=== PATIENT | female | born 1945 | race Caucasian/White ===

== ENCOUNTER → 2016-08-23 | Outpatient (REF) | payer MEDICARE, MEDICAID ==
[~2016-08-23] MED LIST: /ESOM40CA PO; ACET-654 PO; ACET650T12 PO; ALDA25TA PO; ALLE180T33 PO; ASPI325T PO; ATEN25TA PO; BACT800T5 PO; DICL250C70 PO; DIGO0.12 PO; DIGO0.126 OR; DOCU100C PO; DRIS50002 PO; FERR220E2 PO; FEXO60CA PO; FLAG500T PO; FURO20TA2 PO; LACT10SO29 PO; LASI20TA PO; LASI40TA PO; LISI25TA PO; NEXI40CA PO; OSTETAB PO; POTA10CA PO; PRAD150C PO; PRED10TA PO; PRED5TA PO; SERT-141 PO; SILV50CR TOP; SPIR25TA2 PO; TORS20TA2 PO; TUMS500C PO; TYLE325T5 PO; TYLE650T30 PO; VITA-113 SL; VITA100T PO; VITA50LO2 PO; VITAD1000T PO; VITMTA PO; [UNRECOGNIZED DRUG - CODE] MT
[2016-08-23 11:28] LABS: CREATININE FOR GFR 1.67 MG/DL (0.55-1.02); DIGOXIN LEVEL 1.4 NG/ML (0.5-2.0); GLOMERULAR FILTRATION RATE 32.4 (>45); POTASSIUM SERUM 4.2 MEQ/L (3.5-5.1)
== END ==
PROVIDERS: ATTEND Nurse Practitioner Family
DX: R60.9 Edema, unspecified (principal); Z51.81 Encounter for therapeutic drug level monitoring; Z79.899 Other long term (current) drug therapy; R06.02 Shortness of breath

== ENCOUNTER 2016-08-30 09:36 | Inpatient (IN) | payer MEDICARE, MEDICAID ==
[~2016-08-30] VITALS: Ht 165.1 cm; Wt 80.7 kg
[~2016-08-30 09:36] MED LIST changes: -ACET-654 PO; -FLAG500T PO; -LISI25TA PO; -POTA10CA PO; -SERT-141 PO; -TORS20TA2 PO; -VITA100T PO; -VITMTA PO
[2016-08-30 10:43] LABS: BASO % 0.4 % (0.0-1.0); EOS # 0.2 K/mm3 (0.0-0.50); EOS % 2.4 % (0.0-3.0); LARGE UNSTAINED CELL # 0.2 K/mm3 (0.0-0.4); LARGE UNSTAINED CELL % 2.4 % (0.0-4.0); LYMPH # 1.2 K/mm3 (1.5-4.5); LYMPH % 16.6 % (24.0-44.0); MEAN CORPUSCULAR HEMOGLOBIN 33.9 pg (27.0-33.0); MEAN CORPUSCULAR HGB CONC 35.1 g/dl (32.0-36.5); MEAN CORPUSCULAR VOLUME 96.6 fl (80.0-96.0); MONO # 0.6 K/mm3 (0.0-0.8); MONO % 8.9 % (0.0-5.0); NEUTROPHILS # 4.8 K/mm3 (1.8-7.7); NEUTROPHILS % 69.3 % (36.0-66.0); PLATELET COUNT, AUTOMATED 227 k/mm3 (150-450); RED CELL DISTRIBUTION WIDTH 12.5 % (11.5-14.5); WHITE BLOOD COUNT 6.9 K/mm3 (4.0-10.0)
--- NOTE | 2016-08-30 10:47 | REP ---
CT HEAD WITHOUT CONTRAST: HISTORY: Trauma. Areas of decreased attenuation are present in the periventricular white matter. This represents small vessel ischemic disease. There is no intraparenchymal hemorrhage, mass, or midline shift. The ventricular system and cortical sulci are dilated consistent with mild volume loss. There is no extracerebral collection. A matty cisterna magna is present. There is no fracture. The visualized sinuses are clear. IMPRESSION: 1. Small vessel ischemic disease. 2. Mild volume loss. Signed by Ranulfo Arnold MD 08/30/2016 11:01 A
--- NOTE | 2016-08-30 10:47 | REP ---
Left lower extremity venous Doppler: Indication: Left leg pain and swelling after fall. Comparison: Left lower extremity venous Doppler 01/11/2016. Findings: LEFT LOWER EXTREMITY FINDINGS: Color-flow, spectral wave, and olivas scale imaging were used to evaluate the lower extremity veins at common femoral, superficial femoral and popliteal venous levels. There is normal compressibility of veins at the above stated levels. There is normal response to augmentation of flow. The profunda femoris vein is also patent. IMPRESSION: No evidence of DVT in the left lower extremity. MTDD
[2016-08-30 11:15] LABS: ALBUMIN 3.7 GM/DL (3.2-5.2); ALBUMIN/GLOBULIN RATIO 1.32 (1.00-1.93); BILIRUBIN,DIRECT 0.2 MG/DL (0.0-0.2); BILIRUBIN,TOTAL 0.6 MG/DL (0.2-1.0); CALCIUM LEVEL 10.2 MG/DL (8.8-10.2); CREATININE FOR GFR 1.68 MG/DL (0.55-1.02); GLOMERULAR FILTRATION RATE 32.2 (>45); POTASSIUM SERUM 4.7 MEQ/L (3.5-5.1); TOTAL PROTEIN 6.5 GM/DL (6.4-8.2)
[2016-08-30 13:30] LABS: ABG BASE EXCESS -0.5 (-2.0-2.0); ABG DEVICE NASAL CANN; ABG HCO3 23.6 MEQ/L (22.0-26.0); ABG PARTIAL PRESSURE CO2 37.2 mmHg (35.0-45.0); ABG PARTIAL PRESSURE O2 107.6 mmHg (75.0-100.0); ABG TOTAL CO2 24.8 MEQ/L (23.0-31.0); ABG pH (ARTERIAL) 7.421 UNITS (7.350-7.450)
[2016-08-30] MEDS ORDERED: TORS20TA2 PO (13:34)
--- NOTE | 2016-08-30 13:38 | REP ---
Clinical: Acute shortness of breath . Comparison: 08/16/2015 . Findings: The mediastinum and cardiac silhouette are stable and within normal limits for portable technique. The lung rush are clear without acute consolidation, effusion, or pneumothorax. Skeletal structures are intact. Impression: Stable chest x-ray. No acute cardiopulmonary process appreciated. Signed by Kevin Jones MD 08/30/2016 01:30 P
[2016-08-30] MEDS ORDERED: LISI25TA PO (13:41)
[2016-08-30] MEDS ORDERED: PRED10TA PO (13:41)
[2016-08-30] MEDS ORDERED: SPIR25TA2 PO (13:41)
[2016-08-30] MEDS ORDERED: POTA10CA PO (13:41)
[2016-08-30] MEDS ORDERED: ACET-654 PO ×2 (13:41)
[2016-08-30] MEDS ORDERED: VITA100T PO (13:41)
[2016-08-30] MEDS ORDERED: SERT-141 PO (13:41)
[2016-08-30] MEDS ORDERED: VITMTA PO (13:43)
[2016-08-30] MEDS ORDERED: BISACODYL 5 MG TAB PO PRN (14:00)
[2016-08-30] MEDS ORDERED: ONDANSETRON 4MG/2ML VIAL (J2405) IV PRN (14:00)
[2016-08-30 14:58] LABS: OSMOLALITY URINE 399 MOSM/KG (500-800)
[2016-08-30] MEDS: NS 1,000 ML IV SCH (15:30)
[2016-08-30 16:30] VITALS: BP 96/53
--- NOTE | 2016-08-30 16:45 | EDDOCDS ---
Physician Documentation [facility] Name: Indira Willis Age: 71 yrs Sex: Female : 1945 Arrival Date: 08/30/2016 Time: 09:36 Bed 8 Private MD: Yusuf Disposition: 08/30/16 13:40 Hospitalization ordered by Elena Rizvi for Inpatient Admission. Preliminary diagnosis is Hypotension. - Bed requested for 4 [place]. - Status is Inpatient Admission. mlb1 - Condition is Stable. - Problem is new. - Symptoms are unchanged. Historical: - Allergies: Codeine Sulfate (Rash); - Home Meds: 1. Vitamin B-12 1,000 mcg Oral tab daily 2. prednisone 5 mg oral tab every other days alternates 5mg and 10 mg every other day 3. ferrous sulfate 220 mg/5 mL oral elix daily 4. vitamin B12 100mcg daily 5. multivitamin Oral tab daily 6. esomeprazole magnesium 40 mg Oral cpDR 1 cap once daily 7. digoxin 125 mcg Oral tab 1 tab once daily 8. atenolol 25 mg Oral tab 1 tab once daily 9. Drisdol 50,000 unit Oral cap once wkly fridays 10. Zoloft 50 mg Oral tab 1 tab once daily 11. Klor-Con 10 10 mEq Oral TbER 1 tab once daily 12. spironolactone 25 mg Oral tab 1 tab once daily 13. lisinopril 2.5 mg Oral tab once daily 14. torsemide 20 mg oral tab 1 tab once daily 15. Honey 180 mg Oral tab 1 tab once daily 16. Colace 100 mg oral cap 1 cap 2 times per day - PMHx: Atrial Fib; bladder CA; CHF; Cirrhosis; Diverticulosis; GERD; Hypercholesterolemia; Hypertension; Hiatal Hernia; - PSHx: Pacemaker Insertion; Cataract Surgery- Bilateral; Hernia repair; - Social history: Smoking status: unknown if patient ever smoked tobacco. No barriers to communication noted, The patient speaks fluent Congolese, Speaks appropriately for age. - Family history: Not pertinent. - : The pt / caregiver states he / she is not on anticoagulants. The pt / caregiver states he / she is not on anticoagulants. Home medication list is obtained from the facility MAR, Home medication list is obtained from the facility MAR. - Exposure Risk Screening:: None identified. None identified. Vital Signs: 08/30 09:47 BP 108 / 62; Pulse 71; Resp 20; Temp 96.6; Pulse Ox 100% ; Weight 78.93 kg / 174.01 jlf lbs; Height 5 ft. 5 in. (165.10 cm); Pain 4/10; 10:46 BP 72 / 40 (auto/); mlb1 10:46 Pulse 66 MON; Pulse Ox 97% ; mlb1 11:01 BP 69 / 42 (auto/); mlb1 11:02 Pulse 62 MON; Pulse Ox 98% ; mlb1 11:14 BP 72 / 48 (auto/); mlb1 11:15 Pulse 66 MON; Pulse Ox 99% ; mlb1 11:16 BP 82 / 48 (auto/); mlb1 11:16 Pulse 66 MON; Pulse Ox 100% ; mlb1 11:31 BP 88 / 50 (auto/); mlb1 11:31 Pulse 62 MON; Pulse Ox 100% ; mlb1 11:46 BP 100 / 56 (auto/); mlb1 11:46 Pulse 62 MON; Pulse Ox 98% ; mlb1 12:32 BP 113 / 62 Supine; Pulse 68; mlb1 12:32 BP 115 / 62 Sitting; Pulse 74; mlb1 12:32 BP 121 / 63 Standing; Pulse 73; mlb1 12:44 Pulse 64 MON; Pulse Ox 99% ; kc3 12:45 BP 80 / 47 (auto/); kc3 12:55 Pulse 64 MON; Pulse Ox 97% ; kc3 12:56 BP 88 / 51 (auto/); kc3 12:59 Pulse 64 MON; Pulse Ox 99% ; kc3 13:00 BP 78 / 51 (auto/); kc3 13:13 Pulse 62 MON; Pulse Ox 100% ; kc3 13:14 BP 98 / 56 (auto/); kc3 13:15 BP 83 / 65 (auto/); kc3 13:15 Pulse 60 MON; Pulse Ox 100% ; kc3 13:30 BP 106 / 56 (auto/); mlb1 13:30 Pulse 62 MON; Pulse Ox 99% ; mlb1 13:45 BP 104 / 61 (auto/); mlb1 13:45 Pulse 62 MON; Pulse Ox 96% ; mlb1 14:00 BP 94 / 51 (auto/); mlb1 14:00 Pulse 62 MON; Pulse Ox 98% ; mlb1 14:19 BP 104 / 69 (auto/); mlb1 14:19 Pulse 62 MON; Pulse Ox 100% ; mlb1 15:00 BP 91 / 56 (auto/); mlb1 15:00 Pulse 66 MON; Pulse Ox 100% ; mlb1 15:14 Pulse 64 MON; Pulse Ox 99% ; mlb1 15:14 BP 99 / 56; Pulse 62; Resp 16; Temp 97.1(O); Pulse Ox 100% on R/A; Pain 0/10; mlb1 15:15 BP 98 / 60 (auto/); mlb1 15:29 Pulse 62 MON; Pulse Ox 98% ; mlb1 15:30 BP 76 / 41 (auto/); mlb1 15:44 Pulse 64 MON; Pulse Ox 97% ; mlb1 15:45 BP 69 / 32 (auto/); mlb1 15:45 Pulse 60 MON; Pulse Ox 97% ; mlb1 15:46 BP 72 / 36 (auto/); mlb1 15:47 Pulse 70 MON; Pulse Ox 96% ; mlb1 15:48 Pulse 66 MON; Pulse Ox 97% ; mlb1 15:48 BP 80 / 46 (auto/); mlb1 15:49 BP 79 / 44 (auto/); mlb1 15:58 Pulse 66 MON; Pulse Ox 90% ; mlb1 15:59 BP 108 / 56 (auto/); mlb1 16:13 Pulse Ox 100% on R/A; mlb1 09:47 Body Mass Index 28.95 (78.93 kg, 165.10 cm) [facility] MDM: 09:56 Cotton Washer/Pulse Ox/q 15 min VS ordered. sd1 09:56 IV Saline Lock ordered. sd1 09:56 Rhythm Strip to chart ordered. sd1 09:56 Orthostatic VS ordered. sd1 09:56 CT Head Without Contrast Ordered. EDMS 09:56 CBC with Diff Ordered. EDMS 09:56 Cardiac Injury Profile Ordered. EDMS 09:56 Liver Profile Ordered. EDMS 09:56 MED Profile Ordered. EDMS 09:56 Thyroid Stimulating Hormone Ordered. EDMS 09:56 Troponin Ordered. EDMS 09:56 Type & Screen Ordered. EDMS 09:57 ECG WITH READING ER PHYS+CARDIAG ordered. EDMS 09:59 US Lower Extremity R/O DVT Ordered. EDMS 10:33 Financial registration complete. mm15 10:59 CBC with Diff Reviewed. sd1 11:15 NS 0.9% 500 ml IV at bolus once ordered. sd1 11:36 MED Profile Reviewed. sd1 11:36 Cardiac Injury Profile Reviewed. sd1 11:36 Liver Profile Reviewed. sd1 11:36 Thyroid Stimulating Hormone Reviewed. sd1 11:36 Troponin Reviewed. sd1 11:36 Type & Screen Reviewed. sd1 11:36 CT Head Without Contrast Reviewed. sd1 11:36 US Lower Extremity R/O DVT Reviewed. sd1 11:38 UA Ordered. EDMS 11:38 Urine,Osmolality Ordered. EDMS 11:38 Urine Culture Ordered. EDMS 11:44 [facility] Payment Agreement was scanned into [employer] and attached to record. mm15 12:40 Type & Screen Reviewed. sd1 12:42 BED REQUEST+ADM ordered. EDMS 12:44 Call Respiratory ordered. sd1 12:44 Chest, 1 View Ordered. EDMS 12:44 -Arterial Blood Gas Ordered. EDMS 12:44 Ammonia ([place] Tube on Ice, Not Pea Green) Ordered. EDMS 12:47 Call Respiratory complete. lbd 12:52 Lactic Acid (Cheng tube on ice) Ordered. EDMS 13:06 NS 0.9% 1000 ml IV at 150 mL/hr continuous ordered. sd1 13:17 NS 0.9% 500 ml IV at bolus once ordered. kc3 13:32 -Arterial Blood Gas Reviewed. sd1 13:32 Ammonia (Little Green Tube on Ice, Not Pea Green) Reviewed. sd1 13:32 Lactic Acid (Cheng tube on ice) Reviewed. sd1 13:58 PHYSICAL THERAPY EVAL & TREAT ordered. EDMS 13:59 Admission / Observation Status ordered. EDMS 13:59 NO ADDED SALT DIET ordered. EDMS 14:00 URINALYSIS Ordered. EDMS 14:48 Chest, 1 View Reviewed. sd1 Administered Medications: 11:19 Drug: NS 0.9% 500 ml [sodium chloride 0.9 % injection solution] Route: IV; Rate: bolus; mlb1 Site: right antecubital; 12:31 Follow up: IV Status: Completed infusion; see vs in NN mlb1 13:17 Drug: NS 0.9% 500 ml [sodium chloride 0.9 % intravenous solution] Route: IV; Rate: kc3 bolus; Site: right antecubital; 13:48 Drug: NS 0.9% 1000 ml [sodium chloride 0.9 % injection solution] Route: IV; Rate: 150 mlb1 mL/hr; Site: right antecubital; Signatures: Dispatcher [employer] EDMS Darlene Freedman MD MD sd1 Indira Melendrez, Irrigating Pump Operator Unit lbd Jm Patel RN RN mlb1 Stevenson Mayer mm15 Jhoan Lambert RN RN mts Jessika Alonzo RN RN kc3 The chart was reviewed and I authenticate all verbal orders and agree with the evaluation and treatment provided.Attachments: 11:44 [facility], [facility]1983 Payment Agreement mm15 MTDD
--- NOTE | 2016-08-30 16:45 | EDDOCDS ---
Nurse's Notes [facility] Name: Indira Willis Age: 71 yrs Sex: Female : 1945 Arrival Date: 08/30/2016 Time: 09:36 Bed 8 Private MD: Yusuf Diagnosis: Hypotension Presentation: 08/30 09:47 Presenting complaint: EMS states: Fell twice this am denies LOC c/o headache and neck mlb1 pain. Adult Sepsis Screening: The patient does not have new or worsening altered mentation. Patient's respiratory rate is less than 22. Systolic blood pressure is greater than 100. Patient has a qSOFA score of 0- Negative Sepsis Screen. Suicide/Homicide risk assessment- the patient denies having any suicidal and/or homicidal ideations and does not present with any other emotional, behavioral or mental health complaints. 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 Transition of care: patient was not received from another setting of care. 09:47 Acuity: SANDI Level 3 mlb1 09:47 Method Of Arrival: Walkin/Carried/Asstd mlb1 Triage Assessment: 10:02 General: Appears in no apparent distress, Behavior is appropriate for age, cooperative. mlb1 Pain: Denies pain. The patient is triaged at the bedside. See Assessment in Nurses Notes section of ED record. Neurological: Level of Consciousness is awake, alert, Oriented to person, place, time. Respiratory: Airway is patent Respiratory effort is even, unlabored. Historical: - Allergies: Codeine Sulfate (Rash); - Home Meds: 1. Vitamin B-12 1,000 mcg Oral tab daily 2. prednisone 5 mg oral tab every other days alternates 5mg and 10 mg every other day 3. ferrous sulfate 220 mg/5 mL oral elix daily 4. vitamin B12 100mcg daily 5. multivitamin Oral tab daily 6. esomeprazole magnesium 40 mg Oral cpDR 1 cap once daily 7. digoxin 125 mcg Oral tab 1 tab once daily 8. atenolol 25 mg Oral tab 1 tab once daily 9. Drisdol 50,000 unit Oral cap once wkly fridays 10. Zoloft 50 mg Oral tab 1 tab once daily 11. Klor-Con 10 10 mEq Oral TbER 1 tab once daily 12. spironolactone 25 mg Oral tab 1 tab once daily 13. lisinopril 2.5 mg Oral tab once daily 14. torsemide 20 mg oral tab 1 tab once daily 15. Honey 180 mg Oral tab 1 tab once daily 16. Colace 100 mg oral cap 1 cap 2 times per day - PMHx: Atrial Fib; bladder CA; CHF; Cirrhosis; Diverticulosis; GERD; Hypercholesterolemia; Hypertension; Hiatal Hernia; - PSHx: Pacemaker Insertion; Cataract Surgery- Bilateral; Hernia repair; - Social history: Smoking status: unknown if patient ever smoked tobacco. No barriers to communication noted, The patient speaks fluent Guamanian, Speaks appropriately for age. - Family history: Not pertinent. - : The pt / caregiver states he / she is not on anticoagulants. The pt / caregiver states he / she is not on anticoagulants. Home medication list is obtained from the facility MAR, Home medication list is obtained from the facility MAR. - Exposure Risk Screening:: None identified. None identified. Screenin:36 Screening information is obtained from the patient. Fall risk: At risk due to prior mlb1 history of falls, The following interventions are performed due to a positive Fall Risk Screen: Fall Risk is added to Special Handling on the patient Summary Screen. A Fall Risk Bracelet was applied to the patient. Side Rails are placed in the up position. A Call Blevins is given with instruction to call for help when getting out of bed. Fall Alert bracelet is placed on the patient. Assistance ADL's: Requires assistance with meal preparation, this assistance is provided by residence staff, medication administration, assistance is provided by residence staff. Abuse/DV Screen: The patient / caregiver reports he/she is: not in a situation that causes fear, pain or injury. Advance Directives: Currently, there is no health care proxy. There is no active DNR order. 15:17 Nutritional screening: No deficits noted. home support is adequate. mlb1 Assessment: 10:36 General: Appears in no apparent distress, comfortable, Behavior is anxious, mlb1 cooperative. Pain: Denies pain. Neurological: Level of Consciousness is awake, alert, Oriented to person, place, time. Respiratory: Airway is patent Respiratory effort is even, unlabored, Breath sounds are clear bilaterally. Musculoskeletal: Circulation, motion, and sensation intact Range of motion intact in all extremities. 11:30 Adult Sepsis Screening: The patient does not have new or worsening altered mentation. mlb1 Patient's respiratory rate is less than 22. Systolic blood pressure is greater than 100. Patient has a qSOFA score of 0- Negative Sepsis Screen. General: Appears in no apparent distress, comfortable, Behavior is anxious, cooperative. Pain: Denies pain. Neurological: Level of Consciousness is awake, alert, Oriented to person, place, time. Respiratory: No deficits noted. Derm: Skin is pink, warm & dry. normal. 12:33 Adult Sepsis Screening: The patient does not have new or worsening altered mentation. mlb1 Patient's respiratory rate is less than 22. Systolic blood pressure is greater than 100. Patient has a qSOFA score of 0- Negative Sepsis Screen. General: Appears in no apparent distress, comfortable, Behavior is anxious, cooperative. Pain: Denies pain. Neurological: Level of Consciousness is awake, alert, Oriented to person, place, time. Respiratory: No deficits noted. 13:20 General: Appears to be sleeping. Behavior is appropriate for age. Neurological:. kc3 Cardiovascular: Rhythm is regular. Respiratory: Airway is patent Respiratory effort is even, unlabored. Musculoskeletal: Circulation, motion, and sensation intact. 14:20 General: Appears in no apparent distress, comfortable, Behavior is appropriate for age, mlb1 cooperative. Pain: Denies pain. Neurological: Level of Consciousness is awake, alert, Oriented to person, place, time. Respiratory: No deficits noted. 15:17 General: Appears in no apparent distress, comfortable, Behavior is anxious, mlb1 cooperative. Pain: Denies pain. Neurological: Level of Consciousness is awake, alert, Oriented to person, place, time. Respiratory: Airway is patent Respiratory effort is even, unlabored. Derm: No deficits noted. 16:11 Adult Sepsis Screening: The patient does not have new or worsening altered mentation. mlb1 Patient's respiratory rate is less than 22. Systolic blood pressure is greater than 100. Patient has a qSOFA score of 0- Negative Sepsis Screen. General: Appears in no apparent distress, comfortable, Behavior is appropriate for age, cooperative. Pain: Denies pain. Vital Signs: 09:47 BP 108 / 62; Pulse 71; Resp 20; Temp 96.6; Pulse Ox 100% ; Weight 78.93 kg; Height 5 jlf ft. 5 in. (165.10 cm); Pain 4/10; 10:46 BP 72 / 40 (auto/); mlb1 10:46 Pulse 66 MON; Pulse Ox 97% ; mlb1 11:01 BP 69 / 42 (auto/); mlb1 11:02 Pulse 62 MON; Pulse Ox 98% ; mlb1 11:14 BP 72 / 48 (auto/); mlb1 11:15 Pulse 66 MON; Pulse Ox 99% ; mlb1 11:16 BP 82 / 48 (auto/); mlb1 11:16 Pulse 66 MON; Pulse Ox 100% ; mlb1 11:31 BP 88 / 50 (auto/); mlb1 11:31 Pulse 62 MON; Pulse Ox 100% ; mlb1 11:46 BP 100 / 56 (auto/); mlb1 11:46 Pulse 62 MON; Pulse Ox 98% ; mlb1 12:32 BP 113 / 62 Supine; Pulse 68; mlb1 12:32 BP 115 / 62 Sitting; Pulse 74; mlb1 12:32 BP 121 / 63 Standing; Pulse 73; mlb1 12:44 Pulse 64 MON; Pulse Ox 99% ; kc3 12:45 BP 80 / 47 (auto/); kc3 12:55 Pulse 64 MON; Pulse Ox 97% ; kc3 12:56 BP 88 / 51 (auto/); kc3 12:59 Pulse 64 MON; Pulse Ox 99% ; kc3 13:00 BP 78 / 51 (auto/); kc3 13:13 Pulse 62 MON; Pulse Ox 100% ; kc3 13:14 BP 98 / 56 (auto/); kc3 13:15 BP 83 / 65 (auto/); kc3 13:15 Pulse 60 MON; Pulse Ox 100% ; kc3 13:30 BP 106 / 56 (auto/); mlb1 13:30 Pulse 62 MON; Pulse Ox 99% ; mlb1 13:45 BP 104 / 61 (auto/); mlb1 13:45 Pulse 62 MON; Pulse Ox 96% ; mlb1 14:00 BP 94 / 51 (auto/); mlb1 14:00 Pulse 62 MON; Pulse Ox 98% ; mlb1 14:19 BP 104 / 69 (auto/); mlb1 14:19 Pulse 62 MON; Pulse Ox 100% ; mlb1 15:00 BP 91 / 56 (auto/); mlb1 15:00 Pulse 66 MON; Pulse Ox 100% ; mlb1 15:14 Pulse 64 MON; Pulse Ox 99% ; mlb1 15:14 BP 99 / 56; Pulse 62; Resp 16; Temp 97.1(O); Pulse Ox 100% on R/A; Pain 0/10; mlb1 15:15 BP 98 / 60 (auto/); mlb1 15:29 Pulse 62 MON; Pulse Ox 98% ; mlb1 15:30 BP 76 / 41 (auto/); mlb1 15:44 Pulse 64 MON; Pulse Ox 97% ; mlb1 15:45 BP 69 / 32 (auto/); mlb1 15:45 Pulse 60 MON; Pulse Ox 97% ; mlb1 15:46 BP 72 / 36 (auto/); mlb1 15:47 Pulse 70 MON; Pulse Ox 96% ; mlb1 15:48 Pulse 66 MON; Pulse Ox 97% ; mlb1 15:48 BP 80 / 46 (auto/); mlb1 15:49 BP 79 / 44 (auto/); mlb1 15:58 Pulse 66 MON; Pulse Ox 90% ; mlb1 15:59 BP 108 / 56 (auto/); mlb1 16:13 Pulse Ox 100% on R/A; mlb1 09:47 Body Mass Index 28.95 (78.93 kg, 165.10 cm) [facility] Vitals: 10:36 Log In Time N/A - ambulance arrival. mlb1 ED Course: 09:37 Patient visited by Indira Melendrez Engineering Intern. lbd 09:37 Yusuf is Private Physician. lbd 09:37 Patient moved to Waiting lbd 09:38 Patient moved to 8 lbd 09:46 Darlene Freedman MD is Attending Physician. sd1 09:46 Patient visited by Darlene Freedman MD. sd1 09:47 Patient visited by Jm Patel RN. mlb1 09:48 Patient visited by Gemini Reynoso PCA. jlf 09:48 Triage Initiated mlb1 10:06 Patient visited by Gemini Reynoso PCA. jlf 10:06 Patient visited by Gemini Reynoso PCA. jlf 10:06 EKG done. (by ED staff). Reviewed by Darlene Freedman MD. jlf 10:35 Type & Screen Sent. mlb1 10:35 CBC with Diff Sent. mlb1 10:35 Cardiac Injury Profile Sent. mlb1 10:35 Liver Profile Sent. mlb1 10:35 MED Profile Sent. mlb1 10:35 Thyroid Stimulating Hormone Sent. mlb1 10:35 Troponin Sent. mlb1 10:36 Inserted saline lock: 20 gauge in right antecubital area and blood collected. The mlb1 patient tolerated the procedure well. 10:38 Patient visited by Jm Patel, CHRIS. mlb1 11:18 Patient visited by Gemini Reynoso PCA. jlf 11:20 The patient / caregiver is instructed regarding the plan of care and ED course. mlb1 11:29 CT Head Without Contrast Returned. EDMS 11:29 US Lower Extremity R/O DVT Returned. EDMS 11:33 Patient visited by Gemini Reynoso PCA. jlf 11:44 [facility] Payment Agreement was scanned into [employer] and attached to record. mm15 12:33 Patient visited by Jm Patel RN. mlb1 12:33 No procedures done that require assistance. mlb1 12:59 Lactic Acid (Cheng tube on ice) Sent. jrd 12:59 Ammonia (Little Green Tube on Ice, Not Pea Green) Sent. jrd 13:23 Patient visited by Jessika Alonzo RN. kc3 13:27 -Arterial Blood Gas Sent. js11 13:40 Elena Rizvi is Hospitalizing Provider. sd1 14:14 Chest, 1 View Returned. EDMS 14:34 URINALYSIS Sent. mlb1 14:37 Urine Culture Sent. mlb1 14:37 Urine,Osmolality Sent. mlb1 14:37 UA Sent. mlb1 14:47 Patient visited by Kenna Sy PCA. rs6 14:47 Diet: Patient given regular meal. Tolerated well. rs6 16:15 Patient visited by Jm Patel, CHRIS. mlb1 Administered Medications: 11:19 Drug: NS 0.9% 500 ml [sodium chloride 0.9 % injection solution] Route: IV; Rate: bolus; mlb1 Site: right antecubital; 12:31 Follow up: IV Status: Completed infusion; see vs in NN mlb1 13:17 Drug: NS 0.9% 500 ml [sodium chloride 0.9 % intravenous solution] Route: IV; Rate: kc3 bolus; Site: right antecubital; 13:48 Drug: NS 0.9% 1000 ml [sodium chloride 0.9 % injection solution] Route: IV; Rate: 150 mlb1 mL/hr; Site: right antecubital; Intake: RT: 13:27 ABG's drawn from right radial artery allens test done and positive pressure held for 5 js11 minutes no bleeding noted specimen sent pt. tolerated well. Order Results: Lab Order: CBC with Diff; SPEC'M 08/30/16 10:33 Test: WHITE BLOOD COUNT; Value: 6.9; Range: 4.0-10.0; Units: K/mm3; Status: F Test: RED BLOOD COUNT; Value: 3.54; Range: 4.00-5.40; Abnormal: Below low normal; Units: M/mm3; Status: F Test: HEMOGLOBIN; Value: 12.0; Range: 12.0-16.0; Units: g/dl; Status: F Test: HEMATOCRIT; Value: 34.1; Range: 36.0-47.0; Abnormal: Below low normal; Units: %; Status: F Test: MEAN CORPUSCULAR VOLUME; Value: 96.6; Range: 80.0-96.0; Abnormal: Above high normal; Units: fl; Status: F Test: MEAN CORPUSCULAR HEMOGLOBIN; Value: 33.9; Range: 27.0-33.0; Abnormal: Above high normal; Units: pg; Status: F Test: MEAN CORPUSCULAR HGB CONC; Value: 35.1; Range: 32.0-36.5; Units: g/dl; Status: F Test: RED CELL DISTRIBUTION WIDTH; Value: 12.5; Range: 11.5-14.5; Units: %; Status: F Test: PLATELET COUNT, AUTOMATED; Value: 227; Range: 150-450; Units: k/mm3; Status: F Test: NEUTROPHILS %; Value: 69.3; Range: 36.0-66.0; Abnormal: Above high normal; Units: %; Status: F Test: LYMPH %; Value: 16.6; Range: 24.0-44.0; Abnormal: Below low normal; Units: %; Status: F Test: MONO %; Value: 8.9; Range: 0.0-5.0; Abnormal: Above high normal; Units: %; Status: F Test: EOS %; Value: 2.4; Range: 0.0-3.0; Units: %; Status: F Test: BASO %; Value: 0.4; Range: 0.0-1.0; Units: %; Status: F Test: LARGE UNSTAINED CELL %; Value: 2.4; Range: 0.0-4.0; Units: %; Status: F Test: NEUTROPHILS #; Value: 4.8; Range: 1.8-7.7; Units: K/mm3; Status: F Test: LYMPH #; Value: 1.2; Range: 1.5-4.5; Abnormal: Below low normal; Units: K/mm3; Status: F Test: MONO #; Value: 0.6; Range: 0.0-0.8; Units: K/mm3; Status: F Test: EOS #; Value: 0.2; Range: 0.0-0.50; Units: K/mm3; Status: F Test: BASO #; Value: 0.0; Range: 0.0-0.2; Units: K/mm3; Status: F Test: LARGE UNSTAINED CELL #; Value: 0.2; Range: 0.0-0.4; Units: K/mm3; Status: F Lab Order: Cardiac Injury Profile; SPEC'M 08/30/16 10:33 Test: CPK CREATINE PHOSPHOKINASE; Value: 53; Range: 26-192; Units: U/L; Status: F Test: CK-MB VALUE MASS; Value: 1.8; Range: 0.0-3.6; Units: NG/ML; Status: F Test: MB/CK RELATIVE INDEX; Value: 3.39; Range: < OR =4; Status: F Test Note: ; DIAGNOSIS CRITERIA MMB ng/ml Relative Index (RI) NON-AMI < or = 5 N/A CHENG ZONE > 5 < or = 4 AMI > 5 > 4 Lab Order: Liver Profile; SPEC'M 08/30/16 10:33 Test: AST/SGOT; Value: 19; Range: 15-37; Units: U/L; Status: F Test: ALT/SGPT; Value: 29; Range: 12-78; Units: U/L; Status: F Test: ALKALINE PHOSPHATASE; Value: 76; Range: 45-117; Units: U/L; Status: F Test: BILIRUBIN,TOTAL; Value: 0.6; Range: 0.2-1.0; Units: MG/DL; Status: F Test: BILIRUBIN,DIRECT; Value: 0.2; Range: 0.0-0.2; Units: MG/DL; Status: F Test: TOTAL PROTEIN; Value: 6.5; Range: 6.4-8.2; Units: GM/DL; Status: F Test: ALBUMIN; Value: 3.7; Range: 3.2-5.2; Units: GM/DL; Status: F Test: ALBUMIN/GLOBULIN RATIO; Value: 1.32; Range: 1.00-1.93; Status: F Lab Order: MED Profile; SPEC'M 08/30/16 10:33 Test: GLUCOSE, FASTING; Value: 98; Range: 80-110; Units: MG/DL; Status: F Test: BLOOD UREA NITROGEN; Value: 108; Range: 7-18; Abnormal: Above high normal; Units: MG/DL; Status: F Test: CREATININE FOR GFR; Value: 1.68; Range: 0.55-1.02; Abnormal: Above high normal; Units: MG/DL; Status: F Test: GLOMERULAR FILTRATION RATE; Value: 32.2; Range: >45; Abnormal: Below low normal; Status: F Test: SODIUM LEVEL; Value: 138; Range: 136-145; Units: MEQ/L; Status: F Test: POTASSIUM SERUM; Value: 4.7; Range: 3.5-5.1; Units: MEQ/L; Status: F Test: CHLORIDE LEVEL; Value: 100; Range: 98-107; Units: MEQ/L; Status: F Test: CARBON DIOXIDE LEVEL; Value: 29; Range: 21-32; Units: MEQ/L; Status: F Test: ANION GAP; Value: 9; Range: 8-16; Units: MEQ/L; Status: F Test: CALCIUM LEVEL; Value: 10.2; Range: 8.8-10.2; Units: MG/DL; Status: F Test Note: ; Units are mL/min/1.73 m2 Chronic Kidney Disease Staging per NKF: Stage I & II GFR >=60 Normal to Mildly Decreased Stage III GFR 30-59 Moderately Decreased Stage IV GFR 15-29 Severely Decreased Stage V GFR <15 Very Little GFR Left ESRD GFR <15 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 0.10-1.50 ng/ml Increased Risk for Adverse Clinical Events. Evaluation of additional criterion and/or repeat testing in 2-6 hours is suggested to rule out myocardial damage. >= 1.50 ng/ml Indicative of Myocardial Injury. Lab Order: Type & Screen; [facility] 08/30/16 10:33 Test: BLOOD TYPE; Value: A POS; Status: F Test: AB SCREEN (INDIRECT KENNY)GEL; Value: NEGATIVE; Status: F Lab Order: UA; [facility] 08/30/16 14:31 Test: APPEARANCE, URINE; Value: CLEAR; Range: CLEAR; Status: F Test: COLOR, URINE; Value: YELLOW; Range: YELLOW; Status: F Test: PH,URINE; Value: 6.0; Range: 5.0-9.0; Units: UNITS; Status: F Test: SPECIFIC GRAVITY URINE AUTO; Value: 1.009; Range: 1.002-1.035; Status: F Test: PROTEIN, URINE AUTO; Value: NEGATIVE; Range: NEGATIVE; Units: mg/dL; Status: F Test: GLUCOSE, URINE (UA) AUTO; Value: NEGATIVE; Range: NEGATIVE; Units: mg/dL; Status: F Test: KETONE, URINE AUTO; Value: NEGATIVE; Range: NEGATIVE; Units: mg/dL; Status: F Test: UROBILINOGEN, URINE AUTO; Value: 0.2; Range: 0.0-2.0; Units: mg/dL; Status: F Test: BILIRUBIN, URINE AUTO; Value: NEGATIVE; Range: NEGATIVE; Status: F Test: NITRITE, URINE AUTO; Value: NEGATIVE; Range: NEGATIVE; Status: F Test: LEUKOCYTE ESTERASE, URINE AUTO; Value: NEGATIVE; Range: NEGATIVE; Status: F Test: BLOOD, URINE BLOOD; Value: NEGATIVE; Range: NEGATIVE; Status: F Test: WBC, URINE AUTO; Value: 0; Range: 0-3; Units: /HPF; Status: F Test: RBC, URINE AUTO; Value: 5; Range: 0-3; Abnormal: Above high normal; Units: /HPF; Status: F Test: BACTERIA, URINE AUTO; Value: NEGATIVE; Range: NEGATIVE; Status: F Test: SQUAMOUS EPITHELIAL CELL UR AU; Value: 0; Range: 0-6; Units: /HPF; Status: F Test: MUCUS, URINE; Value: SMALL; Range: NEGATIVE; Status: F Test: HYALINE CAST, URINE AUTO; Value: 0; Range: 0-1; Units: /LPF; Status: F Lab Order: Urine,Osmolality; [facility] 08/30/16 14:31 Test: OSMOLALITY URINE; Value: 399; Range: 500-800; Abnormal: Below low normal; Units: MOSM/KG; Status: F Lab Order: -Arterial Blood Gas; [facility] 08/30/16 13:22 Test: ABG pH (ARTERIAL); Value: 7.421; Range: 7.350-7.450; Units: UNITS; Status: F Test: ABG PARTIAL PRESSURE CO2; Value: 37.2; Range: 35.0-45.0; Units: mmHg; Status: F Test: ABG PARTIAL PRESSURE O2; Value: 107.6; Range: 75.0-100.0; Abnormal: Above high normal; Units: mmHg; Status: F Test: ABG TOTAL CO2; Value: 24.8; Range: 23.0-31.0; Units: MEQ/L; Status: F Test: ABG HCO3; Value: 23.6; Range: 22.0-26.0; Units: MEQ/L; Status: F Test: ABG BASE EXCESS; Value: -0.5; Range: -2.0-2.0; Status: F Test: ABG STANDARD HCO3; Value: 24.0; Range: 22.0-26.0; Units: MEQ/L; Status: F Test: ABG O2 SATURATION; Value: 97.9; Range: 95.0-99.0; Units: %; Status: F Test: ABG DEVICE; Value: NASAL MENDOZA; Status: F Lab Order: Ammonia ([place] Tube on Ice, Not Pea Green); SPEC'M 08/30/16 12:57 Test: AMMONIA; Value: 18; Range: <32; Units: uMOL/L; Status: F Lab Order: Lactic Acid (Cheng tube on ice); SPEC'M 08/30/16 12:57 Test: LACTIC ACID LEVEL, LACTATE; Value: 0.8; Range: 0.4-2.0; Units: MMOL/L; Status: F Radiology Order: CT Head Without Contrast Test: CT Head Without Contrast REASON FOR EXAMINATION: Trauma; CT HEAD WITHOUT CONTRAST:; ; HISTORY: Trauma.; ; Areas of decreased attenuation are present in the periventricular white matter.; This represents small vessel ischemic disease. There is no intraparenchymal; hemorrhage, mass, or midline shift. The ventricular system and cortical sulci; are dilated consistent with mild volume loss. There is no extracerebral; collection. A matty cisterna magna is present. There is no fracture. The; visualized sinuses are clear.; ; IMPRESSION:; ; 1. Small vessel ischemic disease.; ; 2. Mild volume loss.; ; ; Signed by; Ranulfo Arnold MD 08/30/2016 11:01 A; Radiology Order: US Lower Extremity R/O DVT Test: US Lower Extremity R/O DVT REASON FOR EXAMINATION: swelling; Left lower extremity venous Doppler:; ; Indication: Left leg pain and swelling after fall.; ; Comparison: Left lower extremity venous Doppler 01/11/2016.; ; Findings:; ; LEFT LOWER EXTREMITY FINDINGS:; Color-flow, spectral wave, and cheng scale imaging were used to evaluate the lower; extremity vein, common femoral, superficial femoral and popliteal venous levels.; There is normal compressibility of veins at the above stated levels. There is; normal response to augmentation of flow. The profunda femoris vein is also; patent.; ; IMPRESSION:; No evidence of DVT in the left lower extremity.; ; ; ; ; ; ; ; Unreviewed; Radiology Order: Chest, 1 View Test: Chest, 1 View REASON FOR EXAMINATION: Shortness of Breath; Clinical: Acute shortness of breath .; ; Comparison: 08/16/2015 .; ; Findings:; The mediastinum and cardiac silhouette are stable and within normal limits for; portable technique. The lung rush are clear without acute consolidation,; effusion, or pneumothorax. Skeletal structures are intact.; ; Impression:; Stable chest x-ray. No acute cardiopulmonary process appreciated.; ; ; Signed by; Kevin Jones MD 08/30/2016 01:30 P; Outcome: 13:40 Decision to Hospitalize by Provider. sd1 15:06 CT Study completed. mlb1 16:12 Discharge Assessment: Patient awake, alert and oriented x 3. No cognitive and/or mlb1 functional deficits noted. Patient verbalized understanding of disposition instructions. patient administered narcotics - no. The following High Risk Discharge criteria are identified: None. Admitted to Med/Surg via stretcher, with chart. Condition: good. Property :Personal belongings accompany Pt. 16:43 Patient left the ED. mlb1 Signatures: Dispatcher [employer] EDMS Darlene Freedman MD MD sd1 Indira Melendrez, Engineering Intern Unit lbd Jm Patel RN RN mlb1 Xiang Watson js11 Stevenson Mayer mm15 Gemini Reynoso, COUPLES THERAPIST COUPLES THERAPIST Dieudonne Gallegos, COUPLES THERAPIST COUPLES THERAPIST jrd Kenna Sy, COUPLES THERAPIST COUPLES THERAPIST rs6 Jessika Alonzo,RN RN kc3 MTDD
[2016-08-30 17:35] VITALS: BP 98/62
[2016-08-30] MEDS ORDERED: ACETAMINOPHEN TAB 650MG DOSE (2X325MG) PO PRN (17:45)
[2016-08-30] MEDS ORDERED: FEXOFENADINE 60 MG TAB PO PRN (17:45)
[2016-08-30] MEDS ORDERED: DOCUSATE SODIUM 100 MG CAP PO PRN (17:45)
--- NOTE | 2016-08-30 17:51 | HPEPDOC ---
Medical History and Physical Date of Admission Aug 30, 2016 at 13:53 History and Physical Primary care provider: Dr. Goldberg Date of Admission: 08/30/2016 CHIEF COMPLAINT: Fell twice this morning at [facility] HISTORY OF PRESENT ILLNESS: Miss Willis is a 71-year-old female who was brought to the emergency department this morning after she had sustained 2 falls. She states that she feels as though she has been urinating quite a bit the past few days, and blames it on her diuretic, however she also mentions that she is also had loose stools for the past week or so that she has not been telling anybody about. She states that this morning she came out of the bathroom and was standing in front of the closet, felt off balance reached out to grab the handle of the closet, missed it, and fell down scratching her right forearm on the way down, but otherwise sustained no injuries and had no loss of consciousness and did not hit her head at that time. Later she was walking down the hallway using her walker as she usually does, and she once again felt a little lightheaded, lost her balance, and fell down, this time striking her head. Again she did not lose consciousness at that time, but the decision was made to bring her to the emergency department. She is an excellent historian, she knows when and where she is, and remembers her birthdate among many other details quite well. ALLERGIES: Codeine PAST MEDICAL HISTORY: Atrial fibrillation with history of tachybrady syndrome and placement of pacemaker Diastolic CHF with chronic lower extremity edema Hypertension Hyperlipidemia Osteoarthritis for which she is taking chronic steroids History of bladder cancer GERD Chronic iron deficiency anemia Seasonal allergies Varicose veins of bilateral lower extremities History of liver cirrhosis PAST SURGICAL HISTORY: Bilateral cataracts Cystoscopy Pacemaker insertion SOCIAL HISTORY: Lives at [facility], denies any smoking, alcohol use, illicit drug use. Walks with a walker FAMILY HISTORY: Noncontributory REVIEW OF SYSTEMS: Constitutional: Patient denies fevers, chills, night sweats, recent weight gain/ loss. HEENT: Patient denies blurred or double vision, transient visual disturbances, postnasal drip, epistaxis, sore throat, difficulty chewing or swallowing food. Cardiovascular: Patient denies chest discomfort/pain, palpitations, exertional dyspnea, orthopnea, she does complain of chronic edema of the lower extremities. Respiratory: Patient denies dyspnea, wheezing, cough, hemoptysis, sputum production. Gastrointestinal: Patient denies nausea, vomiting, diarrhea, constipation, abdominal pain, melena, hematochezia, hematemesis, jaundice. PHYSICAL EXAMINATION: Vitals: Blood pressures 79/44, pulse 66 and irregularly irregular, respirations 20, temperature 96.6, pulse ox is 100% on room air, weight is 79 kg, height 5 feet 5 inches, BMI 29 General: She was sleeping when I entered the room, however she was easily arousable. She is awake alert and oriented 3, and very talkative. She denies any feelings of malaise. Denies fevers, chills, night sweats, or recent weight changes. HEENT: Head normocephalic atraumatic, pupils equally reactive to light and accommodation, conjunctiva are pink, sclera are nonicteric, buccal mucosa is pink and moist with no lesions in the oropharynx. Hearing is grossly intact to conversation. Respiratory: Clear to auscultation bilaterally with no wheezes, rales, or rhonchi. Cardiovascular: Irregularly irregular with variable S1 and S2. Abdomen: Soft, nontender, nondistended, no hepatosplenomegaly appreciated. Bowel sounds present. Extremities: 2+ pulses in the radial and dorsalis pedis bilaterally. No evidence of clubbing or cyanosis. She does have trace pitting edema in the lower extremities bilaterally, however she has decreased turgor in the bilateral upper extremities with decreased capillary refill ELECTROCARDIOGRAM: Atrial fibrillation with multiple paced ventricular beats IMAGING: Head CT shows small vessel ischemic disease and mild volume loss, however there is no fracture or other acute findings. Left lower extremity venous Doppler was performed and she did have some left leg pain and swelling after her fall, this shows no evidence of DVT in her left lower extremity. 1 view chest x-ray was also performed which was read as stable with no acute cardiopulmonary process appreciated ASSESSMENT: 1. Hypotension, likely secondary to dehydration due to her diarrhea and continued diuretic use 2. Uremia 3. Atrial fibrillation with Tachybrady syndrome with pacemaker present. 4. Diastolic congestive heart failure 5. History of liver cirrhosis 6. GERD 7. Chronic hypertension 8. Osteoarthritis for which she is taking chronic steroids 9. Chronic iron deficiency anemia 10. Chronic kidney disease with a baseline of approximately 1.2-1.4 PLAN: We will discontinue her home medications of lisinopril, spironolactone, and torsemide, but will continue giving her atenolol and digoxin at this time. She has already received 2 L of normal saline in the emergency department and her pressures are responding, we will continue with fluid administration and continue to reevaluate her fluid status. Will also order an echocardiogram as she has the diagnosis of diastolic CHF but has no echocardiogram on record. She does not meet the criteria for acute kidney injury as she is only mildly elevated from her baseline at this time, however she does have a significantly elevated BUN indicating dehydration, therefore we will hold nephrotoxic antihypertensives as indicated above, and it is anticipated that the administration of fluids will correct this as well. Otherwise, we will continue with the remainder of her home regimen for her chronic conditions. My preceptor for this patient encounter was physically present in the building during the encounter and was fully available. As needed, all aspects of the patient interview, examination, medical decision making process, and medical care plan development were reviewed and approved by the preceptor. Preceptor is aware and concurs with the plan as stated in the body of this note and will attest to such by his/her cosignature. Vital Signs See above Laboratory Data Labs 24H Laboratory Tests 2 08/30/16 10:33: Aspartate Amino Transf (AST/SGOT) 19, Alanine Aminotransferase (ALT/SGPT) 29, Alkaline Phosphatase 76, Total Bilirubin 0.6, Direct Bilirubin 0.2, Albumin 3.7 , Albumin/Globulin Ratio 1.32, Anion Gap 9, White Blood Count 6.9, Red Blood Count 3.54L, Hemoglobin 12.0, Hematocrit 34.1L, Mean Corpuscular Volume 96.6H, Mean Corpuscular Hemoglobin 33.9H, Mean Corpuscular Hemoglobin Concent 35.1, Red Cell Distribution Width 12.5, Platelet Count 227, Neutrophils (%) (Auto) 69.3H, Lymphocytes (%) (Auto) 16.6L, Monocytes (%) (Auto) 8.9H, Eosinophils (%) (Auto) 2.4, Basophils (%) (Auto) 0.4, Neutrophils # (Auto) 4.8, Lymphocytes # ( Auto) 1.2L, Monocytes # (Auto) 0.6, Eosinophils # (Auto) 0.2, Basophils # (Auto ) 0.0, Calcium Level 10.2, Creatine Kinase MB 1.8, Creatine Kinase MB Relative Index 3.39, Glomerular Filtration Rate 32.2L, Large Unclassified Cells # 0.2, Large Unclassified Cells % 2.4, Thyroid Stimulating Hormone (TSH) 1.080, Total Creatine Kinase 53, Total Protein 6.5, Troponin I 0.02 08/30/16 12:57: Ammonia 18, Lactic Acid Level 0.8 08/30/16 13:22: Arterial Blood pH 7.421, Arterial Blood Partial Pressure CO2 37.2, Arterial Blood Partial Pressure O2 107.6H, Arterial Blood Total CO2 24.8, Arterial Blood HCO3 23.6, Arterial Blood Base Excess -0.5, Arterial Blood Oxygen Saturation 97.9, Blood Gas Bicarbonate Standard 24.0, Oxygen Delivery Device NASAL MENDOZA 08/30/16 14:31: Urine Amorphous Sediment , Urine Appearance CLEAR, Urine Color YELLOW, Urine pH 6.0, Urine Specific [place] 1.009, Urine Protein NEGATIVE, Urine Glucose (UA) NEGATIVE, Urine Ketones NEGATIVE, Urine Urobilinogen 0.2, Urine Bilirubin NEGATIVE, Urine Leukocyte Esterase NEGATIVE, Urine Bacteria (Auto) NEGATIVE, Urine Blood NEGATIVE, Urine Calcium Carbonate Cryst(Auto) , Urine Calcium Oxalate Cryst (Auto) , Urine Calcium Phosphate Maribell (Auto) , Urine Cellular Casts , Urine Cystine Crystals , Urine Granular Casts (Auto) , Urine Hyaline Casts (Auto) 0, Urine Leucine Crystals , Urine Mucus (Auto) SMALL, Urine Nitrite NEGATIVE, Urine Oval Fat Bodies (Auto) , Urine RBC (Auto) 5H, Urine Random Osmolality 399L, Urine Renal Epithelial Cells , Urine Sperm (Auto) , Urine Squamous Epithelial Cells 0, Urine Transitional Epithelial Cells , Urine Trichomonas (Auto) , Urine Triple Phosphate Cryst (Auto) , Urine Tyrosine Crystals , Urine Uric Acid Crystals (Auto) , Urine WBC (Auto) 0, Urine Waxy Casts (Auto) , Urine Yeast-Like Cells (Auto) CBC/BMP Laboratory Tests 08/30/16 10:33 Red Blood Count 3.54 L, Mean Corpuscular Volume 96.6 H, Mean Corpuscular Hemoglobin 33.9 H, Mean Corpuscular Hemoglobin Concent 35.1, Red Cell Distribution Width 12.5, Neutrophils (%) (Auto) 69.3 H, Lymphocytes (%) (Auto) 16.6 L, Monocytes (%) (Auto) 8.9 H, Eosinophils (%) (Auto) 2.4, Basophils (%) ( Auto) 0.4, Neutrophils # (Auto) 4.8, Lymphocytes # (Auto) 1.2 L, Monocytes # ( Auto) 0.6, Eosinophils # (Auto) 0.2, Basophils # (Auto) 0.0 Microbiology Microbiology 08/30/16 Urine Culture, Received Pending Home Medications Scheduled (Ferrous Sulfate) 220 Mg/5 Ml Liq 3 TSP PO DAILY TAKE WITH MEAL, MIX WITH JUICE Acetaminophen (Acetaminophen) 325 Mg Tab 650 MG PO BID Atenolol (Atenolol) 25 Mg Tab 25 MG PO DAILY Cyanocobalamin (Vitamin B-12) 100 Mcg Tab 100 MCG PO DAILY Digoxin (Digoxin) 0.125 Mg Tab 0.125 MG PO DAILY Esomeprazole Magnesium Trihydr (Nexium) 40 Mg Cap 40 MG PO DAILY Lisinopril (Lisinopril) 2.5 Mg Tab 2.5 MG PO DAILY Multivitamins *[facility] STOCKED* (Thera M Plus *[facility] STOCKED*) 1 Tab Tab 1 TAB PO DAILY Potassium Chloride (Klor-Con M10) 10 Meq Tabcr 10 MEQ PO DAILY Prednisone (Prednisone) 5 Mg Tab 5 MG PO Q2D ALTERNATE WITH 10MG TABLET Prednisone (Prednisone) 10 Mg Tab 10 MG PO Q2D ALTERNATE WITH 5MG TABLET Sertraline Hcl (Sertraline HCl) 50 Mg Tab 50 MG PO DAILY Spironolactone (Spironolactone) 25 Mg Tab 25 MG PO DAILY Torsemide (Torsemide) 20 Mg Tab 20 MG PO QPM TAKE AT 1700 Vitamin D (Drisdol) 50,000 Unit Cap 50,000 UNIT PO QWEEK FRIDAYS Scheduled PRN Acetaminophen (Acetaminophen) 325 Mg Tab 650 MG PO Q4H PRN PRN PAIN Docusate Sodium (Docusate Sodium) 100 Mg Cap 100 MG PO BID PRN PRN CONSTIPATION Fexofenadine Hydrochloride (Honey Allergy) 180 Mg Tab 180 MG PO DAILY PRN PRN ALLERGIES Allergies Coded Allergies: Codeine (Verified Allergy, Intermediate, RASH, N&V, 11/27/12) VENITA SUAREZ DO Aug 30, 2016 17:51 FAWAD NICHOLS MD Aug 30, 2016 22:17
--- NOTE | 2016-08-30 19:57 | ECGEPIP ---
Stationary ECG Study [facility] - ED Test Date: 2016-08-30 Pat Name: MARIO ANDREW Department: Room: - Gender: F Car Inspector: red : 1945 Requested By: Darlene Freedman Order Number: [id number] Reading MD: Darlene Freedman Measurements Intervals [place] Rate: 77 P: OR: 0 QRS: 30 QRSD: 111 T: 40 QT: 352 QTc: 398 Interpretive Statements ATRIAL FIBRILLATION NSTTW ABNORMALITY ELECTRONIC VENTRICULAR PACEMAKER -- CONTOUR ANALYSIS BASED ON INTRINSIC RHYTHM POSSIBLE LATERAL MYOCARDIAL INFARCTION, PROBABLY OLD ABNORMAL RHYTHM ECG Electronically Signed On 08-30-2016 19:57:18 EST by Darlene Freedman
[2016-08-30 22:00] VITALS: BP 98/56
[2016-08-30] MEDS: ACETAMINOPHEN TAB 650MG DOSE (2X325MG) PO SCH (22:01)
[2016-08-31] MEDS: NS 1,000 ML IV SCH (03:48)
[2016-08-31 06:00] VITALS: BP 114/79
[2016-08-31 07:12] LABS: BASO % 0.4 % (0.0-1.0); EOS # 0.2 K/mm3 (0.0-0.50); EOS % 3.2 % (0.0-3.0); LARGE UNSTAINED CELL # 0.1 K/mm3 (0.0-0.4); LARGE UNSTAINED CELL % 1.5 % (0.0-4.0); LYMPH # 1.4 K/mm3 (1.5-4.5); LYMPH % 24.3 % (24.0-44.0); MEAN CORPUSCULAR HEMOGLOBIN 33.2 pg (27.0-33.0); MEAN CORPUSCULAR HGB CONC 33.8 g/dl (32.0-36.5); MEAN CORPUSCULAR VOLUME 98.4 fl (80.0-96.0); MONO # 0.4 K/mm3 (0.0-0.8); MONO % 7.5 % (0.0-5.0); NEUTROPHILS # 3.6 K/mm3 (1.8-7.7); NEUTROPHILS % 63.1 % (36.0-66.0); PLATELET COUNT, AUTOMATED 195 k/mm3 (150-450); RED CELL DISTRIBUTION WIDTH 12.7 % (11.5-14.5); WHITE BLOOD COUNT 5.6 K/mm3 (4.0-10.0)
[2016-08-31 07:31] LABS: CALCIUM LEVEL 9.8 MG/DL (8.8-10.2); CREATININE FOR GFR 1.25 MG/DL (0.55-1.02); GLOMERULAR FILTRATION RATE 45.2 (>45)
[2016-08-31] MEDS: ATENOLOL 25 MG TAB PO SCH (08:04)
[2016-08-31] MEDS: SERTRALINE HCL 50 MG TAB PO SCH (08:12)
[2016-08-31] MEDS: ACETAMINOPHEN TAB 650MG DOSE (2X325MG) PO SCH ×3 (08:12→21:46)
[2016-08-31] MEDS: FERROUS SULFATE 300MG/5ML UDC LIQUID PO SCH (08:12)
[2016-08-31] MEDS: CYANOCOBALAMIN 250 MCG TABLET PO SCH (08:12)
[2016-08-31] MEDS: predniSONE 10 MG TAB PO SCH (08:13)
[2016-08-31] MEDS: DIGOXIN 0.125 MG TAB PO SCH (08:13)
[2016-08-31] MEDS: PANTOPRAZOLE 40MG TAB (PROTONIX) PO SCH (08:13)
[2016-08-31] MEDS: POTASSIUM CHLORIDE 10 MEQ SR TABLET PO SCH (08:14)
[2016-08-31] MEDS: MULTIVITAMINS/MINERALS THERAP 1 TAB PO SCH (08:14)
[2016-08-31 14:00] VITALS: BP_SYST 103; BP_SYST 109; BP_SYST 113; BP_DIAS 55; BP_DIAS 61; BP_DIAS 64
--- NOTE | 2016-08-31 16:20 | IPN ---
DATE: 08/31/2016 SUBJECTIVE: The patient tells me that she is feeling a little bit better than she did yesterday. She is not feeling lightheaded or dizzy today. She denies chest pain, shortness of breath, fevers, chills, nausea, vomiting, or diarrhea. OBJECTIVE: VITAL SIGNS: Temperature 97.5, pulse 60, respiratory rate 18, blood pressure 114/79, oxygen saturation 96% on room air. GENERAL: She is a somewhat cantankerous, elderly, female laying in bed. She is sleeping peacefully when I enter the room, but easily arouses by verbal stimuli. HEENT: She wears thick bifocal lenses. She has very dry mucous membranes. No elevation in her central venous pressure. CARDIOVASCULAR: S1, S2, irregularly irregular, but not tachycardic. RESPIRATORY: Fairly clear. ABDOMINAL: Benign. EXTREMITIES: No clubbing, cyanosis, or appreciable edema. LABORATORY STUDIES: WBC 5.6, hemoglobin 11.2, hematocrit 33.1, platelet count 195. Chemistry panel: Sodium 142, potassium 4.0, chloride 108, bicarbonate 26, BUN 68, creatinine 1.2, approximately her baseline, trending down from a BUN of 108 yesterday morning and creatinine of 1.6 yesterday morning. Liver function tests were essentially unremarkable. She has a TSH within normal limits and a urinalysis which is essentially unremarkable. She has a fecal occult stool for blood which is negative and a urine culture which is negative. She has a vascular ultrasound which reveals no evidence of deep venous thrombosis (DVT). She did have a CT scan of her head which revealed small vessel ischemic disease and mild volume loss. She had a chest xray which revealed stable, no acute cardiopulmonary processes appreciated. ASSESSMENT AND PLAN: This is a 71-year-old female who presented status post two falls at [facility]. PROBLEMS: 1. Two falls, likely secondary to orthostasis and dehydration. The patient's home Aldactone, lisinopril, and torsemide have been held. She does have acute kidney injury which is prerenal azotemia which is improving with fluid resuscitation and holding of these medications. The patient also may be dehydrated as she did complain of having some diarrhea in the days prior to her falls. Will recheck orthostasis tomorrow, although I suspect she will be improved. We will have her seen by physical therapy. 2. Diarrhea. Will send gastrointestinal (GI) polymerase chain reaction (PCR) panel if the patient is able to produce a sample, otherwise it may be a self-limited gastrointestinal illness. She does not have any significant pain or discomfort at this time. 3. Acute kidney injury, prerenal azotemia, resolving with intravenous (IV) fluids. Continue with hydration. 4. Osteoarthrosis. The patient is on prednisone. 5. Atrial fibrillation. The patient is rate controlled with atenolol and digoxin. She is not anticoagulated. 6. Diastolic congestive heart failure. At the present time the patient is hypovolemic and is being rehydrated. We will monitor volume status very closely. An echocardiogram has been ordered as there is not one documented on file. 7. Iron deficiency anemia. The patient is on supplementation. An occult stool for blood is negative. Her anemia appears to be relatively mild and asymptomatic. Consider further outpatient followup. 8. Chronic kidney disease. The patient's renal function is returning to its baseline as outlined above. 9. History of cirrhosis. The patient is on a beta dirk. Her diuretic is currently on hold. 10. Depression. The patient is on Zoloft. 11. Gastroesophageal reflux disease. The patient is on Protonix. 12. Seasonal allergies. The patient is on Honey as needed. 13. B12 deficiency. The patient is on supplementation. 14. Deep venous thrombosis (DVT) prophylaxis. Will start the patient on heparin. DISPOSITION: Will continue to monitor the patient's renal function and have her work with physical therapy. Once her symptoms of diarrhea have resolved and she is no longer orthostatic, I suspect she can return back to assisted living.
[2016-08-31] MEDS: HEPARIN SOD (PORCINE) 5000 UNITS/ML VIAL SQ SCH ×2 (18:31→22:00)
[2016-08-31 22:00] VITALS: BP 117/56
[2016-09-01 06:00] VITALS: BP_SYST 119; BP_SYST 121; BP_DIAS 66; BP_DIAS 75
[2016-09-01] MEDS: HEPARIN SOD (PORCINE) 5000 UNITS/ML VIAL SQ SCH ×3 (06:00→21:44)
[2016-09-01 06:53] LABS: BASO % 0.2 % (0.0-1.0); EOS # 0.2 K/mm3 (0.0-0.50); EOS % 3.1 % (0.0-3.0); LARGE UNSTAINED CELL # 0.1 K/mm3 (0.0-0.4); LARGE UNSTAINED CELL % 1.6 % (0.0-4.0); LYMPH # 1.3 K/mm3 (1.5-4.5); LYMPH % 21.5 % (24.0-44.0); MEAN CORPUSCULAR HEMOGLOBIN 33.1 pg (27.0-33.0); MEAN CORPUSCULAR HGB CONC 33.9 g/dl (32.0-36.5); MEAN CORPUSCULAR VOLUME 97.7 fl (80.0-96.0); MONO # 0.5 K/mm3 (0.0-0.8); MONO % 7.6 % (0.0-5.0); NEUTROPHILS # 3.9 K/mm3 (1.8-7.7); PLATELET COUNT, AUTOMATED 189 k/mm3 (150-450); RED CELL DISTRIBUTION WIDTH 12.6 % (11.5-14.5); WHITE BLOOD COUNT 5.9 K/mm3 (4.0-10.0)
[2016-09-01 07:14] LABS: CALCIUM LEVEL 9.8 MG/DL (8.8-10.2); CREATININE FOR GFR 1.05 MG/DL (0.55-1.02); GLOMERULAR FILTRATION RATE 55.3 (>45); POTASSIUM SERUM 3.6 MEQ/L (3.5-5.1)
[2016-09-01] MEDS: MULTIVITAMINS/MINERALS THERAP 1 TAB PO SCH (08:51)
[2016-09-01] MEDS: CYANOCOBALAMIN 250 MCG TABLET PO SCH (08:51)
[2016-09-01] MEDS: predniSONE 5 MG TAB PO SCH (08:51)
[2016-09-01] MEDS: PANTOPRAZOLE 40MG TAB (PROTONIX) PO SCH (08:51)
[2016-09-01] MEDS: POTASSIUM CHLORIDE 10 MEQ SR TABLET PO SCH (08:51)
[2016-09-01] MEDS: SERTRALINE HCL 50 MG TAB PO SCH (08:51)
[2016-09-01] MEDS: ATENOLOL 25 MG TAB PO SCH (08:51)
[2016-09-01] MEDS: ACETAMINOPHEN TAB 650MG DOSE (2X325MG) PO SCH ×2 (08:51→21:44)
[2016-09-01] MEDS: DIGOXIN 0.125 MG TAB PO SCH (08:51)
[2016-09-01] MEDS: FERROUS SULFATE 300MG/5ML UDC LIQUID PO SCH (08:52)
[2016-09-01] MEDS ORDERED: PREVNAR 13 VACCINE SYRINGE (CPT CODE:90670) IM ONE (09:00)
[2016-09-01] MEDS: ACETAMINOPHEN TAB 650MG DOSE (2X325MG) PO PRN (13:41)
[2016-09-01 14:00] VITALS: BP 108/70
--- NOTE | 2016-09-01 16:51 | IPN ---
DATE OF SERVICE: 09/01/2016 SUBJECTIVE: Today, the patient tells me she is mad. She is frustrated with the staff at [facility]. She tells me that she wants to "kill some of the staff members." She tells me that she "wants to cut their balls off, hidalgo them, and shove them down their throats." Otherwise, at the present time, she denies any symptoms of orthostasis. No other symptoms with which she presented. She denies any headaches, dizziness, chest pain, shortness of breath, fevers, chills, nausea, vomiting, or diarrhea. OBJECTIVE: VITAL SIGNS: Temperature 98.1, pulse 72, respiratory rate 15, blood pressure 126/75, oxygen saturation 93% on room air. GENERAL: She is pleasant, elderly female who is mostly labile during the examination. HEENT: She is wearing strong bifocal lenses and has a disconjugate gaze. She has moist mucous membranes. There is no elevation of central venous pressure. CARDIOVASCULAR: S1, S2. Regular. RESPIRATORY EXAMINATION: Clear. ABDOMINAL EXAMINATION: Benign. EXTREMITIES: There is No clubbing, cyanosis or appreciable edema. LABORATORY STUDIES TODAY: WBC 5.9, hemoglobin 11.2, hematocrit 33, platelet count 189. Chemistry panel: Sodium 140, potassium 3.6, chloride 110, bicarbonate 23, BUN 39, creatinine 1.0, down from 1.6 at the time of admission. Occult stool for blood is negative. Urine culture is negative. No new imaging. ASSESSMENT AND PLAN: This is a 71-year-old female who essentially presents with orthostasis secondary to dehydration and falls secondary to such. PROBLEMS: 1. Falls secondary to orthostasis and dehydration. The patient's home aldactone, lisinopril and torsemide have all been held. She did receive intravenous (IV) fluids and her symptoms have completely resolved at this time. At the time of presentation, she did complain of some diarrhea; however, this has resolved as well and likely a contributing factor to her dehydration. It is potentially a viral gastroenteritis. Patient is working with physical therapy and is not cleared as of this time. 2. Diarrhea. As mentioned above. A gastrointestinal (GI) polymerase chain reaction (PCR) panel has been ordered, but unable to be collected secondary to the patient's self-limited diarrhea illness resolved. 3. Acute kidney injury secondary to prerenal azotemia. Resolved with IV fluids. We have discontinued IV fluids. She is taking well by mouth. We will not restart her diuretics at this time. Can consider upon discharge restarting at a lower dose. 4. Osteoarthrosis. Patient is on prednisone chronically. 5. Atrial fibrillation. Patient is rate-controlled with atenolol, digoxin. She is not anticoagulated secondary to propensity for falls. She lives at assisted living. 6. Diastolic congestive heart failure. She was hypovolemic at the time of admission. At this time, she appears relatively euvolemic. An echocardiogram has been ordered. The results are not available at this time. 7. Iron-deficiency anemia. She is on supplementation. Occult stool for blood is negative. It appears her anemia is mild and she is asymptomatic. Consider further outpatient followup. 8. History of cirrhosis. Patient is on a beta-dirk. Diuretic is currently on hold. 9. Depression. Patient is on Zoloft. 10. Gastroesophageal reflux disease. Patient is on Protonix. 11. Seasonal allergies. Patient is on Honey. 12. B12 deficiency. Patient is on supplementation. 13. Homicidal ideations. I have placed a consult to psychiatry. The patient says to me that she will kill staff members at [facility] living should she get the opportunity, and she has a plan in place to do so. She is angry that they have dragged their feet in trying to get her Medicare and she is very frustrated with the situation and she tells us that she is mad. Otherwise, she is completely oriented. I do not suspect any medical delirium.
--- NOTE | 2016-09-01 17:45 | EDDOCDS ---
Nurse's Notes [facility] Name: Indira Willis Age: 71 yrs Sex: Female : 1945 Arrival Date: 08/30/2016 Time: 09:36 Bed 8 Private MD: Yusuf Diagnosis: Hypotension Presentation: 08/30 09:47 Presenting complaint: EMS states: Fell twice this am denies LOC c/o headache and neck mlb1 pain. Adult Sepsis Screening: The patient does not have new or worsening altered mentation. Patient's respiratory rate is less than 22. Systolic blood pressure is greater than 100. Patient has a qSOFA score of 0- Negative Sepsis Screen. Suicide/Homicide risk assessment- the patient denies having any suicidal and/or homicidal ideations and does not present with any other emotional, behavioral or mental health complaints. Status: Patient is not a public service administrator or dependent. Transition of care: patient was not received from another setting of care. 09:47 Acuity: SANDI Level 3 mlb1 09:47 Method Of Arrival: Walkin/Carried/Asstd mlb1 Triage Assessment: 10:02 General: Appears in no apparent distress, Behavior is appropriate for age, cooperative. mlb1 Pain: Denies pain. The patient is triaged at the bedside. See Assessment in Nurses Notes section of ED record. Neurological: Level of Consciousness is awake, alert, Oriented to person, place, time. Respiratory: Airway is patent Respiratory effort is even, unlabored. Historical: - Allergies: Codeine Sulfate (Rash); - Home Meds: 1. Vitamin B-12 1,000 mcg Oral tab daily 2. prednisone 5 mg oral tab every other days alternates 5mg and 10 mg every other day 3. ferrous sulfate 220 mg/5 mL oral elix daily 4. vitamin B12 100mcg daily 5. multivitamin Oral tab daily 6. esomeprazole magnesium 40 mg Oral cpDR 1 cap once daily 7. digoxin 125 mcg Oral tab 1 tab once daily 8. atenolol 25 mg Oral tab 1 tab once daily 9. Drisdol 50,000 unit Oral cap once wkly fridays 10. Zoloft 50 mg Oral tab 1 tab once daily 11. Klor-Con 10 10 mEq Oral TbER 1 tab once daily 12. spironolactone 25 mg Oral tab 1 tab once daily 13. lisinopril 2.5 mg Oral tab once daily 14. torsemide 20 mg oral tab 1 tab once daily 15. Honey 180 mg Oral tab 1 tab once daily 16. Colace 100 mg oral cap 1 cap 2 times per day - PMHx: Atrial Fib; bladder CA; CHF; Cirrhosis; Diverticulosis; GERD; Hypercholesterolemia; Hypertension; Hiatal Hernia; - PSHx: Pacemaker Insertion; Cataract Surgery- Bilateral; Hernia repair; - Social history: Smoking status: unknown if patient ever smoked tobacco. No barriers to communication noted, The patient speaks fluent Turkmen, Speaks appropriately for age. - Family history: Not pertinent. - : The pt / caregiver states he / she is not on anticoagulants. The pt / caregiver states he / she is not on anticoagulants. Home medication list is obtained from the facility MAR, Home medication list is obtained from the facility MAR. - Exposure Risk Screening:: None identified. None identified. Screenin:36 Screening information is obtained from the patient. Fall risk: At risk due to prior mlb1 history of falls, The following interventions are performed due to a positive Fall Risk Screen: Fall Risk is added to Special Handling on the patient Summary Screen. A Fall Risk Bracelet was applied to the patient. Side Rails are placed in the up position. A Call Blevins is given with instruction to call for help when getting out of bed. Fall Alert bracelet is placed on the patient. Assistance ADL's: Requires assistance with meal preparation, this assistance is provided by residence staff, medication administration, assistance is provided by residence staff. Abuse/DV Screen: The patient / caregiver reports he/she is: not in a situation that causes fear, pain or injury. Advance Directives: Currently, there is no health care proxy. There is no active DNR order. 15:17 Nutritional screening: No deficits noted. home support is adequate. mlb1 Assessment: 10:36 General: Appears in no apparent distress, comfortable, Behavior is anxious, mlb1 cooperative. Pain: Denies pain. Neurological: Level of Consciousness is awake, alert, Oriented to person, place, time. Respiratory: Airway is patent Respiratory effort is even, unlabored, Breath sounds are clear bilaterally. Musculoskeletal: Circulation, motion, and sensation intact Range of motion intact in all extremities. 11:30 Adult Sepsis Screening: The patient does not have new or worsening altered mentation. mlb1 Patient's respiratory rate is less than 22. Systolic blood pressure is greater than 100. Patient has a qSOFA score of 0- Negative Sepsis Screen. General: Appears in no apparent distress, comfortable, Behavior is anxious, cooperative. Pain: Denies pain. Neurological: Level of Consciousness is awake, alert, Oriented to person, place, time. Respiratory: No deficits noted. Derm: Skin is pink, warm & dry. normal. 12:33 Adult Sepsis Screening: The patient does not have new or worsening altered mentation. mlb1 Patient's respiratory rate is less than 22. Systolic blood pressure is greater than 100. Patient has a qSOFA score of 0- Negative Sepsis Screen. General: Appears in no apparent distress, comfortable, Behavior is anxious, cooperative. Pain: Denies pain. Neurological: Level of Consciousness is awake, alert, Oriented to person, place, time. Respiratory: No deficits noted. 13:20 General: Appears to be sleeping. Behavior is appropriate for age. Neurological:. kc3 Cardiovascular: Rhythm is regular. Respiratory: Airway is patent Respiratory effort is even, unlabored. Musculoskeletal: Circulation, motion, and sensation intact. 14:20 General: Appears in no apparent distress, comfortable, Behavior is appropriate for age, mlb1 cooperative. Pain: Denies pain. Neurological: Level of Consciousness is awake, alert, Oriented to person, place, time. Respiratory: No deficits noted. 15:17 General: Appears in no apparent distress, comfortable, Behavior is anxious, mlb1 cooperative. Pain: Denies pain. Neurological: Level of Consciousness is awake, alert, Oriented to person, place, time. Respiratory: Airway is patent Respiratory effort is even, unlabored. Derm: No deficits noted. 16:11 Adult Sepsis Screening: The patient does not have new or worsening altered mentation. mlb1 Patient's respiratory rate is less than 22. Systolic blood pressure is greater than 100. Patient has a qSOFA score of 0- Negative Sepsis Screen. General: Appears in no apparent distress, comfortable, Behavior is appropriate for age, cooperative. Pain: Denies pain. Vital Signs: 09:47 BP 108 / 62; Pulse 71; Resp 20; Temp 96.6; Pulse Ox 100% ; Weight 78.93 kg; Height 5 jlf ft. 5 in. (165.10 cm); Pain 4/10; 10:46 BP 72 / 40 (auto/); mlb1 10:46 Pulse 66 MON; Pulse Ox 97% ; mlb1 11:01 BP 69 / 42 (auto/); mlb1 11:02 Pulse 62 MON; Pulse Ox 98% ; mlb1 11:14 BP 72 / 48 (auto/); mlb1 11:15 Pulse 66 MON; Pulse Ox 99% ; mlb1 11:16 BP 82 / 48 (auto/); mlb1 11:16 Pulse 66 MON; Pulse Ox 100% ; mlb1 11:31 BP 88 / 50 (auto/); mlb1 11:31 Pulse 62 MON; Pulse Ox 100% ; mlb1 11:46 BP 100 / 56 (auto/); mlb1 11:46 Pulse 62 MON; Pulse Ox 98% ; mlb1 12:32 BP 113 / 62 Supine; Pulse 68; mlb1 12:32 BP 115 / 62 Sitting; Pulse 74; mlb1 12:32 BP 121 / 63 Standing; Pulse 73; mlb1 12:44 Pulse 64 MON; Pulse Ox 99% ; kc3 12:45 BP 80 / 47 (auto/); kc3 12:55 Pulse 64 MON; Pulse Ox 97% ; kc3 12:56 BP 88 / 51 (auto/); kc3 12:59 Pulse 64 MON; Pulse Ox 99% ; kc3 13:00 BP 78 / 51 (auto/); kc3 13:13 Pulse 62 MON; Pulse Ox 100% ; kc3 13:14 BP 98 / 56 (auto/); kc3 13:15 BP 83 / 65 (auto/); kc3 13:15 Pulse 60 MON; Pulse Ox 100% ; kc3 13:30 BP 106 / 56 (auto/); mlb1 13:30 Pulse 62 MON; Pulse Ox 99% ; mlb1 13:45 BP 104 / 61 (auto/); mlb1 13:45 Pulse 62 MON; Pulse Ox 96% ; mlb1 14:00 BP 94 / 51 (auto/); mlb1 14:00 Pulse 62 MON; Pulse Ox 98% ; mlb1 14:19 BP 104 / 69 (auto/); mlb1 14:19 Pulse 62 MON; Pulse Ox 100% ; mlb1 15:00 BP 91 / 56 (auto/); mlb1 15:00 Pulse 66 MON; Pulse Ox 100% ; mlb1 15:14 Pulse 64 MON; Pulse Ox 99% ; mlb1 15:14 BP 99 / 56; Pulse 62; Resp 16; Temp 97.1(O); Pulse Ox 100% on R/A; Pain 0/10; mlb1 15:15 BP 98 / 60 (auto/); mlb1 15:29 Pulse 62 MON; Pulse Ox 98% ; mlb1 15:30 BP 76 / 41 (auto/); mlb1 15:44 Pulse 64 MON; Pulse Ox 97% ; mlb1 15:45 BP 69 / 32 (auto/); mlb1 15:45 Pulse 60 MON; Pulse Ox 97% ; mlb1 15:46 BP 72 / 36 (auto/); mlb1 15:47 Pulse 70 MON; Pulse Ox 96% ; mlb1 15:48 Pulse 66 MON; Pulse Ox 97% ; mlb1 15:48 BP 80 / 46 (auto/); mlb1 15:49 BP 79 / 44 (auto/); mlb1 15:58 Pulse 66 MON; Pulse Ox 90% ; mlb1 15:59 BP 108 / 56 (auto/); mlb1 16:13 Pulse Ox 100% on R/A; mlb1 09:47 Body Mass Index 28.95 (78.93 kg, 165.10 cm) [facility] Vitals: 10:36 Log In Time N/A - ambulance arrival. mlb1 ED Course: 09:37 Patient visited by Indira Melendrez Bootmaker Hand. lbd 09:37 Yusuf is Private Physician. lbd 09:37 Patient moved to Waiting lbd 09:38 Patient moved to 8 lbd 09:46 Darlene Freedman MD is Attending Physician. sd1 09:46 Patient visited by Darlene Freedman MD. sd1 09:47 Patient visited by Jm Patel RN. mlb1 09:48 Patient visited by Gemini Reynoso PCA. jlf 09:48 Triage Initiated mlb1 10:06 Patient visited by Gemini Reynoso PCA. jlf 10:06 Patient visited by Gemini Reynoso PCA. jlf 10:06 EKG done. (by ED staff). Reviewed by Darlene Freedman MD. jlf 10:35 Type & Screen Sent. mlb1 10:35 CBC with Diff Sent. mlb1 10:35 Cardiac Injury Profile Sent. mlb1 10:35 Liver Profile Sent. mlb1 10:35 MED Profile Sent. mlb1 10:35 Thyroid Stimulating Hormone Sent. mlb1 10:35 Troponin Sent. mlb1 10:36 Inserted saline lock: 20 gauge in right antecubital area and blood collected. The mlb1 patient tolerated the procedure well. 10:38 Patient visited by Jm Patel, CHRIS. mlb1 11:18 Patient visited by Gemini Reynoso PCA. jlf 11:20 The patient / caregiver is instructed regarding the plan of care and ED course. mlb1 11:29 CT Head Without Contrast Returned. EDMS 11:29 US Lower Extremity R/O DVT Returned. EDMS 11:33 Patient visited by Gemini Reynoso PCA. jlf 11:44 [facility] Payment Agreement was scanned into [employer] and attached to record. mm15 12:33 Patient visited by Jm Patel, CHRIS. mlb1 12:33 No procedures done that require assistance. mlb1 12:59 Lactic Acid (Cheng tube on ice) Sent. jrd 12:59 Ammonia (Little Green Tube on Ice, Not Pea Green) Sent. jrd 13:23 Patient visited by Jessika Alonzo RN. kc3 13:27 -Arterial Blood Gas Sent. js11 13:40 Elena Rizvi is Hospitalizing Provider. sd1 14:14 Chest, 1 View Returned. EDMS 14:34 URINALYSIS Sent. mlb1 14:37 Urine Culture Sent. mlb1 14:37 Urine,Osmolality Sent. mlb1 14:37 UA Sent. mlb1 14:47 Patient visited by Kenna Sy PCA. rs6 14:47 Diet: Patient given regular meal. Tolerated well. rs6 16:15 Patient visited by Jm Patel, CHRIS. mlb1 08/31 09:41 T-Sheet-- Draft Copy was scanned into [employer] and attached to record. gb 09:42 PCR was scanned into [employer] and attached to record. gb Administered Medications: 08/30 11:19 Drug: NS 0.9% 500 ml [sodium chloride 0.9 % injection solution] Route: IV; Rate: bolus; mlb1 Site: right antecubital; 12:31 Follow up: IV Status: Completed infusion; see vs in NN mlb1 13:17 Drug: NS 0.9% 500 ml [sodium chloride 0.9 % intravenous solution] Route: IV; Rate: kc3 bolus; Site: right antecubital; 13:48 Drug: NS 0.9% 1000 ml [sodium chloride 0.9 % injection solution] Route: IV; Rate: 150 mlb1 mL/hr; Site: right antecubital; Intake: RT: 13:27 ABG's drawn from right radial artery allens test done and positive pressure held for 5 js11 minutes no bleeding noted specimen sent pt. tolerated well. Order Results: Lab Order: CBC with Diff; SPEC'M 08/30/16 10:33 Test: WHITE BLOOD COUNT; Value: 6.9; Range: 4.0-10.0; Units: K/mm3; Status: F Test: RED BLOOD COUNT; Value: 3.54; Range: 4.00-5.40; Abnormal: Below low normal; Units: M/mm3; Status: F Test: HEMOGLOBIN; Value: 12.0; Range: 12.0-16.0; Units: g/dl; Status: F Test: HEMATOCRIT; Value: 34.1; Range: 36.0-47.0; Abnormal: Below low normal; Units: %; Status: F Test: MEAN CORPUSCULAR VOLUME; Value: 96.6; Range: 80.0-96.0; Abnormal: Above high normal; Units: fl; Status: F Test: MEAN CORPUSCULAR HEMOGLOBIN; Value: 33.9; Range: 27.0-33.0; Abnormal: Above high normal; Units: pg; Status: F Test: MEAN CORPUSCULAR HGB CONC; Value: 35.1; Range: 32.0-36.5; Units: g/dl; Status: F Test: RED CELL DISTRIBUTION WIDTH; Value: 12.5; Range: 11.5-14.5; Units: %; Status: F Test: PLATELET COUNT, AUTOMATED; Value: 227; Range: 150-450; Units: k/mm3; Status: F Test: NEUTROPHILS %; Value: 69.3; Range: 36.0-66.0; Abnormal: Above high normal; Units: %; Status: F Test: LYMPH %; Value: 16.6; Range: 24.0-44.0; Abnormal: Below low normal; Units: %; Status: F Test: MONO %; Value: 8.9; Range: 0.0-5.0; Abnormal: Above high normal; Units: %; Status: F Test: EOS %; Value: 2.4; Range: 0.0-3.0; Units: %; Status: F Test: BASO %; Value: 0.4; Range: 0.0-1.0; Units: %; Status: F Test: LARGE UNSTAINED CELL %; Value: 2.4; Range: 0.0-4.0; Units: %; Status: F Test: NEUTROPHILS #; Value: 4.8; Range: 1.8-7.7; Units: K/mm3; Status: F Test: LYMPH #; Value: 1.2; Range: 1.5-4.5; Abnormal: Below low normal; Units: K/mm3; Status: F Test: MONO #; Value: 0.6; Range: 0.0-0.8; Units: K/mm3; Status: F Test: EOS #; Value: 0.2; Range: 0.0-0.50; Units: K/mm3; Status: F Test: BASO #; Value: 0.0; Range: 0.0-0.2; Units: K/mm3; Status: F Test: LARGE UNSTAINED CELL #; Value: 0.2; Range: 0.0-0.4; Units: K/mm3; Status: F Lab Order: Cardiac Injury Profile; SPEC'M 08/30/16 10:33 Test: CPK CREATINE PHOSPHOKINASE; Value: 53; Range: 26-192; Units: U/L; Status: F Test: CK-MB VALUE MASS; Value: 1.8; Range: 0.0-3.6; Units: NG/ML; Status: F Test: MB/CK RELATIVE INDEX; Value: 3.39; Range: < OR =4; Status: F Test Note: ; DIAGNOSIS CRITERIA MMB ng/ml Relative Index (RI) NON-AMI < or = 5 N/A CHENG ZONE > 5 < or = 4 AMI > 5 > 4 Lab Order: Liver Profile; SPEC'M 08/30/16 10:33 Test: AST/SGOT; Value: 19; Range: 15-37; Units: U/L; Status: F Test: ALT/SGPT; Value: 29; Range: 12-78; Units: U/L; Status: F Test: ALKALINE PHOSPHATASE; Value: 76; Range: 45-117; Units: U/L; Status: F Test: BILIRUBIN,TOTAL; Value: 0.6; Range: 0.2-1.0; Units: MG/DL; Status: F Test: BILIRUBIN,DIRECT; Value: 0.2; Range: 0.0-0.2; Units: MG/DL; Status: F Test: TOTAL PROTEIN; Value: 6.5; Range: 6.4-8.2; Units: GM/DL; Status: F Test: ALBUMIN; Value: 3.7; Range: 3.2-5.2; Units: GM/DL; Status: F Test: ALBUMIN/GLOBULIN RATIO; Value: 1.32; Range: 1.00-1.93; Status: F Lab Order: MED Profile; SPEC'M 08/30/16 10:33 Test: GLUCOSE, FASTING; Value: 98; Range: 80-110; Units: MG/DL; Status: F Test: BLOOD UREA NITROGEN; Value: 108; Range: 7-18; Abnormal: Above high normal; Units: MG/DL; Status: F Test: CREATININE FOR GFR; Value: 1.68; Range: 0.55-1.02; Abnormal: Above high normal; Units: MG/DL; Status: F Test: GLOMERULAR FILTRATION RATE; Value: 32.2; Range: >45; Abnormal: Below low normal; Status: F Test: SODIUM LEVEL; Value: 138; Range: 136-145; Units: MEQ/L; Status: F Test: POTASSIUM SERUM; Value: 4.7; Range: 3.5-5.1; Units: MEQ/L; Status: F Test: CHLORIDE LEVEL; Value: 100; Range: 98-107; Units: MEQ/L; Status: F Test: CARBON DIOXIDE LEVEL; Value: 29; Range: 21-32; Units: MEQ/L; Status: F Test: ANION GAP; Value: 9; Range: 8-16; Units: MEQ/L; Status: F Test: CALCIUM LEVEL; Value: 10.2; Range: 8.8-10.2; Units: MG/DL; Status: F Test Note: ; Units are mL/min/1.73 m2 Chronic Kidney Disease Staging per NKF: Stage I & II GFR >=60 Normal to Mildly Decreased Stage III GFR 30-59 Moderately Decreased Stage IV GFR 15-29 Severely Decreased Stage V GFR <15 Very Little GFR Left ESRD GFR <15 on DISPLAY DEPARTMENT MANAGER Lab Order: Thyroid Stimulating Hormone; [facility] 08/30/16 10:33 Test: THYROID STIMULATING HORMONE; Value: 1.080; Range: 0.358-3.740; Units: uIU/ML; Status: F Lab Order: Troponin; [facility] 08/30/16 10:33 Test: TROPONIN I; Value: 0.02; Range: < 0.10; Units: NG/ML; Status: F Test Note: ; Troponin I Reference Interval for Aviacode LOCI: 99th Percentile= 0.00-0.045 ng/ml Risk Stratification: <= 0.10 ng/ml Decreased Risk for Adverse Clinical Events. 0.10-1.50 ng/ml Increased Risk for Adverse Clinical Events. Evaluation of additional criterion and/or repeat testing in 2-6 hours is suggested to rule out myocardial damage. >= 1.50 ng/ml Indicative of Myocardial Injury. Lab Order: Type & Screen; [facility] 08/30/16 10:33 Test: BLOOD TYPE; Value: A POS; Status: F Test: AB SCREEN (INDIRECT KENNY)GEL; Value: NEGATIVE; Status: F Lab Order: UA; [facility] 08/30/16 14:31 Test: APPEARANCE, URINE; Value: CLEAR; Range: CLEAR; Status: F Test: COLOR, URINE; Value: YELLOW; Range: YELLOW; Status: F Test: PH,URINE; Value: 6.0; Range: 5.0-9.0; Units: UNITS; Status: F Test: SPECIFIC GRAVITY URINE AUTO; Value: 1.009; Range: 1.002-1.035; Status: F Test: PROTEIN, URINE AUTO; Value: NEGATIVE; Range: NEGATIVE; Units: mg/dL; Status: F Test: GLUCOSE, URINE (UA) AUTO; Value: NEGATIVE; Range: NEGATIVE; Units: mg/dL; Status: F Test: KETONE, URINE AUTO; Value: NEGATIVE; Range: NEGATIVE; Units: mg/dL; Status: F Test: UROBILINOGEN, URINE AUTO; Value: 0.2; Range: 0.0-2.0; Units: mg/dL; Status: F Test: BILIRUBIN, URINE AUTO; Value: NEGATIVE; Range: NEGATIVE; Status: F Test: NITRITE, URINE AUTO; Value: NEGATIVE; Range: NEGATIVE; Status: F Test: LEUKOCYTE ESTERASE, URINE AUTO; Value: NEGATIVE; Range: NEGATIVE; Status: F Test: BLOOD, URINE BLOOD; Value: NEGATIVE; Range: NEGATIVE; Status: F Test: WBC, URINE AUTO; Value: 0; Range: 0-3; Units: /HPF; Status: F Test: RBC, URINE AUTO; Value: 5; Range: 0-3; Abnormal: Above high normal; Units: /HPF; Status: F Test: BACTERIA, URINE AUTO; Value: NEGATIVE; Range: NEGATIVE; Status: F Test: SQUAMOUS EPITHELIAL CELL UR AU; Value: 0; Range: 0-6; Units: /HPF; Status: F Test: MUCUS, URINE; Value: SMALL; Range: NEGATIVE; Status: F Test: HYALINE CAST, URINE AUTO; Value: 0; Range: 0-1; Units: /LPF; Status: F Lab Order: Urine,Osmolality; SPEC'M 08/30/16 14:31 Test: OSMOLALITY URINE; Value: 399; Range: 500-800; Abnormal: Below low normal; Units: MOSM/KG; Status: F Lab Order: -Arterial Blood Gas; SPEC'M 08/30/16 13:22 Test: ABG pH (ARTERIAL); Value: 7.421; Range: 7.350-7.450; Units: UNITS; Status: F Test: ABG PARTIAL PRESSURE CO2; Value: 37.2; Range: 35.0-45.0; Units: mmHg; Status: F Test: ABG PARTIAL PRESSURE O2; Value: 107.6; Range: 75.0-100.0; Abnormal: Above high normal; Units: mmHg; Status: F Test: ABG TOTAL CO2; Value: 24.8; Range: 23.0-31.0; Units: MEQ/L; Status: F Test: ABG HCO3; Value: 23.6; Range: 22.0-26.0; Units: MEQ/L; Status: F Test: ABG BASE EXCESS; Value: -0.5; Range: -2.0-2.0; Status: F Test: ABG STANDARD HCO3; Value: 24.0; Range: 22.0-26.0; Units: MEQ/L; Status: F Test: ABG O2 SATURATION; Value: 97.9; Range: 95.0-99.0; Units: %; Status: F Test: ABG DEVICE; Value: NASAL MENDOZA; Status: F Lab Order: Ammonia ([place] Tube on Ice, Not Pea Green); SPEC'M 08/30/16 12:57 Test: AMMONIA; Value: 18; Range: <32; Units: uMOL/L; Status: F Lab Order: Lactic Acid (Cheng tube on ice); SPEC'M 08/30/16 12:57 Test: LACTIC ACID LEVEL, LACTATE; Value: 0.8; Range: 0.4-2.0; Units: MMOL/L; Status: F Radiology Order: CT Head Without Contrast Test: CT Head Without Contrast REASON FOR EXAMINATION: Trauma; CT HEAD WITHOUT CONTRAST:; ; HISTORY: Trauma.; ; Areas of decreased attenuation are present in the periventricular white matter.; This represents small vessel ischemic disease. There is no intraparenchymal; hemorrhage, mass, or midline shift. The ventricular system and cortical sulci; are dilated consistent with mild volume loss. There is no extracerebral; collection. A matty cisterna magna is present. There is no fracture. The; visualized sinuses are clear.; ; IMPRESSION:; ; 1. Small vessel ischemic disease.; ; 2. Mild volume loss.; ; ; Signed by; Ranulfo Arnold MD 08/30/2016 11:01 A; Radiology Order: US Lower Extremity R/O DVT Test: US Lower Extremity R/O DVT REASON FOR EXAMINATION: swelling; Left lower extremity venous Doppler:; ; Indication: Left leg pain and swelling after fall.; ; Comparison: Left lower extremity venous Doppler 01/11/2016.; ; Findings:; ; LEFT LOWER EXTREMITY FINDINGS:; Color-flow, spectral wave, and cheng scale imaging were used to evaluate the lower; extremity vein, common femoral, superficial femoral and popliteal venous levels.; There is normal compressibility of veins at the above stated levels. There is; normal response to augmentation of flow. The profunda femoris vein is also; patent.; ; IMPRESSION:; No evidence of DVT in the left lower extremity.; ; ; ; ; ; ; ; Unreviewed; Radiology Order: Chest, 1 View Test: Chest, 1 View REASON FOR EXAMINATION: Shortness of Breath; Clinical: Acute shortness of breath .; ; Comparison: 08/16/2015 .; ; Findings:; The mediastinum and cardiac silhouette are stable and within normal limits for; portable technique. The lung rush are clear without acute consolidation,; effusion, or pneumothorax. Skeletal structures are intact.; ; Impression:; Stable chest x-ray. No acute cardiopulmonary process appreciated.; ; ; Signed by; Kevin Jones MD 08/30/2016 01:30 P; Outcome: 13:40 Decision to Hospitalize by Provider. sd1 15:06 CT Study completed. mlb1 16:12 Discharge Assessment: Patient awake, alert and oriented x 3. No cognitive and/or mlb1 functional deficits noted. Patient verbalized understanding of disposition instructions. patient administered narcotics - no. The following High Risk Discharge criteria are identified: None. Admitted to Med/Surg via stretcher, with chart. Condition: good. Property :Personal belongings accompany Pt. 16:43 Patient left the ED. mlb1 Signatures: Dispatcher [employer] EDMS Darlene Freedman MD MD sd1 Indira Melendrez, Bootmaker Hand Unit lbd Pinky Powers, Reg Reg gb Jm Patel, RN RN mlb1 Xiang Watson js11 Stevenson Mayer mm15 Gemini Reynoso, INWARD TOLL OPERATOR INWARD TOLL OPERATOR Dieudonne Gallegos, INWARD TOLL OPERATOR INWARD TOLL OPERATOR Kenna Sylvester, INWARD TOLL OPERATOR INWARD TOLL OPERATOR rs6 Jessika Alonzo,RN RN kc3 Chart Complete MTDD
--- NOTE | 2016-09-01 17:45 | EDDOCDS ---
Physician Documentation [facility] Name: Indira Willis Age: 71 yrs Sex: Female : 1945 Arrival Date: 08/30/2016 Time: 09:36 Bed 8 Private MD: Yusuf Disposition: 08/30/16 13:40 Hospitalization ordered by Elena Rizvi for Inpatient Admission. Preliminary diagnosis is Hypotension. - Bed requested for 4 [place]. - Status is Inpatient Admission. mlb1 - Condition is Stable. - Problem is new. - Symptoms are unchanged. Historical: - Allergies: Codeine Sulfate (Rash); - Home Meds: 1. Vitamin B-12 1,000 mcg Oral tab daily 2. prednisone 5 mg oral tab every other days alternates 5mg and 10 mg every other day 3. ferrous sulfate 220 mg/5 mL oral elix daily 4. vitamin B12 100mcg daily 5. multivitamin Oral tab daily 6. esomeprazole magnesium 40 mg Oral cpDR 1 cap once daily 7. digoxin 125 mcg Oral tab 1 tab once daily 8. atenolol 25 mg Oral tab 1 tab once daily 9. Drisdol 50,000 unit Oral cap once wkly fridays 10. Zoloft 50 mg Oral tab 1 tab once daily 11. Klor-Con 10 10 mEq Oral TbER 1 tab once daily 12. spironolactone 25 mg Oral tab 1 tab once daily 13. lisinopril 2.5 mg Oral tab once daily 14. torsemide 20 mg oral tab 1 tab once daily 15. Honey 180 mg Oral tab 1 tab once daily 16. Colace 100 mg oral cap 1 cap 2 times per day - PMHx: Atrial Fib; bladder CA; CHF; Cirrhosis; Diverticulosis; GERD; Hypercholesterolemia; Hypertension; Hiatal Hernia; - PSHx: Pacemaker Insertion; Cataract Surgery- Bilateral; Hernia repair; - Social history: Smoking status: unknown if patient ever smoked tobacco. No barriers to communication noted, The patient speaks fluent French, Speaks appropriately for age. - Family history: Not pertinent. - : The pt / caregiver states he / she is not on anticoagulants. The pt / caregiver states he / she is not on anticoagulants. Home medication list is obtained from the facility MAR, Home medication list is obtained from the facility MAR. - Exposure Risk Screening:: None identified. None identified. Vital Signs: 08/30 09:47 BP 108 / 62; Pulse 71; Resp 20; Temp 96.6; Pulse Ox 100% ; Weight 78.93 kg / 174.01 jlf lbs; Height 5 ft. 5 in. (165.10 cm); Pain 4/10; 10:46 BP 72 / 40 (auto/); mlb1 10:46 Pulse 66 MON; Pulse Ox 97% ; mlb1 11:01 BP 69 / 42 (auto/); mlb1 11:02 Pulse 62 MON; Pulse Ox 98% ; mlb1 11:14 BP 72 / 48 (auto/); mlb1 11:15 Pulse 66 MON; Pulse Ox 99% ; mlb1 11:16 BP 82 / 48 (auto/); mlb1 11:16 Pulse 66 MON; Pulse Ox 100% ; mlb1 11:31 BP 88 / 50 (auto/); mlb1 11:31 Pulse 62 MON; Pulse Ox 100% ; mlb1 11:46 BP 100 / 56 (auto/); mlb1 11:46 Pulse 62 MON; Pulse Ox 98% ; mlb1 12:32 BP 113 / 62 Supine; Pulse 68; mlb1 12:32 BP 115 / 62 Sitting; Pulse 74; mlb1 12:32 BP 121 / 63 Standing; Pulse 73; mlb1 12:44 Pulse 64 MON; Pulse Ox 99% ; kc3 12:45 BP 80 / 47 (auto/); kc3 12:55 Pulse 64 MON; Pulse Ox 97% ; kc3 12:56 BP 88 / 51 (auto/); kc3 12:59 Pulse 64 MON; Pulse Ox 99% ; kc3 13:00 BP 78 / 51 (auto/); kc3 13:13 Pulse 62 MON; Pulse Ox 100% ; kc3 13:14 BP 98 / 56 (auto/); kc3 13:15 BP 83 / 65 (auto/); kc3 13:15 Pulse 60 MON; Pulse Ox 100% ; kc3 13:30 BP 106 / 56 (auto/); mlb1 13:30 Pulse 62 MON; Pulse Ox 99% ; mlb1 13:45 BP 104 / 61 (auto/); mlb1 13:45 Pulse 62 MON; Pulse Ox 96% ; mlb1 14:00 BP 94 / 51 (auto/); mlb1 14:00 Pulse 62 MON; Pulse Ox 98% ; mlb1 14:19 BP 104 / 69 (auto/); mlb1 14:19 Pulse 62 MON; Pulse Ox 100% ; mlb1 15:00 BP 91 / 56 (auto/); mlb1 15:00 Pulse 66 MON; Pulse Ox 100% ; mlb1 15:14 Pulse 64 MON; Pulse Ox 99% ; mlb1 15:14 BP 99 / 56; Pulse 62; Resp 16; Temp 97.1(O); Pulse Ox 100% on R/A; Pain 0/10; mlb1 15:15 BP 98 / 60 (auto/); mlb1 15:29 Pulse 62 MON; Pulse Ox 98% ; mlb1 15:30 BP 76 / 41 (auto/); mlb1 15:44 Pulse 64 MON; Pulse Ox 97% ; mlb1 15:45 BP 69 / 32 (auto/); mlb1 15:45 Pulse 60 MON; Pulse Ox 97% ; mlb1 15:46 BP 72 / 36 (auto/); mlb1 15:47 Pulse 70 MON; Pulse Ox 96% ; mlb1 15:48 Pulse 66 MON; Pulse Ox 97% ; mlb1 15:48 BP 80 / 46 (auto/); mlb1 15:49 BP 79 / 44 (auto/); mlb1 15:58 Pulse 66 MON; Pulse Ox 90% ; mlb1 15:59 BP 108 / 56 (auto/); mlb1 16:13 Pulse Ox 100% on R/A; mlb1 09:47 Body Mass Index 28.95 (78.93 kg, 165.10 cm) [facility] MDM: 09:56 Metal Molder/Pulse Ox/q 15 min VS ordered. sd1 09:56 IV Saline Lock ordered. sd1 09:56 Rhythm Strip to chart ordered. sd1 09:56 Orthostatic VS ordered. sd1 09:56 CT Head Without Contrast Ordered. EDMS 09:56 CBC with Diff Ordered. EDMS 09:56 Cardiac Injury Profile Ordered. EDMS 09:56 Liver Profile Ordered. EDMS 09:56 MED Profile Ordered. EDMS 09:56 Thyroid Stimulating Hormone Ordered. EDMS 09:56 Troponin Ordered. EDMS 09:56 Type & Screen Ordered. EDMS 09:57 ECG WITH READING ER PHYS+CARDIAG ordered. EDMS 09:59 US Lower Extremity R/O DVT Ordered. EDMS 10:33 Financial registration complete. mm15 10:59 CBC with Diff Reviewed. sd1 11:15 NS 0.9% 500 ml IV at bolus once ordered. sd1 11:36 MED Profile Reviewed. sd1 11:36 Cardiac Injury Profile Reviewed. sd1 11:36 Liver Profile Reviewed. sd1 11:36 Thyroid Stimulating Hormone Reviewed. sd1 11:36 Troponin Reviewed. sd1 11:36 Type & Screen Reviewed. sd1 11:36 CT Head Without Contrast Reviewed. sd1 11:36 US Lower Extremity R/O DVT Reviewed. sd1 11:38 UA Ordered. EDMS 11:38 Urine,Osmolality Ordered. EDMS 11:38 Urine Culture Ordered. EDMS 11:44 [facility] [place] Payment Agreement was scanned into Smart Mocha and attached to record. mm15 12:40 Type & Screen Reviewed. sd1 12:42 BED REQUEST+ADM ordered. EDMS 12:44 Call Respiratory ordered. sd1 12:44 Chest, 1 View Ordered. EDMS 12:44 -Arterial Blood Gas Ordered. EDMS 12:44 Ammonia (Little Green Tube on Ice, Not Pea Green) Ordered. EDMS 12:47 Call Respiratory complete. lbd 12:52 Lactic Acid (Cheng tube on ice) Ordered. EDMS 13:06 NS 0.9% 1000 ml IV at 150 mL/hr continuous ordered. sd1 13:17 NS 0.9% 500 ml IV at bolus once ordered. kc3 13:32 -Arterial Blood Gas Reviewed. sd1 13:32 Ammonia (Little Green Tube on Ice, Not Pea Green) Reviewed. sd1 13:32 Lactic Acid (Cheng tube on ice) Reviewed. sd1 13:58 PHYSICAL THERAPY EVAL & TREAT ordered. EDMS 13:59 Admission / Observation Status ordered. EDMS 13:59 NO ADDED SALT DIET ordered. EDMS 14:00 URINALYSIS Ordered. EDMS 14:48 Chest, 1 View Reviewed. sd1 08/31 09:41 T-Sheet-- Draft Copy was scanned into Smart Mocha and attached to record. gb 09:42 PCR was scanned into Smart [employer] and attached to record. gb Administered Medications: 08/30 11:19 Drug: NS 0.9% 500 ml [sodium chloride 0.9 % injection solution] Route: IV; Rate: bolus; mlb1 Site: right antecubital; 12:31 Follow up: IV Status: Completed infusion; see vs in NN mlb1 13:17 Drug: NS 0.9% 500 ml [sodium chloride 0.9 % intravenous solution] Route: IV; Rate: kc3 bolus; Site: right antecubital; 13:48 Drug: NS 0.9% 1000 ml [sodium chloride 0.9 % injection solution] Route: IV; Rate: 150 mlb1 mL/hr; Site: right antecubital; Signatures: Dispatcher MedHost EDMS Darlene Freedman MD MD sd1 Indira Melendrez, Window Unit Air Conditioning Mechanic Unit lbd Pinky Powers, Reg Reg gb Jm Patel RN RN mlb1 Stevenson Mayer mm15 Jhoan Lambert RN RN mts Jessika Alonzo RN RN kc3 The chart was reviewed and I authenticate all verbal orders and agree with the evaluation and treatment provided.Attachments: 11:44 [facility] Payment Agreement mm15 08/31 09:41 T-Sheet-- Draft Copy gb Chart Complete MTDD
--- NOTE | 2016-09-01 17:45 | EDDOCDS ---
Physician Documentation [facility] Name: Indira Willis Age: 71 yrs Sex: Female : 1945 Arrival Date: 08/30/2016 Time: 09:36 Bed 8 Private MD: Yusuf Disposition: 08/30/16 13:40 Hospitalization ordered by Elena Rizvi for Inpatient Admission. Preliminary diagnosis is Hypotension. - Bed requested for 4 [place]. - Status is Inpatient Admission. mlb1 - Condition is Stable. - Problem is new. - Symptoms are unchanged. Historical: - Allergies: Codeine Sulfate (Rash); - Home Meds: 1. Vitamin B-12 1,000 mcg Oral tab daily 2. prednisone 5 mg oral tab every other days alternates 5mg and 10 mg every other day 3. ferrous sulfate 220 mg/5 mL oral elix daily 4. vitamin B12 100mcg daily 5. multivitamin Oral tab daily 6. esomeprazole magnesium 40 mg Oral cpDR 1 cap once daily 7. digoxin 125 mcg Oral tab 1 tab once daily 8. atenolol 25 mg Oral tab 1 tab once daily 9. Drisdol 50,000 unit Oral cap once wkly fridays 10. Zoloft 50 mg Oral tab 1 tab once daily 11. Klor-Con 10 10 mEq Oral TbER 1 tab once daily 12. spironolactone 25 mg Oral tab 1 tab once daily 13. lisinopril 2.5 mg Oral tab once daily 14. torsemide 20 mg oral tab 1 tab once daily 15. Honey 180 mg Oral tab 1 tab once daily 16. Colace 100 mg oral cap 1 cap 2 times per day - PMHx: Atrial Fib; bladder CA; CHF; Cirrhosis; Diverticulosis; GERD; Hypercholesterolemia; Hypertension; Hiatal Hernia; - PSHx: Pacemaker Insertion; Cataract Surgery- Bilateral; Hernia repair; - Social history: Smoking status: unknown if patient ever smoked tobacco. No barriers to communication noted, The patient speaks fluent Irish, Speaks appropriately for age. - Family history: Not pertinent. - : The pt / caregiver states he / she is not on anticoagulants. The pt / caregiver states he / she is not on anticoagulants. Home medication list is obtained from the facility MAR, Home medication list is obtained from the facility MAR. - Exposure Risk Screening:: None identified. None identified. Vital Signs: 08/30 09:47 BP 108 / 62; Pulse 71; Resp 20; Temp 96.6; Pulse Ox 100% ; Weight 78.93 kg / 174.01 jlf lbs; Height 5 ft. 5 in. (165.10 cm); Pain 4/10; 10:46 BP 72 / 40 (auto/); mlb1 10:46 Pulse 66 MON; Pulse Ox 97% ; mlb1 11:01 BP 69 / 42 (auto/); mlb1 11:02 Pulse 62 MON; Pulse Ox 98% ; mlb1 11:14 BP 72 / 48 (auto/); mlb1 11:15 Pulse 66 MON; Pulse Ox 99% ; mlb1 11:16 BP 82 / 48 (auto/); mlb1 11:16 Pulse 66 MON; Pulse Ox 100% ; mlb1 11:31 BP 88 / 50 (auto/); mlb1 11:31 Pulse 62 MON; Pulse Ox 100% ; mlb1 11:46 BP 100 / 56 (auto/); mlb1 11:46 Pulse 62 MON; Pulse Ox 98% ; mlb1 12:32 BP 113 / 62 Supine; Pulse 68; mlb1 12:32 BP 115 / 62 Sitting; Pulse 74; mlb1 12:32 BP 121 / 63 Standing; Pulse 73; mlb1 12:44 Pulse 64 MON; Pulse Ox 99% ; kc3 12:45 BP 80 / 47 (auto/); kc3 12:55 Pulse 64 MON; Pulse Ox 97% ; kc3 12:56 BP 88 / 51 (auto/); kc3 12:59 Pulse 64 MON; Pulse Ox 99% ; kc3 13:00 BP 78 / 51 (auto/); kc3 13:13 Pulse 62 MON; Pulse Ox 100% ; kc3 13:14 BP 98 / 56 (auto/); kc3 13:15 BP 83 / 65 (auto/); kc3 13:15 Pulse 60 MON; Pulse Ox 100% ; kc3 13:30 BP 106 / 56 (auto/); mlb1 13:30 Pulse 62 MON; Pulse Ox 99% ; mlb1 13:45 BP 104 / 61 (auto/); mlb1 13:45 Pulse 62 MON; Pulse Ox 96% ; mlb1 14:00 BP 94 / 51 (auto/); mlb1 14:00 Pulse 62 MON; Pulse Ox 98% ; mlb1 14:19 BP 104 / 69 (auto/); mlb1 14:19 Pulse 62 MON; Pulse Ox 100% ; mlb1 15:00 BP 91 / 56 (auto/); mlb1 15:00 Pulse 66 MON; Pulse Ox 100% ; mlb1 15:14 Pulse 64 MON; Pulse Ox 99% ; mlb1 15:14 BP 99 / 56; Pulse 62; Resp 16; Temp 97.1(O); Pulse Ox 100% on R/A; Pain 0/10; mlb1 15:15 BP 98 / 60 (auto/); mlb1 15:29 Pulse 62 MON; Pulse Ox 98% ; mlb1 15:30 BP 76 / 41 (auto/); mlb1 15:44 Pulse 64 MON; Pulse Ox 97% ; mlb1 15:45 BP 69 / 32 (auto/); mlb1 15:45 Pulse 60 MON; Pulse Ox 97% ; mlb1 15:46 BP 72 / 36 (auto/); mlb1 15:47 Pulse 70 MON; Pulse Ox 96% ; mlb1 15:48 Pulse 66 MON; Pulse Ox 97% ; mlb1 15:48 BP 80 / 46 (auto/); mlb1 15:49 BP 79 / 44 (auto/); mlb1 15:58 Pulse 66 MON; Pulse Ox 90% ; mlb1 15:59 BP 108 / 56 (auto/); mlb1 16:13 Pulse Ox 100% on R/A; mlb1 09:47 Body Mass Index 28.95 (78.93 kg, 165.10 cm) [facility] MDM: 09:56 Paralegal Assistant/Pulse Ox/q 15 min VS ordered. sd1 09:56 IV Saline Lock ordered. sd1 09:56 Rhythm Strip to chart ordered. sd1 09:56 Orthostatic VS ordered. sd1 09:56 CT Head Without Contrast Ordered. EDMS 09:56 CBC with Diff Ordered. EDMS 09:56 Cardiac Injury Profile Ordered. EDMS 09:56 Liver Profile Ordered. EDMS 09:56 MED Profile Ordered. EDMS 09:56 Thyroid Stimulating Hormone Ordered. EDMS 09:56 Troponin Ordered. EDMS 09:56 Type & Screen Ordered. EDMS 09:57 ECG WITH READING ER PHYS+CARDIAG ordered. EDMS 09:59 US Lower Extremity R/O DVT Ordered. EDMS 10:33 Financial registration complete. mm15 10:59 CBC with Diff Reviewed. sd1 11:15 NS 0.9% 500 ml IV at bolus once ordered. sd1 11:36 MED Profile Reviewed. sd1 11:36 Cardiac Injury Profile Reviewed. sd1 11:36 Liver Profile Reviewed. sd1 11:36 Thyroid Stimulating Hormone Reviewed. sd1 11:36 Troponin Reviewed. sd1 11:36 Type & Screen Reviewed. sd1 11:36 CT Head Without Contrast Reviewed. sd1 11:36 US Lower Extremity R/O DVT Reviewed. sd1 11:38 UA Ordered. EDMS 11:38 Urine,Osmolality Ordered. EDMS 11:38 Urine Culture Ordered. EDMS 11:44 [facility] Payment Agreement was scanned into [employer] and attached to record. mm15 12:40 Type & Screen Reviewed. sd1 12:42 BED REQUEST+ADM ordered. EDMS 12:44 Call Respiratory ordered. sd1 12:44 Chest, 1 View Ordered. EDMS 12:44 -Arterial Blood Gas Ordered. EDMS 12:44 Ammonia (Little Green Tube on Ice, Not Pea Green) Ordered. EDMS 12:47 Call Respiratory complete. lbd 12:52 Lactic Acid (Cheng tube on ice) Ordered. EDMS 13:06 NS 0.9% 1000 ml IV at 150 mL/hr continuous ordered. sd1 13:17 NS 0.9% 500 ml IV at bolus once ordered. kc3 13:32 -Arterial Blood Gas Reviewed. sd1 13:32 Ammonia (Little Green Tube on Ice, Not Pea Green) Reviewed. sd1 13:32 Lactic Acid (Cheng tube on ice) Reviewed. sd1 13:58 PHYSICAL THERAPY EVAL & TREAT ordered. EDMS 13:59 Admission / Observation Status ordered. EDMS 13:59 NO ADDED SALT DIET ordered. EDMS 14:00 URINALYSIS Ordered. EDMS 14:48 Chest, 1 View Reviewed. sd1 08/31 09:41 T-Sheet-- Draft Copy was scanned into [employer] and attached to record. gb 09:42 PCR was scanned into [employer] and attached to record. gb Administered Medications: 08/30 11:19 Drug: NS 0.9% 500 ml [sodium chloride 0.9 % injection solution] Route: IV; Rate: bolus; mlb1 Site: right antecubital; 12:31 Follow up: IV Status: Completed infusion; see vs in NN mlb1 13:17 Drug: NS 0.9% 500 ml [sodium chloride 0.9 % intravenous solution] Route: IV; Rate: kc3 bolus; Site: right antecubital; 13:48 Drug: NS 0.9% 1000 ml [sodium chloride 0.9 % injection solution] Route: IV; Rate: 150 mlb1 mL/hr; Site: right antecubital; Signatures: Dispatcher MedHost EDMS Darlene Freedman MD MD sd1 Indira Melendrez, Laundry Tech Unit lbd Pinky Powers, Reg Reg gb Jm Patel RN RN mlb1 Stevenson Mayer mm15 Jhoan Lambert RN RN mts Jessika Alonzo RN RN kc3 The chart was reviewed and I authenticate all verbal orders and agree with the evaluation and treatment provided.Attachments: 11:44 [facility] Payment Agreement mm15 08/31 09:41 T-Sheet-- Draft Copy gb Chart Complete MTDD
[2016-09-01 22:00] VITALS: BP 134/86
--- NOTE | 2016-09-01 22:29 | ECHO ---
DATE OF PROCEDURE: 09/01/2016 REFERRING PHYSICIAN: Tj Dumont MD INDICATION: Syncope, hypotension. HEIGHT: 165 cm WEIGHT: 80 kg MEASUREMENTS: Ventricular septum: 0.9 cm Posterior wall: 0.83 cm Left ventricle diastole: 3.9 cm Left atrium: 3.7 cm Aortic root: 2.6 cm LVOT: 1.6 cm Right ventricle: 4.8 cm Inferior vena cava: 2.8 cm DOPPLER MEASUREMENTS: Aortic valve velocity: 124 cm/s LVOT velocity: 64.7 cm/s Mild mitral regurgitation. Moderate tricuspid regurgitation. Estimated right ventricle systolic pressure 52 mmHg assuming a right atrial pressure of 20 mmHg. DESCRIPTION: Rhythm was atrial fibrillation with ventricular demand pacing. Image quality was fair. No pericardial effusion. This is a 2D, M-mode, color flow Doppler and pulse wave Doppler examination. CONCLUSIONS: 1. Normal left ventricle size and wall thickness. Normal overall left ventricle (LV) systolic function. Left ventricular ejection fraction (LVEF) 60% by visual estimate. Mild paradoxical septal motion was present with ventricular paced beats and absent with [place] lead conducted QRS complexes. 2. Mild right ventricle dilatation. Mild right atrial dilatation. Moderate tricuspid regurgitation with structurally normal appearing tricuspid leaflets. Inferior vena cava plethora. Suggestive of elevated central venous pressure at least 20 mmHg. Moderate elevation of estimated right ventricle systolic pressure (at least 52 mmHg). 3. Mild aortic valve sclerosis of a three-cuspid aortic valve. 4. The presence of ventricular pacemaker lead coursing toward the right ventricle apex.
[2016-09-02] MEDS: HEPARIN SOD (PORCINE) 5000 UNITS/ML VIAL SQ SCH ×4 (05:24→21:46)
[2016-09-02 06:00] VITALS: BP_SYST 114; BP_SYST 122; BP_DIAS 65; BP_DIAS 70
[2016-09-02] MEDS: metroNIDAZOLE (FLAGYL) 500 MG TAB PO SCH ×3 (06:34→21:42)
[2016-09-02 07:35] LABS: BASO % 0.2 % (0.0-1.0); EOS # 0.2 K/mm3 (0.0-0.50); EOS % 3.1 % (0.0-3.0); LARGE UNSTAINED CELL # 0.1 K/mm3 (0.0-0.4); LARGE UNSTAINED CELL % 1.7 % (0.0-4.0); LYMPH # 1.3 K/mm3 (1.5-4.5); LYMPH % 20.5 % (24.0-44.0); MEAN CORPUSCULAR HEMOGLOBIN 33.9 pg (27.0-33.0); MEAN CORPUSCULAR HGB CONC 34.4 g/dl (32.0-36.5); MEAN CORPUSCULAR VOLUME 98.4 fl (80.0-96.0); MONO # 0.4 K/mm3 (0.0-0.8); MONO % 7.3 % (0.0-5.0); NEUTROPHILS # 4.1 K/mm3 (1.8-7.7); NEUTROPHILS % 67.2 % (36.0-66.0); PLATELET COUNT, AUTOMATED 191 k/mm3 (150-450); RED CELL DISTRIBUTION WIDTH 12.6 % (11.5-14.5); WHITE BLOOD COUNT 6.1 K/mm3 (4.0-10.0)
[2016-09-02 07:45] LABS: ANION GAP 8 MEQ/L (8-16); BLOOD UREA NITROGEN 22 MG/DL (7-18); CALCIUM LEVEL 9.5 MG/DL (8.8-10.2); CARBON DIOXIDE LEVEL 24 MEQ/L (21-32); CHLORIDE LEVEL 111 MEQ/L (98-107); CREATININE FOR GFR 0.94 MG/DL (0.55-1.02); GLOMERULAR FILTRATION RATE > 60.0 (>45); GLUCOSE, FASTING 88 MG/DL (80-110); SODIUM LEVEL 143 MEQ/L (136-145)
[2016-09-02] MEDS: ACETAMINOPHEN TAB 650MG DOSE (2X325MG) PO SCH ×2 (09:35→21:42)
[2016-09-02] MEDS: POTASSIUM CHLORIDE 10 MEQ SR TABLET PO SCH (09:35)
[2016-09-02] MEDS: SERTRALINE HCL 50 MG TAB PO SCH (09:35)
[2016-09-02] MEDS: FERROUS SULFATE 300MG/5ML UDC LIQUID PO SCH (09:35)
[2016-09-02] MEDS: ATENOLOL 25 MG TAB PO SCH (09:35)
[2016-09-02] MEDS: CYANOCOBALAMIN 250 MCG TABLET PO SCH (09:35)
[2016-09-02] MEDS: PANTOPRAZOLE 40MG TAB (PROTONIX) PO SCH (09:36)
[2016-09-02] MEDS: MULTIVITAMINS/MINERALS THERAP 1 TAB PO SCH (09:36)
[2016-09-02] MEDS: DIGOXIN 0.125 MG TAB PO SCH (09:36)
[2016-09-02] MEDS: predniSONE 10 MG TAB PO SCH (09:36)
--- NOTE | 2016-09-02 13:49 | IPN ---
DATE: 09/02/2016 SUBJECTIVE: Today the patient denies any significant complaints. She tells me she is having infrequent loose bowels, but they are more formed than they were previously. She denies abdominal pain, nausea, vomiting, chest pain, shortness of breath, fevers, or chills. OBJECTIVE: VITAL SIGNS: Temperature 98.2, pulse 61, respiratory rate 18, blood pressure 114/65, oxygen saturation 96% on room air. GENERAL: She is an elderly female sitting on the edge of the bed. She does not appear to be in any acute distress. HEENT: She is wearing strong bifocal lenses. She has a disconjugate gaze. She has moist mucous membranes. No elevation of CVP. CARDIOVASCULAR EXAM: S1 and S2, irregularly irregular. She is not tachycardic. RESPIRATORY EXAM: Clear. ABDOMINAL EXAM: Obese. Bowel sounds are present. The abdomen is soft, it is nontender. <<0:40>> benign. EXTREMITIES: No clubbing, cyanosis, or edema. LABORATORY STUDIES: WBC 6.1, hemoglobin 10.8, hematocrit 31.4, platelet count 191. Chemistry panel: Sodium 143, potassium 4.0, chloride 111, bicarb 24, BUN 22, creatinine 0.9. Microbiology: The patient did have a stool culture. The GI/PCR panel returned positive for C. Difficile. No new imaging. ASSESSMENT/PLAN: This is a 71-year-old female who presented initially with falls secondary to orthostasis and dehydration. PROBLEMS: 1. Falls secondary to orthostasis and dehydration. The patient's home aldactone, lisinopril and torsemide have all been held. She is also was having diarrhea prior to her hospitalization and she has tested positive for C. Difficile. At this time, she is being started on by mouth Flagyl as it appears to be relatively mild given there is no leukocytosis. At the present time there is no acute kidney injury as it has resolved with fluids and holding her diuretic. At the present time, her symptoms have resolved. She continues to work with physical therapy but she is not cleared for disposition back to assisted living. She has not improved to that point as of yet. 2. Acute kidney injury. Prerenal azotemia resolved with IV fluids. She is taking well by mouth. We will not restart her diuretics at this time. 3. Osteoarthrosis. The patient is on prednisone chronically. 4. Atrial fibrillation. The patient is rate controlled at this time on digoxin. She is not anticoagulated secondary to her propensity for falls. 5. Diastolic heart failure. The patient was hypovolemic at the time of admission. At the present time she appears euvolemic. An echocardiogram has been ordered. The results reveal normal LV size and wall thickness. Ejection fraction 60%. Mild paradoxical septal motion present with ventricular paced beats. Mild ventricle dilation, inferior vena cava plethora. 6. Iron deficiency anemia. The patient is on supplementation. Occult stool for blood is negative. Her anemia is mild and asymptomatic. Consider further outpatient followup. 7. History of cirrhosis. The patient is on a beta-dirk. Her diuretics are currently on hold. It appears to be relatively mild based on the benign nature of her labs and physical exam. 8. Depression. The patient is on Zoloft. 9. Gastroesophageal reflux disease (GERD). The patient is on Protonix. 10. Seasonal allergies. The patient is on Honey. 11. B12 deficiency. The patient is on supplementation. 12. Homicidal ideation. The patient has been seen and evaluated by psychiatry. She is not felt to be a danger to herself or others. I agree with this assessment. DISPOSITION: The patient is currently awaiting return to [facility] versus [facility] longterm facility depending on how she progresses.
[2016-09-02 14:00] VITALS: BP 114/60
[2016-09-02 22:00] VITALS: BP 98/72
[2016-09-03 06:00] VITALS: BP 98/68
[2016-09-03] MEDS: HEPARIN SOD (PORCINE) 5000 UNITS/ML VIAL SQ SCH ×3 (06:00→22:00)
[2016-09-03] MEDS: metroNIDAZOLE (FLAGYL) 500 MG TAB PO SCH ×3 (06:23→22:02)
[2016-09-03 06:29] LABS: BASO % 0.3 % (0.0-1.0); EOS # 0.3 K/mm3 (0.0-0.50); LARGE UNSTAINED CELL # 0.1 K/mm3 (0.0-0.4); LARGE UNSTAINED CELL % 1.8 % (0.0-4.0); LYMPH # 1.3 K/mm3 (1.5-4.5); LYMPH % 17.8 % (24.0-44.0); MEAN CORPUSCULAR HEMOGLOBIN 34.2 pg (27.0-33.0); MEAN CORPUSCULAR VOLUME 97.6 fl (80.0-96.0); MONO # 0.4 K/mm3 (0.0-0.8); NEUTROPHILS # 5.2 K/mm3 (1.8-7.7); NEUTROPHILS % 71.1 % (36.0-66.0); PLATELET COUNT, AUTOMATED 196 k/mm3 (150-450); RED CELL DISTRIBUTION WIDTH 12.5 % (11.5-14.5); WHITE BLOOD COUNT 7.3 K/mm3 (4.0-10.0)
[2016-09-03 06:56] LABS: ANION GAP 10 MEQ/L (8-16); BLOOD UREA NITROGEN 21 MG/DL (7-18); CALCIUM LEVEL 9.7 MG/DL (8.8-10.2); CARBON DIOXIDE LEVEL 23 MEQ/L (21-32); CHLORIDE LEVEL 110 MEQ/L (98-107); CREATININE FOR GFR 0.97 MG/DL (0.55-1.02); GLOMERULAR FILTRATION RATE > 60.0 (>45); GLUCOSE, FASTING 80 MG/DL (80-110); POTASSIUM SERUM 3.9 MEQ/L (3.5-5.1); SODIUM LEVEL 143 MEQ/L (136-145)
[2016-09-03] MEDS: ACETAMINOPHEN TAB 650MG DOSE (2X325MG) PO SCH ×2 (10:10→22:02)
[2016-09-03] MEDS: FERROUS SULFATE 300MG/5ML UDC LIQUID PO SCH (10:10)
[2016-09-03] MEDS: SERTRALINE HCL 50 MG TAB PO SCH (10:10)
[2016-09-03] MEDS: PANTOPRAZOLE 40MG TAB (PROTONIX) PO SCH (10:11)
[2016-09-03] MEDS: CYANOCOBALAMIN 250 MCG TABLET PO SCH (10:11)
[2016-09-03] MEDS: MULTIVITAMINS/MINERALS THERAP 1 TAB PO SCH (10:11)
[2016-09-03] MEDS: DIGOXIN 0.125 MG TAB PO SCH (10:11)
[2016-09-03] MEDS: POTASSIUM CHLORIDE 10 MEQ SR TABLET PO SCH (10:11)
[2016-09-03] MEDS: predniSONE 5 MG TAB PO SCH (10:11)
[2016-09-03] MEDS: ATENOLOL 25 MG TAB PO SCH (10:13)
[2016-09-03 14:00] VITALS: BP_SYST 100; BP_SYST 135; BP_SYST 145; BP_DIAS 56; BP_DIAS 70; BP_DIAS 73
--- NOTE | 2016-09-03 15:23 | IPNPDOC ---
Date/Time Seen The patient was seen on 09/03/16 at 15:15. Progress Note SUBJECTIVE: The patient denies diarrhea or abdominal pain she denies any nausea tells me that she is feeling well she has no complaints other than for the staff members and SSV denies chest pain shortness of breath fevers or chills OBJECTIVE: PHYSICAL EXAMINATION: VITAL SIGNS: Please see below. GENERAL: Elderly female sitting up in bed she is not in any acute distress her mood is labile at times she speaks had an inappropriately high volume HEENT: Is wearing bifocal lenses she has a disconjugate gaze she has moist mucous membranes elevation central venous pressure CARDIOVASCULAR: S1-S2 irregularly irregular. RESPIRATORY: Clear to auscultation. ABDOMINAL: L sounds are present abdomen soft and nontender EXTREMITIES: No clubbing cyanosis or edema LABORATORY DATA: Please see below. MICROBIOLOGY: Stool sample from the 12th positive for C. difficile otherwise Please see below. IMAGING: No new imaging Echocardiogram: Normal LV size and thickness EF 60%, mild RV dilation mild RA dilation inferior cava plethora presence of ventricular pacemaker lead. DVT prophylaxis ordered?: Heparin although the patient refuses this often and is aware of the risks ASSESSMENT AND PLAN: This is a 71-year-old . Female with falls secondary to orthostasis from overdiuresis and dehydration related to C. difficile colitis. Problem #1 falls secondary to orthostasis and dehydration related to the diuretic use and C. difficile colitis. The patient is on by mouth Flagyl for C. difficile is relatively mild her torsemide and lisinopril and Aldactone above and placed on hold she is normotensive without them. The patient continues to work with physical therapy she is not ready to return back to assisted living at this point. Problem #2 acute kidney injury: Prerenal azotemia resolved with IV fluids she is taking well by mouth she's not been restarted on her diuretics as of yet. Problem #3 Osteoarthrosis the patient takes prednisone chronically this is her outpatient regimen. Problem #4 atrial fibrillation: The patient is rate controlled at this time with digoxin and atenolol she is not anticoagulated secondary to her propensity for falls Problem #5 patient has a history of diastolic heart failure she has an echocardiogram which is not overly convincing of this her volume status appears to be fairly euvolemic at this time. Problem #6 deficiency anemia: The patient supplementation an occult stool for blood is negative her anemia is mild and asymptomatic further outpatient evaluation. Problem #7 history of cirrhosis: The patient is on a beta dirk her diuretics are currently on hold her cirrhosis appears to be relatively mild and benign in nature given her physical exam and laboratory studies. Problem #8 depression: The patient is on Zoloft Problem #9 gastroesophageal reflux disease the patient is on Protonix Problem #10 the patient has seasonal allergies she is on Honey Problem #11 vitamin B12 deficiency: The patient is on supplementation Problem #12 homicidal ideation: Psychiatry seen and evaluated the patient did not feel as though these intentions are sincere negative agree with her assessment DISPOSITION: Back to [facility] assisted living versus halfway depending on how the patient progresses. VS, I&O, 24H, Fishbone VS, I&O, 24H, Fishbone Vital Signs Date Time Temp Pulse Resp B/P Pulse Ox O2 Delivery O2 Flow Rate FiO2 09/03/16 10:13 70 98/68 09/03/16 08:30 Room Air 09/03/16 06:00 97.4 18 100 I&O- Last 24 Hours up to 6 AM 09/03/16 06:00 Intake Total 1620 ml Output Total 650 ml Balance 970 ml Laboratory Tests 2 09/03/16 06:06: Anion Gap 10, White Blood Count 7.3, Red Blood Count 3.31L, Hemoglobin 11.3L, Hematocrit 32.3L, Mean Corpuscular Volume 97.6H, Mean Corpuscular Hemoglobin 34.2H, Mean Corpuscular Hemoglobin Concent 35.0, Red Cell Distribution Width 12.5, Platelet Count 196, Neutrophils (%) (Auto) 71.1H, Lymphocytes (%) (Auto) 17.8L, Monocytes (%) (Auto) 5.0, Eosinophils (%) (Auto) 4.0H, Basophils (%) ( Auto) 0.3, Neutrophils # (Auto) 5.2, Lymphocytes # (Auto) 1.3L, Monocytes # ( Auto) 0.4, Eosinophils # (Auto) 0.3, Basophils # (Auto) 0.0, Blood Urea Nitrogen 21H, Creatinine 0.97, Sodium Level 143, Potassium Level 3.9, Chloride Level 110H, Carbon Dioxide Level 23, Calcium Level 9.7, Glomerular Filtration Rate > 60.0, Large Unclassified Cells # 0.1, Large Unclassified Cells % 1.8 Laboratory Tests 09/03/16 06:06 Calcium Level 9.7, Red Blood Count 3.31 L, Mean Corpuscular Volume 97.6 H, Mean Corpuscular Hemoglobin 34.2 H, Mean Corpuscular Hemoglobin Concent 35.0, Red Cell Distribution Width 12.5, Neutrophils (%) (Auto) 71.1 H, Lymphocytes (%) ( Auto) 17.8 L, Monocytes (%) (Auto) 5.0, Eosinophils (%) (Auto) 4.0 H, Basophils (%) (Auto) 0.3, Neutrophils # (Auto) 5.2, Lymphocytes # (Auto) 1.3 L, Monocytes # (Auto) 0.4, Eosinophils # (Auto) 0.3, Basophils # (Auto) 0.0 Microbiology 09/01/16 Gastrointestinal Tract Panel (PCR) - Final, Complete Clostridium Difficile A/B 08/31/16 Stool Occult Blood (CARLOS) - Final, Complete 08/30/16 Urine Culture - Final, Complete KIERRA DONATO MD Sep 03, 2016 15:23
[2016-09-03 22:00] VITALS: BP 98/62
[2016-09-04 06:00] VITALS: BP 106/74
[2016-09-04] MEDS: HEPARIN SOD (PORCINE) 5000 UNITS/ML VIAL SQ SCH ×3 (06:00→20:25)
[2016-09-04] MEDS: metroNIDAZOLE (FLAGYL) 500 MG TAB PO SCH ×3 (06:10→20:25)
[2016-09-04 06:16] LABS: BASO % 0.2 % (0.0-1.0); EOS # 0.3 K/mm3 (0.0-0.50); EOS % 3.9 % (0.0-3.0); LARGE UNSTAINED CELL # 0.1 K/mm3 (0.0-0.4); LARGE UNSTAINED CELL % 1.4 % (0.0-4.0); LYMPH # 1.1 K/mm3 (1.5-4.5); LYMPH % 14.3 % (24.0-44.0); MEAN CORPUSCULAR HGB CONC 33.3 g/dl (32.0-36.5); MONO # 0.4 K/mm3 (0.0-0.8); MONO % 5.5 % (0.0-5.0); NEUTROPHILS # 5.9 K/mm3 (1.8-7.7); NEUTROPHILS % 74.8 % (36.0-66.0); PLATELET COUNT, AUTOMATED 201 k/mm3 (150-450); RED CELL DISTRIBUTION WIDTH 12.7 % (11.5-14.5); WHITE BLOOD COUNT 7.8 K/mm3 (4.0-10.0)
[2016-09-04 06:36] LABS: ANION GAP 8 MEQ/L (8-16); BLOOD UREA NITROGEN 18 MG/DL (7-18); CALCIUM LEVEL 9.4 MG/DL (8.8-10.2); CARBON DIOXIDE LEVEL 23 MEQ/L (21-32); CHLORIDE LEVEL 111 MEQ/L (98-107); CREATININE FOR GFR 0.95 MG/DL (0.55-1.02); GLOMERULAR FILTRATION RATE > 60.0 (>45); GLUCOSE, FASTING 85 MG/DL (80-110); SODIUM LEVEL 142 MEQ/L (136-145)
[2016-09-04] MEDS: FERROUS SULFATE 300MG/5ML UDC LIQUID PO SCH (09:34)
[2016-09-04] MEDS: ACETAMINOPHEN TAB 650MG DOSE (2X325MG) PO SCH ×2 (09:34→20:24)
[2016-09-04] MEDS: MULTIVITAMINS/MINERALS THERAP 1 TAB PO SCH (09:34)
[2016-09-04] MEDS: POTASSIUM CHLORIDE 10 MEQ SR TABLET PO SCH (09:34)
[2016-09-04] MEDS: CYANOCOBALAMIN 250 MCG TABLET PO SCH (09:34)
[2016-09-04] MEDS: ATENOLOL 25 MG TAB PO SCH (09:38)
[2016-09-04] MEDS: predniSONE 10 MG TAB PO SCH (09:38)
[2016-09-04] MEDS: SERTRALINE HCL 50 MG TAB PO SCH (09:38)
[2016-09-04] MEDS: PANTOPRAZOLE 40MG TAB (PROTONIX) PO SCH (09:38)
[2016-09-04] MEDS: DIGOXIN 0.125 MG TAB PO SCH (09:38)
--- NOTE | 2016-09-04 10:53 | IPNPDOC ---
Date/Time Seen The patient was seen on 09/04/16 at 10:50. Progress Note SUBJECTIVE: The patient denies diarrhea or abdominal pain she denies any nausea tells me that she is feeling well she has no complaints other than for the staff members and SSV denies chest pain shortness of breath fevers or chills. OBJECTIVE: PHYSICAL EXAMINATION: VITAL SIGNS: Please see below. GENERAL: Elderly female sitting in a chair she is very conversational her mood is labile at times she speaks had an inappropriately high volume HEENT: Is wearing bifocal lenses she has a disconjugate gaze she has moist mucous membranes elevation central venous pressure CARDIOVASCULAR: S1-S2 irregularly irregular. RESPIRATORY: Clear to auscultation. ABDOMINAL: L sounds are present abdomen soft and nontender EXTREMITIES: No clubbing cyanosis or edema prominent varicose veins of the bilateral lower extremities LABORATORY DATA: Please see below. MICROBIOLOGY: Stool sample from the 12th positive for C. difficile otherwise Please see below. IMAGING: No new imaging Echocardiogram: Normal LV size and thickness EF 60%, mild RV dilation mild RA dilation inferior cava plethora presence of ventricular pacemaker lead. DVT prophylaxis ordered?: Heparin although the patient refuses this often and is aware of the risks ASSESSMENT AND PLAN: This is a 71-year-old . Female with falls secondary to orthostasis from overdiuresis and dehydration related to C. difficile colitis. Problem #1 falls secondary to orthostasis and dehydration related to the diuretic use and C. difficile colitis. The patient is on by mouth Flagyl for C. difficile which is relatively mild her torsemide and lisinopril and Aldactone above and placed on hold she is normotensive without them. The patient continues to work with physical therapy she is not ready to return back to assisted living at this point. Problem #2 acute kidney injury: Prerenal azotemia resolved with IV fluids she is taking well by mouth she's not been restarted on her diuretics as of yet. She appears euvolemic Problem #3 Osteoarthrosis the patient takes prednisone chronically this is her outpatient regimen. Problem #4 atrial fibrillation: The patient is rate controlled at this time with digoxin and atenolol she is not anticoagulated secondary to her propensity for falls Problem #5 patient has a history of diastolic heart failure she has an echocardiogram which is not overly convincing of this her volume status appears to be fairly euvolemic at this time. Problem #6 deficiency anemia: The patient supplementation an occult stool for blood is negative her anemia is mild and asymptomatic further outpatient evaluation. Problem #7 history of cirrhosis: The patient is on a beta dirk her diuretics are currently on hold her cirrhosis appears to be relatively mild and benign in nature given her physical exam and laboratory studies. Problem #8 depression: The patient is on Zoloft Problem #9 gastroesophageal reflux disease the patient is on Protonix Problem #10 the patient has seasonal allergies she is on Honey Problem #11 vitamin B12 deficiency: The patient is on supplementation Problem #12 homicidal ideation: Psychiatry seen and evaluated the patient did not feel as though these intentions are sincere and I agree with there assessment DISPOSITION: Back to [facility] assisted living versus prison depending on how the patient progresses. VS, I&O, 24H, Fishbone VS, I&O, 24H, Fishbone Vital Signs Date Time Temp Pulse Resp B/P Pulse Ox O2 Delivery O2 Flow Rate FiO2 09/04/16 09:38 72 09/04/16 09:38 123/75 09/04/16 09:30 Room Air 09/04/16 06:00 97.3 16 98 I&O- Last 24 Hours up to 6 AM 09/04/16 05:59 Intake Total 2394 ml Output Total 600 ml Balance 1794 ml Laboratory Tests 2 09/04/16 06:06: Anion Gap 8, White Blood Count 7.8, Red Blood Count 3.47L, Hemoglobin 11.5L, Hematocrit 34.4L, Mean Corpuscular Volume 99.0H, Mean Corpuscular Hemoglobin 33.0, Mean Corpuscular Hemoglobin Concent 33.3, Red Cell Distribution Width 12.7 , Platelet Count 201, Neutrophils (%) (Auto) 74.8H, Lymphocytes (%) (Auto) 14.3L , Monocytes (%) (Auto) 5.5H, Eosinophils (%) (Auto) 3.9H, Basophils (%) (Auto) 0.2, Neutrophils # (Auto) 5.9, Lymphocytes # (Auto) 1.1L, Monocytes # (Auto) 0.4 , Eosinophils # (Auto) 0.3, Basophils # (Auto) 0.0, Blood Urea Nitrogen 18, Creatinine 0.95, Sodium Level 142, Potassium Level 4.0, Chloride Level 111H, Carbon Dioxide Level 23, Calcium Level 9.4, Glomerular Filtration Rate > 60.0, Large Unclassified Cells # 0.1, Large Unclassified Cells % 1.4 Laboratory Tests 09/04/16 06:06 Calcium Level 9.4, Red Blood Count 3.47 L, Mean Corpuscular Volume 99.0 H, Mean Corpuscular Hemoglobin 33.0, Mean Corpuscular Hemoglobin Concent 33.3, Red Cell Distribution Width 12.7, Neutrophils (%) (Auto) 74.8 H, Lymphocytes (%) (Auto) 14.3 L, Monocytes (%) (Auto) 5.5 H, Eosinophils (%) (Auto) 3.9 H, Basophils (%) (Auto) 0.2, Neutrophils # (Auto) 5.9, Lymphocytes # (Auto) 1.1 L, Monocytes # ( Auto) 0.4, Eosinophils # (Auto) 0.3, Basophils # (Auto) 0.0 Microbiology 09/01/16 Gastrointestinal Tract Panel (PCR) - Final, Complete Clostridium Difficile A/B 08/31/16 Stool Occult Blood (CARLOS) - Final, Complete 08/30/16 Urine Culture - Final, Complete KIERRA DONATO MD Sep 04, 2016 10:53
[2016-09-04 14:00] VITALS: BP 119/60
[2016-09-04 22:00] VITALS: BP 100/72
[2016-09-05 06:00] VITALS: BP_SYST 109; BP_SYST 120; BP_SYST 124; BP_DIAS 61; BP_DIAS 66; BP_DIAS 81
[2016-09-05] MEDS: HEPARIN SOD (PORCINE) 5000 UNITS/ML VIAL SQ SCH ×3 (06:00→13:01)
[2016-09-05] MEDS: metroNIDAZOLE (FLAGYL) 500 MG TAB PO SCH ×2 (06:09→12:57)
[2016-09-05 09:00] VITALS: BP 108/58
[2016-09-05] MEDS: ATENOLOL 25 MG TAB PO SCH (09:00)
[2016-09-05] MEDS: predniSONE 5 MG TAB PO SCH (09:48)
[2016-09-05] MEDS: MULTIVITAMINS/MINERALS THERAP 1 TAB PO SCH (09:48)
[2016-09-05] MEDS: PANTOPRAZOLE 40MG TAB (PROTONIX) PO SCH (09:48)
[2016-09-05] MEDS: POTASSIUM CHLORIDE 10 MEQ SR TABLET PO SCH (09:49)
[2016-09-05] MEDS: SERTRALINE HCL 50 MG TAB PO SCH (09:49)
[2016-09-05] MEDS: DIGOXIN 0.125 MG TAB PO SCH (09:50)
[2016-09-05] MEDS: FERROUS SULFATE 300MG/5ML UDC LIQUID PO SCH (09:52)
[2016-09-05] MEDS: CYANOCOBALAMIN 250 MCG TABLET PO SCH (09:52)
[2016-09-05] MEDS: ACETAMINOPHEN TAB 650MG DOSE (2X325MG) PO SCH (09:53)
[2016-09-05] MEDS ORDERED: FLAG500T PO (12:12)
[2016-09-05] MEDS: ACETAMINOPHEN TAB 650MG DOSE (2X325MG) PO PRN (12:58)
--- NOTE | 2016-09-05 15:39 | DSES ---
DATE OF ADMISSION: 08/30/2016 DATE OF DISCHARGE: 09/05/2016 DISCHARGE DIAGNOSIS: Clostridium (C) difficile colitis. SECONDARY DIAGNOSES: 1. Dehydration. 2. Orthostasis. 3. Falls. 4. Acute kidney injury. 5. Osteoarthrosis. 6. Atrial fibrillation. 7. Diastolic congestive heart failure. 8. Iron deficiency anemia. 9. Cirrhosis. 10. Depression. 11. Gastroesophageal reflux disease. 12. Seasonal allergies. 13. B12 deficiency. CONSULTATIONS: Psychiatry for homicidal ideation. HOSPITAL COURSE: The patient is a 71-year-old female who lives at [facility], who presented with falls. In the emergency room, she was found to be orthostatic and quite dehydrated with prerenal azotemia. It was felt that this was secondary to diuresis, over-medication with antihypertensives and diarrhea related to Clostridium (C) difficile colitis. The patient was admitted to the medical/surgical floor, re-hydrated, started on oral Flagyl with complete resolution of her symptoms and improvement in her renal function. During her stay, the patient did express homicidal ideation and was seen in consultation by psychiatry, who did not feel that these were sincere or warranted inpatient mental health services which I agree with. The patient did have an echocardiogram which demonstrated normal left ventricular (LV) wall thickness, systolic function, did not describe diastolic dysfunction, although the patient carries a previous diagnosis of this. The patient's diarrhea resolved. She worked with physical therapy and was cleared to be returned back to [facility]. Her acute kidney injury resolved. SUBJECTIVE: Today, the patient is very talkative but has no complaints. She is excited to go back to [facility]. OBJECTIVE: VITAL SIGNS: Temperature 98.1, pulse 67, respiratory rate 14, blood pressure 120/81, oxygen saturation 95% on room air. GENERAL: She is a pleasant, female sitting up in bed, in no distress. HEENT: She is wearing bifocals. She has a dysconjugate gaze. She has moist mucous membranes. No elevation of central venous pressure (CVP), hirsutism. CARDIOVASCULAR: S1, S2, irregularly irregular, but no tachycardic. RESPIRATORY: Clear. ABDOMEN: Obese. Bowel sounds present. The abdomen is soft. EXTREMITIES: No clubbing, cyanosis, or edema but prominent varicosities. LABORATORY STUDIES: WBC 7.8, hemoglobin 11.5, hematocrit 34.4, platelet count 201. Chemistry panel: Sodium 142, potassium 4.0, chloride 111, bicarbonate 23, BUN 18, creatinine 0.9. MICROBIOLOGY: Occult stool for blood was negative. Urine culture was negative. C. difficile was positive. She had duplex of the left lower extremity that revealed no evidence of a DVT. CT scan of the head which revealed small vessel ischemic disease and mild volume loss. ASSESSMENT AND PLAN: This is a 71-year-old female with a fall secondary to orthostasis from over-diuresis and dehydration related to Clostridium (C) difficile colitis. 1. Dehydration related to C. difficile colitis. The patient is currently on by mouth Flagyl. Her symptoms are improving and she is tolerating it well. Her antihypertensives and diuretic, lisinopril, aldactone and torsemide, have all been placed on hold and she is normotensive without them. She is not requiring them. Also, her atenolol has been placed on hold. The patient has been working with physical therapy and has been cleared for discharge. 2. Acute kidney injury, prerenal azotemia, resolved with IV fluids. She is taking by mouth and requiring any IV fluids at this time. She appears euvolemic. 3. Osteoarthrosis. She takes prednisone chronically as part of her outpatient regimen. She is continued on this. I will defer to her outpatient providers. 4. Atrial fibrillation. She is rate controlled with digoxin. She is not receiving atenolol secondary to her orthostasis. She is not anticoagulated secondary to her propensity for falls. 5. History of diastolic heart failure. She had an echocardiogram which is not overly convincing for diastolic heart failure and her volume status appears to be euvolemic. She was quite dehydrated at the time of her admission. She is not hypertensive, so at this time, we are holding her antihypertensives and her diuretic. They may need to be restarted in the near future but will require followup and further assessments before doing this. 6. Iron deficiency anemia. The patient is on supplementation and stool for occult blood is negative. This is relatively mild and asymptomatic. Consider further outpatient followup. 7. History of cirrhosis. The patient's beta dirk and diuretics are currently on hold, but again her cirrhosis appears to be relatively mild and benign in nature given her physical examination and laboratory studies. 8. Depression. The patient is on Zoloft. 9. Gastroesophageal reflux disease. The patient is on Protonix. 10. Seasonal allergies. The patient is on [place]. 11. Vitamin B12 deficiency. She is on supplementation. DISPOSITION: The patient is being discharged to [facility] with [facility]. She is to followup with her primary care provider (PCP) within seven days. Her activity is as prior to admission. Her diet is as prior to admission. She is to return to the emergency room (ER) if her symptoms worsen. Weekly weight one time per day every Monday. Weightbearing as tolerated, right upper and bilateral lower extremities with walker three times per day during the day, evening and night. Monthly blood pressure (BP) and pulse one time per day every august, September, October, November, December, January, February, March, April, May, June, and July. Activities as tolerated (AAT) with walker, may use shower chair, may use hospital bed. MEDICATIONS AT THE TIME OF DISCHARGE: - Flagyl 500 mg every eight hours if needed, 33 tablets - Tylenol 650 mg every four hours as needed for pain and 650 mg twice a day - B12 100 mcg daily - digoxin 0.125 mg daily - docusate 100 mg twice a day as needed for constipation - Nexium 40 mg daily - ferrous sulfate 220 mg three teaspoons daily with meals - Honey 180 mg daily as needed for allergies - multivitamin one tablet daily - potassium chloride 10 mEq daily - prednisone 5 mg every two days alternating with 10 mg tablets - sertraline 50 mg daily - vitamin D 50,000 units weekly on Fridays As noted above, the patient's torsemide, atenolol, lisinopril, and aldactone are currently on hold and will need to be reevaluated for reinitiation of these medications by her primary care provider. Greater than 30 minutes was spent organizing disposition.
== END 2016-09-05 14:31 | DRG 372 ==
LOC: M ED 09:36 → M ED INP 13:53 → M MSPAV 16:30
PROVIDERS: ADMIT Internal Medicine; ATTEND General Practice
DX: A04.7 Enterocolitis due to Clostridium difficile (principal); I50.32 Chronic diastolic (congestive) heart failure; N17.9 Acute kidney failure, unspecified; I95.1 Orthostatic hypotension; I48.91 Unspecified atrial fibrillation; D50.9 Iron deficiency anemia, unspecified; F32.9 Major depressive disorder, single episode, unspecified; K21.9 Gastro-esophageal reflux disease without esophagitis; E53.8 Deficiency of other specified B group vitamins; I49.5 Sick sinus syndrome; I12.9 Hypertensive chronic kidney disease with stage 1 through stage 4 chronic kidney disease, or unspecified chronic kidney disease; N18.9 Chronic kidney disease, unspecified; J30.2 Other seasonal allergic rhinitis; K74.60 Unspecified cirrhosis of liver; M19.90 Unspecified osteoarthritis, unspecified site; T46.5X1A Poisoning by other antihypertensive drugs, accidental (unintentional), initial encounter; R79.89 Other specified abnormal findings of blood chemistry; Z79.899 Other long term (current) drug therapy; Z79.52 Long term (current) use of systemic steroids; Z88.5 Allergy status to narcotic agent; Z95.0 Presence of cardiac pacemaker; Z85.51 Personal history of malignant neoplasm of bladder; Z91.81 History of falling; R45.850 Homicidal ideations

== ENCOUNTER → 2016-09-06 | Outpatient (REF) | payer MEDICARE, MEDICAID ==
[~2016-09-06] MED LIST changes: +ACET-654 PO; +FLAG500T PO; +LISI25TA PO; +POTA10CA PO; +SERT-141 PO; +TORS20TA2 PO; +VITA100T PO; +VITMTA PO
[2016-09-06 10:34] LABS: CALCIUM LEVEL 9.9 MG/DL (8.8-10.2); CREATININE FOR GFR 0.98 MG/DL (0.55-1.02); GLOMERULAR FILTRATION RATE 59.9 (>45); POTASSIUM SERUM 3.9 MEQ/L (3.5-5.1)
== END ==
PROVIDERS: ATTEND Nurse Practitioner Family
DX: E83.52 Hypercalcemia (principal)

== ENCOUNTER → 2016-09-12 | Outpatient (REF) | payer MEDICARE, MEDICAID ==
[2016-09-13 10:20] LABS: MICROSCOPIC INDICATED? MAN YES (NO); WBC, URINE 0-1 /hpf (0-3)
[2016-09-13 10:21] LABS: BACTERIA, URINE NONE SEEN; HYALINE CAST, URINE NONE SEEN /lpf (0-1); MICROSCOPIC EXAM PERFORMED; RBC, URINE 0-1 /hpf (0-3); SQUAMOUS EPITHELIAL CELL URINE SMALL AMOUNT /hpf (SMALL AMT)
== END ==
LOC: M LAB REF 09:45
PROVIDERS: ATTEND Nurse Practitioner Family
DX: R31.0 Gross hematuria (principal)

== ENCOUNTER → 2016-09-19 | Outpatient (REF) | payer MEDICARE, MEDICAID | LOC: M SMT 17:08 | PROVIDERS: ATTEND Urology | DX: Z85.51 Personal history of malignant neoplasm of bladder (principal) ==

== ENCOUNTER → 2016-09-20 | Outpatient (REF) | payer MEDICARE, MEDICAID ==
[2016-09-20 10:05] LABS: ALBUMIN 3.8 GM/DL (3.2-5.2); ALBUMIN/GLOBULIN RATIO 1.31 (1.00-1.93); BILIRUBIN,TOTAL 0.6 MG/DL (0.2-1.0); CALCIUM LEVEL 10.1 MG/DL (8.8-10.2); CREATININE FOR GFR 1.18 MG/DL (0.55-1.02); GLOMERULAR FILTRATION RATE 48.3 (>45); POTASSIUM SERUM 3.8 MEQ/L (3.5-5.1); TOTAL PROTEIN 6.7 GM/DL (6.4-8.2)
== END ==
PROVIDERS: ATTEND Nurse Practitioner Family
DX: R60.0 Localized edema (principal)

== ENCOUNTER → 2016-09-28 | Outpatient (REF) | payer MEDICARE, MEDICAID ==
[2016-09-28 12:12] LABS: ALBUMIN 3.7 GM/DL (3.2-5.2); ALBUMIN/GLOBULIN RATIO 1.28 (1.00-1.93); BILIRUBIN,TOTAL 0.5 MG/DL (0.2-1.0); CALCIUM LEVEL 10.2 MG/DL (8.8-10.2); CREATININE FOR GFR 1.14 MG/DL (0.55-1.02); GLOMERULAR FILTRATION RATE 50.3 (>45); POTASSIUM SERUM 3.5 MEQ/L (3.5-5.1); TOTAL PROTEIN 6.6 GM/DL (6.4-8.2)
== END | disposition home or self-care (01) ==
PROVIDERS: ATTEND Nurse Practitioner Family
DX: E87.6 Hypokalemia (principal)

== ENCOUNTER → 2016-10-04 | Outpatient (REF) | payer MEDICARE, MEDICAID ==
[2016-10-04 11:47] LABS: ALBUMIN 3.9 GM/DL (3.2-5.2); ALBUMIN/GLOBULIN RATIO 1.22 (1.00-1.93); BILIRUBIN,TOTAL 0.6 MG/DL (0.2-1.0); CALCIUM LEVEL 10.3 MG/DL (8.8-10.2); CREATININE FOR GFR 1.3 MG/DL (0.55-1.02); GLOMERULAR FILTRATION RATE 43.2 (>45); POTASSIUM SERUM 3.5 MEQ/L (3.5-5.1); TOTAL PROTEIN 7.1 GM/DL (6.4-8.2)
== END | disposition home or self-care (01) ==
PROVIDERS: ATTEND Nurse Practitioner Family
DX: R60.9 Edema, unspecified (principal)

== ENCOUNTER → 2016-11-08 | Outpatient (REF) | payer MEDICARE, MEDICAID ==
[~2016-11-08] MED LIST changes: -SERT-141 PO; +SERT50TA PO
[2016-11-08 10:17] LABS: MEAN CORPUSCULAR HEMOGLOBIN 32.1 pg (27.0-33.0); MEAN CORPUSCULAR HGB CONC 32.8 g/dl (32.0-36.5); MEAN CORPUSCULAR VOLUME 97.9 fl (80.0-96.0); RED CELL DISTRIBUTION WIDTH 12.6 % (11.5-14.5); WHITE BLOOD COUNT 6.5 K/mm3 (4.0-10.0)
[2016-11-08 10:20] LABS: ALBUMIN 3.7 GM/DL (3.2-5.2); CREATININE FOR GFR 1.03 MG/DL (0.55-1.02); GLOMERULAR FILTRATION RATE 56.6 (>45); POTASSIUM SERUM 3.7 MEQ/L (3.5-5.1)
== END ==
PROVIDERS: ATTEND Internal Medicine Nephrology
DX: N18.3 Chronic kidney disease, stage 3 (moderate) (principal); D63.1 Anemia in chronic kidney disease; E55.9 Vitamin D deficiency, unspecified; N25.81 Secondary hyperparathyroidism of renal origin

== ENCOUNTER 2016-11-17 22:48 | Emergency (ER) | payer MEDICARE, MEDICAID ==
[~2016-11-17] VITALS: Ht 172.7 cm; Wt 80.3 kg
[~2016-11-17 22:48] MED LIST changes: +LISI2.5T76 PO; -LISI25TA PO
[2016-11-17 22:53] VITALS: BP 109/60
== END 2016-11-18 00:46 | disposition home or self-care (01) ==
LOC: EDBD 22:48 → M ED 23:36
DX: I83.891 Varicose veins of right lower extremity with other complications (principal); Z88.5 Allergy status to narcotic agent; Z79.899 Other long term (current) drug therapy

== ENCOUNTER 2016-12-29 13:31 | Emergency (ER) | payer MEDICARE, MEDICAID ==
[~2016-12-29] VITALS: Ht 165.1 cm; Wt 80.9 kg
[2016-12-29] MEDS ORDERED: NAPROXEN 250 MG TAB PO ONE (14:00)
[2016-12-29] MEDS ORDERED: TORS20TA2 PO (14:16)
[2016-12-29] MEDS ORDERED: ALDA25TA2 PO (14:16)
--- NOTE | 2016-12-29 15:07 | REP ---
PELVIS AND BILATERAL HIPS: AP view of the pelvis and AP and lateral views of both hips are performed. There is no acute fracture or dislocation. There is severe degenerative changes at each hip joint with severe joint space narrowing, subchondral sclerosis, and cystic changes. IMPRESSION: Severe degenerative changes at the hips without definite fracture or dislocation. Signed by Tj Cheng MD 12/29/2016 04:23 P
--- NOTE | 2016-12-29 15:09 | REP ---
LUMBOSACRAL SPINE SERIES: Five views of the lumbosacral spine are performed. There is no compression fracture. There is normal lumbar lordosis. There is no spondylolysis or spondylolisthesis. There is mild disc space narrowing at all levels. There is sclerosis and spurring at the posterior facet joints especially at L4-5 and L5-S1. The posterior elements are intact. IMPRESSION: Degenerative changes. No fracture or dislocation. Signed by Tj Cheng MD 12/29/2016 04:23 P
--- NOTE | 2016-12-29 15:13 | REP ---
BILATERAL KNEE SERIES: Four views of each knee are performed. There is no evidence of acute fracture or dislocation. There is moderate medial joint space narrowing with subchondral sclerosis and spurring on the left. Similar findings are seen on the right as well. IMPRESSION: Moderate degenerative changes. No fracture or dislocation. Signed by Tj Cheng MD 12/29/2016 04:23 P
[2016-12-29 16:50] VITALS: BP 128/81
== END 2016-12-29 16:52 | disposition home or self-care (01) ==
LOC: M ED 15:50
DX: S80.01XA Contusion of right knee, initial encounter (principal); S80.02XA Contusion of left knee, initial encounter; S70.01XA Contusion of right hip, initial encounter; S70.02XA Contusion of left hip, initial encounter; S39.012A Strain of muscle, fascia and tendon of lower back, initial encounter; V58.4XXA Person boarding or alighting a pick-up truck or van injured in noncollision transport accident, initial encounter; Y92.89 Other specified places as the place of occurrence of the external cause; I50.9 Heart failure, unspecified; I11.0 Hypertensive heart disease with heart failure; E78.00 Pure hypercholesterolemia, unspecified; N18.9 Chronic kidney disease, unspecified; K74.60 Unspecified cirrhosis of liver; F31.9 Bipolar disorder, unspecified; Z88.5 Allergy status to narcotic agent; Z79.899 Other long term (current) drug therapy

== ENCOUNTER 2017-01-06 11:41 | Emergency (ER) | payer MEDICARE, MEDICAID ==
[~2017-01-06] VITALS: Ht 170.2 cm; Wt 80.7 kg
[~2017-01-06 11:41] MED LIST changes: +ALDA25TA2 PO
[2017-01-06 13:18] LABS: BASO % 0.2 % (0.0-1.0); EOS # 0.1 K/mm3 (0.0-0.50); EOS % 1.5 % (0.0-3.0); LARGE UNSTAINED CELL # 0.1 K/mm3 (0.0-0.4); LARGE UNSTAINED CELL % 0.9 % (0.0-4.0); LYMPH # 0.5 K/mm3 (1.5-4.5); LYMPH % 5.6 % (24.0-44.0); MEAN CORPUSCULAR HEMOGLOBIN 32.7 pg (27.0-33.0); MONO # 0.3 K/mm3 (0.0-0.8); MONO % 3.4 % (0.0-5.0); NEUTROPHILS # 7.2 K/mm3 (1.8-7.7); NEUTROPHILS % 88.5 % (36.0-66.0); PLATELET COUNT, AUTOMATED 232 k/mm3 (150-450); RED CELL DISTRIBUTION WIDTH 13.2 % (11.5-14.5); WHITE BLOOD COUNT 8.1 K/mm3 (4.0-10.0)
--- NOTE | 2017-01-06 13:49 | REP ---
Clinical: Trauma. Comparison: 08/30/2016 . Findings: Age-related atrophy and microvascular ischemic changes are appreciated. The ventricles and sulci are symmetric. Cheng-white differentiation is maintained. There is no evidence for acute intracranial hemorrhage, mass/mass effect, pathology or infarction. No extra-axial fluid collection. Calvarium is intact. Paranasal sinuses and mastoid air cells are clear. Impression: Age related atrophy and microvascular ischemic changes. No acute intracranial hemorrhage, infarction, or mass/mass effect. Signed by Kevin Jones MD 01/06/2017 01:41 P
--- NOTE | 2017-01-06 14:03 | REP ---
CT CERVICAL SPINE WITHOUT CONTRAST: 01/06/2017. Clinical history: Trauma. Findings: Our standard protocol for trauma was utilized. Normal cervical lordosis is maintained on the sagittal reconstructions. Cervical spondylosis with C4-5, C5-6 and C6-7 levels noted with anterior and posterior osteophytes at all these levels with decreased disc height. No compression deformity is seen. The dens was intact. It relationship to the lateral masses and anterior arch of C1 unremarkable on all projections. The ring of C1 is intact. The spinous processes, lamina, pedicles, transverse processes, facets and transverse foramina were all intact. There is some facet arthritis, but no fractures in those posterior elements. There is posterior osteophytic ridging and disc bulge at C2-3, C3-4 levels show no significant central canal stenosis. There is foraminal encroachment on the left at C3-4. At C4-5 there is posterior osteophytic ridging and a disc bulge with mild central canal stenosis and mild bilateral foraminal encroachment. At C5-6, posterior osteophytic ridging and disc bulge contribute to mild central canal stenosis and there is bilateral foraminal encroachment due to uncinate spurs and facet arthritis. At C6-7, posterior osteophytic ridge with a disc bulge noted with minimal central canal stenosis. The foramina are marginally adequate bilaterally. At C7-T1 there is no significant disc bulge herniation and no spinal or foraminal stenosis. Anterior and posterior neck soft tissues grossly intact. Tracheal airway and prevertebral soft tissues intact. The nasopharynx through hypopharynx and larynx were unremarkable. Impression: 1. Diffuse degenerative disc changes from C2-3 through C6-7 with mild central canal stenosis and some foraminal encroachment at the levels described. No compression fracture, posterior element fracture or other acute finding. Signed by Morris Layne MD 01/06/2017 02:56 P
--- NOTE | 2017-01-06 14:32 | REP ---
Clinical: Trauma. Technique: AP view of the pelvis with neutral and frog lateral views of the right hip. Findings: Advanced arthritic degenerative changes of bilateral hips noted (right greater than left) findings include significant subchondral and periarticular heterogeneity and cystic changes involving the femoral head and in the acetabulum as well as complete joint space obliteration and flattening/remodeling. Marginal osteophytes are also noted. There is no evidence for acute fracture or dislocation. 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 No acute fracture dislocation. Signed by Kevin Jones MD 01/06/2017 02:24 P
--- NOTE | 2017-01-06 14:32 | REP ---
Clinical: Trauma . Comparison: 08/30/2016 . Technique: PA and lateral. Findings: The mediastinum and cardiac silhouette are normal. The lung rush are clear and without acute consolidation, effusion, or pneumothorax. The skeletal structures are intact and normal. Impression: 1. No acute cardiopulmonary process. Signed by Kevin Jones MD 01/06/2017 02:23 P
--- NOTE | 2017-01-06 14:36 | REP ---
Clinical: Trauma. Technique: AP and lateral views of the right and left forearm. Findings: A nondisplaced fracture involving the left radial styloid process cannot be excluded. The bilateral forearms are otherwise without acute fracture or dislocation. Underlying degenerative changes are noted as well as possible orally left radial shaft fracture. Impression: Cannot exclude acute nondisplaced fracture of the left radial styloid process. Signed by Kevin Jones MD 01/06/2017 02:28 P
[2017-01-06 15:16] LABS: ANION GAP 4 MEQ/L (8-16); BLOOD UREA NITROGEN 31 MG/DL (7-18); CALCIUM LEVEL 9.3 MG/DL (8.8-10.2); CARBON DIOXIDE LEVEL 33 MEQ/L (21-32); CHLORIDE LEVEL 99 MEQ/L (98-107); CREATININE FOR GFR 1.22 MG/DL (0.55-1.02); GLOMERULAR FILTRATION RATE 46.5 (>45); GLUCOSE, FASTING 117 MG/DL (80-110); MAGNESIUM LEVEL 2.6 MG/DL (1.8-2.4); PHOSPHORUS LEVEL 3.4 MG/DL (2.5-4.9); POTASSIUM SERUM 4.3 MEQ/L (3.5-5.1); SODIUM LEVEL 136 MEQ/L (136-145)
[2017-01-06 15:19] VITALS: BP 144/76
--- NOTE | 2017-01-06 19:27 | ECGEPIP ---
Stationary ECG Study [facility] - ED Test Date: 2017-01-06 Pat Name: MARIO ANDREW Department: Room: - Gender: F Neurological Surgeon: JKristi : 1945 Requested By: REYNA Sanabria Order Number: [id number] Reading MD: Ej Michaels Measurements Intervals [place] Rate: 78 P: AR: 0 QRS: 21 QRSD: 101 T: 61 QT: 360 QTc: 410 Interpretive Statements ATRIAL FIBRILLATION POSSIBLE LATERAL MYOCARDIAL INFARCTION, PROBABLY OLD ABNORMAL RHYTHM ECG SIMILAR TO 08/30/16 Electronically Signed On 01-06-2017 19:26:52 EDT by Ej Michaels
== END 2017-01-06 17:08 | disposition home or self-care (01) ==
LOC: EDBD 11:41 → M ED 15:51
DX: S51.002A Unspecified open wound of left elbow, initial encounter (principal); S81.801A Unspecified open wound, right lower leg, initial encounter; W18.09XA Striking against other object with subsequent fall, initial encounter; Y92.012 Bathroom of single-family (private) house as the place of occurrence of the external cause; Y93.89 Activity, other specified; Y99.8 Other external cause status; M50.323 Other cervical disc degeneration at C6-C7 level; M50.31 Other cervical disc degeneration, high cervical region; M16.0 Bilateral primary osteoarthritis of hip; I48.91 Unspecified atrial fibrillation; I11.0 Hypertensive heart disease with heart failure; I49.5 Sick sinus syndrome; K21.9 Gastro-esophageal reflux disease without esophagitis; D64.9 Anemia, unspecified; E78.5 Hyperlipidemia, unspecified; K74.60 Unspecified cirrhosis of liver; Z95.0 Presence of cardiac pacemaker; Z85.51 Personal history of malignant neoplasm of bladder; Z79.899 Other long term (current) drug therapy; Z88.5 Allergy status to narcotic agent

== ENCOUNTER → 2017-01-10 | Outpatient (REF) | payer MEDICARE, MEDICAID ==
[~2017-01-10] MED LIST changes: +SERO50TA PO; +SERT-138 PO
[2017-01-10 10:02] LABS: BASO % 0.4 % (0.0-1.0); EOS # 0.2 K/mm3 (0.0-0.50); EOS % 3.1 % (0.0-3.0); LARGE UNSTAINED CELL # 0.1 K/mm3 (0.0-0.4); LARGE UNSTAINED CELL % 1.3 % (0.0-4.0); LYMPH # 1.7 K/mm3 (1.5-4.5); LYMPH % 21.5 % (24.0-44.0); MEAN CORPUSCULAR HEMOGLOBIN 32.5 pg (27.0-33.0); MEAN CORPUSCULAR HGB CONC 33.5 g/dl (32.0-36.5); MONO # 0.6 K/mm3 (0.0-0.8); MONO % 8.2 % (0.0-5.0); NEUTROPHILS # 4.9 K/mm3 (1.8-7.7); NEUTROPHILS % 65.5 % (36.0-66.0); PLATELET COUNT, AUTOMATED 279 k/mm3 (150-450); RED CELL DISTRIBUTION WIDTH 13.2 % (11.5-14.5); WHITE BLOOD COUNT 7.5 K/mm3 (4.0-10.0)
[2017-01-10 10:08] LABS: ALBUMIN 3.7 GM/DL (3.2-5.2); CALCIUM LEVEL 9.9 MG/DL (8.8-10.2); CREATININE FOR GFR 1.11 MG/DL (0.55-1.02); GLOMERULAR FILTRATION RATE 51.9 (>45); PHOSPHORUS LEVEL 3.2 MG/DL (2.5-4.9); POTASSIUM SERUM 3.6 MEQ/L (3.5-5.1)
== END ==
PROVIDERS: ATTEND Internal Medicine Nephrology
DX: N18.3 Chronic kidney disease, stage 3 (moderate) (principal); D63.1 Anemia in chronic kidney disease; N25.81 Secondary hyperparathyroidism of renal origin

== ENCOUNTER 2017-01-11 15:12 | Inpatient (IN) | payer MEDICARE, MEDICAID ==
[~2017-01-11] VITALS: Ht 165.1 cm; Wt 85.3 kg
[~2017-01-11 15:12] MED LIST changes: -SERO50TA PO; -SERT-138 PO
[2017-01-11] MEDS ORDERED: SERO50TA PO (15:35)
[2017-01-11] MEDS ORDERED: NS 1,000 ML IV SCH (17:12)
[2017-01-11 18:01] LABS: BASO % 0.3 % (0.0-1.0); EOS # 0.1 K/mm3 (0.0-0.50); EOS % 2.1 % (0.0-3.0); LARGE UNSTAINED CELL # 0.1 K/mm3 (0.0-0.4); LARGE UNSTAINED CELL % 1.4 % (0.0-4.0); LYMPH # 0.9 K/mm3 (1.5-4.5); LYMPH % 11.8 % (24.0-44.0); MEAN CORPUSCULAR HEMOGLOBIN 32.2 pg (27.0-33.0); MEAN CORPUSCULAR HGB CONC 33.2 g/dl (32.0-36.5); MEAN CORPUSCULAR VOLUME 96.9 fl (80.0-96.0); MONO # 0.5 K/mm3 (0.0-0.8); NEUTROPHILS % 77.4 % (36.0-66.0); PLATELET COUNT, AUTOMATED 259 k/mm3 (150-450); RED CELL DISTRIBUTION WIDTH 13.2 % (11.5-14.5); WHITE BLOOD COUNT 6.4 K/mm3 (4.0-10.0)
--- NOTE | 2017-01-11 18:08 | REP ---
CT HEAD WITHOUT CONTRAST: REASON: Altered mental status. COMPARISON: 01/06/2017 which showed no acute intracranial pathology. Today's noncontrast enhanced examination shows ventriculomegaly without evidence of transependymal flow and no significant change in the appearance of the ventricles and sulci compared to the prior exam. There was no evidence of an acute intracranial hemorrhagic or nonhemorrhagic event. There is no change in appearance of the skin or skull base. There is no change in appearance of the imaged paranasal sinuses. IMPRESSION: No significant change from the prior exam with findings as described above. Signed by Rajeev Groves DO 01/11/2017 06:53 P
--- NOTE | 2017-01-11 18:09 | REP ---
PORTABLE CHEST X-RAY: REASON; Altered mental status. COMPARISON: 01/06/2017 FINDINGS: The technique utilized in obtaining the radiograph has magnified the cardiac silhouette and accentuated the interstitial markings. The superior mediastinal structures are midline. The cardiac silhouette is unremarkable in size, shape, and position. The diaphragmatic surfaces of the lungs are regular, and the costophrenic angles are clear. The pulmonary rush are clear. The imaged osseous structures are intact. Dual chamber bipolar pace maker device unchanged. IMPRESSION: There is no acute cardiopulmonary disease. Signed by Rajeev Groves DO 01/11/2017 06:53 P
[2017-01-11 18:25] LABS: ALBUMIN 3.2 GM/DL (3.2-5.2); ALBUMIN/GLOBULIN RATIO 1.07 (1.00-1.93); ALKALINE PHOSPHATASE 147 U/L (45-117); ALT/SGPT 28 U/L (12-78); ANION GAP 7 MEQ/L (8-16); AST/SGOT 15 U/L (15-37); BILIRUBIN,DIRECT 0.1 MG/DL (0.0-0.2); BILIRUBIN,TOTAL 0.3 MG/DL (0.2-1.0); BLOOD UREA NITROGEN 34 MG/DL (7-18); CALCIUM LEVEL 9.4 MG/DL (8.8-10.2); CARBON DIOXIDE LEVEL 33 MEQ/L (21-32); CHLORIDE LEVEL 100 MEQ/L (98-107); GLOMERULAR FILTRATION RATE 43.2 (>45); GLUCOSE, FASTING 121 MG/DL (80-110); POTASSIUM SERUM 3.8 MEQ/L (3.5-5.1); SODIUM LEVEL 140 MEQ/L (136-145); TOTAL PROTEIN 6.2 GM/DL (6.4-8.2)
[2017-01-11] MEDS ORDERED: LR 1,000 ML IV SCH (19:00)
[2017-01-11] MEDS ORDERED: SERT-138 PO (19:13)
[2017-01-11] MEDS ORDERED: ACET-654 PO (19:13)
[2017-01-11] MEDS ORDERED: ONDANSETRON 4MG/2ML VIAL (J2405) IV PRN (19:15)
[2017-01-11] MEDS ORDERED: FEXOFENADINE 60 MG TAB PO PRN (19:30)
[2017-01-11 19:32] LABS: INR 1.01
[2017-01-11] MEDS: ACETAMINOPHEN TAB 650MG DOSE (2X325MG) PO PRN (20:26)
--- NOTE | 2017-01-11 20:55 | HPE ---
DATE OF ADMISSION: 01/11/2017 PRIMARY CARE PROVIDER: Wilmer Goldberg MD PSYCHIATRIST: Kwaku Landry MD CHIEF COMPLAINT: Lethargy. HISTORY OF PRESENT ILLNESS: This is a 71-year-old female patient from [facility]) assisted living with underlying medical history of atrial fibrillation, history of tachybrady syndrome with pacemaker, diastolic congestive heart failure with chronic lower extremity edema, hypertension, dyslipidemia, osteoarthritis, on chronic steroids, history of bladder cancer, gastroesophageal reflux disease (GERD), chronic iron deficiency, seasonal allergies, varicose vein bilateral lower extremity, history of liver cirrhosis. Patient with also history of fall, not on anticoagulation. Also with underlying generalized anxiety disorder, depressive disorder, personality disorder, treatment from psychiatry. As of today the patient was started on Seroquel. After recieving the first dose, two to three hours later, the patient with progressively worsening lethargy, difficult to arouse. At this point she was brought to the emergency room. As per patient she had an episode of a fall earlier today as well. As she fell backwards, the patient does not know if she injured her head or not. Denies any loss of consciousness, but is quite lethargic. The patient is a very poor historian due to lethargy but is alert and oriented times three. Knows that she is at the hospital. Knows her birthday and knows her name. Denies any headache, neck pain, back pain, chest pain, pressure or discomfort. Denies any fever or chills, cough, shortness of breath. Reported groin pain that has been chronic and also reported history of acid reflux. Further history limited secondary to patient's mental status. ALLERGIES: CODEINE. PAST MEDICAL HISTORY: Atrial fibrillation with tachybrady with pacemaker. Diastolic heart failure with chronic lower extremity edema. Hypertension. Dyslipidemia. Osteoarthritis. History of bladder cancer. Gastroesophageal reflux disease (GERD). Chronic iron deficiency anemia. Seasonal allergies. Varicose veins bilateral lower extremities. History of liver cirrhosis. PAST SURGICAL HISTORY: Pacemaker insertion. Bilateral cataracts. Cystoscopy. SOCIAL HISTORY: Lives at [facility]), assisted living. Denies smoking, alcohol use, illicit drug use. Walks with a walker. FAMILY HISTORY: Denies family history of coronary arterial disease. Further history is very much limited due to patient's mental status. REVIEW OF SYSTEMS: The patient reported groin pain. Other review of systems are limited due to patient's mental status. HOME MEDICATIONS: - acetaminophen 650 mg by mouth every 4 hours as needed - vitamin B12 100 mcg by mouth daily - digoxin 0.125 mg by mouth daily - Colace 100 mg by mouth twice a day as needed - Nexium 40 mg by mouth daily - ferrous sulfate 220 mg in 5 mL three tablespoons by mouth daily - Honey 180 mg by mouth daily as needed - multivitamin 1 tablet by mouth daily - potassium chloride 10 mEq by mouth every daily - prednisone 5 mg by mouth every other day and 10 mg by mouth every other day alternating - Seroquel 50 mg by mouth twice a day, recently started - Zoloft 100 mg by mouth daily - spironolactone 25 mg by mouth daily - torsemide two tablets 40 mg by mouth twice a day - vitamin D 50,000 units by mouth on Monday PHYSICAL EXAMINATION: VITAL SIGNS: Temperature 98.2, pulse 99, respirations 16, blood pressure 123/72, pulse oximetry 99% on room air. GENERAL: The patient alert and oriented times three. Mildly lethargic. In no acute distress. HEENT: Normocephalic, atraumatic. PULMONARY: Bilateral clear to auscultation. CARDIAC: Irregular. S1, S2. ABDOMEN: Soft, nontender, nondistended. EXTREMITIES: Able to move bilateral upper and lower extremities. Trace edema bilateral lower extremities. Right upper arm with skin tear and bruising. LABORATORY: WBC 6.4, hemoglobin and hematocrit 12.5/37.5, platelets 259. Chemistry: Sodium 140, potassium 3.8, chloride 100, bicarbonate 33, BUN 34, creatinine 1.3. INR 1.01. Ammonia levels still pending. Recently also patient treated for C. Difficile. CT scan of the head shows no significant change from prior exam. X-rays show no acute cardiopulmonary disease. X-ray of the head still pending. ASSESSMENT AND PLAN: This is a 71-year-old female patient with underlying medical history of atrial fibrillation with tachybrady and has a pacemaker. Diastolic congestive heart failure (CHF), hypertension, dyslipidemia, osteoarthritis, history of bladder cancer, GERD, chronic iron deficiency anemia, seasonal allergies, varicose vein, history of liver cirrhosis, presented with lethargy and questionable fall. PROBLEMS: 1. Lethargy with questionable fall. Likely secondary to Seroquel given patient was recently started on Seroquel and symptoms onset is consistent right after taking first dose of Seroquel. Telemetry monitoring. Neuro checks. CT scan of the head appreciated. A pacemaker. Unable to do MRI. The patient's mental status slowly has been improving while the patient is in the emergency room. Physical therapy, fall precaution. Orthostatic vital signs. X-ray of the head just to rule out any significant fractures. IV fluids for gentle hydration over the next 10 hours. Holding diuretics given patient has poor by mouth intake given increased lethargy. 2. Elevation of creatinine. IV fluids for gentle hydration. Holding torsemide. Restart at a later time when the patient's mental status has been better. 3. Atrial fibrillation with history of tachybrady. Telemetry monitoring. Continue digoxin. The patient not on anticoagulation due to fall risk. 4. History of diastolic heart failure. Continue spironolactone, holding torsemide, given patient with poor oral intake and is currently clinically seems volume depleted at this time with mild elevation of creatinine. 5. Seasonal allergies. Continue current medication. 6. Hypertension. Continue to monitor. Continue spironolactone. Holding torsemide for now. 7. Osteoarthritis. Continue current medication. 8. History of bladder cancer. Outpatient followup. 9. History of chronic iron deficiency anemia. Once patient tolerated oral, will consider restarting iron. 10. History of cirrhosis. Followup ammonia level. 11. Deep venous thrombosis (DVT) prophylaxis. Heparin subcutaneous. DISPOSITION PLANNING: Pending x-rays. Clinical improvement. Physical therapy.
[2017-01-11 22:20] VITALS: BP_SYST 113; BP_SYST 129; BP_SYST 141; BP_DIAS 56; BP_DIAS 59; BP_DIAS 65
[2017-01-11] MEDS: SENOKOT S TAB PO SCH (23:30)
[2017-01-11] MEDS: HEPARIN SOD (PORCINE) 5000 UNITS/ML VIAL SC SCH (23:30)
[2017-01-12 04:59] VITALS: BP 130/79
[2017-01-12] MEDS: HEPARIN SOD (PORCINE) 5000 UNITS/ML VIAL SC SCH ×3 (05:06→21:15)
[2017-01-12 06:09] LABS: MEAN CORPUSCULAR HEMOGLOBIN 32.6 pg (27.0-33.0); MEAN CORPUSCULAR HGB CONC 33.8 g/dl (32.0-36.5); MEAN CORPUSCULAR VOLUME 96.6 fl (80.0-96.0); RED CELL DISTRIBUTION WIDTH 13.3 % (11.5-14.5); WHITE BLOOD COUNT 5.4 K/mm3 (4.0-10.0)
[2017-01-12 06:15] LABS: INR 1.09
[2017-01-12 06:33] LABS: CALCIUM LEVEL 9.6 MG/DL (8.8-10.2); CREATININE FOR GFR 1.17 MG/DL (0.55-1.02); GLOMERULAR FILTRATION RATE 48.8 (>45); MAGNESIUM LEVEL 2.4 MG/DL (1.8-2.4); POTASSIUM SERUM 3.5 MEQ/L (3.5-5.1)
[2017-01-12 08:00] VITALS: BP_SYST 106; BP_SYST 109; BP_SYST 139; BP_DIAS 51; BP_DIAS 62; BP_DIAS 63
--- NOTE | 2017-01-12 08:09 | ECGEPIP ---
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
[2017-01-12] MEDS: SENOKOT S TAB PO SCH ×2 (08:38→21:15)
[2017-01-12] MEDS: PANTOPRAZOLE 40MG TAB (PROTONIX) PO SCH (08:38)
[2017-01-12] MEDS: SPIRONOLACTONE 25 MG TAB PO SCH (08:38)
[2017-01-12] MEDS: DIGOXIN 0.125 MG TAB PO SCH (08:39)
[2017-01-12] MEDS: ACETAMINOPHEN TAB 650MG DOSE (2X325MG) PO PRN ×3 (08:39→17:01)
[2017-01-12] MEDS: MULTIVITAMINS/MINERALS THERAP 1 TAB PO SCH (08:39)
[2017-01-12] MEDS ORDERED: predniSONE 5 MG TAB PO SCH (09:00)
[2017-01-12] MEDS ORDERED: traMADol 50 MG TAB PO ONE (11:00)
[2017-01-12] MEDS ORDERED: traMADol 50 MG TAB PO PRN (11:30)
[2017-01-12 12:00] VITALS: BP 103/56
[2017-01-12 16:00] VITALS: BP_SYST 129; BP_SYST 130; BP_SYST 132; BP_DIAS 72; BP_DIAS 77; BP_DIAS 83
--- NOTE | 2017-01-12 18:13 | IPN ---
DATE: 01/12/2017 71-year-old female seen at bedside. She denies any chest pain. She is having some hip pain from her fall. She had some vague complaints of some muscle soreness, but no bone pain. We did decrease her Seroquel dose. She is seen on telemetry. OBJECTIVE: Temperature is 98.7, pulse 86, respiratory rate 20, BP is 130/79, SPO2 is 98% on room air. General: The patient appears to be in no acute distress. Is alert, oriented. HEENT: Unremarkable. Lungs: Clear. Heart: Regular rhythm. Abdomen is soft. Extremities: No edema or calf tenderness. LABORATORY DATA: White count 5.4, hemoglobin 12.4, platelets 255. Sodium 141, potassium 3.5, chloride 102, bicarb 32, anion gap 7, BUN 30, creatinine 1.17, glucose 92, magnesium 2.4. ASSESSMENT/PLAN: 1. Lethargy. It does appear to be improving with decreasing Seroquel dose. Creatinine does appear to be much improved. 2. Questionable fall. No residual injuries, will monitor on telemetry another 24hrs to be sure this is unrelated to underlying dysrhythmia. 2. Atrial fibrillation. Rate controlled. No anticoagulation due to risk of recurrent fall. 3. History of diastolic heart failure. She appears to be compensated. Continue with current medication. 4. Seasonal allergies. No issues. 5. Hypertension, stable. Furosemide was placed on hold. Will resume it tomorrow more than likely. 6. Osteoarthritis, stable. 7. History of bladder cancer. Outpatient followup. 8. Chronic iron deficiency anemia. Tolerating oral diet. 9. History of cirrhosis. Followup ammonia level, was unremarkable. 10. Deep venous thrombosis (DVT) prophylaxis, on subcutaneous heparin. DISPOSITION: Will continue physical therapy. She appears to be doing well. Anticipate discharge tomorrow. [facility]
[2017-01-12 20:00] VITALS: BP 117/65
[2017-01-13] VITALS: BP 137/80
[2017-01-13] MEDS: ACETAMINOPHEN TAB 650MG DOSE (2X325MG) PO PRN ×2 (01:53→06:10)
[2017-01-13 04:00] VITALS: BP 116/62
[2017-01-13] MEDS: HEPARIN SOD (PORCINE) 5000 UNITS/ML VIAL SC SCH (05:01)
[2017-01-13 05:35] LABS: MEAN CORPUSCULAR HEMOGLOBIN 32.8 pg (27.0-33.0); MEAN CORPUSCULAR HGB CONC 33.9 g/dl (32.0-36.5); RED CELL DISTRIBUTION WIDTH 13.1 % (11.5-14.5); WHITE BLOOD COUNT 5.2 K/mm3 (4.0-10.0)
[2017-01-13 05:45] LABS: INR 1.05
[2017-01-13 05:53] LABS: CALCIUM LEVEL 9.2 MG/DL (8.8-10.2); CREATININE FOR GFR 1.05 MG/DL (0.55-1.02); GLOMERULAR FILTRATION RATE 55.3 (>45); MAGNESIUM LEVEL 2.4 MG/DL (1.8-2.4); POTASSIUM SERUM 3.7 MEQ/L (3.5-5.1)
[2017-01-13 07:40] VITALS: BP 138/67
[2017-01-13] MEDS ORDERED: predniSONE 10 MG TAB PO SCH (09:00)
[2017-01-13] MEDS ORDERED: VITAMIN D 50,000 UNITS CAPSULE (ERGOCALCIFEROL 1.25MG) PO SCH (09:00)
[2017-01-13] MEDS: SPIRONOLACTONE 25 MG TAB PO SCH (09:31)
[2017-01-13] MEDS: MULTIVITAMINS/MINERALS THERAP 1 TAB PO SCH (09:31)
[2017-01-13] MEDS: PANTOPRAZOLE 40MG TAB (PROTONIX) PO SCH (09:31)
[2017-01-13] MEDS: SENOKOT S TAB PO SCH (09:31)
[2017-01-13] MEDS: DIGOXIN 0.125 MG TAB PO SCH (09:31)
--- NOTE | 2017-01-14 02:41 | DSES ---
DATE OF ADMISSION: 01/11/2017 DATE OF DISCHARGE: 01/13/2017 PRIMARY CARE PROVIDER: Dr. Wilmer Goldberg. PSYCHIATRIST: Dr. Kwaku Landry. PRIMARY DIAGNOSIS: Lethargy with a questionable fall. SECONDARY DIAGNOSES: 1. Elevation of creatinine. 2. Atrial fibrillation. 3. History of diastolic heart failure. 4. Seasonal allergies. 5. Hypertension. 6. Osteoarthritis. 7. History of bladder cancer. 8. History of chronic iron deficiency anemia. 9. History of cirrhosis. DISCHARGE HOME MEDICATIONS: - acetaminophen 650 mg by mouth every 4 hours as needed for pain - acetaminophen 650 mg by mouth twice a day - vitamin B12 1000 mcg by mouth daily - digoxin 0.125 mg by mouth daily - docusate sodium 100 mg by mouth twice a day as needed for constipation - Nexium 40 mg by mouth daily - ferrous sulfate 3 teaspoons by mouth daily - Honey 180 mg by mouth daily - multivitamin one tablet by mouth daily - potassium chloride 10 mEq by mouth daily - prednisone 5 mg by mouth every 2 days - prednisone 10 mg by mouth every 2 days - sertraline 100 mg by mouth daily - spironolactone 25 mg by mouth daily - torsemide 20 mg two tablets by mouth daily - vitamin D 50,000 units by mouth weekly HOSPITAL COURSE: Ms. Willis is a 71-year-old female from [facility] with multiple past medical history, who presented due to lethargy. Patient recently started on Seroquel and onset is consistent after taking the first dose of Seroquel. Telemetry monitoring did not show any new pathology. We continued with neurological checks. CT scan of the head was negative. Due to the pacemaker, patient was unable to do the MRI. Patient's mental status slowly improving. While patient was in the emergency, patient was followed with physical therapy and we put the fall precautions. X-ray of the head did not rule out any significant fracture. We started the patient with intravenous (IV) gentle fluids. After tapering Seroquel, we stopped the Seroquel and patient came back to the baseline. Due to the questionable fall, no residual injuries were noticed. We checked for injuries; however, no residual injuries were noticed. Patient has history of atrial fibrillation; however, patient's rate was controlled during hospitalization. However, no anticoagulation was started due to the recurrent fall. At the time of discharge, patient was medically optimized. Patient was seen by physical therapy (PT) who recommended that patient goes to halfway facility (SNF) only, therefore we sent the patient to [place] following the recommendation from PT. DISCHARGE PLACEMENT: [place] with SNF. ACTIVITY: Fall precautions. Ambulation with nursing three times a day with rolling walker (RW). FOLLOWUP: Please followup with you primary care within 1 week. My preceptor for this patient encounter was Dr. Goyo Roblero. The preceptor was physically present in the building during the encounter and was fully available as needed. All aspects of the patient interview, examination, medical decision making process, and medical care plan development were reviewed and approved by the preceptor. The preceptor is aware and concurs with the plan as stated in the body of this note and will attest to such by his/her co-signature.
--- NOTE | 2017-01-19 13:55 | REP ---
REASON: Pain after fall. COMPARISON: 12/29/2016 Original interpretation was provided on 12/29/2016, however, no dictation was obtained by chimney builder due to technical error. This examination has been brought to my attention for the first time for interpretation today at this time. There are marked chronic right hip changes status quo. There is no evidence of an acute fracture or dislocation. AP PELVIS: COMPARISON: 12/29/2016 Original interpretation was provided on 12/29/2016, however, no dictation was obtained by chimney builder due to technical error. This examination has been brought to my attention for the first time for interpretation today at this time. There are bilateral chronic hip changes with subchondral geode formation, right femoral head flattening, prominent marginal osteophytosis and a left femoral head cam deformity all unchanged and showing no evidence of an acute fracture or dislocation. IMPRESSION: Chronic changes. LEFT HIP, TWO VIEWS: COMPARISON: 12/29/2016 Original interpretation was provided on 12/29/2016, however, no dictation was obtained by chimney builder due to technical error. This examination has been brought to my attention for the first time for interpretation today at this time. There is no change from the prior exam. There is marked chronic change with asymmetric hip joint space narrowing, prominent marginal osteophytosis, and subchondral geode formation but without evidence of an acute fracture or dislocation. IMPRESSION: Marked chronic changes. Signed by Rajeev Groves DO 01/19/2017 02:26 P
== END 2017-01-13 13:10 | DRG 948 ==
LOC: EDBD 15:12 → M ED 19:31 → M ED INP 19:59 → M PCU 22:17
PROVIDERS: ADMIT Hospitalist; ATTEND Hospitalist
DX: R53.83 Other fatigue (principal); I50.32 Chronic diastolic (congestive) heart failure; I48.91 Unspecified atrial fibrillation; I11.0 Hypertensive heart disease with heart failure; E78.5 Hyperlipidemia, unspecified; M19.90 Unspecified osteoarthritis, unspecified site; K21.9 Gastro-esophageal reflux disease without esophagitis; J30.2 Other seasonal allergic rhinitis; I83.93 Asymptomatic varicose veins of bilateral lower extremities; F41.1 Generalized anxiety disorder; D50.9 Iron deficiency anemia, unspecified; T43.595A Adverse effect of other antipsychotics and neuroleptics, initial encounter; F60.9 Personality disorder, unspecified; K74.60 Unspecified cirrhosis of liver; Z95.0 Presence of cardiac pacemaker; Z88.5 Allergy status to narcotic agent; Z85.51 Personal history of malignant neoplasm of bladder; Z79.52 Long term (current) use of systemic steroids; Z79.899 Other long term (current) drug therapy; Z91.81 History of falling

== ENCOUNTER → 2017-01-17 | Outpatient (REF) | payer MEDICAID, MEDICARE ==
[~2017-01-17] MED LIST changes: +SERO50TA PO; +SERT-138 PO
[2017-01-17 10:55] LABS: MEAN CORPUSCULAR HEMOGLOBIN 32.3 pg (27.0-33.0); MEAN CORPUSCULAR HGB CONC 33.2 g/dl (32.0-36.5); MEAN CORPUSCULAR VOLUME 97.2 fl (80.0-96.0); RED CELL DISTRIBUTION WIDTH 13.3 % (11.5-14.5); WHITE BLOOD COUNT 7.2 K/mm3 (4.0-10.0)
[2017-01-17 11:57] LABS: CALCIUM LEVEL 10.2 MG/DL (8.8-10.2); CREATININE FOR GFR 1.14 MG/DL (0.55-1.02); DIGOXIN LEVEL 0.8 NG/ML (0.5-2.0); GLOMERULAR FILTRATION RATE 50.3 (>45); POTASSIUM SERUM 3.7 MEQ/L (3.5-5.1)
== END ==
PROVIDERS: ATTEND Internal Medicine
DX: D64.9 Anemia, unspecified (principal)

== ENCOUNTER → 2017-01-24 | Outpatient (REF) | payer MEDICAID, MEDICARE ==
[2017-01-24 11:30] LABS: MEAN CORPUSCULAR HEMOGLOBIN 32.4 pg (27.0-33.0); MEAN CORPUSCULAR HGB CONC 33.5 g/dl (32.0-36.5); MEAN CORPUSCULAR VOLUME 96.7 fl (80.0-96.0); RED CELL DISTRIBUTION WIDTH 13.2 % (11.5-14.5); WHITE BLOOD COUNT 6.3 K/mm3 (4.0-10.0)
[2017-01-24 12:06] LABS: CALCIUM LEVEL 10.4 MG/DL (8.8-10.2); CREATININE FOR GFR 1.25 MG/DL (0.55-1.02); GLOMERULAR FILTRATION RATE 45.2 (>45); POTASSIUM SERUM 3.4 MEQ/L (3.5-5.1)
== END ==
PROVIDERS: ATTEND Internal Medicine
DX: I50.9 Heart failure, unspecified (principal)

== ENCOUNTER → 2017-02-01 | Outpatient (REF) | payer MEDICARE, MEDICAID | PROVIDERS: ATTEND Internal Medicine | DX: R39.9 Unspecified symptoms and signs involving the genitourinary system (principal) ==

== ENCOUNTER → 2017-02-07 | Outpatient (REF) | payer MEDICARE, MEDICAID ==
[2017-02-07 11:27] LABS: ALBUMIN 3.5 GM/DL (3.2-5.2); ALBUMIN/GLOBULIN RATIO 1.09 (1.00-1.93); BILIRUBIN,TOTAL 0.7 MG/DL (0.2-1.0); CREATININE FOR GFR 1.05 MG/DL (0.55-1.02); GLOMERULAR FILTRATION RATE 55.3 (>45); POTASSIUM SERUM 3.7 MEQ/L (3.5-5.1); TOTAL PROTEIN 6.7 GM/DL (6.4-8.2)
== END ==
PROVIDERS: ATTEND Nurse Practitioner Family
DX: I50.9 Heart failure, unspecified (principal)

== ENCOUNTER → 2017-02-15 | Outpatient (REF) | payer MEDICARE, MEDICAID ==
[~2017-02-15] MED LIST changes: -ACET-654 PO; +ACET1TAB17 PO; +AMBI5TAB PO; +ASPI81TA18 PO; +CINA30TA PO; +DECA1CAP2 PO; -DOCU100C PO; +DOCU100C16 PO; +MILKSUS PO; +MUCI3TAB PO; +MULT1TAB10 PO; +NEXI1CAP4 PO; +PRED10TA2 PO; +TESS100C PO; +TRAM50TA2 PO; +VITA100L PO; +VOLT1GEL15 TD; +ZOFR20TA PO
== END ==
PROVIDERS: ATTEND Nurse Practitioner Family
DX: D51.0 Vitamin B12 deficiency anemia due to intrinsic factor deficiency (principal)

== ENCOUNTER 2017-02-18 14:17 | Emergency (ER) | payer MEDICARE, MEDICAID ==
[~2017-02-18 14:17] MED LIST changes: -AMBI5TAB PO; -ASPI81TA18 PO; -CINA30TA PO; -DECA1CAP2 PO; -MILKSUS PO; -MUCI3TAB PO; -MULT1TAB10 PO; -NEXI1CAP4 PO; -TESS100C PO; -TRAM50TA2 PO; -VITA100L PO; -VOLT1GEL15 TD; -ZOFR20TA PO
[2017-02-18] MEDS ORDERED: ALLE180T33 PO (14:29)
[2017-02-18] MEDS ORDERED: TRAM50TA2 PO (14:29)
[2017-02-18] MEDS ORDERED: ACETAMINOPHEN TAB 650MG DOSE (2X325MG) PO ONE (14:30)
--- NOTE | 2017-02-18 15:43 | REP ---
Clinical: Trauma. Technique: AP, lateral, bilateral oblique views of the right and left knee. Comparison: 12/29/2016. Findings: Osteopenia and advanced tricompartmental osteoarthritic degenerative changes are appreciated bilaterally and essentially unchanged. Suprapatellar effusions cannot be excluded. No obvious acute fracture or dislocation. Impression: Osteopenia and degenerative changes along with possible suprapatellar effusions similar to 12/29/2016. No acute fracture or dislocation. Signed by Kevin Jones MD 02/18/2017 03:34 P
--- NOTE | 2017-02-18 15:50 | REP ---
Clinical: Trauma. Technique: AP view of the pelvis with neutral and frog lateral views of the bilateral hips. Comparison: 01/11/2017. Findings: Advanced relatively symmetric degenerative changes of bilateral hips noted. Findings include flattening to the femoral heads and associated acetabula, underlying subchondral sclerosis with heterogeneity and cystic changes, marginal osteophytes, and joint space narrowing. No acute fracture dislocation. Pelvis appears intact. Impression: Advanced degenerative changes. No acute fracture or dislocation. Signed by Kevin Jones MD 02/18/2017 03:41 P
[2017-02-18 16:53] VITALS: BP 130/70
[2017-06-12] MEDS ORDERED: NEXI1CAP4 PO (21:05)
[2017-06-12] MEDS ORDERED: VOLT1GEL15 TD (21:05)
[2017-06-12] MEDS ORDERED: DECA1CAP2 PO (21:05)
[2017-06-12] MEDS ORDERED: PRED10TA2 PO (21:05)
[2017-06-12] MEDS ORDERED: MULT1TAB10 PO (21:05)
[2017-06-12] MEDS ORDERED: ASPI81TA18 PO (21:05)
[2017-06-12] MEDS ORDERED: CINA30TA PO (21:05)
== END 2017-02-18 17:08 | disposition home or self-care (01) ==
LOC: M ED 14:17
DX: S80.10XA Contusion of unspecified lower leg, initial encounter (principal); W19.XXXA Unspecified fall, initial encounter; Y92.89 Other specified places as the place of occurrence of the external cause; Y93.89 Activity, other specified; Y99.8 Other external cause status; N18.9 Chronic kidney disease, unspecified; F31.9 Bipolar disorder, unspecified; K74.60 Unspecified cirrhosis of liver; Z88.5 Allergy status to narcotic agent; Z79.899 Other long term (current) drug therapy

== ENCOUNTER 2017-02-21 11:26 | Emergency (ER) | payer MEDICARE, MEDICAID ==
[~2017-02-21] VITALS: Ht 165.1 cm; Wt 85.0 kg
[~2017-02-21 11:26] MED LIST changes: +TRAM50TA2 PO
[2017-02-21] MEDS ORDERED: ACETAMINOPHEN TAB 650MG DOSE (2X325MG) PO ONE (11:45)
[2017-02-21] MEDS ORDERED: MILKSUS PO (11:51)
[2017-02-21] MEDS ORDERED: TORS20TA2 PO ×2 (11:51)
--- NOTE | 2017-02-21 12:24 | REP ---
Clinical: Trauma. Comparison: 01/11/2017 . Findings: Age-related atrophy and microvascular ischemic changes are appreciated. The ventricles and sulci are symmetric. Cheng-white differentiation is maintained. There is no evidence for acute intracranial hemorrhage, mass/mass effect, pathology or infarction. No extra-axial fluid collection. Calvarium is intact. Paranasal sinuses and mastoid air cells are clear. Impression: Age related atrophy and microvascular ischemic changes. No acute intracranial hemorrhage, infarction, or mass/mass effect. Signed by Kevin Jones MD 02/21/2017 12:16 P
[2017-02-21] MEDS ORDERED: TYLE325T5 PO (13:44)
[2017-02-21] MEDS ORDERED: ZOFR20TA PO (13:44)
[2017-02-21] MEDS ORDERED: AMBI5TAB PO (13:44)
[2017-02-21] MEDS ORDERED: TUMS500C PO (13:44)
[2017-02-21] MEDS ORDERED: MUCI3TAB PO (13:44)
[2017-02-21] MEDS ORDERED: TESS100C PO (13:44)
[2017-02-21 14:46] VITALS: BP 121/70
[2017-06-12] MEDS ORDERED: CINA30TA PO (21:05)
[2017-06-12] MEDS ORDERED: DECA1CAP2 PO (21:05)
[2017-06-12] MEDS ORDERED: MULT1TAB10 PO (21:05)
[2017-06-12] MEDS ORDERED: VOLT1GEL15 TD (21:05)
[2017-06-12] MEDS ORDERED: PRED10TA2 PO (21:05)
[2017-06-12] MEDS ORDERED: ASPI81TA18 PO (21:05)
[2017-06-12] MEDS ORDERED: NEXI1CAP4 PO (21:05)
== END 2017-02-21 15:30 | disposition home or self-care (01) ==
LOC: EDBD 11:26 → M ED 11:26
DX: S00.03XA Contusion of scalp, initial encounter (principal); W01.0XXA Fall on same level from slipping, tripping and stumbling without subsequent striking against object, initial encounter; Y92.129 Unspecified place in nursing home as the place of occurrence of the external cause; Y93.01 Activity, walking, marching and hiking; Y99.8 Other external cause status; I12.9 Hypertensive chronic kidney disease with stage 1 through stage 4 chronic kidney disease, or unspecified chronic kidney disease; F31.9 Bipolar disorder, unspecified; N18.9 Chronic kidney disease, unspecified; E78.9 Disorder of lipoprotein metabolism, unspecified; K74.60 Unspecified cirrhosis of liver; Z88.5 Allergy status to narcotic agent; Z79.899 Other long term (current) drug therapy

== ENCOUNTER 2017-02-23 08:16 | Emergency (ER) | payer MEDICARE, MEDICAID ==
[~2017-02-23] VITALS: Ht 162.6 cm; Wt 85.5 kg
[~2017-02-23 08:16] MED LIST changes: +AMBI5TAB PO; +MILKSUS PO; +MUCI3TAB PO; +TESS100C PO; +ZOFR20TA PO
[2017-02-23 08:27] VITALS: BP 119/70
[2017-02-23] MEDS ORDERED: VITA100L PO (08:38)
--- NOTE | 2017-02-23 09:28 | REP ---
Clinical: Right lower extremity pain and swelling . Technique: Cheng scale and color Doppler evaluation using linear high frequency transducer. Findings: Ultrasound examination of the right lower extremity deep venous structures from the common femoral vein to the popliteal vein demonstrates normal compressibility flow and wave patterns in response to respiration and augmentation. There is no evidence for deep venous thrombosis. Yanez's cyst measuring roughly 6.9 x 6.8 x 1.3 cm. Impression: No evidence for deep venous thrombosis. Yanez's cyst. Signed by Kevin Jones MD 02/23/2017 09:19 A
[2017-06-12] MEDS ORDERED: ASPI81TA18 PO (21:05)
[2017-06-12] MEDS ORDERED: DECA1CAP2 PO (21:05)
[2017-06-12] MEDS ORDERED: NEXI1CAP4 PO (21:05)
[2017-06-12] MEDS ORDERED: CINA30TA PO (21:05)
[2017-06-12] MEDS ORDERED: PRED10TA2 PO (21:05)
[2017-06-12] MEDS ORDERED: MULT1TAB10 PO (21:05)
[2017-06-12] MEDS ORDERED: VOLT1GEL15 TD (21:05)
== END 2017-02-23 11:51 | disposition home or self-care (01) ==
LOC: M ED 08:16
DX: S80.01XA Contusion of right knee, initial encounter (principal); S80.02XA Contusion of left knee, initial encounter; W19.XXXA Unspecified fall, initial encounter; Y92.129 Unspecified place in nursing home as the place of occurrence of the external cause; Y93.89 Activity, other specified; Y99.8 Other external cause status; M79.89 Other specified soft tissue disorders; I87.8 Other specified disorders of veins; F31.9 Bipolar disorder, unspecified; K74.60 Unspecified cirrhosis of liver; Z85.51 Personal history of malignant neoplasm of bladder; Z79.899 Other long term (current) drug therapy; Z88.5 Allergy status to narcotic agent

== ENCOUNTER → 2017-02-28 | Outpatient (REF) | payer MEDICARE, MEDICAID ==
[~2017-02-28] MED LIST changes: +ASPI81TA18 PO; +CINA30TA PO; +DECA1CAP2 PO; +MULT1TAB10 PO; +NEXI1CAP4 PO; +VITA100L PO; +VOLT1GEL15 TD
[2017-02-28 11:48] LABS: MEAN CORPUSCULAR HEMOGLOBIN 32.3 pg (27.0-33.0); MEAN CORPUSCULAR HGB CONC 32.6 g/dl (32.0-36.5); MEAN CORPUSCULAR VOLUME 98.9 fl (80.0-96.0); RED CELL DISTRIBUTION WIDTH 13.5 % (11.5-14.5); WHITE BLOOD COUNT 8.8 K/mm3 (4.0-10.0)
[2017-02-28 12:21] LABS: BASOPHILS 2 % (0-4); EOSINOPHILS 3 % (0-5)
[2017-02-28 12:26] LABS: ANISOCYTOSIS 1+
[2017-02-28 12:36] LABS: ALBUMIN 3.7 GM/DL (3.2-5.2); BILIRUBIN,TOTAL 0.6 MG/DL (0.2-1.0); CALCIUM LEVEL 10.3 MG/DL (8.8-10.2); CREATININE FOR GFR 1.19 MG/DL (0.55-1.02); GLOMERULAR FILTRATION RATE 47.7 (>39); POTASSIUM SERUM 3.6 MEQ/L (3.5-5.1); TOTAL PROTEIN 7.4 GM/DL (6.4-8.2)
== END ==
PROVIDERS: ATTEND Nurse Practitioner Family
DX: F39 Unspecified mood [affective] disorder (principal)

== ENCOUNTER 2017-03-21 14:53 | Emergency (ER) | payer MEDICARE, MEDICAID ==
[~2017-03-21 14:53] MED LIST changes: -ASPI81TA18 PO; -CINA30TA PO; -DECA1CAP2 PO; -MULT1TAB10 PO; -NEXI1CAP4 PO; -VOLT1GEL15 TD
[2017-03-21] MEDS ORDERED: NS 1,000 ML IV SCH (15:02)
[2017-03-21 15:51] LABS: BASO % 0.2 % (0.0-1.0); EOS # 0.1 K/mm3 (0.0-0.50); EOS % 1.1 % (0.0-3.0); LARGE UNSTAINED CELL # 0.1 K/mm3 (0.0-0.4); LARGE UNSTAINED CELL % 0.9 % (0.0-4.0); LYMPH # 0.7 K/mm3 (1.5-4.5); MEAN CORPUSCULAR HEMOGLOBIN 32.1 pg (27.0-33.0); MEAN CORPUSCULAR HGB CONC 32.9 g/dl (32.0-36.5); MEAN CORPUSCULAR VOLUME 97.4 fl (80.0-96.0); MONO # 0.6 K/mm3 (0.0-0.8); NEUTROPHILS # 8.8 K/mm3 (1.8-7.7); NEUTROPHILS % 85.8 % (36.0-66.0); PLATELET COUNT, AUTOMATED 271 k/mm3 (150-450); RED CELL DISTRIBUTION WIDTH 13.2 % (11.5-14.5); WHITE BLOOD COUNT 10.3 K/mm3 (4.0-10.0)
--- NOTE | 2017-03-21 16:07 | REP ---
CT of the brain without IV contrast: Comparisons are 02/21/2017 and 08/30/2016. There is no hemorrhage. There is no edema, mass effect or midline shift. Cortical stripe is unremarkable. There are foci of decreased attenuation in the subcortical white matter compatible with chronic microvascular ischemia, unchanged. The ventricles and sulci are enlarged, unchanged, compatible with diffuse volume loss. The visualized paranasal sinuses and mastoid air cells are clear. Impression: No change from the comparison studies. There is no hemorrhage, acute infarct or mass. There is diffuse volume loss. There are findings compatible with chronic microvascular ischemia. Signed by Tj Wright MD 03/21/2017 03:58 P
--- NOTE | 2017-03-21 16:21 | REP ---
AP pelvis: 03/21/2017. Comparison: 02/18/1927, 01/11/2017. Clinical history: Pain, unknown if trauma. Study again shows [id number] appearance for both hips, more dramatic on the right than left. There is subchondral cystic and sclerotic change of both sides. Flattening of the right femoral head and subchondral cysts in the acetabular roof, right greater than left as well. All of this is unchanged. No new or superimposed acute fracture of the hips, pelvis, pubic rami, SI joints or lower lumbar spine visible. Sacrum and iliac bones intact. The bones are demineralized. Impression: 1. 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 2. No other significant or acute finding. Stable appearance from the multiple prior recent studies. Signed by Morris Layne MD 03/21/2017 07:09 P
[2017-03-21 16:33] LABS: ERYTHROCYTE SEDIMENTATION RATE 47 mm/hr (0-30)
--- NOTE | 2017-03-21 16:58 | REP ---
BILATERAL LOWER EXTREMITY DUPLEX VEINS: HISTORY: Leg pain. Right lower extremity There are no filling defects in the deep venous system. The deep venous system is patent. IMPRESSION: There is no deep venous thrombosis. LEFT LOWER EXTREMITY: There are no filling defects in the deep venous system. The deep venous system is patent. IMPRESSION: There is no deep venous thrombosis. Signed by Ranulfo Arnold MD 03/21/2017 05:01 P
[2017-03-21 17:00] LABS: ALBUMIN 3.4 GM/DL (3.2-5.2); ALBUMIN/GLOBULIN RATIO 1.17 (1.00-1.93); BILIRUBIN,DIRECT 0.2 MG/DL (0.0-0.2); BILIRUBIN,TOTAL 0.7 MG/DL (0.2-1.0); CALCIUM LEVEL 9.6 MG/DL (8.8-10.2); CREATININE FOR GFR 1.23 MG/DL (0.55-1.02); TOTAL PROTEIN 6.3 GM/DL (6.4-8.2)
[2017-03-21 18:11] VITALS: BP 126/72
--- NOTE | 2017-03-23 21:24 | ECGEPIP ---
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
[2017-06-12] MEDS ORDERED: MULT1TAB10 PO (21:05)
[2017-06-12] MEDS ORDERED: VOLT1GEL15 TD (21:05)
[2017-06-12] MEDS ORDERED: NEXI1CAP4 PO (21:05)
[2017-06-12] MEDS ORDERED: PRED10TA2 PO (21:05)
[2017-06-12] MEDS ORDERED: ASPI81TA18 PO (21:05)
[2017-06-12] MEDS ORDERED: DECA1CAP2 PO (21:05)
[2017-06-12] MEDS ORDERED: CINA30TA PO (21:05)
== END 2017-03-21 18:53 | disposition home or self-care (01) ==
LOC: EDBD 14:53 → M ED 14:53
DX: M17.0 Bilateral primary osteoarthritis of knee (principal); M16.0 Bilateral primary osteoarthritis of hip; R29.6 Repeated falls; G89.29 Other chronic pain; M25.562 Pain in left knee; M25.561 Pain in right knee; M25.552 Pain in left hip; M25.551 Pain in right hip; Z88.5 Allergy status to narcotic agent; Z79.899 Other long term (current) drug therapy; Z79.52 Long term (current) use of systemic steroids

== ENCOUNTER → 2017-03-27 | Outpatient (REF) | payer MEDICARE, MEDICAID ==
[~2017-03-27] MED LIST changes: +ASPI81TA18 PO; +CINA30TA PO; +DECA1CAP2 PO; +MULT1TAB10 PO; +NEXI1CAP4 PO; +VOLT1GEL15 TD
[2017-03-27 08:40] LABS: MEAN CORPUSCULAR HEMOGLOBIN 32.1 pg (27.0-33.0); MEAN CORPUSCULAR HGB CONC 33.5 g/dl (32.0-36.5); MEAN CORPUSCULAR VOLUME 95.9 fl (80.0-96.0); RED CELL DISTRIBUTION WIDTH 13.2 % (11.5-14.5); WHITE BLOOD COUNT 7.9 K/mm3 (4.0-10.0)
[2017-03-27 09:26] LABS: ANION GAP 8 MEQ/L (8-16); BLOOD UREA NITROGEN 22 MG/DL (7-18); CALCIUM LEVEL 10.2 MG/DL (8.8-10.2); CARBON DIOXIDE LEVEL 33 MEQ/L (21-32); CHLORIDE LEVEL 101 MEQ/L (98-107); CREATININE FOR GFR 0.97 MG/DL (0.55-1.02); DIGOXIN LEVEL 0.8 NG/ML (0.5-2.0); GLOMERULAR FILTRATION RATE > 60.0 (>39); GLUCOSE, FASTING 79 MG/DL (83-110); POTASSIUM SERUM 3.9 MEQ/L (3.5-5.1); SODIUM LEVEL 142 MEQ/L (136-145)
== END ==
LOC: SKLAB5 06:51
PROVIDERS: ATTEND Internal Medicine
DX: I48.91 Unspecified atrial fibrillation (principal); I10 Essential (primary) hypertension; K74.60 Unspecified cirrhosis of liver
CPT/HCPCS: 36415; 80048; 80162; 85027; G0463

== ENCOUNTER → 2017-03-31 | Outpatient (REF) | payer MEDICARE, MEDICAID ==
[2017-03-31 08:17] LABS: ANION GAP 9 MEQ/L (8-16); BLOOD UREA NITROGEN 21 MG/DL (7-18); CALCIUM LEVEL 9.7 MG/DL (8.8-10.2); CARBON DIOXIDE LEVEL 27 MEQ/L (21-32); CHLORIDE LEVEL 106 MEQ/L (98-107); CREATININE FOR GFR 0.87 MG/DL (0.55-1.02); GLOMERULAR FILTRATION RATE > 60.0 (>39); GLUCOSE, FASTING 81 MG/DL (83-110); SODIUM LEVEL 142 MEQ/L (136-145)
== END ==
LOC: SKLAB5 07:50
PROVIDERS: ATTEND Internal Medicine
DX: I50.9 Heart failure, unspecified (principal)

== ENCOUNTER → 2017-04-21 | Outpatient (REF) | payer MEDICARE, MEDICAID | LOC: SKLAB5 12:21 | PROVIDERS: ATTEND Internal Medicine | DX: L89.529 Pressure ulcer of left ankle, unspecified stage (principal) ==

== ENCOUNTER → 2017-04-26 | Outpatient (REF) | payer MEDICARE, MEDICAID ==
[2017-04-26 08:50] LABS: CALCIUM LEVEL 10.1 MG/DL (8.8-10.2); CREATININE FOR GFR 1.06 MG/DL (0.55-1.02); GLOMERULAR FILTRATION RATE 54.6 (>39); POTASSIUM SERUM 3.9 MEQ/L (3.5-5.1)
== END ==
LOC: SKLAB5 07:39
PROVIDERS: ATTEND Internal Medicine
DX: R60.0 Localized edema (principal); M79.89 Other specified soft tissue disorders; I50.31 Acute diastolic (congestive) heart failure

== ENCOUNTER → 2017-05-03 | Outpatient (REF) | payer MEDICARE, MEDICAID ==
[2017-05-03 08:20] LABS: ALBUMIN 3.1 GM/DL (3.2-5.2); ALBUMIN/GLOBULIN RATIO 1.07 (1.00-1.93); ALKALINE PHOSPHATASE 113 U/L (45-117); ALT/SGPT 22 U/L (12-78); ANION GAP 8 MEQ/L (8-16); AST/SGOT 9 U/L (15-37); BILIRUBIN,TOTAL 0.7 MG/DL (0.2-1.0); BLOOD UREA NITROGEN 25 MG/DL (7-18); CALCIUM LEVEL 9.9 MG/DL (8.8-10.2); CARBON DIOXIDE LEVEL 30 MEQ/L (21-32); CHLORIDE LEVEL 105 MEQ/L (98-107); CREATININE FOR GFR 0.91 MG/DL (0.55-1.02); GLOMERULAR FILTRATION RATE > 60.0 (>39); GLUCOSE, FASTING 86 MG/DL (83-110); POTASSIUM SERUM 3.3 MEQ/L (3.5-5.1); SODIUM LEVEL 143 MEQ/L (136-145)
--- NOTE | 2017-05-03 11:51 | ECGEPIP ---
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
== END ==
LOC: SKLAB5 07:48
PROVIDERS: ATTEND Internal Medicine
DX: I50.32 Chronic diastolic (congestive) heart failure (principal); R06.83 Snoring; R00.8 Other abnormalities of heart beat

== ENCOUNTER → 2017-05-12 | Outpatient (REF) | payer MEDICARE, MEDICAID ==
[2017-05-12 09:55] LABS: CALCIUM LEVEL 10.3 MG/DL (8.8-10.2); CREATININE FOR GFR 1.18 MG/DL (0.55-1.02); GLOMERULAR FILTRATION RATE 48.2 (>39); POTASSIUM SERUM 3.9 MEQ/L (3.5-5.1)
== END ==
LOC: SKLAB5 08:26
PROVIDERS: ATTEND Nurse Practitioner Family
DX: E87.6 Hypokalemia (principal)

== ENCOUNTER → 2017-06-06 | Outpatient (REF) | payer MEDICARE, MEDICAID ==
[2017-06-06 12:13] LABS: BASO % 0.4 % (0.0-1.0); EOS # 0.2 10^3/uL (0.0-0.50); EOS % 3.2 % (0.0-3.0); IMMATURE GRANULOCYTE % 0.3 % (0-0); LYMPH # 1.3 10^3/uL (1.5-4.5); MEAN CORPUSCULAR HEMOGLOBIN 31.3 pg (27.0-33.0); MEAN CORPUSCULAR HGB CONC 31.8 g/dl (32.0-36.5); MEAN CORPUSCULAR VOLUME 98.3 fl (80.0-96.0); MONO # 0.6 10^3/uL (0.0-0.8); MONO % 8.1 % (0.0-5.0); NEUTROPHILS # 4.8 10^3/uL (1.8-7.7); PLATELET COUNT, AUTOMATED 283 10^3/uL (150-450); WHITE BLOOD COUNT 6.9 10^3/uL (4.0-10.0)
[2017-06-06 13:23] LABS: ALBUMIN 3.9 GM/DL (3.2-5.2); CALCIUM LEVEL 10.3 MG/DL (8.8-10.2); CREATININE FOR GFR 1.15 MG/DL (0.55-1.02); GLOMERULAR FILTRATION RATE 49.7 (>39); POTASSIUM SERUM 3.5 MEQ/L (3.5-5.1)
== END ==
PROVIDERS: ATTEND Internal Medicine Nephrology
DX: N18.3 Chronic kidney disease, stage 3 (moderate) (principal); D63.1 Anemia in chronic kidney disease; N25.81 Secondary hyperparathyroidism of renal origin

== ENCOUNTER → 2017-06-09 | Outpatient (REF) | payer MEDICARE, MEDICAID | LOC: M LAB REF 15:05 | PROVIDERS: ATTEND Nurse Practitioner Family | DX: N39.0 Urinary tract infection, site not specified (principal) ==

== ENCOUNTER → 2017-07-25 | Outpatient (CLI) | payer MEDICARE, MEDICAID | LOC: M RAD 09:37 | PROVIDERS: ATTEND Internal Medicine | DX: Z12.31 Encounter for screening mammogram for malignant neoplasm of breast (principal) ==

== ENCOUNTER → 2017-08-02 | Outpatient (REF) | payer MEDICARE, MEDICAID | LOC: M LAB REF 09:53 | PROVIDERS: ATTEND Internal Medicine Nephrology | DX: N18.3 Chronic kidney disease, stage 3 (moderate) (principal); D63.1 Anemia in chronic kidney disease; N25.81 Secondary hyperparathyroidism of renal origin ==

== ENCOUNTER → 2017-08-03 | Outpatient (CLI) | payer MEDICARE, MEDICAID ==
--- NOTE | 2017-08-04 08:07 | REPMRS ---
Patient History The patient states she has not had a clinical breast exam in over a year. Patient is postmenopausal, has history of other cancer at age 63, and is nulliparous. No known family history of cancer. Took hormonal contraceptives for 2 months. Digital Mammo Diagnostic Bilateral: August 03, 2017 - Exam #: [id number] Bilateral CC and MLO view(s) were taken. Technologist: Arin Gabriel, Technologist Prior study comparison: June 16, 2016, bilateral digital mammo screening bilat performed at [facility]. June 19, 2015, bilateral digital mammo screening bilat performed at [facility]. FINDINGS: There are scattered fibroglandular densities. There has been no change in the appearance of the mammogram from the prior studies. There is a mild amount of residual fibroglandular tissue which is fairly symmetric. There is no interval development of dominant mass, architectural distortion, or clustered microcalcification suggestive of malignancy. ASSESSMENT: BI-RADS/ACR category 1 mammogram. Negative. Recommendation Routine screening mammogram in 1 year (for women over age 40). This mammogram was interpreted with the aid of an FDA-approved computer-aided dectection system. Electronically Signed By: Tj Cheng MD 08/03/17 2060
== END ==
LOC: M RAD 09:32
PROVIDERS: ATTEND Nurse Practitioner Family
DX: Z12.31 Encounter for screening mammogram for malignant neoplasm of breast (principal); N64.4 Mastodynia; Z78.0 Asymptomatic menopausal state

== ENCOUNTER → 2017-08-08 | Outpatient (REF) | payer MEDICARE, MEDICAID ==
[2017-08-08 10:28] LABS: BASO % 0.3 % (0.0-1.0); EOS # 0.2 10^3/uL (0.0-0.50); EOS % 1.8 % (0.0-3.0); IMMATURE GRANULOCYTE % 0.8 % (0-0); LYMPH # 1.7 10^3/uL (1.5-4.5); LYMPH % 14.3 % (24.0-44.0); MEAN CORPUSCULAR HEMOGLOBIN 31.8 pg (27.0-33.0); MEAN CORPUSCULAR HGB CONC 33.3 g/dl (32.0-36.5); MEAN CORPUSCULAR VOLUME 95.6 fl (80.0-96.0); MONO # 1.1 10^3/uL (0.0-0.8); MONO % 9.7 % (0.0-5.0); NEUTROPHILS # 8.5 10^3/uL (1.8-7.7); NEUTROPHILS % 73.1 % (36.0-66.0); PLATELET COUNT, AUTOMATED 326 10^3/uL (150-450); RED CELL DISTRIBUTION WIDTH 13.7 % (11.5-14.5); WHITE BLOOD COUNT 11.6 10^3/uL (4.0-10.0)
[2017-08-08 11:05] LABS: ALBUMIN 3.8 GM/DL (3.2-5.2); CALCIUM LEVEL 9.9 MG/DL (8.8-10.2); CREATININE FOR GFR 1.3 MG/DL (0.55-1.02); GLOMERULAR FILTRATION RATE 43.1 (>39); PHOSPHORUS LEVEL 2.5 MG/DL (2.5-4.9); POTASSIUM SERUM 4.1 MEQ/L (3.5-5.1)
== END ==
PROVIDERS: ATTEND Internal Medicine Nephrology
DX: N18.3 Chronic kidney disease, stage 3 (moderate) (principal); D63.1 Anemia in chronic kidney disease; N25.81 Secondary hyperparathyroidism of renal origin

== ENCOUNTER → 2017-08-17 | Outpatient (REF) | payer MEDICARE, MEDICAID ==
[2017-08-17 13:35] LABS: MEAN CORPUSCULAR HEMOGLOBIN 31.5 pg (27.0-33.0); MEAN CORPUSCULAR HGB CONC 33.8 g/dl (32.0-36.5); MEAN CORPUSCULAR VOLUME 93.1 fl (80.0-96.0); PLATELET COUNT, AUTOMATED 317 10^3/uL (150-450); RED CELL DISTRIBUTION WIDTH 13.6 % (11.5-14.5); WHITE BLOOD COUNT 12.7 10^3/uL (4.0-10.0)
[2017-08-17 14:20] LABS: ALBUMIN/GLOBULIN RATIO 1.33 (1.00-1.93); ALKALINE PHOSPHATASE 131 U/L (45-117); ALT/SGPT 35 U/L (12-78); ANION GAP 8 MEQ/L (8-16); AST/SGOT 18 U/L (7-37); BILIRUBIN,TOTAL 0.7 MG/DL (0.2-1.0); BLOOD UREA NITROGEN 35 MG/DL (7-18); CALCIUM LEVEL 9.7 MG/DL (8.8-10.2); CARBON DIOXIDE LEVEL 30 MEQ/L (21-32); CHLORIDE LEVEL 100 MEQ/L (98-107); CREATININE FOR GFR 1.23 MG/DL (0.55-1.02); DIGOXIN LEVEL 1.5 NG/ML (0.5-2.0); GLUCOSE, FASTING 111 MG/DL (83-110); POTASSIUM SERUM 4.9 MEQ/L (3.5-5.1); SODIUM LEVEL 138 MEQ/L (136-145)
== END ==
LOC: SKLAB5 08:00
DX: N18.3 Chronic kidney disease, stage 3 (moderate) (principal); I12.9 Hypertensive chronic kidney disease with stage 1 through stage 4 chronic kidney disease, or unspecified chronic kidney disease; I48.91 Unspecified atrial fibrillation
CPT/HCPCS: 80162

== ENCOUNTER → 2017-09-18 | Outpatient (REF) | payer MEDICARE, MEDICAID | LOC: M SMT 17:20 | DX: Z85.51 Personal history of malignant neoplasm of bladder (principal) | CPT/HCPCS: 88108 ==

== ENCOUNTER → 2017-10-09 | Outpatient (REF) | payer MEDICARE, MEDICAID ==
[2017-10-09 14:35] LABS: INFLUENZA A AMPLIFICATION NEGATIVE (NEGATIVE); INFLUENZA B AMPLIFICATION NEGATIVE (NEGATIVE); RSV AMPLIFICATION POSITIVE (NEGATIVE)
== END ==
LOC: SKLAB7 13:24
DX: R05 Cough (principal)
CPT/HCPCS: 87631

== ENCOUNTER → 2017-10-16 | Outpatient (REF) | payer MEDICARE, MEDICAID ==
[2017-10-16 15:09] LABS: INFLUENZA A AMPLIFICATION NEGATIVE (NEGATIVE); INFLUENZA B AMPLIFICATION NEGATIVE (NEGATIVE); RSV AMPLIFICATION POSITIVE (NEGATIVE)
== END ==
LOC: SKLAB7 13:37
DX: R05 Cough (principal); R69 Illness, unspecified
CPT/HCPCS: 87631

== ENCOUNTER → 2017-11-02 | Outpatient (REF) | payer MEDICARE, MEDICAID ==
[2017-11-02 08:37] LABS: HEMATOCRIT 33.6 % (36.0-47.0); HEMOGLOBIN 11.1 g/dl (12.0-16.0); MEAN CORPUSCULAR HEMOGLOBIN 32.8 pg (27.0-33.0); MEAN CORPUSCULAR VOLUME 99.4 fl (80.0-96.0); PLATELET COUNT, AUTOMATED 303 10^3/uL (150-450); RED BLOOD COUNT 3.38 10^6/uL (4.00-5.40); RED CELL DISTRIBUTION WIDTH 13.9 % (11.5-14.5); WHITE BLOOD COUNT 8.2 10^3/uL (4.0-10.0)
== END ==
LOC: SKLAB7 11:15
DX: N18.9 Chronic kidney disease, unspecified (principal)
CPT/HCPCS: 36415

== ENCOUNTER → 2017-11-08 | Outpatient (CLI) | payer MEDICARE, MEDICAID | LOC: M RAD 13:16 | DX: M79.604 Pain in right leg (principal); I48.91 Unspecified atrial fibrillation; Z88.5 Allergy status to narcotic agent | CPT/HCPCS: 93971 ==

== ENCOUNTER → 2017-11-08 | Outpatient (REF) | payer MEDICARE, MEDICAID ==
[2017-11-08 12:39] LABS: HEMATOCRIT 34.2 % (36.0-47.0); HEMOGLOBIN 11.2 g/dl (12.0-16.0); MEAN CORPUSCULAR HEMOGLOBIN 31.9 pg (27.0-33.0); MEAN CORPUSCULAR HGB CONC 32.7 g/dl (32.0-36.5); MEAN CORPUSCULAR VOLUME 97.4 fl (80.0-96.0); PLATELET COUNT, AUTOMATED 209 10^3/uL (150-450); RED BLOOD COUNT 3.51 10^6/uL (4.00-5.40); RED CELL DISTRIBUTION WIDTH 13.5 % (11.5-14.5); WHITE BLOOD COUNT 19.1 10^3/uL (4.0-10.0)
[2017-11-08 12:51] LABS: INR 1.27; PROTHROMBIN TIME 16.1 SECONDS (12.4-14.5)
[2017-11-08 12:52] LABS: PARTIAL THROMBOPLASTIN TIME 32.2 SECONDS (26.8-37.9)
[2017-11-08 13:40] LABS: ERYTHROCYTE SEDIMENTATION RATE 90 mm/hr (0-30)
== END ==
LOC: SKLAB7 11:35
DX: I48.91 Unspecified atrial fibrillation (principal); Z86.718 Personal history of other venous thrombosis and embolism

== ENCOUNTER 2017-11-13 16:17 | Inpatient (IN) | payer MEDICARE, MEDICAID ==
[2017-11-13] MEDS: NS 1,000 ML IV ×2 (17:30→19:45)
[2017-11-13 17:38] LABS: HEMATOCRIT 34.9 % (36.0-47.0); HEMOGLOBIN 11.4 g/dl (12.0-16.0); MEAN CORPUSCULAR HEMOGLOBIN 32.5 pg (27.0-33.0); MEAN CORPUSCULAR HGB CONC 32.7 g/dl (32.0-36.5); MEAN CORPUSCULAR VOLUME 99.4 fl (80.0-96.0); PLATELET COUNT, AUTOMATED 526 10^3/uL (150-450); RED BLOOD COUNT 3.51 10^6/uL (4.00-5.40); RED CELL DISTRIBUTION WIDTH 13.8 % (11.5-14.5)
[2017-11-13 17:44] LABS: ADD MANUAL DIFFER YES; DIFF SLIDE NUMBER 339; POS COUNT POS FLAG; POSITIVE DIFF POS FLAG; POSITIVE MORPH POS FLAG; WHITE BLOOD COUNT 40.2 10^3/uL (4.0-10.0)
[2017-11-13 17:48] LABS: INR 1.16
[2017-11-13 18:05] LABS: LACTIC ACID SEPSIS PROTOCOL 1.3 MMOL/L (0.4-2.0)
[2017-11-13 18:16] LABS: ALBUMIN 2.7 GM/DL (3.2-5.2); ALBUMIN/GLOBULIN RATIO 0.66 (1.00-1.93); ALKALINE PHOSPHATASE 486 U/L (45-117); ALT/SGPT 42 U/L (12-78); ANION GAP 10 MEQ/L (8-16); AST/SGOT 20 U/L (7-37); BILIRUBIN,DIRECT 0.6 MG/DL (0.0-0.2); BLOOD UREA NITROGEN 28 MG/DL (7-18); CALCIUM LEVEL 9.3 MG/DL (8.8-10.2); CARBON DIOXIDE LEVEL 24 MEQ/L (21-32); CHLORIDE LEVEL 100 MEQ/L (98-107); GLOMERULAR FILTRATION RATE 39.6 (>39); GLUCOSE, FASTING 119 MG/DL (70-100); POTASSIUM SERUM 4.7 MEQ/L (3.5-5.1); SODIUM LEVEL 134 MEQ/L (136-145); TOTAL PROTEIN 6.8 GM/DL (6.4-8.2)
[2017-11-13 18:18] LABS: ATYPICAL LYMPH 2 % (0-5); BANDS 4 % (< 11); LYMPHOCYTES 2 % (16-52); METAMYELOCYTES 2 % (0-0); MONOCYTES 9 % (0-8); MYELOCYTES 1 % (0-0); NEUTROPHILS 79 % (35-75); PROMYELOCYTES 1 % (0-0)
[2017-11-13 18:19] LABS: PLATELET ESTIMATE INCREASED (NORMAL)
[2017-11-13 18:21] LABS: BLAST CELLS 0 % (0-0)
[2017-11-13] MEDS ORDERED: MOM 30ML SUSPENSION UDC PO (19:45)
[2017-11-13] MEDS ORDERED: MAALOX 30 ML SUSP *UDC PO (19:45)
[2017-11-13] MEDS ORDERED: POLYVINYL ALCOHOL OPHTH SOLN 15 ML(LIQUITEARS) OU (19:45)
[2017-11-13] MEDS ORDERED: SODIUM CHLORIDE NASAL 0.65% SPRAY BTL (OCEAN) (19:45)
[2017-11-13] MEDS ORDERED: BISACODYL 10 MG SUPP PR (19:45)
[2017-11-13] MEDS ORDERED: DOCUSATE SODIUM 100 MG CAP PO (19:45)
[2017-11-13] MEDS ORDERED: ONDANSETRON 4MG/2ML VIAL (J2405) IV (19:45)
[2017-11-13] MEDS: CEFTAROLINE FOSAMIL 600 MG in D5W MINI-BAG PLUS 50 ML IV (21:41)
[2017-11-13] MEDS: HEPARIN SOD (PORCINE) 5000 UNITS/ML VIAL SC (21:42)
[2017-11-13] MEDS ORDERED: METOPROLOL TART 12.5 MG PER 1/2 TAB PO (23:30)
[2017-11-13] MEDS: ACETAMINOPHEN 325 MG TAB PO (23:52)
[2017-11-13] MEDS: NS 500 ML IV (23:53)
[2017-11-14] MEDS: SODIUM CHLORIDE 0.9% 1000 ML IV ×2 (01:32→03:04)
[2017-11-14] MEDS: ACETAMINOPHEN 325 MG TAB PO (05:42)
[2017-11-14 08:00] LABS: HEMOGLOBIN 9.3 g/dl (12.0-16.0); MEAN CORPUSCULAR HEMOGLOBIN 31.7 pg (27.0-33.0); MEAN CORPUSCULAR HGB CONC 32.1 g/dl (32.0-36.5); PLATELET COUNT, AUTOMATED 429 10^3/uL (150-450); RED BLOOD COUNT 2.93 10^6/uL (4.00-5.40); RED CELL DISTRIBUTION WIDTH 13.8 % (11.5-14.5); WHITE BLOOD COUNT 24.4 10^3/uL (4.0-10.0)
[2017-11-14 08:10] LABS: ADD MANUAL DIFFER YES; DIFF SLIDE NUMBER 116; POS COUNT POS FLAG; POSITIVE MORPH POS FLAG
[2017-11-14 08:14] LABS: ANION GAP 7 MEQ/L (8-16); BLOOD UREA NITROGEN 24 MG/DL (7-18); CALCIUM LEVEL 8.6 MG/DL (8.8-10.2); CARBON DIOXIDE LEVEL 25 MEQ/L (21-32); CHLORIDE LEVEL 107 MEQ/L (98-107); CREATININE FOR GFR 1.13 MG/DL (0.55-1.30); GLOMERULAR FILTRATION RATE 50.7 (>39); GLUCOSE, FASTING 101 MG/DL (70-100); POTASSIUM SERUM 4.3 MEQ/L (3.5-5.1); SODIUM LEVEL 139 MEQ/L (136-145)
[2017-11-14] MEDS: ASPIRIN 81 MG CHEW TABLET PO (08:40)
[2017-11-14] MEDS: CYANOCOBALAMIN 500 MCG TAB PO (08:41)
[2017-11-14] MEDS: FAMOTIDINE 20 MG TAB PO (08:41)
[2017-11-14] MEDS: SERTRALINE 100 MG TAB PO (08:41)
[2017-11-14] MEDS: DIGOXIN 0.125 MG TAB PO (08:42)
[2017-11-14 08:45] LABS: BANDS 1 % (< 11); EOSINOPHILS 2 % (0-5); LYMPHOCYTES 2 % (16-52); METAMYELOCYTES 2 % (0-0); MONOCYTES 7 % (0-8); MYELOCYTES 2 % (0-0); NEUTROPHILS 84 % (35-75)
[2017-11-14] MEDS: HEPARIN SOD (PORCINE) 5000 UNITS/ML VIAL SC ×2 (08:45→20:15)
[2017-11-14] MEDS: CEFTAROLINE FOSAMIL 600 MG in D5W MINI-BAG PLUS 50 ML IV ×2 (08:45→20:15)
[2017-11-14 08:46] LABS: PLATELET ESTIMATE INCREASED (NORMAL)
[2017-11-14] MEDS: PNEUMOCOCCAL VACCINE 0.5ML SYRINGE(90732) PNEUMOVAX 23 IM (11:06)
[2017-11-14] MEDS: predniSONE 1 MG TAB PO (11:07)
[2017-11-14] MEDS: NYSTATIN 500,000 U/5 ML SUSP UDC SS ×3 (12:19→20:15)
[2017-11-14] MEDS: ACETAMINOPHEN TAB 650MG DOSE (2X325MG) PO ×2 (17:31→23:58)
[2017-11-15] MEDS: oxyCODONE 5MG TAB PO ×4 (03:14→22:23)
[2017-11-15 06:08] LABS: HEMATOCRIT 28.3 % (36.0-47.0); HEMOGLOBIN 9.1 g/dl (12.0-16.0); MEAN CORPUSCULAR HEMOGLOBIN 31.6 pg (27.0-33.0); MEAN CORPUSCULAR HGB CONC 32.2 g/dl (32.0-36.5); MEAN CORPUSCULAR VOLUME 98.3 fl (80.0-96.0); PLATELET COUNT, AUTOMATED 430 10^3/uL (150-450); RED BLOOD COUNT 2.88 10^6/uL (4.00-5.40); RED CELL DISTRIBUTION WIDTH 13.7 % (11.5-14.5); WHITE BLOOD COUNT 18.3 10^3/uL (4.0-10.0)
[2017-11-15 06:09] LABS: ADD MANUAL DIFFER YES; DIFF SLIDE NUMBER 50; POS COUNT POS FLAG; POSITIVE MORPH POS FLAG
[2017-11-15 06:25] LABS: ANION GAP 8 MEQ/L (8-16); BLOOD UREA NITROGEN 19 MG/DL (7-18); CARBON DIOXIDE LEVEL 22 MEQ/L (21-32); CHLORIDE LEVEL 109 MEQ/L (98-107); CREATININE FOR GFR 1.04 MG/DL (0.55-1.30); GLOMERULAR FILTRATION RATE 55.8 (>39); GLUCOSE, FASTING 93 MG/DL (70-100); POTASSIUM SERUM 4.4 MEQ/L (3.5-5.1); SODIUM LEVEL 139 MEQ/L (136-145)
[2017-11-15 06:49] LABS: ATYPICAL LYMPH 1 % (0-5); EOSINOPHILS 1 % (0-5); LYMPHOCYTES 7 % (16-52); MONOCYTES 4 % (0-8); NEUTROPHILS 87 % (35-75); PLATELET ESTIMATE INCREASED (NORMAL); POLYCHROMASIA 1+
[2017-11-15] MEDS: HEPARIN SOD (PORCINE) 5000 UNITS/ML VIAL SC ×2 (09:13→21:31)
[2017-11-15] MEDS: CEFTAROLINE FOSAMIL 600 MG in D5W MINI-BAG PLUS 50 ML IV ×2 (09:14→21:32)
[2017-11-15] MEDS: DIGOXIN 0.125 MG TAB PO (09:16)
[2017-11-15] MEDS: CYANOCOBALAMIN 500 MCG TAB PO (09:16)
[2017-11-15] MEDS: NYSTATIN 500,000 U/5 ML SUSP UDC SS ×4 (09:16→21:32)
[2017-11-15] MEDS: SERTRALINE 100 MG TAB PO (09:16)
[2017-11-15] MEDS: ASPIRIN 81 MG CHEW TABLET PO (09:16)
[2017-11-15] MEDS: predniSONE 1 MG TAB PO (09:16)
[2017-11-15] MEDS: CINACALCET 30 MG TAB (SENSIPAR) PO (09:16)
[2017-11-15] MEDS: FAMOTIDINE 20 MG TAB PO (09:17)
[2017-11-15] MEDS: ACETAMINOPHEN TAB 650MG DOSE (2X325MG) PO (16:21)
[2017-11-16] MEDS: oxyCODONE 5MG TAB PO ×3 (04:42→16:57)
[2017-11-16 07:26] LABS: BASO # 0.1 10^3/uL (0.0-0.2); BASO % 0.4 % (0.0-1.0); EOS # 0.3 10^3/uL (0.0-0.50); EOS % 1.6 % (0.0-3.0); HEMATOCRIT 29.2 % (36.0-47.0); HEMOGLOBIN 9.5 g/dl (12.0-16.0); IMMATURE GRANULOCYTE % 4.8 % (0-3.0); LYMPH # 1.1 10^3/uL (1.5-4.5); LYMPH % 6.2 % (24.0-44.0); MEAN CORPUSCULAR HEMOGLOBIN 32.5 pg (27.0-33.0); MEAN CORPUSCULAR HGB CONC 32.5 g/dl (32.0-36.5); MONO # 1.3 10^3/uL (0.0-0.8); MONO % 7.2 % (0.0-5.0); NEUTROPHILS # 14.6 10^3/uL (1.8-7.7); NEUTROPHILS % 79.8 % (36.0-66.0); PLATELET COUNT, AUTOMATED 478 10^3/uL (150-450); RED BLOOD COUNT 2.92 10^6/uL (4.00-5.40); RED CELL DISTRIBUTION WIDTH 13.8 % (11.5-14.5); WHITE BLOOD COUNT 18.3 10^3/uL (4.0-10.0)
[2017-11-16 07:43] LABS: ANION GAP 4 MEQ/L (8-16); BLOOD UREA NITROGEN 23 MG/DL (7-18); CALCIUM LEVEL 8.9 MG/DL (8.8-10.2); CARBON DIOXIDE LEVEL 24 MEQ/L (21-32); CHLORIDE LEVEL 106 MEQ/L (98-107); CREATININE FOR GFR 1.12 MG/DL (0.55-1.30); GLOMERULAR FILTRATION RATE 51.2 (>39); GLUCOSE, FASTING 93 MG/DL (70-100); POTASSIUM SERUM 4.8 MEQ/L (3.5-5.1); SODIUM LEVEL 134 MEQ/L (136-145)
[2017-11-16] MEDS: CEFTAROLINE FOSAMIL 600 MG in D5W MINI-BAG PLUS 50 ML IV ×2 (08:09→20:58)
[2017-11-16] MEDS: predniSONE 1 MG TAB PO (08:10)
[2017-11-16] MEDS: SERTRALINE 100 MG TAB PO (08:10)
[2017-11-16] MEDS: CYANOCOBALAMIN 500 MCG TAB PO (08:11)
[2017-11-16] MEDS: FAMOTIDINE 20 MG TAB PO (08:11)
[2017-11-16] MEDS: ASPIRIN 81 MG CHEW TABLET PO (08:11)
[2017-11-16] MEDS: HEPARIN SOD (PORCINE) 5000 UNITS/ML VIAL SC ×2 (08:12→20:57)
[2017-11-16] MEDS: DIGOXIN 0.125 MG TAB PO (08:12)
[2017-11-16] MEDS: NYSTATIN 500,000 U/5 ML SUSP UDC SS ×4 (08:12→20:56)
[2017-11-16] MEDS: SENOKOT S TAB PO ×2 (10:42→20:57)
[2017-11-16] MEDS: LIDOCAINE 5% (LIDODERM) PATCH TD (10:43)
[2017-11-16] MEDS: ACETAMINOPHEN TAB 650MG DOSE (2X325MG) PO (12:18)
[2017-11-16] MEDS: MORPHINE 4 MG/ML 1ML VIAL/SYRINGE (J2270) IV (20:58)
[2017-11-16] MEDS: **NOTE PATIENT COMMENT** MISC XX (20:58)
[2017-11-17] MEDS: MORPHINE 4 MG/ML 1ML VIAL/SYRINGE (J2270) IV (04:29)
[2017-11-17 06:11] LABS: BASO # 0.1 10^3/uL (0.0-0.2); BASO % 0.3 % (0.0-1.0); EOS # 0.2 10^3/uL (0.0-0.50); EOS % 1.2 % (0.0-3.0); HEMATOCRIT 27.8 % (36.0-47.0); HEMOGLOBIN 9.1 g/dl (12.0-15.5); IMMATURE GRANULOCYTE % 3.7 % (0-3.0); LYMPH % 5.7 % (24.0-44.0); MEAN CORPUSCULAR HEMOGLOBIN 31.8 pg (27.0-33.0); MEAN CORPUSCULAR HGB CONC 32.7 g/dl (32.0-36.5); MEAN CORPUSCULAR VOLUME 97.2 fl (80.0-96.0); MONO # 1.5 10^3/uL (0.0-0.8); MONO % 8.2 % (0.0-5.0); NEUTROPHILS # 14.8 10^3/uL (1.8-7.7); NEUTROPHILS % 80.9 % (36.0-66.0); PLATELET COUNT, AUTOMATED 540 10^3/uL (150-450); RED BLOOD COUNT 2.86 10^6/uL (4.00-5.40); RED CELL DISTRIBUTION WIDTH 13.5 % (11.5-14.5); WHITE BLOOD COUNT 18.2 10^3/uL (4.0-10.0)
[2017-11-17 06:27] LABS: ANION GAP 6 MEQ/L (8-16); BLOOD UREA NITROGEN 22 MG/DL (7-18); CALCIUM LEVEL 9.3 MG/DL (8.8-10.2); CARBON DIOXIDE LEVEL 21 MEQ/L (21-32); CHLORIDE LEVEL 105 MEQ/L (98-107); CREATININE FOR GFR 1.02 MG/DL (0.55-1.30); GLUCOSE, FASTING 95 MG/DL (70-100); POTASSIUM SERUM 4.7 MEQ/L (3.5-5.1); SODIUM LEVEL 132 MEQ/L (136-145)
[2017-11-17] MEDS: CEFTAROLINE FOSAMIL 600 MG in D5W MINI-BAG PLUS 50 ML IV ×2 (08:03→20:15)
[2017-11-17] MEDS: predniSONE 1 MG TAB PO (08:04)
[2017-11-17] MEDS: CYANOCOBALAMIN 500 MCG TAB PO (08:04)
[2017-11-17] MEDS: FAMOTIDINE 20 MG TAB PO (08:04)
[2017-11-17] MEDS: NYSTATIN 500,000 U/5 ML SUSP UDC SS ×4 (08:04→20:14)
[2017-11-17] MEDS: DIGOXIN 0.125 MG TAB PO (08:04)
[2017-11-17] MEDS: SERTRALINE 100 MG TAB PO (08:04)
[2017-11-17] MEDS: ASPIRIN 81 MG CHEW TABLET PO (08:04)
[2017-11-17] MEDS: SENOKOT S TAB PO ×2 (08:04→20:14)
[2017-11-17] MEDS: CINACALCET 30 MG TAB (SENSIPAR) PO (08:05)
[2017-11-17] MEDS: LIDOCAINE 5% (LIDODERM) PATCH TD ×2 (08:05→11:00)
[2017-11-17] MEDS: HEPARIN SOD (PORCINE) 5000 UNITS/ML VIAL SC ×2 (08:05→20:15)
[2017-11-17] MEDS ORDERED: NYSTATIN 100,000 UNITS/GM TOPICAL PWD 15 GM TOP (10:30)
[2017-11-17] MEDS: FUROSEMIDE 40 MG/4 ML VIAL (J1940) IV (11:00)
[2017-11-17] MEDS: **NOTE PATIENT COMMENT** MISC XX ×2 (20:15)
[2017-11-17] MEDS: ACETAMINOPHEN TAB 650MG DOSE (2X325MG) PO (20:21)
[2017-11-18] MEDS: oxyCODONE 5MG TAB PO ×2 (00:30→17:56)
[2017-11-18] MEDS: MORPHINE 4 MG/ML 1ML VIAL/SYRINGE (J2270) IV (02:19)
[2017-11-18 03:50] LABS: BASO # 0.1 10^3/uL (0.0-0.2); BASO % 0.3 % (0.0-1.0); EOS # 0.2 10^3/uL (0.0-0.50); EOS % 1.4 % (0.0-3.0); HEMATOCRIT 26.9 % (36.0-47.0); HEMOGLOBIN 8.7 g/dl (12.0-15.5); IMMATURE GRANULOCYTE % 2.9 % (0-3.0); LYMPH # 1.1 10^3/uL (1.5-4.5); LYMPH % 6.6 % (24.0-44.0); MEAN CORPUSCULAR HEMOGLOBIN 32.1 pg (27.0-33.0); MEAN CORPUSCULAR HGB CONC 32.3 g/dl (32.0-36.5); MEAN CORPUSCULAR VOLUME 99.3 fl (80.0-96.0); MONO # 1.6 10^3/uL (0.0-0.8); MONO % 9.8 % (0.0-5.0); NEUTROPHILS # 12.5 10^3/uL (1.8-7.7); PLATELET COUNT, AUTOMATED 514 10^3/uL (150-450); RED BLOOD COUNT 2.71 10^6/uL (4.00-5.40); RED CELL DISTRIBUTION WIDTH 13.5 % (11.5-14.5); WHITE BLOOD COUNT 15.8 10^3/uL (4.0-10.0)
[2017-11-18 04:07] LABS: ANION GAP 7 MEQ/L (8-16); BLOOD UREA NITROGEN 21 MG/DL (7-18); CALCIUM LEVEL 8.7 MG/DL (8.8-10.2); CARBON DIOXIDE LEVEL 24 MEQ/L (21-32); CHLORIDE LEVEL 105 MEQ/L (98-107); CREATININE FOR GFR 1.06 MG/DL (0.55-1.30); GLOMERULAR FILTRATION RATE 54.6 (>39); GLUCOSE, FASTING 94 MG/DL (70-100); POTASSIUM SERUM 4.8 MEQ/L (3.5-5.1); SODIUM LEVEL 136 MEQ/L (136-145)
[2017-11-18 04:09] LABS: CPK CREATINE PHOSPHOKINASE 12 U/L (26-192); TROPONIN I < 0.02 NG/ML (< 0.10)
[2017-11-18 04:10] LABS: CK-MB VALUE MASS < 1.0 NG/ML (<3.6); MB/CK RELATIVE INDEX 8.33 (< OR =4)
[2017-11-18 08:33] LABS: CK-MB VALUE MASS < 1.0 NG/ML (<3.6); CPK CREATINE PHOSPHOKINASE 13 U/L (26-192); MB/CK RELATIVE INDEX 7.69 (< OR =4); TROPONIN I < 0.02 NG/ML (< 0.10)
[2017-11-18] MEDS: LIDOCAINE 5% (LIDODERM) PATCH TD ×2 (09:00→09:09)
[2017-11-18] MEDS: HEPARIN SOD (PORCINE) 5000 UNITS/ML VIAL SC ×2 (09:09→20:26)
[2017-11-18] MEDS: CEFTAROLINE FOSAMIL 600 MG in D5W MINI-BAG PLUS 50 ML IV ×2 (09:09→20:27)
[2017-11-18] MEDS: NYSTATIN 500,000 U/5 ML SUSP UDC SS ×4 (09:09→20:26)
[2017-11-18] MEDS: SERTRALINE 100 MG TAB PO (09:10)
[2017-11-18] MEDS: CYANOCOBALAMIN 500 MCG TAB PO (09:10)
[2017-11-18] MEDS: FAMOTIDINE 20 MG TAB PO (09:10)
[2017-11-18] MEDS: FUROSEMIDE 40 MG TAB PO (09:10)
[2017-11-18] MEDS: DIGOXIN 0.125 MG TAB PO (09:10)
[2017-11-18] MEDS: SENOKOT S TAB PO ×2 (09:10→20:26)
[2017-11-18] MEDS: ASPIRIN 81 MG CHEW TABLET PO (09:11)
[2017-11-18] MEDS: predniSONE 1 MG TAB PO (09:11)
[2017-11-18] MEDS ORDERED: ISOVUE-370 76% 100ML VIAL (Q9967) As Ordered (11:34)
[2017-11-18] MEDS: CLINDAMYCIN 900 MG in APPROPRIATE DILUENT 1 EA IV ×2 (14:54→21:47)
[2017-11-18] MEDS: NYSTATIN 100,000 UNITS/GM TOPICAL PWD 15 GM TOP (20:27)
[2017-11-18] MEDS: **NOTE PATIENT COMMENT** MISC XX ×2 (20:27)
[2017-11-19] MEDS: CLINDAMYCIN 900 MG in APPROPRIATE DILUENT 1 EA IV ×3 (04:06→20:12)
[2017-11-19] MEDS: oxyCODONE 5MG TAB PO ×3 (04:07→20:14)
[2017-11-19 05:59] LABS: BASO % 0.3 % (0.0-1.0); EOS # 0.3 10^3/uL (0.0-0.50); EOS % 2.1 % (0.0-3.0); HEMATOCRIT 27.1 % (36.0-47.0); HEMOGLOBIN 8.7 g/dl (12.0-15.5); IMMATURE GRANULOCYTE % 2.5 % (0-3.0); MEAN CORPUSCULAR HEMOGLOBIN 31.6 pg (27.0-33.0); MEAN CORPUSCULAR HGB CONC 32.1 g/dl (32.0-36.5); MEAN CORPUSCULAR VOLUME 98.5 fl (80.0-96.0); MONO # 1.4 10^3/uL (0.0-0.8); MONO % 11.4 % (0.0-5.0); NEUTROPHILS # 9.1 10^3/uL (1.8-7.7); NEUTROPHILS % 75.7 % (36.0-66.0); PLATELET COUNT, AUTOMATED 489 10^3/uL (150-450); RED BLOOD COUNT 2.75 10^6/uL (4.00-5.40); RED CELL DISTRIBUTION WIDTH 13.3 % (11.5-14.5)
[2017-11-19 06:11] LABS: ANION GAP 6 MEQ/L (8-16); BLOOD UREA NITROGEN 20 MG/DL (7-18); CALCIUM LEVEL 8.9 MG/DL (8.8-10.2); CARBON DIOXIDE LEVEL 23 MEQ/L (21-32); CHLORIDE LEVEL 105 MEQ/L (98-107); GLOMERULAR FILTRATION RATE 58.4 (>39); GLUCOSE, FASTING 92 MG/DL (70-100); POTASSIUM SERUM 4.5 MEQ/L (3.5-5.1); SODIUM LEVEL 134 MEQ/L (136-145)
[2017-11-19] MEDS: LIDOCAINE 5% (LIDODERM) PATCH TD ×2 (09:04)
[2017-11-19] MEDS: HEPARIN SOD (PORCINE) 5000 UNITS/ML VIAL SC ×2 (09:04→20:12)
[2017-11-19] MEDS: FAMOTIDINE 20 MG TAB PO (09:05)
[2017-11-19] MEDS: DIGOXIN 0.125 MG TAB PO (09:05)
[2017-11-19] MEDS: CYANOCOBALAMIN 500 MCG TAB PO (09:05)
[2017-11-19] MEDS: SERTRALINE 100 MG TAB PO (09:06)
[2017-11-19] MEDS: NYSTATIN 500,000 U/5 ML SUSP UDC SS ×4 (09:06→20:12)
[2017-11-19] MEDS: SENOKOT S TAB PO ×2 (09:06→20:13)
[2017-11-19] MEDS: ASPIRIN 81 MG CHEW TABLET PO (09:06)
[2017-11-19] MEDS: FUROSEMIDE 40 MG TAB PO (09:06)
[2017-11-19] MEDS: predniSONE 1 MG TAB PO (09:06)
[2017-11-19] MEDS: NYSTATIN 100,000 UNITS/GM TOPICAL PWD 15 GM TOP ×2 (09:06→20:13)
[2017-11-19] MEDS: CEFTAROLINE FOSAMIL 600 MG in D5W MINI-BAG PLUS 50 ML IV ×2 (09:07→21:55)
[2017-11-19] MEDS: **NOTE PATIENT COMMENT** MISC XX ×2 (21:00)
[2017-11-20] MEDS: oxyCODONE 5MG TAB PO ×2 (04:03→11:22)
[2017-11-20] MEDS: CLINDAMYCIN 900 MG in APPROPRIATE DILUENT 1 EA IV ×3 (04:32→20:57)
[2017-11-20] MEDS: ACETAMINOPHEN TAB 650MG DOSE (2X325MG) PO (05:39)
[2017-11-20 06:10] LABS: BASO % 0.3 % (0.0-1.0); EOS # 0.3 10^3/uL (0.0-0.50); EOS % 2.5 % (0.0-3.0); HEMATOCRIT 27.4 % (36.0-47.0); HEMOGLOBIN 8.9 g/dl (12.0-15.5); IMMATURE GRANULOCYTE % 2.6 % (0-3.0); LYMPH # 0.9 10^3/uL (1.5-4.5); LYMPH % 7.6 % (24.0-44.0); MEAN CORPUSCULAR HEMOGLOBIN 31.9 pg (27.0-33.0); MEAN CORPUSCULAR HGB CONC 32.5 g/dl (32.0-36.5); MEAN CORPUSCULAR VOLUME 98.2 fl (80.0-96.0); MONO # 1.2 10^3/uL (0.0-0.8); MONO % 10.6 % (0.0-5.0); NEUTROPHILS # 8.6 10^3/uL (1.8-7.7); NEUTROPHILS % 76.4 % (36.0-66.0); PLATELET COUNT, AUTOMATED 518 10^3/uL (150-450); RED BLOOD COUNT 2.79 10^6/uL (4.00-5.40); RED CELL DISTRIBUTION WIDTH 13.3 % (11.5-14.5); WHITE BLOOD COUNT 11.3 10^3/uL (4.0-10.0)
[2017-11-20 06:32] LABS: ANION GAP 7 MEQ/L (8-16); BLOOD UREA NITROGEN 20 MG/DL (7-18); CALCIUM LEVEL 9.1 MG/DL (8.8-10.2); CARBON DIOXIDE LEVEL 21 MEQ/L (21-32); CHLORIDE LEVEL 104 MEQ/L (98-107); CREATININE FOR GFR 0.93 MG/DL (0.55-1.30); GLOMERULAR FILTRATION RATE > 60.0 (>39); GLUCOSE, FASTING 96 MG/DL (70-100); POTASSIUM SERUM 4.6 MEQ/L (3.5-5.1); SODIUM LEVEL 132 MEQ/L (136-145)
[2017-11-20] MEDS: LIDOCAINE 5% (LIDODERM) PATCH TD ×2 (08:34)
[2017-11-20] MEDS: CEFTAROLINE FOSAMIL 600 MG in D5W MINI-BAG PLUS 50 ML IV ×2 (08:34→22:17)
[2017-11-20] MEDS: predniSONE 1 MG TAB PO (08:35)
[2017-11-20] MEDS: HEPARIN SOD (PORCINE) 5000 UNITS/ML VIAL SC ×2 (08:35→20:57)
[2017-11-20] MEDS: CINACALCET 30 MG TAB (SENSIPAR) PO (08:35)
[2017-11-20] MEDS: ASPIRIN 81 MG CHEW TABLET PO (08:35)
[2017-11-20] MEDS: CYANOCOBALAMIN 500 MCG TAB PO (08:36)
[2017-11-20] MEDS: FAMOTIDINE 20 MG TAB PO (08:36)
[2017-11-20] MEDS: SERTRALINE 100 MG TAB PO (08:37)
[2017-11-20] MEDS: DIGOXIN 0.125 MG TAB PO (08:37)
[2017-11-20] MEDS: FUROSEMIDE 40 MG TAB PO (08:37)
[2017-11-20] MEDS: SENOKOT S TAB PO (08:37)
[2017-11-20] MEDS: NYSTATIN 500,000 U/5 ML SUSP UDC SS ×4 (08:38→20:56)
[2017-11-20] MEDS: NYSTATIN 100,000 UNITS/GM TOPICAL PWD 15 GM TOP ×2 (08:38→20:56)
[2017-11-20] MEDS: MORPHINE 4 MG/ML 1ML VIAL/SYRINGE (J2270) IV (13:22)
[2017-11-20] MEDS: **NOTE PATIENT COMMENT** MISC XX ×2 (20:56)
[2017-11-21] MEDS: oxyCODONE 5MG TAB PO ×3 (02:12→16:36)
[2017-11-21] MEDS: CLINDAMYCIN 900 MG in APPROPRIATE DILUENT 1 EA IV ×3 (05:12→21:42)
[2017-11-21 06:21] LABS: BASO % 0.5 % (0.0-1.0); EOS # 0.2 10^3/uL (0.0-0.50); EOS % 2.9 % (0.0-3.0); HEMATOCRIT 26.9 % (36.0-47.0); HEMOGLOBIN 8.8 g/dl (12.0-15.5); IMMATURE GRANULOCYTE % 2.5 % (0-3.0); LYMPH # 0.8 10^3/uL (1.5-4.5); LYMPH % 10.3 % (24.0-44.0); MEAN CORPUSCULAR HEMOGLOBIN 31.8 pg (27.0-33.0); MEAN CORPUSCULAR HGB CONC 32.7 g/dl (32.0-36.5); MEAN CORPUSCULAR VOLUME 97.1 fl (80.0-96.0); MONO % 12.5 % (0.0-5.0); NEUTROPHILS # 5.6 10^3/uL (1.8-7.7); NEUTROPHILS % 71.3 % (36.0-66.0); PLATELET COUNT, AUTOMATED 493 10^3/uL (150-450); RED BLOOD COUNT 2.77 10^6/uL (4.00-5.40); RED CELL DISTRIBUTION WIDTH 13.3 % (11.5-14.5); WHITE BLOOD COUNT 7.9 10^3/uL (4.0-10.0)
[2017-11-21 06:35] LABS: ANION GAP 8 MEQ/L (8-16); BLOOD UREA NITROGEN 16 MG/DL (7-18); CALCIUM LEVEL 8.5 MG/DL (8.8-10.2); CARBON DIOXIDE LEVEL 22 MEQ/L (21-32); CHLORIDE LEVEL 106 MEQ/L (98-107); CREATININE FOR GFR 0.93 MG/DL (0.55-1.30); GLOMERULAR FILTRATION RATE > 60.0 (>39); GLUCOSE, FASTING 95 MG/DL (70-100); POTASSIUM SERUM 4.1 MEQ/L (3.5-5.1); SODIUM LEVEL 136 MEQ/L (136-145)
[2017-11-21 08:06] LABS: ERYTHROCYTE SEDIMENTATION RATE 126 mm/hr (0-30)
[2017-11-21] MEDS: NYSTATIN 500,000 U/5 ML SUSP UDC SS ×4 (08:32→21:41)
[2017-11-21] MEDS: FAMOTIDINE 20 MG TAB PO (08:33)
[2017-11-21] MEDS: CYANOCOBALAMIN 500 MCG TAB PO (08:34)
[2017-11-21] MEDS: predniSONE 1 MG TAB PO (08:35)
[2017-11-21] MEDS: FUROSEMIDE 40 MG TAB PO (08:35)
[2017-11-21] MEDS: DIGOXIN 0.125 MG TAB PO (08:36)
[2017-11-21] MEDS: SERTRALINE 100 MG TAB PO (08:37)
[2017-11-21] MEDS: ASPIRIN 81 MG CHEW TABLET PO (08:37)
[2017-11-21] MEDS: HEPARIN SOD (PORCINE) 5000 UNITS/ML VIAL SC ×2 (08:38→21:42)
[2017-11-21] MEDS: CEFTAROLINE FOSAMIL 600 MG in D5W MINI-BAG PLUS 50 ML IV ×2 (08:38→23:12)
[2017-11-21] MEDS: LIDOCAINE 5% (LIDODERM) PATCH TD ×2 (08:41→08:42)
[2017-11-21] MEDS: NYSTATIN 100,000 UNITS/GM TOPICAL PWD 15 GM TOP ×2 (08:42→21:42)
[2017-11-21] MEDS: NYSTATIN CREAM 15 GM TOP ×2 (09:00→21:42)
[2017-11-21] MEDS: **NOTE PATIENT COMMENT** MISC XX ×2 (21:00)
[2017-11-22] MEDS: oxyCODONE 5MG TAB PO ×4 (00:17→23:38)
[2017-11-22] MEDS: CLINDAMYCIN 900 MG in APPROPRIATE DILUENT 1 EA IV ×3 (05:16→21:27)
[2017-11-22] MEDS: NYSTATIN 100,000 UNITS/GM TOPICAL PWD 15 GM TOP ×2 (09:34→20:10)
[2017-11-22] MEDS: NYSTATIN 500,000 U/5 ML SUSP UDC SS ×4 (09:34→20:11)
[2017-11-22] MEDS: NYSTATIN CREAM 15 GM TOP ×2 (09:34→20:10)
[2017-11-22] MEDS: LIDOCAINE 5% (LIDODERM) PATCH TD ×2 (09:34→09:42)
[2017-11-22] MEDS: predniSONE 1 MG TAB PO (09:35)
[2017-11-22] MEDS: FAMOTIDINE 20 MG TAB PO (09:35)
[2017-11-22] MEDS: HEPARIN SOD (PORCINE) 5000 UNITS/ML VIAL SC ×2 (09:35→20:10)
[2017-11-22] MEDS: CYANOCOBALAMIN 500 MCG TAB PO (09:35)
[2017-11-22] MEDS: CINACALCET 30 MG TAB (SENSIPAR) PO (09:35)
[2017-11-22] MEDS: ASPIRIN 81 MG CHEW TABLET PO (09:35)
[2017-11-22] MEDS: CEFTAROLINE FOSAMIL 600 MG in D5W MINI-BAG PLUS 50 ML IV ×2 (09:36→20:10)
[2017-11-22] MEDS: DIGOXIN 0.125 MG TAB PO (09:36)
[2017-11-22] MEDS: FUROSEMIDE 40 MG TAB PO (09:36)
[2017-11-22] MEDS: SERTRALINE 100 MG TAB PO (09:36)
[2017-11-22 12:40] LABS: BASO # 0.1 10^3/uL (0.0-0.2); BASO % 0.5 % (0.0-1.0); EOS # 0.4 10^3/uL (0.0-0.50); EOS % 3.5 % (0.0-3.0); HEMATOCRIT 32.5 % (36.0-47.0); HEMOGLOBIN 10.6 g/dl (12.0-15.5); LYMPH # 0.7 10^3/uL (1.5-4.5); LYMPH % 6.7 % (24.0-44.0); MEAN CORPUSCULAR HGB CONC 32.6 g/dl (32.0-36.5); MEAN CORPUSCULAR VOLUME 98.2 fl (80.0-96.0); MONO % 9.8 % (0.0-5.0); NEUTROPHILS % 77.5 % (36.0-66.0); PLATELET COUNT, AUTOMATED 523 10^3/uL (150-450); RED BLOOD COUNT 3.31 10^6/uL (4.00-5.40); RED CELL DISTRIBUTION WIDTH 13.5 % (11.5-14.5); WHITE BLOOD COUNT 10.3 10^3/uL (4.0-10.0)
[2017-11-22 12:58] LABS: ANION GAP 6 MEQ/L (8-16); BLOOD UREA NITROGEN 14 MG/DL (7-18); C REACTIVE PROTEIN QUANTITATIV 9.07 MG/DL (0.00-0.30); CALCIUM LEVEL 9.4 MG/DL (8.8-10.2); CARBON DIOXIDE LEVEL 26 MEQ/L (21-32); CHLORIDE LEVEL 103 MEQ/L (98-107); CREATININE FOR GFR 1.06 MG/DL (0.55-1.30); GLOMERULAR FILTRATION RATE 54.6 (>39); GLUCOSE, FASTING 100 MG/DL (70-100); POTASSIUM SERUM 4.1 MEQ/L (3.5-5.1); SODIUM LEVEL 135 MEQ/L (136-145)
[2017-11-22 13:41] LABS: ERYTHROCYTE SEDIMENTATION RATE 125 mm/hr (0-30)
[2017-11-22] MEDS: LACTOBACILLUS ACIDOPHILUS CAP (BACID) PO ×2 (13:56→17:23)
[2017-11-22] MEDS: **NOTE PATIENT COMMENT** MISC XX ×2 (20:11)
[2017-11-23] MEDS: ACETAMINOPHEN TAB 650MG DOSE (2X325MG) PO ×2 (02:35→20:39)
[2017-11-23] MEDS: CLINDAMYCIN 900 MG in APPROPRIATE DILUENT 1 EA IV ×2 (05:20→12:40)
[2017-11-23] MEDS: ASPIRIN 81 MG CHEW TABLET PO (08:39)
[2017-11-23] MEDS: HEPARIN SOD (PORCINE) 5000 UNITS/ML VIAL SC ×2 (08:39→20:36)
[2017-11-23] MEDS: LACTOBACILLUS ACIDOPHILUS CAP (BACID) PO ×3 (08:39→17:19)
[2017-11-23] MEDS: FAMOTIDINE 20 MG TAB PO (08:39)
[2017-11-23] MEDS: CYANOCOBALAMIN 500 MCG TAB PO (08:40)
[2017-11-23] MEDS: oxyCODONE 5MG TAB PO ×3 (08:40→23:26)
[2017-11-23] MEDS: SERTRALINE 100 MG TAB PO (08:41)
[2017-11-23] MEDS: predniSONE 1 MG TAB PO (08:41)
[2017-11-23] MEDS: FUROSEMIDE 40 MG TAB PO (08:42)
[2017-11-23] MEDS: DIGOXIN 0.125 MG TAB PO (08:43)
[2017-11-23] MEDS: NYSTATIN 500,000 U/5 ML SUSP UDC SS ×4 (08:45→20:36)
[2017-11-23] MEDS: LIDOCAINE 5% (LIDODERM) PATCH TD ×2 (08:46)
[2017-11-23] MEDS: NYSTATIN 100,000 UNITS/GM TOPICAL PWD 15 GM TOP ×2 (08:49→20:36)
[2017-11-23] MEDS: NYSTATIN CREAM 15 GM TOP ×2 (08:49→20:37)
[2017-11-23] MEDS: CEFTAROLINE FOSAMIL 600 MG in D5W MINI-BAG PLUS 50 ML IV ×2 (08:51→20:36)
[2017-11-23] MEDS: LIDOCAINE 1% MDV 20ML VIAL SC ×2 (16:15)
[2017-11-23] MEDS: DOMEBORO PWD PACK TOP (20:36)
[2017-11-23] MEDS: **NOTE PATIENT COMMENT** MISC XX ×2 (20:37)
[2017-11-23] MEDS: SIMETHICONE 80 MG CHEW TAB PO (23:54)
[2017-11-24] MEDS: oxyCODONE 5MG TAB PO ×3 (05:27→20:53)
[2017-11-24] MEDS: LACTOBACILLUS ACIDOPHILUS CAP (BACID) PO ×3 (08:24→17:13)
[2017-11-24] MEDS: ASPIRIN 81 MG CHEW TABLET PO (08:24)
[2017-11-24] MEDS: DOMEBORO PWD PACK TOP ×3 (08:24→20:38)
[2017-11-24] MEDS: FAMOTIDINE 20 MG TAB PO (08:24)
[2017-11-24] MEDS: CINACALCET 30 MG TAB (SENSIPAR) PO (08:24)
[2017-11-24] MEDS: NYSTATIN 500,000 U/5 ML SUSP UDC SS ×4 (08:25→20:51)
[2017-11-24] MEDS: predniSONE 1 MG TAB PO (08:25)
[2017-11-24] MEDS: CEFTAROLINE FOSAMIL 600 MG in D5W MINI-BAG PLUS 50 ML IV ×2 (08:25→20:39)
[2017-11-24] MEDS: SERTRALINE 100 MG TAB PO (08:25)
[2017-11-24] MEDS: DIGOXIN 0.125 MG TAB PO (08:25)
[2017-11-24] MEDS: CYANOCOBALAMIN 500 MCG TAB PO (08:25)
[2017-11-24] MEDS: FUROSEMIDE 40 MG TAB PO (08:25)
[2017-11-24] MEDS: LIDOCAINE 5% (LIDODERM) PATCH TD ×2 (08:26)
[2017-11-24] MEDS: NYSTATIN CREAM 15 GM TOP ×2 (08:26→20:38)
[2017-11-24] MEDS: NYSTATIN 100,000 UNITS/GM TOPICAL PWD 15 GM TOP ×2 (08:27→20:37)
[2017-11-24] MEDS: HEPARIN SOD (PORCINE) 5000 UNITS/ML VIAL SC ×2 (08:28→20:39)
[2017-11-24] MEDS: LIDOCAINE 1% MDV 20ML VIAL SC (10:00)
[2017-11-24 13:18] LABS: BASO % 0.4 % (0.0-1.0); EOS # 0.4 10^3/uL (0.0-0.50); EOS % 4.2 % (0.0-3.0); HEMATOCRIT 31.2 % (36.0-47.0); HEMOGLOBIN 10.1 g/dl (12.0-15.5); IMMATURE GRANULOCYTE % 1.5 % (0-3.0); LYMPH # 0.5 10^3/uL (1.5-4.5); LYMPH % 5.4 % (24.0-44.0); MEAN CORPUSCULAR HEMOGLOBIN 31.7 pg (27.0-33.0); MEAN CORPUSCULAR HGB CONC 32.4 g/dl (32.0-36.5); MEAN CORPUSCULAR VOLUME 97.8 fl (80.0-96.0); MONO # 0.8 10^3/uL (0.0-0.8); MONO % 7.9 % (0.0-5.0); NEUTROPHILS # 7.8 10^3/uL (1.8-7.7); NEUTROPHILS % 80.6 % (36.0-66.0); PLATELET COUNT, AUTOMATED 442 10^3/uL (150-450); RED BLOOD COUNT 3.19 10^6/uL (4.00-5.40); RED CELL DISTRIBUTION WIDTH 13.6 % (11.5-14.5); WHITE BLOOD COUNT 9.7 10^3/uL (4.0-10.0)
[2017-11-24 14:07] LABS: ANION GAP 7 MEQ/L (8-16); BLOOD UREA NITROGEN 14 MG/DL (7-18); C REACTIVE PROTEIN QUANTITATIV 7.81 MG/DL (0.00-0.30); CALCIUM LEVEL 8.9 MG/DL (8.8-10.2); CARBON DIOXIDE LEVEL 25 MEQ/L (21-32); CHLORIDE LEVEL 105 MEQ/L (98-107); CREATININE FOR GFR 0.98 MG/DL (0.55-1.30); GLOMERULAR FILTRATION RATE 59.7 (>39); GLUCOSE, FASTING 100 MG/DL (70-100); POTASSIUM SERUM 4.6 MEQ/L (3.5-5.1); SODIUM LEVEL 137 MEQ/L (136-145)
[2017-11-24 14:57] LABS: ERYTHROCYTE SEDIMENTATION RATE 126 mm/hr (0-30)
[2017-11-24] MEDS: **NOTE PATIENT COMMENT** MISC XX ×2 (20:40→20:42)
[2017-11-25] MEDS: MORPHINE 4 MG/ML 1ML VIAL/SYRINGE (J2270) IV (02:34)
[2017-11-25] MEDS: oxyCODONE 5MG TAB PO ×2 (05:27→20:56)
[2017-11-25 07:02] LABS: BASO % 0.4 % (0.0-1.0); EOS # 0.5 10^3/uL (0.0-0.50); EOS % 6.4 % (0.0-3.0); HEMATOCRIT 28.6 % (36.0-47.0); HEMOGLOBIN 9.2 g/dl (12.0-15.5); IMMATURE GRANULOCYTE % 2.4 % (0-3.0); LYMPH # 0.9 10^3/uL (1.5-4.5); LYMPH % 12.5 % (24.0-44.0); MEAN CORPUSCULAR HEMOGLOBIN 31.2 pg (27.0-33.0); MEAN CORPUSCULAR HGB CONC 32.2 g/dl (32.0-36.5); MEAN CORPUSCULAR VOLUME 96.9 fl (80.0-96.0); MONO # 0.7 10^3/uL (0.0-0.8); MONO % 10.1 % (0.0-5.0); NEUTROPHILS # 4.8 10^3/uL (1.8-7.7); NEUTROPHILS % 68.2 % (36.0-66.0); PLATELET COUNT, AUTOMATED 415 10^3/uL (150-450); RED BLOOD COUNT 2.95 10^6/uL (4.00-5.40); RED CELL DISTRIBUTION WIDTH 13.7 % (11.5-14.5)
[2017-11-25 07:07] LABS: ANION GAP 9 MEQ/L (8-16); BLOOD UREA NITROGEN 15 MG/DL (7-18); CALCIUM LEVEL 8.7 MG/DL (8.8-10.2); CARBON DIOXIDE LEVEL 25 MEQ/L (21-32); CHLORIDE LEVEL 108 MEQ/L (98-107); CREATININE FOR GFR 0.95 MG/DL (0.55-1.30); GLOMERULAR FILTRATION RATE > 60.0 (>39); GLUCOSE, FASTING 81 MG/DL (70-100); POTASSIUM SERUM 4.1 MEQ/L (3.5-5.1); SODIUM LEVEL 142 MEQ/L (136-145)
[2017-11-25] MEDS: LACTOBACILLUS ACIDOPHILUS CAP (BACID) PO ×3 (09:54→17:00)
[2017-11-25] MEDS: HEPARIN SOD (PORCINE) 5000 UNITS/ML VIAL SC ×2 (09:54→20:56)
[2017-11-25] MEDS: ASPIRIN 81 MG CHEW TABLET PO (09:54)
[2017-11-25] MEDS: FAMOTIDINE 20 MG TAB PO (09:54)
[2017-11-25] MEDS: FUROSEMIDE 40 MG TAB PO (09:56)
[2017-11-25] MEDS: DIGOXIN 0.125 MG TAB PO (09:56)
[2017-11-25] MEDS: LIDOCAINE 5% (LIDODERM) PATCH TD ×2 (09:57→10:19)
[2017-11-25] MEDS: predniSONE 1 MG TAB PO (09:57)
[2017-11-25] MEDS: CYANOCOBALAMIN 500 MCG TAB PO (09:57)
[2017-11-25] MEDS: SERTRALINE 100 MG TAB PO (09:57)
[2017-11-25] MEDS: CEFTAROLINE FOSAMIL 600 MG in D5W MINI-BAG PLUS 50 ML IV ×2 (09:57→20:57)
[2017-11-25] MEDS: NYSTATIN 100,000 UNITS/GM TOPICAL PWD 15 GM TOP ×2 (09:59→21:01)
[2017-11-25] MEDS: NYSTATIN CREAM 15 GM TOP ×2 (09:59→21:01)
[2017-11-25] MEDS: DOMEBORO PWD PACK TOP ×3 (10:06→20:57)
[2017-11-25] MEDS: NYSTATIN 500,000 U/5 ML SUSP UDC SS ×4 (10:20→21:03)
[2017-11-25] MEDS: **NOTE PATIENT COMMENT** MISC XX ×2 (21:00)
[2017-11-26] MEDS: oxyCODONE 5MG TAB PO ×2 (03:34→15:11)
[2017-11-26 05:53] LABS: BASO % 0.3 % (0.0-1.0); EOS # 0.5 10^3/uL (0.0-0.50); EOS % 7.3 % (0.0-3.0); HEMOGLOBIN 9.4 g/dl (12.0-15.5); IMMATURE GRANULOCYTE % 1.8 % (0-3.0); LYMPH # 0.8 10^3/uL (1.5-4.5); LYMPH % 12.1 % (24.0-44.0); MEAN CORPUSCULAR HEMOGLOBIN 31.1 pg (27.0-33.0); MEAN CORPUSCULAR HGB CONC 32.4 g/dl (32.0-36.5); MONO # 0.8 10^3/uL (0.0-0.8); MONO % 11.1 % (0.0-5.0); NEUTROPHILS # 4.6 10^3/uL (1.8-7.7); NEUTROPHILS % 67.4 % (36.0-66.0); PLATELET COUNT, AUTOMATED 352 10^3/uL (150-450); RED BLOOD COUNT 3.02 10^6/uL (4.00-5.40); RED CELL DISTRIBUTION WIDTH 13.5 % (11.5-14.5); WHITE BLOOD COUNT 6.8 10^3/uL (4.0-10.0)
[2017-11-26 06:25] LABS: ANION GAP 8 MEQ/L (8-16); BLOOD UREA NITROGEN 13 MG/DL (7-18); CALCIUM LEVEL 8.8 MG/DL (8.8-10.2); CARBON DIOXIDE LEVEL 26 MEQ/L (21-32); CHLORIDE LEVEL 106 MEQ/L (98-107); CREATININE FOR GFR 0.99 MG/DL (0.55-1.30); GLUCOSE, FASTING 83 MG/DL (70-100); POTASSIUM SERUM 3.8 MEQ/L (3.5-5.1); SODIUM LEVEL 140 MEQ/L (136-145)
[2017-11-26] MEDS: LACTOBACILLUS ACIDOPHILUS CAP (BACID) PO ×3 (08:38→17:46)
[2017-11-26] MEDS: DOMEBORO PWD PACK TOP ×3 (08:38→21:45)
[2017-11-26] MEDS: CEFTAROLINE FOSAMIL 600 MG in D5W MINI-BAG PLUS 50 ML IV ×2 (08:38→21:45)
[2017-11-26] MEDS: SERTRALINE 100 MG TAB PO (08:39)
[2017-11-26] MEDS: predniSONE 1 MG TAB PO (08:39)
[2017-11-26] MEDS: CYANOCOBALAMIN 500 MCG TAB PO (08:39)
[2017-11-26] MEDS: ASPIRIN 81 MG CHEW TABLET PO (08:39)
[2017-11-26] MEDS: FUROSEMIDE 40 MG TAB PO (08:39)
[2017-11-26] MEDS: NYSTATIN CREAM 15 GM TOP ×2 (08:40→21:46)
[2017-11-26] MEDS: HEPARIN SOD (PORCINE) 5000 UNITS/ML VIAL SC ×2 (08:40→21:45)
[2017-11-26] MEDS: FAMOTIDINE 20 MG TAB PO (08:40)
[2017-11-26] MEDS: LIDOCAINE 5% (LIDODERM) PATCH TD ×2 (08:41→08:42)
[2017-11-26] MEDS: NYSTATIN 100,000 UNITS/GM TOPICAL PWD 15 GM TOP ×2 (08:41→21:45)
[2017-11-26] MEDS: DIGOXIN 0.125 MG TAB PO (08:43)
[2017-11-26] MEDS: NYSTATIN 500,000 U/5 ML SUSP UDC SS ×4 (08:44→21:44)
[2017-11-26] MEDS: **NOTE PATIENT COMMENT** MISC XX ×2 (21:00)
[2017-11-26] MEDS: MORPHINE 4 MG/ML 1ML VIAL/SYRINGE (J2270) IV (21:55)
[2017-11-27 05:54] LABS: BASO % 0.3 % (0.0-1.0); EOS # 0.6 10^3/uL (0.0-0.50); EOS % 8.8 % (0.0-3.0); HEMOGLOBIN 9.4 g/dl (12.0-15.5); IMMATURE GRANULOCYTE % 0.9 % (0-3.0); LYMPH # 0.6 10^3/uL (1.5-4.5); LYMPH % 9.4 % (24.0-44.0); MEAN CORPUSCULAR HEMOGLOBIN 30.8 pg (27.0-33.0); MEAN CORPUSCULAR HGB CONC 32.4 g/dl (32.0-36.5); MEAN CORPUSCULAR VOLUME 95.1 fl (80.0-96.0); MONO # 0.6 10^3/uL (0.0-0.8); MONO % 8.5 % (0.0-5.0); NEUTROPHILS # 4.9 10^3/uL (1.8-7.7); NEUTROPHILS % 72.1 % (36.0-66.0); PLATELET COUNT, AUTOMATED 316 10^3/uL (150-450); RED BLOOD COUNT 3.05 10^6/uL (4.00-5.40); RED CELL DISTRIBUTION WIDTH 13.8 % (11.5-14.5); WHITE BLOOD COUNT 6.7 10^3/uL (4.0-10.0)
[2017-11-27 06:16] LABS: ANION GAP 5 MEQ/L (8-16); BLOOD UREA NITROGEN 14 MG/DL (7-18); CALCIUM LEVEL 8.6 MG/DL (8.8-10.2); CARBON DIOXIDE LEVEL 26 MEQ/L (21-32); CHLORIDE LEVEL 108 MEQ/L (98-107); GLOMERULAR FILTRATION RATE > 60.0 (>39); GLUCOSE, FASTING 84 MG/DL (70-100); POTASSIUM SERUM 3.7 MEQ/L (3.5-5.1); SODIUM LEVEL 139 MEQ/L (136-145)
[2017-11-27] MEDS: oxyCODONE 5MG TAB PO ×2 (06:22→18:04)
[2017-11-27 06:59] LABS: C REACTIVE PROTEIN QUANTITATIV 3.58 MG/DL (0.00-0.30)
[2017-11-27] MEDS: NYSTATIN 500,000 U/5 ML SUSP UDC SS ×4 (07:53→22:21)
[2017-11-27] MEDS: DOMEBORO PWD PACK TOP ×3 (07:54→22:21)
[2017-11-27] MEDS: CINACALCET 30 MG TAB (SENSIPAR) PO (07:55)
[2017-11-27] MEDS: LACTOBACILLUS ACIDOPHILUS CAP (BACID) PO ×3 (07:55→17:46)
[2017-11-27] MEDS: ASPIRIN 81 MG CHEW TABLET PO (07:55)
[2017-11-27] MEDS: LIDOCAINE 5% (LIDODERM) PATCH TD ×2 (07:55)
[2017-11-27] MEDS: DIGOXIN 0.125 MG TAB PO (07:56)
[2017-11-27] MEDS: SERTRALINE 100 MG TAB PO (07:57)
[2017-11-27] MEDS: predniSONE 1 MG TAB PO (07:57)
[2017-11-27] MEDS: FAMOTIDINE 20 MG TAB PO (07:57)
[2017-11-27] MEDS: FUROSEMIDE 40 MG TAB PO (07:57)
[2017-11-27] MEDS: CYANOCOBALAMIN 500 MCG TAB PO (07:57)
[2017-11-27] MEDS: HEPARIN SOD (PORCINE) 5000 UNITS/ML VIAL SC ×2 (07:58→22:21)
[2017-11-27] MEDS: CEFTAROLINE FOSAMIL 600 MG in D5W MINI-BAG PLUS 50 ML IV (08:07)
[2017-11-27] MEDS: NYSTATIN CREAM 15 GM TOP ×2 (08:10→22:21)
[2017-11-27] MEDS: NYSTATIN 100,000 UNITS/GM TOPICAL PWD 15 GM TOP ×2 (08:11→22:21)
[2017-11-27 08:26] LABS: ERYTHROCYTE SEDIMENTATION RATE 81 mm/hr (0-30)
[2017-11-27] MEDS: ACETAMINOPHEN TAB 650MG DOSE (2X325MG) PO (22:20)
[2017-11-27] MEDS: BACTRIM 160MG/800MG DS TAB PO (22:21)
[2017-11-27] MEDS: **NOTE PATIENT COMMENT** MISC XX ×2 (22:22)
[2017-11-28] MEDS: oxyCODONE 5MG TAB PO (03:43)
[2017-11-28 06:11] LABS: BASO % 0.6 % (0.0-1.0); EOS # 0.7 10^3/uL (0.0-0.50); EOS % 12.6 % (0.0-3.0); HEMATOCRIT 30.6 % (36.0-47.0); IMMATURE GRANULOCYTE % 1.1 % (0-3.0); LYMPH # 0.9 10^3/uL (1.5-4.5); LYMPH % 16.5 % (24.0-44.0); MEAN CORPUSCULAR HEMOGLOBIN 30.9 pg (27.0-33.0); MEAN CORPUSCULAR HGB CONC 32.7 g/dl (32.0-36.5); MEAN CORPUSCULAR VOLUME 94.4 fl (80.0-96.0); MONO # 0.6 10^3/uL (0.0-0.8); MONO % 10.9 % (0.0-5.0); NEUTROPHILS # 3.1 10^3/uL (1.8-7.7); NEUTROPHILS % 58.3 % (36.0-66.0); PLATELET COUNT, AUTOMATED 296 10^3/uL (150-450); RED BLOOD COUNT 3.24 10^6/uL (4.00-5.40); RED CELL DISTRIBUTION WIDTH 13.7 % (11.5-14.5); WHITE BLOOD COUNT 5.3 10^3/uL (4.0-10.0)
[2017-11-28 06:21] LABS: ANION GAP 6 MEQ/L (8-16); BLOOD UREA NITROGEN 14 MG/DL (7-18); CALCIUM LEVEL 8.9 MG/DL (8.8-10.2); CARBON DIOXIDE LEVEL 26 MEQ/L (21-32); CHLORIDE LEVEL 106 MEQ/L (98-107); CREATININE FOR GFR 0.97 MG/DL (0.55-1.30); GLOMERULAR FILTRATION RATE > 60.0 (>39); GLUCOSE, FASTING 79 MG/DL (70-100); POTASSIUM SERUM 3.4 MEQ/L (3.5-5.1); SODIUM LEVEL 138 MEQ/L (136-145)
[2017-11-28] MEDS: ASPIRIN 81 MG CHEW TABLET PO (08:59)
[2017-11-28] MEDS: DOMEBORO PWD PACK TOP (08:59)
[2017-11-28] MEDS: HEPARIN SOD (PORCINE) 5000 UNITS/ML VIAL SC (08:59)
[2017-11-28] MEDS: BACTRIM 160MG/800MG DS TAB PO (09:00)
[2017-11-28] MEDS: LACTOBACILLUS ACIDOPHILUS CAP (BACID) PO ×2 (09:00→12:30)
[2017-11-28] MEDS: predniSONE 1 MG TAB PO (09:00)
[2017-11-28] MEDS: NYSTATIN 500,000 U/5 ML SUSP UDC SS ×2 (09:00→13:00)
[2017-11-28] MEDS: CYANOCOBALAMIN 500 MCG TAB PO (09:00)
[2017-11-28] MEDS: FAMOTIDINE 20 MG TAB PO (09:00)
[2017-11-28] MEDS: NYSTATIN 100,000 UNITS/GM TOPICAL PWD 15 GM TOP (09:01)
[2017-11-28] MEDS: DIGOXIN 0.125 MG TAB PO (09:01)
[2017-11-28] MEDS: SERTRALINE 100 MG TAB PO (09:01)
[2017-11-28] MEDS: FUROSEMIDE 40 MG TAB PO (09:01)
[2017-11-28] MEDS: NYSTATIN CREAM 15 GM TOP (09:02)
[2017-11-28] MEDS: LIDOCAINE 5% (LIDODERM) PATCH TD ×2 (09:23)
[2017-11-28] MEDS: POTASSIUM CHLORIDE 10 MEQ SR TABLET PO (12:15)
== END 2017-11-28 13:41 | DRG 872 ==
LOC: M ED 16:17 → M ED INP 19:45 → M MSPAV 20:58
PROC: 0HDKXZZ Extraction of Right Lower Leg Skin, External Approach (ICD-10-PCS; 2017-11-23)
PROC: 0HBKXZZ Excision of Right Lower Leg Skin, External Approach (ICD-10-PCS; principal; 2017-11-24)
DX: A41.9 Sepsis, unspecified organism (principal); I50.32 Chronic diastolic (congestive) heart failure; L03.115 Cellulitis of right lower limb; I13.0 Hypertensive heart and chronic kidney disease with heart failure and stage 1 through stage 4 chronic kidney disease, or unspecified chronic kidney disease; L02.411 Cutaneous abscess of right axilla; I48.91 Unspecified atrial fibrillation; F32.9 Major depressive disorder, single episode, unspecified; K21.9 Gastro-esophageal reflux disease without esophagitis; F41.9 Anxiety disorder, unspecified; R29.6 Repeated falls; K59.00 Constipation, unspecified; M19.90 Unspecified osteoarthritis, unspecified site; N18.3 Chronic kidney disease, stage 3 (moderate); M25.511 Pain in right shoulder; M51.36 Other intervertebral disc degeneration, lumbar region; G89.29 Other chronic pain; K74.60 Unspecified cirrhosis of liver; D47.3 Essential (hemorrhagic) thrombocythemia; D51.3 Other dietary vitamin B12 deficiency anemia; Z95.0 Presence of cardiac pacemaker; Z79.82 Long term (current) use of aspirin; Z79.52 Long term (current) use of systemic steroids; Z86.73 Personal history of transient ischemic attack (TIA), and cerebral infarction without residual deficits; Z79.899 Other long term (current) drug therapy; Z88.5 Allergy status to narcotic agent

== ENCOUNTER → 2017-12-07 | Outpatient (REF) ==
[2017-12-07 08:59] LABS: BASO # 0.1 10^3/uL (0.0-0.2); BASO % 1.8 % (0.0-1.0); EOS # 1.1 10^3/uL (0.0-0.50); EOS % 13.6 % (0.0-3.0); HEMATOCRIT 34.8 % (36.0-47.0); HEMOGLOBIN 11.2 g/dl (12.0-15.5); IMMATURE GRANULOCYTE % 1.4 % (0-3.0); LYMPH # 1.7 10^3/uL (1.5-4.5); LYMPH % 21.8 % (24.0-44.0); MEAN CORPUSCULAR HEMOGLOBIN 30.2 pg (27.0-33.0); MEAN CORPUSCULAR HGB CONC 32.2 g/dl (32.0-36.5); MEAN CORPUSCULAR VOLUME 93.8 fl (80.0-96.0); MONO # 0.9 10^3/uL (0.0-0.8); MONO % 11.1 % (0.0-5.0); NEUTROPHILS # 3.9 10^3/uL (1.8-7.7); NEUTROPHILS % 50.3 % (36.0-66.0); PLATELET COUNT, AUTOMATED 478 10^3/uL (150-450); RED BLOOD COUNT 3.71 10^6/uL (4.00-5.40); RED CELL DISTRIBUTION WIDTH 13.9 % (11.5-14.5); WHITE BLOOD COUNT 7.8 10^3/uL (4.0-10.0)
[2017-12-07 09:14] LABS: ANION GAP 5 MEQ/L (8-16); BLOOD UREA NITROGEN 17 MG/DL (7-18); C REACTIVE PROTEIN QUANTITATIV 0.61 MG/DL (0.00-0.30); CARBON DIOXIDE LEVEL 30 MEQ/L (21-32); CHLORIDE LEVEL 103 MEQ/L (98-107); CREATININE FOR GFR 1.09 MG/DL (0.55-1.30); GLOMERULAR FILTRATION RATE 52.8 (>39); GLUCOSE, FASTING 86 MG/DL (70-100); SODIUM LEVEL 138 MEQ/L (136-145)
== END ==
LOC: SKLAB7 11:49
DX: L03.115 Cellulitis of right lower limb (principal)

== ENCOUNTER → 2017-12-15 | Outpatient (REF) | payer MEDICARE, MEDICAID ==
[2017-12-15 08:13] LABS: HEMATOCRIT 37.1 % (36.0-47.0); HEMOGLOBIN 12.1 g/dl (12.0-15.5); MEAN CORPUSCULAR HGB CONC 32.6 g/dl (32.0-36.5); MEAN CORPUSCULAR VOLUME 95.1 fl (80.0-96.0); PLATELET COUNT, AUTOMATED 356 10^3/uL (150-450); RED CELL DISTRIBUTION WIDTH 13.9 % (11.5-14.5); WHITE BLOOD COUNT 5.8 10^3/uL (4.0-10.0)
[2017-12-15 08:41] LABS: ANION GAP 5 MEQ/L (8-16); BLOOD UREA NITROGEN 20 MG/DL (7-18); C REACTIVE PROTEIN QUANTITATIV 2.93 MG/DL (0.00-0.30); CALCIUM LEVEL 9.4 MG/DL (8.8-10.2); CARBON DIOXIDE LEVEL 31 MEQ/L (21-32); CHLORIDE LEVEL 103 MEQ/L (98-107); CREATININE FOR GFR 1.15 MG/DL (0.55-1.30); GLOMERULAR FILTRATION RATE 49.7 (>39); GLUCOSE, FASTING 94 MG/DL (70-100); POTASSIUM SERUM 4.5 MEQ/L (3.5-5.1); SODIUM LEVEL 139 MEQ/L (136-145)
== END ==
LOC: SKLAB7 08:00
DX: R50.9 Fever, unspecified (principal)
CPT/HCPCS: 36415

== ENCOUNTER → 2017-12-18 | Outpatient (REF) ==
[2017-12-18 09:10] LABS: BASO # 0.1 10^3/uL (0.0-0.2); BASO % 0.8 % (0.0-1.0); EOS # 0.8 10^3/uL (0.0-0.50); EOS % 13.7 % (0.0-3.0); HEMATOCRIT 36.1 % (36.0-47.0); HEMOGLOBIN 11.8 g/dl (12.0-15.5); IMMATURE GRANULOCYTE % 0.3 % (0-3.0); LYMPH # 1.2 10^3/uL (1.5-4.5); LYMPH % 20.1 % (24.0-44.0); MEAN CORPUSCULAR HEMOGLOBIN 31.1 pg (27.0-33.0); MEAN CORPUSCULAR HGB CONC 32.7 g/dl (32.0-36.5); MONO # 0.5 10^3/uL (0.0-0.8); NEUTROPHILS # 3.4 10^3/uL (1.8-7.7); NEUTROPHILS % 56.1 % (36.0-66.0); PLATELET COUNT, AUTOMATED 323 10^3/uL (150-450); RED CELL DISTRIBUTION WIDTH 13.8 % (11.5-14.5)
[2017-12-18 09:17] LABS: ALBUMIN 2.9 GM/DL (3.2-5.2); ANION GAP 5 MEQ/L (8-16); BLOOD UREA NITROGEN 22 MG/DL (7-18); CALCIUM LEVEL 9.6 MG/DL (8.8-10.2); CARBON DIOXIDE LEVEL 30 MEQ/L (21-32); CHLORIDE LEVEL 104 MEQ/L (98-107); CREATININE FOR GFR 1.34 MG/DL (0.55-1.30); GLOMERULAR FILTRATION RATE 41.6 (>39); GLUCOSE, FASTING 117 MG/DL (70-100); PHOSPHORUS LEVEL 3.6 MG/DL (2.5-4.9); SODIUM LEVEL 139 MEQ/L (136-145)
[2017-12-18 10:13] LABS: PTH INTACT 72.2 PG/ML (18.5-88.0); TOTAL 25(OH) VITAMIN D 40.5 NG/ML (30.0-100.0)
== END ==
LOC: SKLAB7 07:22
DX: N18.9 Chronic kidney disease, unspecified (principal)

== ENCOUNTER → 2017-12-22 | Outpatient (REF) | payer MEDICARE, MEDICAID ==
[2017-12-22 18:52] LABS: AMORPHOUS SEDIMENT SMALL (NEGATIVE); APPEARANCE, URINE TURBID (CLEAR); BACTERIA, URINE AUTO 1+ (NEGATIVE); BILIRUBIN, URINE AUTO NEGATIVE (NEGATIVE); BLOOD, URINE BLOOD NEGATIVE (NEGATIVE); COLOR, URINE YELLOW (YELLOW); GLUCOSE, URINE (UA) AUTO NEGATIVE (NEGATIVE); KETONE, URINE AUTO NEGATIVE (NEGATIVE); LEUKOCYTE ESTERASE, URINE AUTO 3+ (NEGATIVE); NITRITE, URINE AUTO POSITIVE (NEGATIVE); PROTEIN, URINE AUTO NEGATIVE (NEGATIVE); RBC, URINE AUTO 44 /HPF (0-3); SPECIFIC GRAVITY URINE AUTO 1.008 (1.002-1.035); SQUAMOUS EPITHELIAL CELL UR AU 0 /HPF (0-6); UROBILINOGEN, URINE AUTO 0.2 mg/dL (0.0-2.0); WBC, URINE AUTO TNTC /HPF (0-3)
== END ==
LOC: SKLAB7 17:04
DX: N18.3 Chronic kidney disease, stage 3 (moderate) (principal)
CPT/HCPCS: 81001

== ENCOUNTER → 2017-12-25 | Outpatient (REF) | payer MEDICARE, MEDICAID | LOC: SKLAB7 15:16 | DX: N39.0 Urinary tract infection, site not specified (principal) | CPT/HCPCS: 87088; 87186 ==

== ENCOUNTER → 2018-02-08 | Outpatient (REF) | payer MEDICARE, MEDICAID ==
[2018-02-08 09:55] LABS: DIGOXIN LEVEL 1.1 NG/ML (0.5-2.0)
== END ==
LOC: SKLAB7 07:00
DX: I48.91 Unspecified atrial fibrillation (principal)
CPT/HCPCS: 80162

== ENCOUNTER → 2018-03-08 | Outpatient (REF) | payer MEDICARE, MEDICAID ==
[2018-03-08 09:11] LABS: BASO % 0.4 % (0.0-1.0); EOS # 0.4 10^3/uL (0.0-0.50); EOS % 5.8 % (0.0-3.0); HEMATOCRIT 39.1 % (36.0-47.0); HEMOGLOBIN 13.5 g/dl (12.0-15.5); IMMATURE GRANULOCYTE % 0.4 % (0-3.0); MEAN CORPUSCULAR HEMOGLOBIN 31.1 pg (27.0-33.0); MEAN CORPUSCULAR HGB CONC 34.5 g/dl (32.0-36.5); MEAN CORPUSCULAR VOLUME 90.1 fl (80.0-96.0); MONO # 0.6 10^3/uL (0.0-0.8); MONO % 8.4 % (0.0-5.0); NEUTROPHILS # 5.3 10^3/uL (1.8-7.7); PLATELET COUNT, AUTOMATED 340 10^3/uL (150-450); RED BLOOD COUNT 4.34 10^6/uL (4.00-5.40); WHITE BLOOD COUNT 7.4 10^3/uL (4.0-10.0)
[2018-03-08 09:32] LABS: ALBUMIN 3.3 GM/DL (3.2-5.2); ALBUMIN/GLOBULIN RATIO 1.22 (1.00-1.93); ALKALINE PHOSPHATASE 178 U/L (45-117); ALT/SGPT 23 U/L (12-78); ANION GAP 11 MEQ/L (8-16); AST/SGOT 16 U/L (7-37); BILIRUBIN,TOTAL 0.6 MG/DL (0.2-1.0); BLOOD UREA NITROGEN 27 MG/DL (7-18); CALCIUM LEVEL 9.4 MG/DL (8.8-10.2); CARBON DIOXIDE LEVEL 28 MEQ/L (21-32); CHLORIDE LEVEL 99 MEQ/L (98-107); CREATININE FOR GFR 1.07 MG/DL (0.55-1.30); GLOMERULAR FILTRATION RATE 53.8 (>39); GLUCOSE, FASTING 91 MG/DL (70-100); POTASSIUM SERUM 4.2 MEQ/L (3.5-5.1); SODIUM LEVEL 138 MEQ/L (136-145)
[2018-03-08 11:17] LABS: PTH INTACT 89.1 PG/ML (18.5-88.0)
== END ==
LOC: SKLAB7 08:00
DX: N18.9 Chronic kidney disease, unspecified (principal); I12.9 Hypertensive chronic kidney disease with stage 1 through stage 4 chronic kidney disease, or unspecified chronic kidney disease
CPT/HCPCS: 80053

== ENCOUNTER → 2018-03-15 | Outpatient (REF) | payer MEDICARE, MEDICAID | LOC: SKLAB7 14:56 | DX: I48.91 Unspecified atrial fibrillation (principal) | CPT/HCPCS: 93005 ==

== ENCOUNTER → 2018-03-23 | Outpatient (REF) | payer MEDICARE, MEDICAID | LOC: SKLAB7 08:00 | DX: I48.91 Unspecified atrial fibrillation (principal) | CPT/HCPCS: 93005 ==

== ENCOUNTER → 2018-04-05 | Outpatient (REF) | payer MEDICARE, MEDICAID ==
[2018-04-05 09:07] LABS: BASO % 0.4 % (0.0-1.0); EOS # 0.4 10^3/uL (0.0-0.50); EOS % 4.3 % (0.0-3.0); HEMATOCRIT 37.1 % (36.0-47.0); HEMOGLOBIN 12.6 g/dl (12.0-15.5); IMMATURE GRANULOCYTE % 0.3 % (0-3.0); LYMPH # 0.8 10^3/uL (1.5-4.5); LYMPH % 8.9 % (24.0-44.0); MEAN CORPUSCULAR HEMOGLOBIN 31.3 pg (27.0-33.0); MEAN CORPUSCULAR VOLUME 92.1 fl (80.0-96.0); MONO # 0.6 10^3/uL (0.0-0.8); MONO % 6.7 % (0.0-5.0); NEUTROPHILS # 7.1 10^3/uL (1.8-7.7); NEUTROPHILS % 79.4 % (36.0-66.0); PLATELET COUNT, AUTOMATED 309 10^3/uL (150-450); RED BLOOD COUNT 4.03 10^6/uL (4.00-5.40); RED CELL DISTRIBUTION WIDTH 12.9 % (11.5-14.5); WHITE BLOOD COUNT 8.9 10^3/uL (4.0-10.0)
[2018-04-05 09:38] LABS: PTH INTACT 80.4 PG/ML (18.5-88.0)
[2018-04-05 09:47] LABS: ALBUMIN 3.1 GM/DL (3.2-5.2); ANION GAP 8 MEQ/L (8-16); BLOOD UREA NITROGEN 24 MG/DL (7-18); CALCIUM LEVEL 9.6 MG/DL (8.8-10.2); CARBON DIOXIDE LEVEL 29 MEQ/L (21-32); CHLORIDE LEVEL 102 MEQ/L (98-107); CREATININE FOR GFR 1.12 MG/DL (0.55-1.30); GLOMERULAR FILTRATION RATE 51.1 (>39); GLUCOSE, FASTING 117 MG/DL (70-100); PHOSPHORUS LEVEL 3.9 MG/DL (2.5-4.9); POTASSIUM SERUM 4.8 MEQ/L (3.5-5.1); SODIUM LEVEL 139 MEQ/L (136-145)
[2018-04-05 20:08] LABS: APPEARANCE, URINE CLEAR (CLEAR); BACTERIA, URINE AUTO 1+ (NEGATIVE); BILIRUBIN, URINE AUTO NEGATIVE (NEGATIVE); BLOOD, URINE BLOOD NEGATIVE (NEGATIVE); COLOR, URINE YELLOW (YELLOW); GLUCOSE, URINE (UA) AUTO NEGATIVE (NEGATIVE); KETONE, URINE AUTO NEGATIVE (NEGATIVE); LEUKOCYTE ESTERASE, URINE AUTO 3+ (NEGATIVE); NITRITE, URINE AUTO NEGATIVE (NEGATIVE); PROTEIN, URINE AUTO NEGATIVE (NEGATIVE); RBC, URINE AUTO 8 /HPF (0-3); SPECIFIC GRAVITY URINE AUTO 1.005 (1.002-1.035); SQUAMOUS EPITHELIAL CELL UR AU 0 /HPF (0-6); UROBILINOGEN, URINE AUTO 0.2 mg/dL (0.0-2.0); WBC, URINE AUTO 71 /HPF (0-3)
== END ==
LOC: SKLAB7 16:35
DX: I48.91 Unspecified atrial fibrillation (principal)
CPT/HCPCS: 84443

== ENCOUNTER → 2018-04-09 | Outpatient (REF) | payer MEDICARE, MEDICAID | LOC: SKLAB8 10:00 | DX: M51.36 Other intervertebral disc degeneration, lumbar region (principal) | CPT/HCPCS: 72110 ==

== ENCOUNTER → 2018-04-26 | Outpatient (REF) | payer MEDICARE, MEDICAID ==
[2018-04-26 22:03] LABS: APPEARANCE, URINE CLOUDY (CLEAR); BACTERIA, URINE AUTO 3+ (NEGATIVE); BILIRUBIN, URINE AUTO NEGATIVE (NEGATIVE); BLOOD, URINE BLOOD 1+ (NEGATIVE); COLOR, URINE YELLOW (YELLOW); GLUCOSE, URINE (UA) AUTO NEGATIVE (NEGATIVE); KETONE, URINE AUTO NEGATIVE (NEGATIVE); LEUKOCYTE ESTERASE, URINE AUTO 3+ (NEGATIVE); NITRITE, URINE AUTO NEGATIVE (NEGATIVE); PROTEIN, URINE AUTO NEGATIVE (NEGATIVE); RBC, URINE AUTO 19 /HPF (0-3); SPECIFIC GRAVITY URINE AUTO 1.004 (1.002-1.035); SQUAMOUS EPITHELIAL CELL UR AU 1 /HPF (0-6); UROBILINOGEN, URINE AUTO 0.2 mg/dL (0.0-2.0); WBC, URINE AUTO TNTC /HPF (0-3)
== END ==
LOC: SKLAB7 12:00
DX: N39.0 Urinary tract infection, site not specified (principal); N18.3 Chronic kidney disease, stage 3 (moderate); D63.1 Anemia in chronic kidney disease; N25.81 Secondary hyperparathyroidism of renal origin
CPT/HCPCS: 81001

== ENCOUNTER → 2018-05-10 | Outpatient (REF) | payer MEDICARE, MEDICAID ==
[2018-05-10 09:23] LABS: DIGOXIN LEVEL 1.2 NG/ML (0.5-2.0)
== END ==
LOC: SKLAB7 12:48
DX: I48.91 Unspecified atrial fibrillation (principal)
CPT/HCPCS: 80162

== ENCOUNTER → 2018-06-05 | Outpatient (REF) | payer MEDICARE, MEDICAID ==
[2018-06-05 12:56] LABS: MEAN CORPUSCULAR HEMOGLOBIN 31.7 pg (27.0-33.0); MEAN CORPUSCULAR HGB CONC 34.2 g/dl (32.0-36.5); MEAN CORPUSCULAR VOLUME 92.7 fl (80.0-96.0); PLATELET COUNT, AUTOMATED 302 10^3/uL (150-450); RED CELL DISTRIBUTION WIDTH 12.5 % (11.5-14.5); WHITE BLOOD COUNT 13.8 10^3/uL (4.0-10.0)
[2018-06-05 13:21] LABS: ANION GAP 6 MEQ/L (8-16); BLOOD UREA NITROGEN 28 MG/DL (7-18); CALCIUM LEVEL 9.1 MG/DL (8.8-10.2); CARBON DIOXIDE LEVEL 28 MEQ/L (21-32); CHLORIDE LEVEL 97 MEQ/L (98-107); CREATININE FOR GFR 1.12 MG/DL (0.55-1.30); GLOMERULAR FILTRATION RATE 51.1 (>39); GLUCOSE, FASTING 110 MG/DL (70-100); SODIUM LEVEL 131 MEQ/L (136-145)
[2018-06-05 15:24] LABS: INFLUENZA A AMPLIFICATION NEGATIVE (NEGATIVE); INFLUENZA B AMPLIFICATION NEGATIVE (NEGATIVE)
== END ==
LOC: SKLAB7 11:33
DX: R50.9 Fever, unspecified (principal); R53.83 Other fatigue
CPT/HCPCS: 80048

== ENCOUNTER → 2018-06-07 | Outpatient (REF) | payer MEDICARE, MEDICAID ==
[2018-06-07 08:35] LABS: BASO % 0.2 % (0.0-1.0); EOS # 0.3 10^3/uL (0.0-0.50); EOS % 1.7 % (0.0-3.0); HEMATOCRIT 35.7 % (36.0-47.0); HEMOGLOBIN 11.8 g/dl (12.0-15.5); IMMATURE GRANULOCYTE % 0.6 % (0-3.0); LYMPH # 0.6 10^3/uL (1.5-4.5); LYMPH % 4.5 % (24.0-44.0); MEAN CORPUSCULAR HEMOGLOBIN 31.1 pg (27.0-33.0); MEAN CORPUSCULAR HGB CONC 33.1 g/dl (32.0-36.5); MEAN CORPUSCULAR VOLUME 94.2 fl (80.0-96.0); MONO # 1.7 10^3/uL (0.0-0.8); MONO % 12.1 % (0.0-5.0); NEUTROPHILS # 11.6 10^3/uL (1.8-7.7); NEUTROPHILS % 80.9 % (36.0-66.0); PLATELET COUNT, AUTOMATED 276 10^3/uL (150-450); RED BLOOD COUNT 3.79 10^6/uL (4.00-5.40); RED CELL DISTRIBUTION WIDTH 12.5 % (11.5-14.5); WHITE BLOOD COUNT 14.3 10^3/uL (4.0-10.0)
[2018-06-07 08:52] LABS: ANION GAP 8 MEQ/L (8-16); BLOOD UREA NITROGEN 26 MG/DL (7-18); CALCIUM LEVEL 9.4 MG/DL (8.8-10.2); CARBON DIOXIDE LEVEL 29 MEQ/L (21-32); CHLORIDE LEVEL 97 MEQ/L (98-107); CREATININE FOR GFR 1.14 MG/DL (0.55-1.30); GLUCOSE, FASTING 121 MG/DL (70-100); POTASSIUM SERUM 4.7 MEQ/L (3.5-5.1); SODIUM LEVEL 134 MEQ/L (136-145)
[2018-06-07 11:27] LABS: PTH INTACT 76.8 PG/ML (18.5-88.0)
== END ==
LOC: SKLAB7 14:44
DX: I48.91 Unspecified atrial fibrillation (principal); N18.9 Chronic kidney disease, unspecified
CPT/HCPCS: 80048

== ENCOUNTER → 2018-07-21 | Outpatient (REF) | payer MEDICARE, MEDICAID | LOC: M RAD 04:55 | DX: R05 Cough (principal); R50.9 Fever, unspecified ==

== ENCOUNTER → 2018-07-21 | Outpatient (REF) | payer MEDICARE, MEDICAID ==
[2018-07-21 07:42] LABS: ALBUMIN/GLOBULIN RATIO 0.97 (1.00-1.93); ALKALINE PHOSPHATASE 182 U/L (45-117); ALT/SGPT 19 U/L (12-78); ANION GAP 10 MEQ/L (8-16); AST/SGOT 15 U/L (7-37); BILIRUBIN,TOTAL 0.9 MG/DL (0.2-1.0); BLOOD UREA NITROGEN 23 MG/DL (7-18); CALCIUM LEVEL 9.2 MG/DL (8.8-10.2); CARBON DIOXIDE LEVEL 27 MEQ/L (21-32); CHLORIDE LEVEL 98 MEQ/L (98-107); CREATININE FOR GFR 1.03 MG/DL (0.55-1.30); GLOMERULAR FILTRATION RATE 56.2 (>39); GLUCOSE, FASTING 115 MG/DL (70-100); POTASSIUM SERUM 4.4 MEQ/L (3.5-5.1); SODIUM LEVEL 135 MEQ/L (136-145); TOTAL PROTEIN 6.1 GM/DL (6.4-8.2)
[2018-07-21 07:43] LABS: INFLUENZA A AMPLIFICATION NEGATIVE (NEGATIVE); INFLUENZA B AMPLIFICATION NEGATIVE (NEGATIVE)
[2018-07-21 07:46] LABS: BASO % 0.2 % (0.0-1.0); EOS # 0.5 10^3/uL (0.0-0.50); HEMATOCRIT 38.8 % (36.0-47.0); HEMOGLOBIN 13.2 g/dl (12.0-15.5); IMMATURE GRANULOCYTE % 0.4 % (0-3.0); LYMPH # 0.9 10^3/uL (1.5-4.5); LYMPH % 9.7 % (24.0-44.0); MEAN CORPUSCULAR HEMOGLOBIN 31.6 pg (27.0-33.0); MEAN CORPUSCULAR VOLUME 92.8 fl (80.0-96.0); MONO # 1.1 10^3/uL (0.0-0.8); MONO % 11.1 % (0.0-5.0); NEUTROPHILS % 73.6 % (36.0-66.0); PLATELET COUNT, AUTOMATED 318 10^3/uL (150-450); RED BLOOD COUNT 4.18 10^6/uL (4.00-5.40); RED CELL DISTRIBUTION WIDTH 13.6 % (11.5-14.5); WHITE BLOOD COUNT 9.5 10^3/uL (4.0-10.0)
== END ==
LOC: SKLAB7 04:55
DX: R50.9 Fever, unspecified (principal); R05 Cough
CPT/HCPCS: 71045; 80053

== ENCOUNTER → 2018-07-23 | Outpatient (REF) | payer MEDICARE, MEDICAID ==
[2018-07-23 07:40] LABS: BASO % 0.2 % (0.0-1.0); EOS # 0.8 10^3/uL (0.0-0.50); EOS % 12.9 % (0.0-3.0); HEMATOCRIT 37.6 % (36.0-47.0); HEMOGLOBIN 12.6 g/dl (12.0-15.5); IMMATURE GRANULOCYTE % 0.3 % (0-3.0); LYMPH # 1.1 10^3/uL (1.5-4.5); MEAN CORPUSCULAR HEMOGLOBIN 31.5 pg (27.0-33.0); MEAN CORPUSCULAR HGB CONC 33.5 g/dl (32.0-36.5); MONO # 0.6 10^3/uL (0.0-0.8); MONO % 8.8 % (0.0-5.0); NEUTROPHILS # 3.8 10^3/uL (1.8-7.7); NEUTROPHILS % 59.8 % (36.0-66.0); PLATELET COUNT, AUTOMATED 342 10^3/uL (150-450); RED CELL DISTRIBUTION WIDTH 13.5 % (11.5-14.5); WHITE BLOOD COUNT 6.3 10^3/uL (4.0-10.0)
[2018-07-23 07:57] LABS: ANION GAP 10 MEQ/L (8-16); BLOOD UREA NITROGEN 27 MG/DL (7-18); CALCIUM LEVEL 9.6 MG/DL (8.8-10.2); CARBON DIOXIDE LEVEL 27 MEQ/L (21-32); CHLORIDE LEVEL 97 MEQ/L (98-107); CREATININE FOR GFR 1.09 MG/DL (0.55-1.30); GLOMERULAR FILTRATION RATE 52.7 (>39); GLUCOSE, FASTING 120 MG/DL (70-100); PHOSPHORUS LEVEL 4.2 MG/DL (2.5-4.9); POTASSIUM SERUM 4.5 MEQ/L (3.5-5.1); SODIUM LEVEL 134 MEQ/L (136-145)
[2018-07-23 11:54] LABS: PTH INTACT 57.1 PG/ML (18.5-88.0)
[2018-07-23 12:09] LABS: TOTAL 25(OH) VITAMIN D 51.4 NG/ML (30.0-100.0)
== END ==
LOC: SKLAB7 07:00
DX: R50.9 Fever, unspecified (principal); N18.9 Chronic kidney disease, unspecified
CPT/HCPCS: 80069

== ENCOUNTER → 2018-07-27 | Outpatient (REF) | payer MEDICARE, MEDICAID ==
[2018-07-27 09:38] LABS: APPEARANCE, URINE CLEAR (CLEAR); BACTERIA, URINE AUTO NEGATIVE (NEGATIVE); BILIRUBIN, URINE AUTO NEGATIVE (NEGATIVE); BLOOD, URINE BLOOD NEGATIVE (NEGATIVE); COLOR, URINE STRAW (YELLOW); GLUCOSE, URINE (UA) AUTO NEGATIVE (NEGATIVE); KETONE, URINE AUTO NEGATIVE (NEGATIVE); LEUKOCYTE ESTERASE, URINE AUTO TRACE (NEGATIVE); NITRITE, URINE AUTO NEGATIVE (NEGATIVE); PROTEIN, URINE AUTO NEGATIVE (NEGATIVE); RBC, URINE AUTO 0 /HPF (0-3); SPECIFIC GRAVITY URINE AUTO 1.005 (1.002-1.035); SQUAMOUS EPITHELIAL CELL UR AU 1 /HPF (0-6); UROBILINOGEN, URINE AUTO 0.2 mg/dL (0.0-2.0); WBC, URINE AUTO 0 /HPF (0-3)
== END ==
LOC: SKLAB7 08:59
DX: N18.9 Chronic kidney disease, unspecified (principal)
CPT/HCPCS: 81001

== ENCOUNTER → 2018-08-09 | Outpatient (REF) | payer MEDICARE, MEDICAID ==
[~2018-08-09] MED LIST changes: -ACET1TAB17 PO; +ACET1TAB55 PO; +ALUMSUS2 PO; +ARTI99.0 OU; +ASPI81CH3 PO; -ASPI81TA18 PO; +ASPI81TA52 PO; +AUGM875T28 PO; +B-1210009 PO; -DRIS50002 PO; +DRIS50003 PO; +DULC10SU2 PR; +ENEM1ENE4 PR; +FAMO40TA3 PO; -FERR220E2 PO; +FERR220L PO; +GAS1CHW PO; +KLOR10TA76 PO; +LIDO5TD TD; +MILK12002 PO; -MILKSUS PO; +NYAM10003 TOP; +OXYCO5TA PO; -POTA10CA PO; +PRED1TABL PO; +RISATAB3 PO; +SALI0.6528; +SPIR-10 PO; +SULF1TAB93 PO; -ZOFR20TA PO; +ZOFR4TAB16 PO; +ZOSY1SOL4 IV; +ZOSY1SOL5 IV; +[UNRECOGNIZED DRUG - CODE] TOP
== END ==
LOC: SKLAB7 08:00
PROVIDERS: ATTEND Internal Medicine
DX: I48.91 Unspecified atrial fibrillation (principal)

== ENCOUNTER → 2018-09-06 | Outpatient (REF) | payer MEDICARE, MEDICAID ==
[~2018-09-06] MED LIST changes: -ALDA25TA PO; -LASI40TA PO; +LASI40TA9 PO; +MILK120011 PO; -MILK12002 PO; +SPIR1TAB34 PO; -VITA100T PO; +VITA1TAB22 PO
== END ==
LOC: SKLAB7 08:29
PROVIDERS: ATTEND Internal Medicine
DX: I48.91 Unspecified atrial fibrillation (principal); E03.9 Hypothyroidism, unspecified; N18.9 Chronic kidney disease, unspecified

== ENCOUNTER → 2018-10-08 | Outpatient (REF) | payer MEDICARE, MEDICAID ==
[2018-10-08 09:04] LABS: HEMATOCRIT 40.4 % (36.0-47.0); HEMOGLOBIN 13.8 g/dl (12.0-15.5); MEAN CORPUSCULAR HEMOGLOBIN 31.9 pg (27.0-33.0); MEAN CORPUSCULAR HGB CONC 34.2 g/dl (32.0-36.5); MEAN CORPUSCULAR VOLUME 93.3 fl (80.0-96.0); PLATELET COUNT, AUTOMATED 355 10^3/uL (150-450); RED BLOOD COUNT 4.33 10^6/uL (4.00-5.40); WHITE BLOOD COUNT 9.1 10^3/uL (4.0-10.0)
== END ==
LOC: SKLAB7 07:35
PROVIDERS: ATTEND Internal Medicine
DX: Z79.01 Long term (current) use of anticoagulants (principal)

== ENCOUNTER → 2018-10-15 | Outpatient (REF) | payer MEDICARE, MEDICAID ==
[2018-10-15 08:03] LABS: HEMOGLOBIN 14.5 g/dl (12.0-15.5); MEAN CORPUSCULAR HEMOGLOBIN 32.2 pg (27.0-33.0); MEAN CORPUSCULAR HGB CONC 33.7 g/dl (32.0-36.5); MEAN CORPUSCULAR VOLUME 95.3 fl (80.0-96.0); PLATELET COUNT, AUTOMATED 339 10^3/uL (150-450); RED BLOOD COUNT 4.51 10^6/uL (4.00-5.40); WHITE BLOOD COUNT 7.4 10^3/uL (4.0-10.0)
[2018-10-15 08:30] LABS: ALBUMIN 3.3 GM/DL (3.2-5.2); BLOOD UREA NITROGEN 21 MG/DL (7-18); CALCIUM LEVEL 9.6 MG/DL (8.8-10.2); CARBON DIOXIDE LEVEL 28 MEQ/L (21-32); CHLORIDE LEVEL 97 MEQ/L (98-107); CREATININE FOR GFR 0.94 MG/DL (0.55-1.30); GLOMERULAR FILTRATION RATE > 60.0 (>39); GLUCOSE, FASTING 122 MG/DL (70-100); PHOSPHORUS LEVEL 3.5 MG/DL (2.5-4.9); POTASSIUM SERUM 4.6 MEQ/L (3.5-5.1); SODIUM LEVEL 134 MEQ/L (136-145)
[2018-10-15 11:22] LABS: PTH INTACT 68.2 PG/ML (18.5-88.0)
== END ==
LOC: SKLAB7 07:00
PROVIDERS: ATTEND Internal Medicine
DX: N18.9 Chronic kidney disease, unspecified (principal)

== ENCOUNTER → 2018-10-22 | Outpatient (REF) | payer MEDICARE, MEDICAID ==
[2018-10-22 09:04] LABS: HEMATOCRIT 39.2 % (36.0-47.0); HEMOGLOBIN 13.3 g/dl (12.0-15.5); MEAN CORPUSCULAR HEMOGLOBIN 31.7 pg (27.0-33.0); MEAN CORPUSCULAR HGB CONC 33.9 g/dl (32.0-36.5); MEAN CORPUSCULAR VOLUME 93.3 fl (80.0-96.0); PLATELET COUNT, AUTOMATED 341 10^3/uL (150-450); WHITE BLOOD COUNT 7.9 10^3/uL (4.0-10.0)
== END ==
LOC: SKLAB7 07:11
PROVIDERS: ATTEND Internal Medicine
DX: Z79.01 Long term (current) use of anticoagulants (principal)

== ENCOUNTER → 2018-10-24 | Outpatient (REF) | payer MEDICARE, MEDICAID ==
[2018-10-24 10:57] LABS: AMORPHOUS SEDIMENT SMALL (NEGATIVE); APPEARANCE, URINE CLOUDY (CLEAR); BACTERIA, URINE AUTO 3+ (NEGATIVE); BILIRUBIN, URINE AUTO NEGATIVE (NEGATIVE); BLOOD, URINE BLOOD NEGATIVE (NEGATIVE); COLOR, URINE YELLOW (YELLOW); GLUCOSE, URINE (UA) AUTO NEGATIVE (NEGATIVE); KETONE, URINE AUTO NEGATIVE (NEGATIVE); LEUKOCYTE ESTERASE, URINE AUTO 3+ (NEGATIVE); MUCUS, URINE SMALL (NEGATIVE); NITRITE, URINE AUTO NEGATIVE (NEGATIVE); PROTEIN, URINE AUTO NEGATIVE (NEGATIVE); RBC, URINE AUTO 2 /HPF (0-3); SPECIFIC GRAVITY URINE AUTO 1.005 (1.002-1.035); SQUAMOUS EPITHELIAL CELL UR AU 2 /HPF (0-6); UROBILINOGEN, URINE AUTO 0.2 mg/dL (0.0-2.0); WBC, URINE AUTO 4 /HPF (0-3)
== END ==
LOC: SKLAB7 10:10
PROVIDERS: ATTEND Internal Medicine
DX: N18.9 Chronic kidney disease, unspecified (principal); Z79.899 Other long term (current) drug therapy

== ENCOUNTER → 2018-11-05 | Outpatient (REF) | payer MEDICARE, MEDICAID ==
[2018-11-05 08:27] LABS: HEMOGLOBIN 12.9 g/dl (12.0-15.5); MEAN CORPUSCULAR HEMOGLOBIN 32.3 pg (27.0-33.0); MEAN CORPUSCULAR HGB CONC 33.9 g/dl (32.0-36.5); MEAN CORPUSCULAR VOLUME 95.2 fl (80.0-96.0); PLATELET COUNT, AUTOMATED 305 10^3/uL (150-450); RED BLOOD COUNT 3.99 10^6/uL (4.00-5.40); WHITE BLOOD COUNT 6.9 10^3/uL (4.0-10.0)
== END ==
LOC: SKLAB7 08:00
PROVIDERS: ATTEND Internal Medicine
DX: Z79.01 Long term (current) use of anticoagulants (principal)

== ENCOUNTER → 2018-11-08 | Outpatient (REF) | payer MEDICARE, MEDICAID ==
[~2018-11-08] MED LIST changes: -/ESOM40CA PO; -ASPI81CH3 PO; +ASPI81CH48 PO; +NEXI1CAP3 PO; -PRAD150C PO; +PRAD150C6 PO; +PRED-351 PO; -PRED10TA PO; +SERT-141 PO; -SERT50TA PO; -SILV50CR TOP; +THER1CRE16 TOP
[2018-11-08 08:03] LABS: BASO % 0.3 % (0.0-1.0); EOS # 0.6 10^3/uL (0.0-0.50); EOS % 7.9 % (0.0-3.0); HEMATOCRIT 37.6 % (36.0-47.0); HEMOGLOBIN 12.8 g/dl (12.0-15.5); LYMPH # 1.5 10^3/uL (1.5-4.5); LYMPH % 21.5 % (24.0-44.0); MONO # 0.7 10^3/uL (0.0-0.8); MONO % 10.3 % (0.0-5.0); NEUTROPHILS # 4.2 10^3/uL (1.8-7.7); NEUTROPHILS % 59.7 % (36.0-66.0); PLATELET COUNT, AUTOMATED 333 10^3/uL (150-450); WHITE BLOOD COUNT 7.1 10^3/uL (4.0-10.0)
== END ==
LOC: SKLAB7 07:00
PROVIDERS: ATTEND Internal Medicine
DX: I48.91 Unspecified atrial fibrillation (principal)

== ENCOUNTER → 2018-11-19 | Outpatient (REF) | payer MEDICARE, MEDICAID ==
[2018-11-19 08:12] LABS: HEMATOCRIT 41.8 % (36.0-47.0); HEMOGLOBIN 14.1 g/dl (12.0-15.5); MEAN CORPUSCULAR HEMOGLOBIN 31.8 pg (27.0-33.0); MEAN CORPUSCULAR HGB CONC 33.7 g/dl (32.0-36.5); MEAN CORPUSCULAR VOLUME 94.1 fl (80.0-96.0); PLATELET COUNT, AUTOMATED 368 10^3/uL (150-450); RED BLOOD COUNT 4.44 10^6/uL (4.00-5.40); WHITE BLOOD COUNT 10.6 10^3/uL (4.0-10.0)
== END ==
LOC: SKLAB7 07:23
PROVIDERS: ATTEND Internal Medicine
DX: Z79.899 Other long term (current) drug therapy (principal); F43.25 Adjustment disorder with mixed disturbance of emotions and conduct

== ENCOUNTER → 2018-12-06 | Outpatient (REF) | payer MEDICARE, MEDICAID ==
[~2018-12-06] MED LIST changes: -CINA30TA PO; +CINA30TA4 PO; +CYAN100T5 PO; -VITA1TAB22 PO
== END ==
LOC: SKLAB7 07:00
PROVIDERS: ATTEND Internal Medicine
DX: I15.9 Secondary hypertension, unspecified (principal)

== ENCOUNTER → 2018-12-19 | Outpatient (REF) | payer MEDICARE, MEDICAID ==
[2018-12-19 09:56] LABS: HEMATOCRIT 39.9 % (36.0-47.0); HEMOGLOBIN 13.4 g/dl (12.0-15.5); MEAN CORPUSCULAR HEMOGLOBIN 32.7 pg (27.0-33.0); MEAN CORPUSCULAR HGB CONC 33.6 g/dl (32.0-36.5); MEAN CORPUSCULAR VOLUME 97.3 fl (80.0-96.0); PLATELET COUNT, AUTOMATED 366 10^3/uL (150-450); WHITE BLOOD COUNT 8.7 10^3/uL (4.0-10.0)
== END ==
LOC: SKLAB7 07:00
PROVIDERS: ATTEND Internal Medicine
DX: Z79.01 Long term (current) use of anticoagulants (principal)

== ENCOUNTER → 2019-01-18 | Outpatient (REF) | payer MEDICARE, MEDICAID ==
[2019-01-18 07:09] LABS: HEMATOCRIT 38.6 % (36.0-47.0); HEMOGLOBIN 13.2 g/dl (12.0-15.5); MEAN CORPUSCULAR HEMOGLOBIN 33.4 pg (27.0-33.0); MEAN CORPUSCULAR HGB CONC 34.2 g/dl (32.0-36.5); MEAN CORPUSCULAR VOLUME 97.7 fl (80.0-96.0); PLATELET COUNT, AUTOMATED 312 10^3/uL (150-450); RED BLOOD COUNT 3.95 10^6/uL (4.00-5.40); WHITE BLOOD COUNT 6.8 10^3/uL (4.0-10.0)
[2019-01-18 07:29] LABS: CALCIUM LEVEL 8.8 MG/DL (8.8-10.2); GLOMERULAR FILTRATION RATE 58.2 (>39); MAGNESIUM LEVEL 2.1 MG/DL (1.8-2.4); POTASSIUM SERUM 4.4 MEQ/L (3.5-5.1)
== END ==
LOC: SKLAB7 07:00
PROVIDERS: ATTEND Internal Medicine
DX: N18.9 Chronic kidney disease, unspecified (principal)

== ENCOUNTER → 2019-02-07 | Outpatient (REF) | payer MEDICARE, MEDICAID ==
[2019-02-07 08:48] LABS: BASO % 0.5 % (0.0-1.0); EOS # 0.1 10^3/uL (0.0-0.50); EOS % 1.6 % (0.0-3.0); HEMOGLOBIN 14.1 g/dl (12.0-15.5); LYMPH # 1.4 10^3/uL (1.5-4.5); LYMPH % 17.8 % (24.0-44.0); MEAN CORPUSCULAR HGB CONC 34.4 g/dl (32.0-36.5); MEAN CORPUSCULAR VOLUME 98.8 fl (80.0-96.0); MONO # 0.7 10^3/uL (0.0-0.8); MONO % 8.3 % (0.0-5.0); NEUTROPHILS # 5.7 10^3/uL (1.8-7.7); NEUTROPHILS % 71.3 % (36.0-66.0); PLATELET COUNT, AUTOMATED 346 10^3/uL (150-450); RED BLOOD COUNT 4.15 10^6/uL (4.00-5.40)
[2019-02-07 09:29] LABS: ALBUMIN 3.2 GM/DL (3.2-5.2); BILIRUBIN,TOTAL 0.4 MG/DL (0.2-1.0); CALCIUM LEVEL 9.2 MG/DL (8.8-10.2); CREATININE FOR GFR 1.05 MG/DL (0.55-1.30); DIGOXIN LEVEL 1.6 NG/ML (0.5-2.0); POTASSIUM SERUM 4.3 MEQ/L (3.5-5.1)
== END ==
LOC: SKLAB7 07:00
PROVIDERS: ATTEND Internal Medicine
DX: N18.9 Chronic kidney disease, unspecified (principal); I48.91 Unspecified atrial fibrillation

== ENCOUNTER → 2019-02-13 | Outpatient (REF) | payer MEDICARE, MEDICAID ==
[2019-02-13 14:34] LABS: APPEARANCE, URINE CLEAR (CLEAR); BACTERIA, URINE AUTO NEGATIVE (NEGATIVE); BILIRUBIN, URINE AUTO NEGATIVE (NEGATIVE); BLOOD, URINE BLOOD NEGATIVE (NEGATIVE); COLOR, URINE STRAW (YELLOW); GLUCOSE, URINE (UA) AUTO NEGATIVE (NEGATIVE); KETONE, URINE AUTO NEGATIVE (NEGATIVE); LEUKOCYTE ESTERASE, URINE AUTO NEGATIVE (NEGATIVE); NITRITE, URINE AUTO NEGATIVE (NEGATIVE); PROTEIN, URINE AUTO NEGATIVE (NEGATIVE); RBC, URINE AUTO 1 /HPF (0-3); SPECIFIC GRAVITY URINE AUTO 1.004 (1.002-1.035); SQUAMOUS EPITHELIAL CELL UR AU 0 /HPF (0-6); UROBILINOGEN, URINE AUTO 0.2 mg/dL (0.0-2.0); WBC, URINE AUTO 1 /HPF (0-3)
== END ==
LOC: SKLAB7 14:13
PROVIDERS: ATTEND Internal Medicine
DX: N18.9 Chronic kidney disease, unspecified (principal)

== ENCOUNTER → 2019-02-14 | Outpatient (REF) | payer MEDICARE, MEDICAID ==
[2019-02-14 08:21] LABS: BASO % 0.4 % (0.0-1.0); EOS # 0.3 10^3/uL (0.0-0.50); EOS % 3.6 % (0.0-3.0); HEMOGLOBIN 14.1 g/dl (12.0-15.5); LYMPH # 1.8 10^3/uL (1.5-4.5); LYMPH % 19.8 % (24.0-44.0); MEAN CORPUSCULAR HEMOGLOBIN 32.5 pg (27.0-33.0); MEAN CORPUSCULAR HGB CONC 33.6 g/dl (32.0-36.5); MEAN CORPUSCULAR VOLUME 96.8 fl (80.0-96.0); MONO % 10.8 % (0.0-5.0); NEUTROPHILS % 64.9 % (36.0-66.0); PLATELET COUNT, AUTOMATED 364 10^3/uL (150-450); RED BLOOD COUNT 4.34 10^6/uL (4.00-5.40); WHITE BLOOD COUNT 9.2 10^3/uL (4.0-10.0)
[2019-02-14 08:52] LABS: ALBUMIN 3.2 GM/DL (3.2-5.2); CALCIUM LEVEL 9.2 MG/DL (8.8-10.2); CREATININE FOR GFR 1.07 MG/DL (0.55-1.30); GLOMERULAR FILTRATION RATE 53.8 (>39); PHOSPHORUS LEVEL 3.6 MG/DL (2.5-4.9); POTASSIUM SERUM 4.5 MEQ/L (3.5-5.1)
== END ==
LOC: SKLAB7 09:54
PROVIDERS: ATTEND Internal Medicine
DX: N18.9 Chronic kidney disease, unspecified (principal)

== ENCOUNTER → 2019-04-04 | Outpatient (REF) | payer MEDICARE, MEDICAID ==
[~2019-04-04] MED LIST changes: -ARTI99.0 OU; +ARTIDRO2 OU; +FERR1ELX PO; -FERR220L PO
== END ==
LOC: SKLAB7 07:00
PROVIDERS: ATTEND Internal Medicine
DX: N18.9 Chronic kidney disease, unspecified (principal); I48.91 Unspecified atrial fibrillation

== ENCOUNTER → 2019-05-09 | Outpatient (REF) | payer MEDICARE, MEDICAID ==
[~2019-05-09] MED LIST changes: -GAS1CHW PO; +SIME80TA5 PO
[2019-05-09 09:59] LABS: BASO % 0.4 % (0.0-1.0); EOS # 0.5 10^3/uL (0.0-0.5); HEMATOCRIT 40.6 % (36.0-47.0); HEMOGLOBIN 13.7 g/dl (12.0-15.5); LYMPH # 1.6 10^3/uL (1.5-5.0); LYMPH % 24.2 % (24.0-44.0); MEAN CORPUSCULAR HEMOGLOBIN 33.4 pg (27.0-33.0); MEAN CORPUSCULAR HGB CONC 33.7 g/dl (32.0-36.5); MONO # 0.7 10^3/uL (0.0-0.8); MONO % 10.7 % (0.0-5.0); NEUTROPHILS # 3.9 10^3/uL (1.5-8.5); NEUTROPHILS % 57.3 % (36.0-66.0); PLATELET COUNT, AUTOMATED 351 10^3/uL (150-450); WHITE BLOOD COUNT 6.7 10^3/uL (4.0-10.0)
== END ==
LOC: SKLAB7 07:00
PROVIDERS: ATTEND Internal Medicine
DX: N18.9 Chronic kidney disease, unspecified (principal); I48.91 Unspecified atrial fibrillation

== ENCOUNTER → 2019-05-16 | Outpatient (REF) | payer MEDICARE, MEDICAID ==
[2019-05-16 09:33] LABS: CALCIUM LEVEL 9.3 MG/DL (8.8-10.2); DIGOXIN LEVEL 0.7 NG/ML (0.5-2.0); POTASSIUM SERUM 4.4 MEQ/L (3.5-5.1)
== END ==
LOC: SKLAB7 08:43
PROVIDERS: ATTEND Internal Medicine
DX: I48.91 Unspecified atrial fibrillation (principal)

== ENCOUNTER → 2019-05-30 | Outpatient (REF) | payer MEDICARE, MEDICAID ==
[2019-05-30 08:31] LABS: HEMATOCRIT 40.1 % (36.0-47.0); HEMOGLOBIN 13.2 g/dl (12.0-15.5); MEAN CORPUSCULAR HEMOGLOBIN 32.8 pg (27.0-33.0); MEAN CORPUSCULAR HGB CONC 32.9 g/dl (32.0-36.5); MEAN CORPUSCULAR VOLUME 99.8 fl (80.0-96.0); PLATELET COUNT, AUTOMATED 320 10^3/uL (150-450); RED BLOOD COUNT 4.02 10^6/uL (4.00-5.40); WHITE BLOOD COUNT 7.2 10^3/uL (4.0-10.0)
[2019-05-30 08:45] LABS: CREATININE FOR GFR 1.04 MG/DL (0.55-1.30); GLOMERULAR FILTRATION RATE 55.5 (>39); PHOSPHORUS LEVEL 3.9 MG/DL (2.5-4.9); POTASSIUM SERUM 4.3 MEQ/L (3.5-5.1)
[2019-05-30 12:47] LABS: PTH INTACT 68.5 PG/ML (18.5-88.0)
== END ==
LOC: SKLAB7 07:00
PROVIDERS: ATTEND Internal Medicine
DX: I48.91 Unspecified atrial fibrillation (principal); N18.9 Chronic kidney disease, unspecified

== ENCOUNTER → 2019-08-08 | Outpatient (REF) | payer MEDICARE, MEDICAID ==
[2019-08-08 09:06] LABS: BASO % 0.6 % (0.0-1.0); EOS # 0.4 10^3/uL (0.0-0.5); EOS % 5.5 % (0.0-3.0); HEMATOCRIT 40.3 % (36.0-47.0); HEMOGLOBIN 13.4 g/dl (12.0-15.5); LYMPH # 1.8 10^3/uL (1.5-5.0); LYMPH % 28.1 % (24.0-44.0); MEAN CORPUSCULAR HEMOGLOBIN 32.1 pg (27.0-33.0); MEAN CORPUSCULAR HGB CONC 33.3 g/dl (32.0-36.5); MEAN CORPUSCULAR VOLUME 96.6 fl (80.0-96.0); MONO # 0.7 10^3/uL (0.0-0.8); MONO % 10.8 % (0.0-5.0); NEUTROPHILS # 3.5 10^3/uL (1.5-8.5); NEUTROPHILS % 54.7 % (36.0-66.0); PLATELET COUNT, AUTOMATED 328 10^3/uL (150-450); RED BLOOD COUNT 4.17 10^6/uL (4.00-5.40); WHITE BLOOD COUNT 6.3 10^3/uL (4.0-10.0)
== END ==
LOC: SKLAB7 07:00
PROVIDERS: ATTEND Internal Medicine
DX: I48.91 Unspecified atrial fibrillation (principal); N18.9 Chronic kidney disease, unspecified

== ENCOUNTER → 2019-09-03 | Outpatient (REF) | payer MEDICARE, MEDICAID ==
[2019-09-03 11:06] LABS: HEMATOCRIT 41.2 % (36.0-47.0); HEMOGLOBIN 13.5 g/dl (12.0-15.5); MEAN CORPUSCULAR HEMOGLOBIN 31.6 pg (27.0-33.0); MEAN CORPUSCULAR HGB CONC 32.8 g/dl (32.0-36.5); MEAN CORPUSCULAR VOLUME 96.5 fl (80.0-96.0); PLATELET COUNT, AUTOMATED 335 10^3/uL (150-450); RED BLOOD COUNT 4.27 10^6/uL (4.00-5.40); WHITE BLOOD COUNT 7.4 10^3/uL (4.0-10.0)
[2019-09-03 11:34] LABS: ALBUMIN 3.1 GM/DL (3.2-5.2); BLOOD UREA NITROGEN 21 MG/DL (7-18); CALCIUM LEVEL 8.7 MG/DL (8.8-10.2); CARBON DIOXIDE LEVEL 25 MEQ/L (21-32); CHLORIDE LEVEL 100 MEQ/L (98-107); CREATININE FOR GFR 0.96 MG/DL (0.55-1.30); GLOMERULAR FILTRATION RATE > 60.0 (>39); GLUCOSE, FASTING 105 MG/DL (70-100); PHOSPHORUS LEVEL 3.4 MG/DL (2.5-4.9); POTASSIUM SERUM 4.9 MEQ/L (3.5-5.1); SODIUM LEVEL 133 MEQ/L (136-145)
[2019-09-03 11:43] LABS: PTH INTACT 132.8 PG/ML (18.5-88.0)
[2019-09-03 12:21] LABS: APPEARANCE, URINE CLEAR (CLEAR); BACTERIA, URINE AUTO 1+ (NEGATIVE); BILIRUBIN, URINE AUTO NEGATIVE (NEGATIVE); BLOOD, URINE BLOOD NEGATIVE (NEGATIVE); COLOR, URINE STRAW (YELLOW); GLUCOSE, URINE (UA) AUTO NEGATIVE (NEGATIVE); KETONE, URINE AUTO NEGATIVE (NEGATIVE); LEUKOCYTE ESTERASE, URINE AUTO TRACE (NEGATIVE); NITRITE, URINE AUTO NEGATIVE (NEGATIVE); PROTEIN, URINE AUTO NEGATIVE (NEGATIVE); RBC, URINE AUTO 1 /HPF (0-3); SPECIFIC GRAVITY URINE AUTO 1.004 (1.002-1.035); SQUAMOUS EPITHELIAL CELL UR AU 1 /HPF (0-6); UROBILINOGEN, URINE AUTO 0.2 mg/dL (0.0-2.0); WBC, URINE AUTO 2 /HPF (0-3)
== END ==
LOC: SKLAB7 10:27
PROVIDERS: ATTEND Internal Medicine
DX: N18.3 Chronic kidney disease, stage 3 (moderate) (principal); D63.1 Anemia in chronic kidney disease; N25.81 Secondary hyperparathyroidism of renal origin

== ENCOUNTER → 2019-09-12 | Outpatient (REF) | payer MEDICARE, MEDICAID | LOC: SKLAB7 10:32 | PROVIDERS: ATTEND Internal Medicine | DX: E03.9 Hypothyroidism, unspecified (principal) ==

== ENCOUNTER → 2019-11-07 | Outpatient (REF) | payer MEDICARE, MEDICAID ==
[~2019-11-07] MED LIST changes: -ARTIDRO2 OU; +POLYOPD OU
[2019-11-07 09:09] LABS: BASO % 0.3 % (0.0-1.0); EOS # 0.3 10^3/uL (0.0-0.5); HEMATOCRIT 36.8 % (36.0-47.0); HEMOGLOBIN 12.6 g/dl (12.0-15.5); LYMPH # 1.5 10^3/uL (1.5-5.0); LYMPH % 19.8 % (24.0-44.0); MEAN CORPUSCULAR HEMOGLOBIN 32.7 pg (27.0-33.0); MEAN CORPUSCULAR HGB CONC 34.2 g/dl (32.0-36.5); MEAN CORPUSCULAR VOLUME 95.6 fl (80.0-96.0); MONO # 0.7 10^3/uL (0.0-0.8); MONO % 8.3 % (0.0-5.0); NEUTROPHILS # 5.2 10^3/uL (1.5-8.5); NEUTROPHILS % 67.2 % (36.0-66.0); PLATELET COUNT, AUTOMATED 306 10^3/uL (150-450); RED BLOOD COUNT 3.85 10^6/uL (4.00-5.40); WHITE BLOOD COUNT 7.8 10^3/uL (4.0-10.0)
== END ==
LOC: SKLAB7 13:37
PROVIDERS: ATTEND Internal Medicine
DX: I48.91 Unspecified atrial fibrillation (principal)

== ENCOUNTER → 2019-11-27 | Outpatient (REF) | payer MEDICARE, MEDICAID | LOC: SKLAB3 13:12 | PROVIDERS: ATTEND Internal Medicine | DX: N18.9 Chronic kidney disease, unspecified (principal) ==

== ENCOUNTER → 2019-11-28 | Outpatient (REF) | payer MEDICARE, MEDICAID ==
[2019-11-28 09:31] LABS: BASO % 0.6 % (0.0-1.0); EOS # 0.5 10^3/uL (0.0-0.5); EOS % 6.6 % (0.0-3.0); HEMATOCRIT 37.4 % (36.0-47.0); HEMOGLOBIN 12.7 g/dl (12.0-15.5); LYMPH # 1.5 10^3/uL (1.5-5.0); LYMPH % 22.3 % (24.0-44.0); MEAN CORPUSCULAR HEMOGLOBIN 32.6 pg (27.0-33.0); MEAN CORPUSCULAR VOLUME 95.9 fl (80.0-96.0); MONO # 0.7 10^3/uL (0.0-0.8); MONO % 10.2 % (0.0-5.0); NEUTROPHILS # 4.1 10^3/uL (1.5-8.5); NEUTROPHILS % 59.7 % (36.0-66.0); PLATELET COUNT, AUTOMATED 319 10^3/uL (150-450); WHITE BLOOD COUNT 6.8 10^3/uL (4.0-10.0)
[2019-11-28 09:43] LABS: CALCIUM LEVEL 8.9 MG/DL (8.8-10.2); CREATININE FOR GFR 1.02 MG/DL (0.55-1.30); GLOMERULAR FILTRATION RATE 56.7 (>39); MAGNESIUM LEVEL 2.2 MG/DL (1.8-2.4); PHOSPHORUS LEVEL 4.4 MG/DL (2.5-4.9); POTASSIUM SERUM 4.5 MEQ/L (3.5-5.1)
== END ==
LOC: SKLAB7 07:00
PROVIDERS: ATTEND Internal Medicine
DX: N18.9 Chronic kidney disease, unspecified (principal)

== ENCOUNTER → 2020-01-02 | Outpatient (REF) | LOC: SKLAB7 09:42 | PROVIDERS: ATTEND Internal Medicine | DX: Z03.818 Encounter for observation for suspected exposure to other biological agents ruled out (principal) ==

== ENCOUNTER → 2020-01-21 | Outpatient (REF) | payer MEDICARE, MEDICAID ==
[2020-01-21 12:43] LABS: BASO % 0.6 % (0.0-1.0); EOS # 0.4 10^3/uL (0.0-0.5); EOS % 6.7 % (0.0-3.0); HEMATOCRIT 36.9 % (36.0-47.0); LYMPH # 1.2 10^3/uL (1.5-5.0); LYMPH % 19.8 % (24.0-44.0); MEAN CORPUSCULAR HEMOGLOBIN 33.1 pg (27.0-33.0); MEAN CORPUSCULAR HGB CONC 35.2 g/dl (32.0-36.5); MEAN CORPUSCULAR VOLUME 93.9 fl (80.0-96.0); MONO # 0.6 10^3/uL (0.0-0.8); MONO % 10.2 % (0.0-5.0); NEUTROPHILS # 3.9 10^3/uL (1.5-8.5); NEUTROPHILS % 62.4 % (36.0-66.0); PLATELET COUNT, AUTOMATED 332 10^3/uL (150-450); RED BLOOD COUNT 3.93 10^6/uL (4.00-5.40); WHITE BLOOD COUNT 6.3 10^3/uL (4.0-10.0)
[2020-01-21 12:57] LABS: ALBUMIN 3.1 GM/DL (3.2-5.2); BLOOD UREA NITROGEN 16 MG/DL (7-18); CALCIUM LEVEL 8.7 MG/DL (8.8-10.2); CARBON DIOXIDE LEVEL 27 MEQ/L (21-32); CHLORIDE LEVEL 99 MEQ/L (98-107); CREATININE FOR GFR 0.94 MG/DL (0.55-1.30); GLOMERULAR FILTRATION RATE > 60.0 (>39); GLUCOSE, FASTING 103 MG/DL (70-100); MAGNESIUM LEVEL 1.9 MG/DL (1.8-2.4); PHOSPHORUS LEVEL 3.8 MG/DL (2.5-4.9); POTASSIUM SERUM 4.5 MEQ/L (3.5-5.1); SODIUM LEVEL 132 MEQ/L (136-145)
[2020-01-21 13:08] LABS: PTH INTACT 128.4 PG/ML (18.5-88.0)
== END ==
LOC: SKLAB7 11:29
PROVIDERS: ATTEND Internal Medicine
DX: N18.9 Chronic kidney disease, unspecified (principal)

== ENCOUNTER → 2020-02-06 | Outpatient (REF) | payer MEDICARE, MEDICAID ==
[~2020-02-06] MED LIST changes: -LACT10SO29 PO; +LACT20EL PO
[2020-02-06 10:34] LABS: ALBUMIN 3.2 GM/DL (3.2-5.2); BILIRUBIN,TOTAL 0.5 MG/DL (0.2-1.0); CALCIUM LEVEL 8.8 MG/DL (8.8-10.2); CREATININE FOR GFR 1.1 MG/DL (0.55-1.30); DIGOXIN LEVEL 0.7 NG/ML (0.5-2.0); POTASSIUM SERUM 4.8 MEQ/L (3.5-5.1); TOTAL PROTEIN 6.5 GM/DL (6.4-8.2)
== END ==
LOC: SKLAB7 07:00
PROVIDERS: ATTEND Internal Medicine
DX: I48.91 Unspecified atrial fibrillation (principal); N18.9 Chronic kidney disease, unspecified

== ENCOUNTER → 2020-05-07 | Outpatient (REF) | payer MEDICARE, MEDICAID ==
[~2020-05-07] MED LIST changes: +CYAN100T4 PO; -CYAN100T5 PO; +SIME80TA12 PO; -SIME80TA5 PO
[2020-05-07 09:56] LABS: DIGOXIN LEVEL 0.5 NG/ML (0.5-2.0)
[2020-05-07 11:20] LABS: PTH INTACT 95.6 PG/ML (18.5-88.0)
== END ==
LOC: SKLAB7 13:03
PROVIDERS: ATTEND Internal Medicine
DX: I48.91 Unspecified atrial fibrillation (principal); N18.9 Chronic kidney disease, unspecified

== ENCOUNTER → 2020-05-19 | Outpatient (REF) | payer MEDICARE, MEDICAID ==
[2020-05-19 07:45] LABS: BASO % 0.5 % (0.0-1.0); EOS # 0.5 10^3/uL (0.0-0.5); EOS % 8.1 % (0.0-3.0); HEMATOCRIT 37.5 % (36.0-47.0); HEMOGLOBIN 12.5 g/dl (12.0-15.5); LYMPH # 1.3 10^3/uL (1.5-5.0); LYMPH % 21.8 % (24.0-44.0); MEAN CORPUSCULAR HEMOGLOBIN 32.2 pg (27.0-33.0); MEAN CORPUSCULAR HGB CONC 33.3 g/dl (32.0-36.5); MEAN CORPUSCULAR VOLUME 96.6 fl (80.0-96.0); MONO # 0.6 10^3/uL (0.0-0.8); MONO % 9.5 % (0.0-5.0); NEUTROPHILS # 3.5 10^3/uL (1.5-8.5); NEUTROPHILS % 59.8 % (36.0-66.0); PLATELET COUNT, AUTOMATED 297 10^3/uL (150-450); RED BLOOD COUNT 3.88 10^6/uL (4.00-5.40); WHITE BLOOD COUNT 5.9 10^3/uL (4.0-10.0)
[2020-05-19 08:04] LABS: ALBUMIN 2.8 GM/DL (3.2-5.2); CALCIUM LEVEL 8.5 MG/DL (8.8-10.2); CREATININE FOR GFR 1.03 MG/DL (0.55-1.30); GLOMERULAR FILTRATION RATE 55.9 (>39); MAGNESIUM LEVEL 1.9 MG/DL (1.8-2.4); POTASSIUM SERUM 3.9 MEQ/L (3.5-5.1)
[2020-05-19 12:50] LABS: PTH INTACT 76.1 PG/ML (18.5-88.0)
== END ==
LOC: SKLAB7 08:47
PROVIDERS: ATTEND Internal Medicine
DX: N18.9 Chronic kidney disease, unspecified (principal)

== ENCOUNTER → 2020-07-02 | Outpatient (REF) ==
[2020-07-03 09:51] LABS: INFLUENZA A AMPLIFICATION NEGATIVE (NEGATIVE); INFLUENZA B AMPLIFICATION NEGATIVE (NEGATIVE)
== END ==
LOC: SKLAB7 14:20
PROVIDERS: ATTEND Internal Medicine
DX: Z20.828 Contact with and (suspected) exposure to other viral communicable diseases (principal)

== ENCOUNTER → 2020-07-08 | Outpatient (REF) | payer MEDICARE, MEDICAID | LOC: SKLAB7 07-07 14:59 → EDSTATUS 08-13 15:20 | PROVIDERS: ATTEND Internal Medicine | DX: Z20.828 Contact with and (suspected) exposure to other viral communicable diseases (principal) ==

== ENCOUNTER → 2020-07-15 | Outpatient (REF) | payer MEDICARE, MEDICAID | LOC: SKLAB7 08:00 | PROVIDERS: ATTEND Internal Medicine | DX: Z20.828 Contact with and (suspected) exposure to other viral communicable diseases (principal) ==

== ENCOUNTER → 2020-07-22 | Outpatient (REF) | payer MEDICARE, MEDICAID | LOC: SKLAB7 08:00 | PROVIDERS: ATTEND Internal Medicine | DX: Z20.828 Contact with and (suspected) exposure to other viral communicable diseases (principal) ==

== ENCOUNTER → 2020-07-25 | Outpatient (REF) | payer MEDICARE, MEDICAID | LOC: SKLAB7 08:00 | PROVIDERS: ATTEND Internal Medicine | DX: Z20.828 Contact with and (suspected) exposure to other viral communicable diseases (principal) ==

== ENCOUNTER → 2020-07-29 | Outpatient (REF) | payer MEDICARE, MEDICAID | LOC: SKLAB7 08:38 | PROVIDERS: ATTEND Internal Medicine | DX: Z20.828 Contact with and (suspected) exposure to other viral communicable diseases (principal) ==

== ENCOUNTER → 2020-08-05 | Outpatient (REF) | payer MEDICARE, MEDICAID | LOC: SKLAB7 15:00 | PROVIDERS: ATTEND Internal Medicine | DX: Z20.828 Contact with and (suspected) exposure to other viral communicable diseases (principal) ==

== ENCOUNTER → 2020-08-06 | Outpatient (REF) | payer MEDICARE, MEDICAID ==
[2020-08-06 12:20] LABS: BASO % 0.4 % (0.0-1.0); EOS # 0.5 10^3/uL (0.0-0.5); EOS % 7.2 % (0.0-3.0); HEMATOCRIT 40.4 % (36.0-47.0); HEMOGLOBIN 13.6 g/dl (12.0-15.5); LYMPH # 1.4 10^3/uL (1.5-5.0); LYMPH % 18.5 % (24.0-44.0); MEAN CORPUSCULAR HEMOGLOBIN 32.4 pg (27.0-33.0); MEAN CORPUSCULAR HGB CONC 33.7 g/dl (32.0-36.5); MEAN CORPUSCULAR VOLUME 96.2 fl (80.0-96.0); MONO # 0.8 10^3/uL (0.0-0.8); NEUTROPHILS # 4.6 10^3/uL (1.5-8.5); NEUTROPHILS % 62.6 % (36.0-66.0); PLATELET COUNT, AUTOMATED 320 10^3/uL (150-450); WHITE BLOOD COUNT 7.3 10^3/uL (4.0-10.0)
[2020-08-06 12:51] LABS: ALBUMIN 3.1 GM/DL (3.2-5.2); CALCIUM LEVEL 8.8 MG/DL (8.8-10.2); CREATININE FOR GFR 1.06 MG/DL (0.55-1.30); DIGOXIN LEVEL 0.6 NG/ML (0.5-2.0); GLOMERULAR FILTRATION RATE 54.1 (>39); PHOSPHORUS LEVEL 4.1 MG/DL (2.5-4.9); POTASSIUM SERUM 4.4 MEQ/L (3.5-5.1); PTH INTACT 128.3 PG/ML (18.5-88.0)
== END ==
LOC: SKLAB7 11:45
PROVIDERS: ATTEND Internal Medicine
DX: N25.81 Secondary hyperparathyroidism of renal origin (principal); E83.42 Hypomagnesemia; D63.1 Anemia in chronic kidney disease; N18.31 Chronic kidney disease, stage 3a; Z79.899 Other long term (current) drug therapy

== ENCOUNTER → 2020-08-08 | Outpatient (REF) | payer MEDICARE, MEDICAID | LOC: SKLAB7 13:35 | PROVIDERS: ATTEND Nurse Practitioner | DX: N18.9 Chronic kidney disease, unspecified (principal) ==

== ENCOUNTER → 2020-08-12 | Outpatient (REF) | payer MEDICARE, MEDICAID | LOC: SKLAB7 07:00 | PROVIDERS: ATTEND Internal Medicine | DX: Z20.828 Contact with and (suspected) exposure to other viral communicable diseases (principal) ==

== ENCOUNTER → 2020-08-19 | Outpatient (REF) | payer MEDICARE, MEDICAID | LOC: SKLAB7 09:41 | PROVIDERS: ATTEND Internal Medicine | DX: Z20.828 Contact with and (suspected) exposure to other viral communicable diseases (principal) ==

== ENCOUNTER → 2020-08-26 | Outpatient (REF) | payer MEDICARE, MEDICAID | LOC: SKLAB7 09:19 | PROVIDERS: ATTEND Internal Medicine | DX: Z11.52 Encounter for screening for COVID-19 (principal) ==

== ENCOUNTER → 2020-09-01 | Outpatient (REF) | payer MEDICARE, MEDICAID ==
[2020-09-01 13:59] LABS: HEMATOCRIT 40.9 % (36.0-47.0); HEMOGLOBIN 13.8 g/dl (12.0-15.5); MEAN CORPUSCULAR HEMOGLOBIN 32.5 pg (27.0-33.0); MEAN CORPUSCULAR HGB CONC 33.7 g/dl (32.0-36.5); MEAN CORPUSCULAR VOLUME 96.5 fl (80.0-96.0); PLATELET COUNT, AUTOMATED 301 10^3/uL (150-450); RED BLOOD COUNT 4.24 10^6/uL (4.00-5.40); WHITE BLOOD COUNT 6.4 10^3/uL (4.0-10.0)
[2020-09-01 15:13] LABS: BLOOD UREA NITROGEN 14 MG/DL (7-18); CREATININE FOR GFR 0.93 MG/DL (0.55-1.30); GLUCOSE, FASTING 117 MG/DL (70-100)
[2020-09-01 15:14] LABS: ALBUMIN 3.3 GM/DL (3.2-5.2); ALT/SGPT 27 U/L (12-78); BILIRUBIN,TOTAL 0.6 MG/DL (0.2-1.0); CALCIUM LEVEL 8.5 MG/DL (8.8-10.2); CARBON DIOXIDE LEVEL 27 MEQ/L (21-32); CHLORIDE LEVEL 102 MEQ/L (98-107); GLOMERULAR FILTRATION RATE > 60.0 (>39); POTASSIUM SERUM 4.5 MEQ/L (3.5-5.1); SODIUM LEVEL 137 MEQ/L (136-145); TOTAL PROTEIN 6.2 GM/DL (6.4-8.2)
== END ==
LOC: SKLAB7 12:54
PROVIDERS: ATTEND Internal Medicine
DX: R53.83 Other fatigue (principal)

== ENCOUNTER → 2020-09-02 | Outpatient (REF) | payer MEDICARE, MEDICAID | LOC: SKLAB7 10:51 | PROVIDERS: ATTEND Internal Medicine | DX: Z20.822 Contact with and (suspected) exposure to COVID-19 (principal) ==

== ENCOUNTER → 2020-09-09 | Outpatient (REF) | payer MEDICARE, MEDICAID | LOC: SKLAB7 14:19 | PROVIDERS: ATTEND Internal Medicine | DX: Z20.822 Contact with and (suspected) exposure to COVID-19 (principal) ==

== ENCOUNTER → 2020-09-10 | Outpatient (REF) | payer MEDICARE, MEDICAID ==
[2020-09-10 09:26] LABS: THYROID STIMULATING HORMONE 1.63 uIU/ML (0.358-3.740)
[2020-09-10 11:25] LABS: PTH INTACT 99.8 PG/ML (18.5-88.0)
== END ==
LOC: SKLAB7 10:30
PROVIDERS: ATTEND Internal Medicine
DX: N18.9 Chronic kidney disease, unspecified (principal); I48.91 Unspecified atrial fibrillation

== ENCOUNTER → 2020-09-16 | Outpatient (REF) | payer MEDICARE, MEDICAID | LOC: SKLAB7 10:03 | PROVIDERS: ATTEND Internal Medicine | DX: Z20.822 Contact with and (suspected) exposure to COVID-19 (principal) ==

== ENCOUNTER → 2020-09-23 | Outpatient (REF) | payer MEDICARE, MEDICAID | LOC: SKLAB7 14:51 | PROVIDERS: ATTEND Internal Medicine | DX: Z20.822 Contact with and (suspected) exposure to COVID-19 (principal) ==

== ENCOUNTER → 2020-09-30 | Outpatient (REF) | payer MEDICARE, MEDICAID | LOC: SKLAB7 11:31 | PROVIDERS: ATTEND Internal Medicine | DX: Z20.822 Contact with and (suspected) exposure to COVID-19 (principal) ==

== ENCOUNTER → 2020-10-07 | Outpatient (REF) | payer MEDICARE, MEDICAID | LOC: SKLAB7 09:09 | PROVIDERS: ATTEND Internal Medicine | DX: Z11.52 Encounter for screening for COVID-19 (principal) ==

== ENCOUNTER → 2020-10-14 | Outpatient (REF) | payer MEDICARE, MEDICAID | LOC: SKLAB7 07:00 | PROVIDERS: ATTEND Internal Medicine | DX: Z20.822 Contact with and (suspected) exposure to COVID-19 (principal) ==

== ENCOUNTER → 2020-10-28 | Outpatient (REF) | payer MEDICARE, MEDICAID | LOC: SKLAB7 10:21 | PROVIDERS: ATTEND Internal Medicine | DX: Z20.822 Contact with and (suspected) exposure to COVID-19 (principal) ==

== ENCOUNTER → 2020-11-04 | Outpatient (REF) | payer MEDICARE, MEDICAID | LOC: SKLAB7 12:32 | PROVIDERS: ATTEND Internal Medicine | DX: Z20.822 Contact with and (suspected) exposure to COVID-19 (principal) ==

== ENCOUNTER → 2020-11-05 | Outpatient (REF) | payer MEDICARE, MEDICAID ==
[2020-11-05 09:23] LABS: DIGOXIN LEVEL 0.4 NG/ML (0.5-2.0)
[2020-11-05 10:17] LABS: PTH INTACT 61.4 PG/ML (18.5-88.0)
== END ==
LOC: SKLAB7 09:01
PROVIDERS: ATTEND Internal Medicine
DX: I48.91 Unspecified atrial fibrillation (principal); N18.9 Chronic kidney disease, unspecified

== ENCOUNTER → 2020-11-18 | Outpatient (REF) | payer MEDICARE, MEDICAID ==
[~2020-11-18] MED LIST changes: +ANEC4CRE3 TOP; +CINA60TA3 PO; +CYMB60CA3 PO; +DIGO0.123 PO; +ELIQ5TAB PO; +FAMO1TAB11 PO; +FLEEENE12 PR; +GENT1SOL16 OU; +MIDO2.5T PO; +MILKSUS3 PO; +MIRA1POW3 PO; +MYLASSUD PO; +OCEA0.654; +OXYC1TAB23 PO; +POTA10CA32 PO; +SENN-23 PO; +SENS60TA PO; +TOPR25TA PO; +[UNRECOGNIZED DRUG - OTHER] PO
== END ==
LOC: SKLAB7 13:29
PROVIDERS: ATTEND Internal Medicine
DX: J02.9 Acute pharyngitis, unspecified (principal)

== ENCOUNTER → 2020-11-19 | Outpatient (REF) | payer MEDICARE, MEDICAID ==
[2020-11-19 08:38] LABS: BASO % 0.3 % (0.0-1.0); EOS # 0.6 10^3/uL (0.0-0.5); EOS % 6.7 % (0.0-3.0); HEMATOCRIT 37.5 % (36.0-47.0); HEMOGLOBIN 12.8 g/dl (12.0-15.5); LYMPH % 11.6 % (24.0-44.0); MEAN CORPUSCULAR HEMOGLOBIN 32.4 pg (27.0-33.0); MEAN CORPUSCULAR HGB CONC 34.1 g/dl (32.0-36.5); MEAN CORPUSCULAR VOLUME 94.9 fl (80.0-96.0); MONO # 0.9 10^3/uL (0.0-0.8); MONO % 10.3 % (2.0-8.0); NEUTROPHILS # 6.1 10^3/uL (1.5-8.5); NEUTROPHILS % 70.8 % (36.0-66.0); PLATELET COUNT, AUTOMATED 291 10^3/uL (150-450); RED BLOOD COUNT 3.95 10^6/uL (4.00-5.40); WHITE BLOOD COUNT 8.6 10^3/uL (4.0-10.0)
[2020-11-19 09:04] LABS: ALBUMIN 2.9 GM/DL (3.2-5.2); CALCIUM LEVEL 7.9 MG/DL (8.8-10.2); CREATININE FOR GFR 0.98 MG/DL (0.55-1.30); GLOMERULAR FILTRATION RATE 59.2 (>39); PHOSPHORUS LEVEL 3.9 MG/DL (2.5-4.9)
[2020-11-19 09:14] LABS: PTH INTACT 153.9 PG/ML (18.5-88.0)
== END ==
LOC: SKLAB7 07:00
PROVIDERS: ATTEND Internal Medicine
DX: N18.9 Chronic kidney disease, unspecified (principal)

== ENCOUNTER 2020-11-20 04:08 | Inpatient (IN) | payer MEDICARE, MEDICAID ==
[~2020-11-20] VITALS: Ht 167.6 cm; Wt 116.7 kg
[~2020-11-20 04:08] MED LIST changes: -ANEC4CRE3 TOP; -CINA60TA3 PO; -CYMB60CA3 PO; -DIGO0.123 PO; -ELIQ5TAB PO; -FAMO1TAB11 PO; -FLEEENE12 PR; -GENT1SOL16 OU; -MIDO2.5T PO; -MILKSUS3 PO; -MIRA1POW3 PO; -MYLASSUD PO; -OCEA0.654; -OXYC1TAB23 PO; -POTA10CA32 PO; -SENN-23 PO; -SENS60TA PO; -TOPR25TA PO; -[UNRECOGNIZED DRUG - OTHER] PO
[2020-11-20] MEDS ORDERED: MORPHINE 2 MG/ML 1ML VIAL (J2270) IV ONE (04:40)
[2020-11-20] MEDS ORDERED: ONDANSETRON 4MG/2ML VIAL IV ONE ×2 (04:40→08:15)
[2020-11-20 05:07] LABS: BASO % 0.3 % (0.0-1.0); EOS # 0.1 10^3/uL (0.0-0.5); EOS % 0.5 % (0.0-3.0); HEMATOCRIT 43.4 % (36.0-47.0); LYMPH # 0.7 10^3/uL (1.5-5.0); LYMPH % 7.6 % (24.0-44.0); MEAN CORPUSCULAR HEMOGLOBIN 31.9 pg (27.0-33.0); MEAN CORPUSCULAR HGB CONC 34.3 g/dl (32.0-36.5); MEAN CORPUSCULAR VOLUME 92.9 fl (80.0-96.0); MONO # 0.7 10^3/uL (0.0-0.8); MONO % 7.8 % (2.0-8.0); NEUTROPHILS # 7.6 10^3/uL (1.5-8.5); NEUTROPHILS % 83.4 % (36.0-66.0); PLATELET COUNT, AUTOMATED 367 10^3/uL (150-450); RED BLOOD COUNT 4.67 10^6/uL (4.00-5.40); WHITE BLOOD COUNT 9.2 10^3/uL (4.0-10.0)
[2020-11-20 05:08] LABS: HEMOGLOBIN 14.9 g/dl (12.0-15.5)
[2020-11-20 05:09] LABS: INR 1.39; PROTHROMBIN TIME 17.4 SECONDS (12.5-14.3)
[2020-11-20 05:10] LABS: PARTIAL THROMBOPLASTIN TIME 45.1 SECONDS (24.2-38.5)
[2020-11-20] MEDS ORDERED: ELIQ5TAB PO ×2 (05:14→05:43)
[2020-11-20] MEDS ORDERED: CINA60TA3 PO (05:14)
[2020-11-20] MEDS ORDERED: MIRA1POW3 PO ×2 (05:14→05:43)
[2020-11-20] MEDS ORDERED: OXYC1TAB23 PO ×2 (05:14→05:43)
[2020-11-20] MEDS ORDERED: TOPR25TA PO ×2 (05:14→05:43)
[2020-11-20] MEDS ORDERED: GENT1SOL16 OU ×3 (05:14→05:43)
[2020-11-20 05:25] LABS: ALBUMIN 3.4 GM/DL (3.2-5.2); BILIRUBIN,DIRECT 0.2 MG/DL (0.0-0.2)
--- NOTE | 2020-11-20 05:31 | REPVR ---
PROCEDURE INFORMATION: Exam: XR Complete Acute Abdomen Series Exam date and time: 11/20/2020 5:10 AM Age: 75 years old Clinical indication: Other: Abdominal pain TECHNIQUE: Imaging protocol: XR complete acute abdomen series, including 2 or more views of the abdomen and a single view chest. COMPARISON: [place] Chest, 1 view 07/21/2018 10:25 AM FINDINGS: Tubes, catheters and devices: Pacemaker in position from the left. Lungs: Normal. No consolidation. Pleural spaces: Normal. No pleural effusions. No pneumothorax. Heart/Mediastinum: Normal. No cardiomegaly. Gastrointestinal tract: Mild gas in the colon to the level of the rectum. Mild gas distention of small bowel segments which are centered to the left. Gastric gas is noted. Multiple air-fluid levels are noted in the small bowel. Intraperitoneal space: No free air. Bones/joints: Marked degenerative remodeling of the hips. Soft tissues: Normal. IMPRESSION: 1. Small-bowel obstruction. 2. Essentially stable chest since 07/21/2018. No acute cardiovascular process is identified. Electronically signed by: Sanford Guy On 11/20/2020 05:31:18 AM
[2020-11-20] MEDS ORDERED: MYLASSUD PO (05:37)
[2020-11-20] MEDS ORDERED: [UNRECOGNIZED DRUG - OTHER] PO (05:37)
[2020-11-20] MEDS ORDERED: POTA10CA32 PO (05:37)
[2020-11-20] MEDS ORDERED: ANEC4CRE3 TOP (05:37)
[2020-11-20] MEDS ORDERED: FLEEENE12 PR (05:37)
[2020-11-20] MEDS ORDERED: DIGO0.123 PO (05:37)
[2020-11-20] MEDS ORDERED: MILKSUS3 PO (05:37)
[2020-11-20] MEDS ORDERED: VITMTA PO (05:37)
[2020-11-20] MEDS ORDERED: SENN-23 PO (05:37)
[2020-11-20] MEDS ORDERED: OCEA0.654 (05:37)
[2020-11-20] MEDS ORDERED: MIDO2.5T PO (05:37)
[2020-11-20] MEDS ORDERED: FAMO1TAB11 PO (05:37)
[2020-11-20] MEDS ORDERED: CYMB60CA3 PO (05:37)
[2020-11-20] MEDS ORDERED: SENS60TA PO (05:43)
[2020-11-20] MEDS ORDERED: ISOVUE-370 76% 100ML VIAL As Ordered ONE (05:46)
--- NOTE | 2020-11-20 06:31 | REPVR ---
PROCEDURE INFORMATION: Exam: CT Abdomen And Pelvis With Contrast Exam date and time: 11/20/2020 5:41 AM Age: 75 years old Clinical indication: Vomiting; Additional info: Sbo TECHNIQUE: Imaging protocol: Computed tomography of the abdomen and pelvis with contrast. Radiation optimization: All CT scans at this facility use at least one of these dose optimization techniques: automated exposure control; mA and/or kV adjustment per patient size (includes targeted exams where dose is matched to clinical indication); or iterative reconstruction. Contrast material: ISO; Contrast volume: 100 ml; Contrast route: INTRAVENOUS (IV); COMPARISON: CT Pelvis without contrast 06/12/2017 11:21 PM FINDINGS: Tubes, catheters and devices: Pacemaker in position. Lungs: Minimal bibasilar fibro-atelectatic change. Heart: The left atrium measures 4.9 cm in its AP dimension. Mediastinal space: Minimal hiatal hernia. Liver: Normal. No mass. Gallbladder and bile ducts: Normal. No calcified stones. No ductal dilation. Pancreas: Normal. No ductal dilation. Spleen: Normal. No splenomegaly. Adrenal glands: Normal. No mass. Kidneys and ureters: There is a left renal cyst measuring up to 12 mm. Stomach and bowel: Fluid in the colon to the distal descending colon. Borderline to mild distention of small bowel with air-fluid levels with tapering to the ileocecal valve and no distinct or brought point of transition. There is slight edema of the some of the supplying mesentery. Appendix: A normal retrocecal appendix is seen. Intraperitoneal space: See "Stomach and bowel" finding. Vasculature: Unremarkable. No abdominal aortic aneurysm. Lymph nodes: Unremarkable. No enlarged lymph nodes. Urinary bladder: Unremarkable as visualized. Reproductive: Unremarkable as visualized. Bones/joints: Anterior wedge configuration of T7 and T8 which appear to be chronic. Soft tissues: Unremarkable. IMPRESSION: 1. Borderline to mild distention of small bowel with air-fluid levels and tapering to the ileocecal valve and no definite abrupt point of transition. There is slight edema of some of the supplying mesentery. In view of colonic fluid, findings may reflect enteritis. There is question of slight wall thickening of the distal ileum. 2. Mild cardiomegaly with pacemaker. COMMENTS: Consistent with the [employer]'s Incidental Findings Committee white paper (J Am Inocente Radiol 2018): Any incidental renal lesion less than 1 cm or classified as too small to characterize, or any incidental cystic renal lesion characterized as simple-appearing, is likely benign. No follow-up imaging is recommended for these lesions per consensus recommendations based on imaging criteria. Electronically signed by: Sanford Guy On 11/20/2020 06:31:23 AM
[2020-11-20 06:57] LABS: RSV AMPLIFICATION NEGATIVE (NEGATIVE)
[2020-11-20] MEDS: MIDODRINE 2.5 MG TAB PO SCH ×2 (08:00→16:06)
[2020-11-20] MEDS ORDERED: NS 1,000 ML IV ONE (08:55)
[2020-11-20] MEDS ORDERED: NS 500 ML IV ONE (08:55)
--- NOTE | 2020-11-20 08:56 | ED PDOC ---
Post-Departure Follow-Up progress note. pt signed out to me and is admitted to hospitalist - dr brown to admit. will add fluids - 500 cc iv bolus and then 200 cc/hr until dr brown arrive.mindy . mlg Alondra Willard MD Nov 20, 2020 08:55
[2020-11-20] MEDS: TORSEMIDE 20 MG TAB PO SCH ×2 (09:00→16:02)
[2020-11-20] MEDS: DULoxetine 30 MG CAP (CYMBALTA) PO SCH (09:00)
[2020-11-20] MEDS: FAMOTIDINE 20 MG TAB PO SCH (09:00)
[2020-11-20] MEDS: DIGOXIN 0.125 MG TAB PO SCH (09:00)
[2020-11-20] MEDS: APIXABAN 5 MG TAB (ELIQUIS) PO SCH ×2 (09:00→21:48)
[2020-11-20] MEDS: SPIRONOLACTONE 25 MG TAB PO SCH ×2 (09:00→16:01)
[2020-11-20] MEDS: PERCOCET 5MG/325MG TAB PO SCH ×3 (09:00→21:47)
[2020-11-20] MEDS ORDERED: MAALOX 30 ML SUSP *UDC PO PRN (09:10)
[2020-11-20] MEDS ORDERED: SODIUM CHLORIDE NASAL 0.65% SPRAY BTL (OCEAN) PRN (09:10)
[2020-11-20] MEDS ORDERED: ACETAMINOPHEN TAB 650MG DOSE (2X325MG) PO PRN (09:10)
[2020-11-20] MEDS ORDERED: BISACODYL 10 MG SUPP PR PRN (09:10)
[2020-11-20] MEDS ORDERED: MOM 30ML SUSPENSION UDC PO PRN (09:10)
[2020-11-20] MEDS ORDERED: FLEET ENEMA PR PRN (09:10)
[2020-11-20] MEDS: LR 1,000 ML IV SCH ×3 (09:30→22:50)
--- NOTE | 2020-11-20 09:34 | HPEPDOC ---
[facility] Medical History & Physical Date of Admission Nov 20, 2020 Date of Service: Nov 20, 2020 Attending Physician: VENITA SUAREZ DO History and Physical CHIEF COMPLAINT: Abdominal pain HISTORY OF PRESENT ILLNESS: Patient is resident of the same keep home. She apparently has been having abdominal pain with abdominal distention and constipation. She was sent into the emergency department for further evaluation was found to have a small bowel obstruction. CODE STATUS: DNR/DNI Updated MOLST included in [facility] from the [facility] signed 11/29/2019 indicates DNR/DNI, limited interventions, we may use IV fluids, meds, & antibiotics, no feeding tube. PAST MEDICAL HISTORY: Congestive heart failure with diastolic dysfunction, preserved ejection fraction Hypertension CTD stage III General anxiety disorder Depression Chronic Atrial fibrillation Tachybradycardia syndrome status post pacemaker placement Anemia Osteoarthritis GERD History of bladder cancer Liver cirrhosis PAST SURGICAL HISTORY: Pacemaker Bilateral cataract surgery Cystoscopy SOCIAL HISTORY: alf resident at [facility] And denies illicit drug use, or current alcohol use. FAMILY HISTORY: Noncontributory REVIEW OF SYSTEMS: Constitutional: Patient denies fevers, chills, night sweats, recent weight gain/loss. HEENT: Patient denies blurred or double vision, transient visual disturbances, postnasal drip, epistaxis, sore throat, difficulty chewing or swallowing food. Cardiovascular: Patient denies chest discomfort/pain, palpitations, exertional dyspnea, orthopnea, edema of the extremities, claudication. Respiratory: Patient denies dyspnea, wheezing, cough, hemoptysis, sputum production. Gastrointestinal: Patient admits to nausea, vomiting, abdominal pain for the past few days. Per record, nursing is noted coffee-ground emesis. Denies diarrhea, melena PHYSICAL EXAMINATION: General: Awake and alert. She seems to respond to most questions appropriately, but occasionally states inappropriate things. HEENT: Head normocephalic atraumatic, conjunctiva are pink, sclera are no nicteric, buccal mucosa is pink and moist with no lesions in the oropharynx. Hearing is grossly intact to conversation. Respiratory: Clear to auscultation bilaterally with no wheezes, rales, or rhonchi. Cardiovascular: Tachycardic rate Abdomen: Appears mildly distended, she is tender to gentle palpation in all quadrants. Bowel sounds are absent in all quadrants at this time. Extremities: 2+ pulses in the radial and dorsalis pedis bilaterally. No evidence of clubbing or cyanosis. ELECTROCARDIOGRAM: Atrial fibrillation with PVCs, rate of 99 IMAGING: Shows small bowel gas pattern consistent with small bowel obstruction. Please see report for full details. ASSESSMENT/PLAN: Small bowel obstruction -NG tube was placed in the emergency department and placed on suction. Will continue with low intermittent suction. Nothing by mouth diet. Will continue patient on lactated Ringer's 150 mils per hour. Repeat KUB tomorrow. Continue home bowel movements of Senokot S, milk of magnesia, MiraLAX, Dulcolax sup pository daily as necessary. Congestive heart failure with diastolic dysfunction, preserved ejection fraction Hypertension CTD stage III -Appears euvolemic at this time, continue home dose of antihypertensives and diuretics General anxiety disorder Depression -Continue home dose of duloxetine Chronic Atrial fibrillation Tachybradycardia syndrome status post pacemaker placement -Will monitor on remote telemetry. And continue home dose of metoprolol, digoxin, Eliquis Anemia -Chronic, continue to monitor Osteoarthritis -Apparently she is taking oxycodone 4 times a day for what appears to be arthritis, this will be reduced to 3 times a day in the to help with getting her bowels moving GERD -Continue home dose of famotidine Liver cirrhosis -Complicating care, continue home dose of spironolactone and beta dirk Morbid obesity -Complicating care DVT prophylaxis -Continue with home dose of Eliquis Vital Signs Vital Signs Date Time Temp Pulse Resp B/P (MAP) Pulse Ox O2 Delivery O2 Flow Rate FiO2 11/20/20 08:15 118 151/83 (105) 96 11/20/20 06:15 Room Air 11/20/20 05:59 18 11/20/20 04:21 98.4 Laboratory Data Labs 24H Laboratory Tests 2 11/20/20 04:45: Immature Granulocyte % (Auto) 0.4, Neutrophils (%) (Auto) 83.4H, Lymphocytes (%) (Auto) 7.6L, Monocytes (%) (Auto) 7.8, Eosinophils (%) (Auto) 0.5, Basophils (%) (Auto) 0.3, Neutrophils # (Auto) 7.6, Lymphocytes # (Auto) 0.7L, Monocytes # (Auto) 0.7, Eosinophils # (Auto) 0.1, Basophils # (Auto) 0.0, Nucleated Red Blood Cells % (auto) 0.0, Prothrombin Time 17.4H, Prothromb Time International Ratio 1.39, Activated Partial Thromboplast Time 45.1H, Total Bilirubin 1.0, Direct Bilirubin 0.2, Aspartate Amino Transf (AST/SGOT) 29, Alanine Aminotransferase (ALT/SGPT) 27, Alkaline Phosphatase 172H, Total Protein 7.0, Albumin 3.4, Albumin/Globulin Ratio 0.9L, Lipase 34L 11/20/20 05:11: POC Glucose (Misc Panel) 153H, POC Sodium (Misc Panel) 128L, POC Potassium (Misc Panel) 8.9*H, POC Chloride (Misc Panel) 95L, POC Total CO2 (Misc Panel) 33.0H, POC Blood Urea Nitrogen (Misc Panel 20, POC Ionized Calcium (Misc Panel) 3.5*L, POC Creatinine (Misc Panel) 1.1, POC Hematocrit (Misc Panel) 45.0 11/20/20 05:25: POC Glucose (Misc Panel) 151H, POC Sodium (Misc Panel) 134L, POC Potassium (Misc Panel) 4.0, POC Chloride (Misc Panel) 94L, POC Total CO2 (Misc Panel) 29.0H, POC Blood Urea Nitrogen (Misc Panel 15, POC Ionized Calcium (Misc Panel) 3.7L, POC Creatinine (Misc Panel) 1.1, POC Hematocrit (Misc Panel) 44.0 11/20/20 05:38: POC Lactate (Misc Panel) 3.17*H 11/20/20 06:07: Coronavirus (COVID-19)(PCR) NEGATIVE, Influenza Type A (RT-PCR) NEGATIVE, Influenza Type B (RT-PCR) NEGATIVE, Respiratory Syncytial Virus (PCR) NEGATIVE CBC/BMP Laboratory Tests 11/20/20 04:45 Home Medications Scheduled Apixaban (Eliquis) 5 Mg Tablet, 5 MG PO BID Cinacalcet HCl (Sensipar) 60 Mg Tablet, 60 MG PO 5XW MONDAY, MONDAY, MONDAY, MONDAY AND MONDAY AT [facility] Cyanocobalamin (Vitamin B-12) (Vitamin B-12) 1,000 Mcg Tab, 1,000 MCG PO DAILY Dextran/Hypromellose (Genteal Tears 0.1%-0.3% Drop) 15 Ml Drops, 1 DROP OU BID Digoxin (Digoxin) 125 Mcg Tablet, 125 MCG PO DAILY Duloxetine Hcl (Cymbalta) 60 Mg Capsule.dr, 60 MG PO DAILY Famotidine (Famotidine) 20 Mg Tablet, 20 MG PO DAILY Metoprolol Succinate (Toprol Xl) 25 Mg Tab.er.24h, 25 MG PO QHS Midodrine HCl (Midodrine HCl) 2.5 Mg Tablet, 2.5 MG PO BID 0800, 1700 Multivitamins (Thera M Plus Tablet) 1 Each Tablet, 1 TAB PO DAILY Oxycodone HCl/Acetaminophen (Oxycodone-Acetaminophen 5-325) 1 Each Tablet, 1 TAB PO QID 0600, 1100, 1600, 2000 Polyethylene Glycol 3350 (Miralax) 17 Gm Powd.pack, 17 GM PO QHS Potassium Chloride (Potassium Chloride) 10 Meq Capsule.er, 20 MEQ PO DAILY Sennosides/Docusate Sodium (Senna-S Tablet) 1 Each Tablet, 2 TAB PO DAILY Spironolactone (Aldactone) 25 Mg Tab, 25 MG PO BID 0800, 1400 Torsemide (Torsemide) 20 Mg Tab, 20 MG PO BID 0800, 1400 Scheduled PRN Acetaminophen (Acetaminophen) 325 Mg Tab, 650 MG PO Q4H PRN for PAIN / FEVER Aluminum/Magnesium/Simeth (Mag-Al Plus Suspension) 30 Ml Oral.susp, 30 ML PO QID PRN for INDIGESTION Bisacodyl (Dulcolax) 10 Mg Sup, 10 MG AR DAILY PRN for CONSTIPATION Dextran/Hypromellose (Genteal Tears 0.1%-0.3% Drop) 15 Ml Drops, 1 DROP OU Q4H PRN for DRY EYES Guaifenesin (Tussin) 100 Mg/5 Ml Liquid, 200 MG PO Q4H PRN for COUGH STARTED 11/18/20 Lidocaine (Anecream) 4% Cream..g., 1 DOSE TOP QID PRN for PAIN APPLIES TO KNEES Magnesium Hydroxide (Milk of Magnesia) 400 Mg/5 Ml Oral.susp, 10 ML PO DAILY PRN for CONSTIPATION Sodium Chloride ([place]) 104 Ml [place], 1 SPRAY NA Q1H PRN for NASAL CONGESTION Sodium Phosphate,[place]-Dibasic (Fleet Enema) 133 Ml Enema, 1 SAM AR DAILY PRN for CONSTIPATION Allergies Coded Allergies: codeine (Verified Allergy, Unknown, 11/20/20) A-FIB/CHADSVASC A-FIB History Current/History of A-Fib/PAF?: Yes Current PO Anticoag Therapy: Yes VENITA SUAREZ DO Nov 20, 2020 09:34
[2020-11-20 12:50] VITALS: BP 122/74
[2020-11-20] MEDS ORDERED: PERCOCET 5MG/325MG TAB PO SCH (13:00)
--- NOTE | 2020-11-20 13:16 | ECGEPIP ---
[facility] - ED Test Date: 2020-11-20 Pat Name: MARIO ANDREW Department: Room: - Gender: Female [employer] C[employer]: CHERIE BECERRILB: 1945 Requested By: Ej Velez Order Number: [id number] Reading MD: Alondra Willard Measurements Intervals [place] Rate: 90 P: DC: QRS: -16 QRSD: 92 T: 13 QT: 372 QTc: 455 Interpretive Statements Atrial fibrillation left axis deviation Minimal voltage criteria for LVH, may be normal variant ( R in aVL ) ST & T wave abnormality, consider anterior ischemia cw 03/23/18 - rate increased no intermittent V pacing Nonspecific ST T wave changes Electronically Signed on 11-20-2020 13:16:10 EDT by Alondra Willard
--- NOTE | 2020-11-20 16:20 | REP ---
INDICATION: ng tube placement. COMPARISON: 07/21/2018. TECHNIQUE: SINGLE PORTABLE AP VIEW OF THE CHEST WAS PERFORMED. FINDINGS: There is no acute infiltrate. The heart appears upper limits of normal in size. Mediastinal silhouette is unremarkable. Left 2 lead pacemaker is noted. Nasogastric tube is seen. The side port appears to be located just above the gastroesophageal junction. The tube should be advanced. IMPRESSION: Nasogastric tube is seen. The side port appears to be located just above the gastroesophageal junction. The tube should be advanced.No infiltrate. <Electronically signed by Tj Cheng > 11/20/20 2824
[2020-11-20] MEDS: CINACALCET 30 MG TAB (SENSIPAR) PO SCH (21:47)
[2020-11-20] MEDS: MIRALAX *UNIT DOSE* 17GM PACKET PO SCH (21:48)
[2020-11-20] MEDS: METOPROLOL SUCC *XL* 25MG TAB (TopROL *XL*) PO SCH (21:48)
[2020-11-20 22:00] VITALS: BP 139/79
[2020-11-20] MEDS: ONDANSETRON 4MG/2ML VIAL IV PRN (22:51)
[2020-11-21] MEDS: LR 1,000 ML IV SCH ×3 (05:48→17:04)
[2020-11-21 06:00] VITALS: BP 150/70
[2020-11-21 07:07] LABS: HEMATOCRIT 38.7 % (36.0-47.0); MEAN CORPUSCULAR HEMOGLOBIN 32.5 pg (27.0-33.0); MEAN CORPUSCULAR HGB CONC 33.6 g/dl (32.0-36.5); MEAN CORPUSCULAR VOLUME 96.8 fl (80.0-96.0); PLATELET COUNT, AUTOMATED 293 10^3/uL (150-450); WHITE BLOOD COUNT 9.9 10^3/uL (4.0-10.0)
[2020-11-21 07:38] LABS: BLOOD UREA NITROGEN 12 MG/DL (7-18); CALCIUM LEVEL 8.2 MG/DL (8.8-10.2); CARBON DIOXIDE LEVEL 30 MEQ/L (21-32); CHLORIDE LEVEL 105 MEQ/L (98-107); CREATININE FOR GFR 0.96 MG/DL (0.55-1.30); GLOMERULAR FILTRATION RATE > 60.0 (>39); GLUCOSE, FASTING 119 MG/DL (70-100); POTASSIUM SERUM 3.6 MEQ/L (3.5-5.1); SODIUM LEVEL 143 MEQ/L (136-145)
--- NOTE | 2020-11-21 08:58 | REP ---
INDICATION: SBO. COMPARISON: Acute abdominal series dated 11/20/2020. TECHNIQUE: Supine abdomen, two views. FINDINGS: There are few scattered dilated small bowel loops. The number of dilated small bowel loops has significantly decreased. The bladder is opacified, likely from the recent CT scan. There are no calcifications. There is a nasogastric tube terminating satisfactorily in the mid upper abdomen. There is markedly deforming arthropathy of the hips bilaterally, unchanged. IMPRESSION: Significantly improved bowel gas pattern. <Electronically signed by Tj Wright > 11/21/20 0895
[2020-11-21] MEDS ORDERED: ENOXAPARIN 40MG/0.4ML SYRINGE (J1650 PER 10MG) SC SCH (09:00)
[2020-11-21] MEDS: APIXABAN 5 MG TAB (ELIQUIS) PO SCH ×2 (10:10→19:55)
[2020-11-21] MEDS: TORSEMIDE 20 MG TAB PO SCH ×2 (10:10→16:17)
[2020-11-21] MEDS: DIGOXIN 0.125 MG TAB PO SCH (10:11)
[2020-11-21] MEDS: DULoxetine 30 MG CAP (CYMBALTA) PO SCH (10:11)
[2020-11-21] MEDS: SENOKOT S TAB PO SCH (10:11)
[2020-11-21] MEDS: FAMOTIDINE 20 MG TAB PO SCH (10:12)
[2020-11-21] MEDS: SPIRONOLACTONE 25 MG TAB PO SCH ×2 (10:12→16:17)
[2020-11-21] MEDS: PERCOCET 5MG/325MG TAB PO SCH ×3 (10:12→20:00)
[2020-11-21] MEDS: MIDODRINE 2.5 MG TAB PO SCH ×2 (10:14→16:17)
[2020-11-21 14:00] VITALS: BP 120/77
--- NOTE | 2020-11-21 19:54 | IPNPDOC ---
Text Note Date of Service The patient was seen on 11/21/20. NOTE Hospitalist Progress Note Subjective: She apparently did retch up her NG tube last night, and required repositioning. Patient reports that her pain and distention is somewhat improved, but she is still quite uncomfortable. Objective: General: Awake, alert, oriented 3. Not in any acute distress. HEENT: Head normocephalic, atraumatic, sclera are nonicteric. Hearing is grossly intact to conversation. Respiratory: Clear to auscultation bilaterally with no wheezes, rales, or rhonchi. Cardiovascular: Regular rate and rhythm, with no rubs, gallops, or murmur. Abdomen: Soft, obese, minimally tender throughout. Bowel sounds faint but present. Extremities: 2+ pulses in the radial and dorsalis pedis bilaterally. No evidence of clubbing or cyanosis. Assessment: Small bowel obstruction - X-ray does show significant improvement, but she still does have a few scattered areas of dilated small bowel. Will continue with NG tube and low intermittent suction for another 24 hours and repeat KUB. - Continue nothing by mouth diet. - continue patient on lactated Ringer's 150 mils per hour. -Repeat KUB tomorrow. -Continue home bowel movements of Senokot S, milk of magnesia, MiraLAX, Dulcolax suppository daily as necessary. Congestive heart failure with diastolic dysfunction, preserved ejection fraction Hypertension CTD stage III -Appears euvolemic at this time, continue home dose of antihypertensives and diuretics General anxiety disorder Depression -Continue home dose of duloxetine Chronic Atrial fibrillation Tachybradycardia syndrome status post pacemaker placement -Will monitor on remote telemetry. And continue home dose of metoprolol, d igoxin, Eliquis Anemia -Chronic, continue to monitor Osteoarthritis -Apparently she is taking oxycodone 4 times a day for what appears to be arthritis, this will be reduced to 3 times a day in the to help with getting her bowels moving GERD -Continue home dose of famotidine Liver cirrhosis -Complicating care, continue home dose of spironolactone and beta dirk Morbid obesity -Complicating care DVT prophylaxis -Continue with home dose of Eliquis VS,Fishbone, I+O VS, Fishbone, I+O Laboratory Tests 11/21/20 06:50 Vital Signs Date Time Temp Pulse Resp B/P (MAP) Pulse Ox O2 Delivery O2 Flow Rate FiO2 11/21/20 14:00 98.0 78 18 120/77 (91) 91 Room Air I&O- Last 24 Hours up to 6 AM 11/21/20 05:59 Intake Total 1800 ml Output Total 425 ml Balance 1375 ml VENITA SUAREZ DO Nov 21, 2020 19:54
[2020-11-21] MEDS: MIRALAX *UNIT DOSE* 17GM PACKET PO SCH (19:55)
[2020-11-21] MEDS: METOPROLOL SUCC *XL* 25MG TAB (TopROL *XL*) PO SCH (19:58)
[2020-11-21] MEDS: ONDANSETRON 4MG/2ML VIAL IV PRN (19:58)
[2020-11-21 22:00] VITALS: BP 125/77
[2020-11-22] MEDS: CHLORASEPTIC SPRAY MT PRN ×2 (01:00→06:39)
[2020-11-22] MEDS: LR 1,000 ML IV SCH ×4 (01:00→21:05)
[2020-11-22] MEDS ORDERED: RAMELTEON 8 MG TAB (ROZEREM) PO PRN (01:20)
[2020-11-22 06:00] VITALS: BP 129/70
[2020-11-22 06:28] LABS: HEMATOCRIT 36.2 % (36.0-47.0); HEMOGLOBIN 11.7 g/dl (12.0-15.5); MEAN CORPUSCULAR HEMOGLOBIN 32.2 pg (27.0-33.0); MEAN CORPUSCULAR HGB CONC 32.3 g/dl (32.0-36.5); MEAN CORPUSCULAR VOLUME 99.7 fl (80.0-96.0); PLATELET COUNT, AUTOMATED 284 10^3/uL (150-450); RED BLOOD COUNT 3.63 10^6/uL (4.00-5.40)
[2020-11-22 06:44] LABS: CALCIUM LEVEL 8.2 MG/DL (8.8-10.2); GLOMERULAR FILTRATION RATE 57.9 (>39); POTASSIUM SERUM 3.5 MEQ/L (3.5-5.1)
--- NOTE | 2020-11-22 08:17 | REP ---
INDICATION: SBO. COMPARISON: 11/21/2020 TECHNIQUE: Supine AP abdomen two views. FINDINGS: There is scattered gas in mildly dilated small bowel loops. There are a few more small-bowel loops today than yesterday. The nasogastric tube tip is again noted in the mid upper abdomen in satisfactory position, unchanged. Deforming arthropathy at the hips is unchanged. IMPRESSION: There are a few more mildly dilated air-filled small-bowel loops today than yesterday. <Electronically signed by Tj Wright > 11/22/20 0856
[2020-11-22] MEDS: SIMETHICONE 80MG CHEW TAB PO SCH ×3 (09:00→21:04)
[2020-11-22] MEDS: DIGOXIN 0.125 MG TAB PO SCH (09:03)
[2020-11-22] MEDS: APIXABAN 5 MG TAB (ELIQUIS) PO SCH ×2 (09:03→21:02)
[2020-11-22] MEDS: DULoxetine 30 MG CAP (CYMBALTA) PO SCH (09:03)
[2020-11-22] MEDS: FAMOTIDINE 20 MG TAB PO SCH (09:04)
[2020-11-22] MEDS: PERCOCET 5MG/325MG TAB PO SCH ×3 (09:04→21:03)
[2020-11-22] MEDS: SPIRONOLACTONE 25 MG TAB PO SCH ×2 (09:04→16:09)
[2020-11-22] MEDS: TORSEMIDE 20 MG TAB PO SCH ×2 (09:05→16:09)
[2020-11-22] MEDS: SENOKOT S TAB PO SCH (09:05)
[2020-11-22] MEDS: MIDODRINE 2.5 MG TAB PO SCH ×2 (09:07→16:17)
[2020-11-22 14:00] VITALS: BP 133/69
--- NOTE | 2020-11-22 16:17 | IPNPDOC ---
Text Note Date of Service The patient was seen on 11/22/20. NOTE Hospitalist Progress Note Subjective: Patient reports that she still is having some abdominal pain, but per nursing they indicate that she seems to be doing better overall. Nevertheless, her KUB today shows more gas than it did yesterday. Otherwise, the patient seems to be in fairly good spirits, and she even states that she would prefer to have this completely resolved before she was sent back to the retirement. Objective: General: Awake, alert, oriented 3. Not in any acute distress. HEENT: Head normocephalic, atraumatic, sclera are nonicteric. Hearing is grossly intact to conversation. Respiratory: Clear to auscultation bilaterally with no wheezes, rales, or rhonchi. Cardiovascular: Regular rate and rhythm, with no rubs, gallops, or murmur. Abdomen: Soft, obese, minimally tender throughout. I can hear bowel sounds in the right upper quadrant, but the remainder of the belly is quiet. Extremities: 2+ pulses in the radial and dorsalis pedis bilaterally. No evidence of clubbing or cyanosis. Assessment: Small bowel obstruction - X-ray does shows more gas in the small bowel than it did yesterday - Will continue with NG tube and low intermittent suction for another 24 hours and repeat KUB tomorrow morning. - Start simethicone 80 mg by mouth 3 times a day - Continue nothing by mouth diet. - continue patient on lactated Ringer's 150 mils per hour. -Continue home bowel movements of Senokot S, milk of magnesia, MiraLAX, Dulcolax suppository daily as necessary. Congestive heart failure with diastolic dysfunction, preserved ejection fraction Hypertension CTD stage III -Appears euvolemic at this time, continue home dose of antihypertensives and diuretics General anxiety disorder Depression -Continue home dose of duloxetine Chronic Atrial fibrillation Tachybradycardia syndrome status post pacemaker placement -Continue to monitor on remote telemetry. - Continue home dose of metoprolol, digoxin, Eliquis Anemia -Chronic, continue to monitor Osteoarthritis -Continue oxycodone 3 times a day (decreased from her home dose of 4 times a day), she has not seemed to notice any significant difference in baseline pain level. GERD -Continue home dose of famotidine Liver cirrhosis -Complicating care - continue home dose of spironolactone and beta dirk Morbid obesity -Complicating care DVT prophylaxis -Continue with home dose of Eliquis VS,Fishbone, I+O VS, Fishbone, I+O Laboratory Tests 11/22/20 05:56 Vital Signs Date Time Temp Pulse Resp B/P (MAP) Pulse Ox O2 Delivery O2 Flow Rate FiO2 11/22/20 14:00 97.8 93 18 133/69 (90) 92 Room Air I&O- Last 24 Hours up to 6 AM 11/22/20 05:59 Intake Total 1800 ml Output Total 1375 ml Balance 425 ml VENITA SUAREZ DO Nov 22, 2020 16:17
[2020-11-22] MEDS: MIRALAX *UNIT DOSE* 17GM PACKET PO SCH (21:02)
[2020-11-22] MEDS: METOPROLOL SUCC *XL* 25MG TAB (TopROL *XL*) PO SCH (21:03)
[2020-11-22 22:00] VITALS: BP 124/71
[2020-11-23] MEDS: LR 1,000 ML IV SCH ×3 (05:49→18:01)
[2020-11-23 06:00] VITALS: BP 120/72
[2020-11-23 06:35] LABS: HEMATOCRIT 34.9 % (36.0-47.0); HEMOGLOBIN 11.5 g/dl (12.0-15.5); MEAN CORPUSCULAR VOLUME 100.3 fl (80.0-96.0); PLATELET COUNT, AUTOMATED 258 10^3/uL (150-450); RED BLOOD COUNT 3.48 10^6/uL (4.00-5.40); WHITE BLOOD COUNT 8.3 10^3/uL (4.0-10.0)
[2020-11-23 07:01] LABS: BLOOD UREA NITROGEN 16 MG/DL (7-18); CALCIUM LEVEL 8.1 MG/DL (8.8-10.2); CARBON DIOXIDE LEVEL 32 MEQ/L (21-32); CHLORIDE LEVEL 105 MEQ/L (98-107); CREATININE FOR GFR 0.92 MG/DL (0.55-1.30); GLOMERULAR FILTRATION RATE > 60.0 (>39); GLUCOSE, FASTING 96 MG/DL (70-100); POTASSIUM SERUM 3.4 MEQ/L (3.5-5.1); SODIUM LEVEL 143 MEQ/L (136-145)
[2020-11-23] MEDS: MIDODRINE 2.5 MG TAB PO SCH ×2 (07:58→16:05)
[2020-11-23] MEDS: TORSEMIDE 20 MG TAB PO SCH ×2 (07:59→16:06)
[2020-11-23] MEDS: FAMOTIDINE 20 MG TAB PO SCH (07:59)
[2020-11-23] MEDS: DULoxetine 30 MG CAP (CYMBALTA) PO SCH (07:59)
[2020-11-23] MEDS: DIGOXIN 0.125 MG TAB PO SCH (08:00)
[2020-11-23] MEDS: SPIRONOLACTONE 25 MG TAB PO SCH ×2 (08:00→16:05)
[2020-11-23] MEDS: SIMETHICONE 80MG CHEW TAB PO SCH ×3 (08:00→20:41)
[2020-11-23] MEDS: APIXABAN 5 MG TAB (ELIQUIS) PO SCH ×2 (08:00→20:41)
[2020-11-23] MEDS: SENOKOT S TAB PO SCH (08:01)
[2020-11-23] MEDS: PERCOCET 5MG/325MG TAB PO SCH ×3 (08:01→20:42)
[2020-11-23] MEDS ORDERED: POTASSIUM CHLORIDE 10 MEQ SR TABLET PO ONE (10:40)
--- NOTE | 2020-11-23 10:57 | REP ---
INDICATION: SBO COMPARISON: 11/22/2020 TECHNIQUE: Supine view of the abdomen and pelvis. FINDINGS: Nasogastric tube extends just below the left hemidiaphragm and may warrant some advancement. The bowel gas pattern demonstrates moderate air-filled dilated small bowel along with colonic gas. Findings are nonspecific and obstruction versus ileus cannot be differentiated. No obvious free air. Skeletal structures demonstrate stable degenerative changes to the visualized thoracolumbar spine and significant degenerative changes the bilateral hips raising the possibility of chronic avascular necrosis. IMPRESSION: Bowel gas pattern cannot differentiate between obstruction versus ileus. Close clinical observation may be warranted. Consider advancing nasogastric tube. <Electronically signed by Kevin Jones > 11/23/20 1055
[2020-11-23 14:00] VITALS: BP 135/89
--- NOTE | 2020-11-23 17:23 | IPNPDOC ---
Text Note Date of Service The patient was seen on 11/23/20. NOTE Hospitalist Progress Note Subjective: Patient once again only complains of mild abdominal discomfort. Her NG tube continues to have brown output, albeit the output has slowed down over the past 24 hours. Nevertheless, repeat abdominal x-ray this morning once again shows ileus versus small bowel obstruction with dilated loops of small bowel containing gas. Clinically the patient continues to do fairly well. On physical examination she actually has quite a bit of bowel sounds, and she has passed some gas and stool. Objective: General: Awake, alert, oriented 3. Not in any acute distress. HEENT: Head normocephalic, atraumatic, sclera are nonicteric. Hearing is grossly intact to conversation. Respiratory: Clear to auscultation bilaterally with no wheezes, rales, or rhonchi. Cardiovascular: Regular rate and rhythm, with no rubs, gallops, or murmur. Abdomen: Soft, obese, minimally tender throughout. Loud bowel sounds heard in all quadrants Extremities: 2+ pulses in the radial and dorsalis pedis bilaterally. No evidence of clubbing or cyanosis. Assessment: Small bowel obstruction - X-ray once again shows dilated loops of small bowel - I'm encouraged by the fact that she has very active bowel sounds - Will continue with NG tube and low intermittent suction for another 24 hours and repeat KUB tomorrow morning. - If still no improvement based on KUB tomorrow, then will consult surgery - Continue nothing by mouth diet. - Continue patient on lactated Ringer's 150 mils per hour. Congestive heart failure with diastolic dysfunction, preserved ejection fraction Hypertension CTD stage III -Appears euvolemic at this time, continue home dose of antihypertensives and diuretics General anxiety disorder Depression -Continue home dose of duloxetine Chronic Atrial fibrillation Tachybradycardia syndrome status post pacemaker placement -Continue to monitor on remote telemetry. - Continue home dose of metoprolol, digoxin, Eliquis Anemia -Chronic, continue to monitor Osteoarthritis -Continue oxycodone 3 times a day (decreased from her home dose of 4 times a day), she has not seemed to notice any significant difference in baseline pain level. GERD -Continue home dose of famotidine Liver cirrhosis -Complicating care - continue home dose of spironolactone and beta dirk Morbid obesity -Complicating care DVT prophylaxis -Continue with home dose of Eliquis VS,Fishbone, I+O VS, Fishbone, I+O Laboratory Tests 11/23/20 06:17 Vital Signs Date Time Temp Pulse Resp B/P (MAP) Pulse Ox O2 Delivery O2 Flow Rate FiO2 11/23/20 16:49 18 11/23/20 14:00 98.7 98 135/89 (104) 94 Room Air I&O- Last 24 Hours up to 6 AM 11/23/20 05:59 Intake Total 2970 ml Output Total 1000 ml Balance 1970 ml VENITA SUAREZ DO Nov 23, 2020 17:23
[2020-11-23] MEDS: METOPROLOL SUCC *XL* 25MG TAB (TopROL *XL*) PO SCH (20:41)
[2020-11-23] MEDS: CINACALCET 30 MG TAB (SENSIPAR) PO SCH (20:42)
[2020-11-23 22:00] VITALS: BP 108/60
[2020-11-24] MEDS: LR 1,000 ML IV SCH ×4 (00:51→20:44)
[2020-11-24 06:00] VITALS: BP 146/75
[2020-11-24 06:01] LABS: HEMATOCRIT 36.7 % (36.0-47.0); HEMOGLOBIN 11.8 g/dl (12.0-15.5); MEAN CORPUSCULAR HEMOGLOBIN 32.1 pg (27.0-33.0); MEAN CORPUSCULAR HGB CONC 32.2 g/dl (32.0-36.5); MEAN CORPUSCULAR VOLUME 99.7 fl (80.0-96.0); PLATELET COUNT, AUTOMATED 286 10^3/uL (150-450); RED BLOOD COUNT 3.68 10^6/uL (4.00-5.40); WHITE BLOOD COUNT 7.9 10^3/uL (4.0-10.0)
[2020-11-24 06:22] LABS: BLOOD UREA NITROGEN 12 MG/DL (7-18); CARBON DIOXIDE LEVEL 33 MEQ/L (21-32); CHLORIDE LEVEL 103 MEQ/L (98-107); CREATININE FOR GFR 0.91 MG/DL (0.55-1.30); GLOMERULAR FILTRATION RATE > 60.0 (>39); GLUCOSE, FASTING 85 MG/DL (70-100); POTASSIUM SERUM 3.6 MEQ/L (3.5-5.1); SODIUM LEVEL 142 MEQ/L (136-145)
[2020-11-24] MEDS: FAMOTIDINE 20 MG TAB PO SCH (08:34)
[2020-11-24] MEDS: DULoxetine 30 MG CAP (CYMBALTA) PO SCH (08:34)
[2020-11-24] MEDS: SIMETHICONE 80MG CHEW TAB PO SCH ×3 (08:34→20:42)
[2020-11-24] MEDS: DIGOXIN 0.125 MG TAB PO SCH (08:34)
[2020-11-24] MEDS: SPIRONOLACTONE 25 MG TAB PO SCH ×2 (08:34→16:37)
[2020-11-24] MEDS: TORSEMIDE 20 MG TAB PO SCH ×2 (08:35→16:37)
[2020-11-24] MEDS: APIXABAN 5 MG TAB (ELIQUIS) PO SCH ×2 (08:35→20:42)
[2020-11-24] MEDS: MIDODRINE 2.5 MG TAB PO SCH ×2 (08:35→16:37)
[2020-11-24] MEDS: PERCOCET 5MG/325MG TAB PO SCH ×3 (08:35→20:43)
--- NOTE | 2020-11-24 10:08 | REP ---
INDICATION: SBO. COMPARISON: Supine abdomen films dated 11/21/2020, 11/22/2020 and 11/23/2020. TECHNIQUE: . Two supine views of the abdomen. FINDINGS: There are dilated small bowel loops throughout the abdomen, not significantly changed from the comparison studies. Gas is also noted in the colon, as previously. There is a nasogastric tube in the upper abdomen. There is markedly deforming advanced arthropathy of the hips bilaterally, unchanged IMPRESSION: Dilated small bowel loops, not significantly changed. <Electronically signed by Tj Wrigth > 11/24/20 1006
[2020-11-24 14:00] VITALS: BP 131/57
[2020-11-24] MEDS: CINACALCET 30 MG TAB (SENSIPAR) PO SCH (20:42)
[2020-11-24] MEDS: METOPROLOL SUCC *XL* 25MG TAB (TopROL *XL*) PO SCH (20:43)
--- NOTE | 2020-11-24 21:58 | IPNPDOC ---
Subjective Date Seen The patient was seen on 11/24/20. Subjective Chief Complaint/HPI Mrs. Willis is a 75 year old female from [facility] who presents with abdominal pain, abdominal distention, and constipation and found to have SBO vs ileus. This morning, she still has abdominal pain and tenderness, but she had a bowel movement. KUB appears similar to the day prior. Objective Physical Examination General Exam: Positive: Alert, Cooperative Eye Exam: Positive: EOMI; Negative: Sclera icteric Neck Exam: Positive: Supple Chest Exam: Positive: Clear to auscultation; Negative: Rales, Rhonchi, Wheezing Heart Exam: Positive: Tachycardic, Irregular Rhythm Abdomen Exam: Positive: BS Hypoactive, Soft, Tenderness Neuro Exam: Positive: Normal Speech Psych Exam: Positive: Mood NL Assessment /Plan Assessment Mrs. Willis is a 75 year old female from [facility] who presents with abdominal pain, abdominal distention, and constipation and found to have SBO vs ileus. Still has abdominal pain and tenderness, so we have continued with NTG. Otherwise, she had a BM today. Continue with bowel regimen. Plan/VTE VTE Prophylaxis Ordered?: Yes Plan 1. Small bowel obstruction vs Ileus -X-ray demonstrates dilated small bowel loops similar to prior. -Continues to have output from NGT -Continue NPO and IVF 2. Chronic Atrial fibrillation -Tachybradycardia syndrome status post pacemaker placement -Continue to monitor on remote telemetry. -Continue metoprolol, digoxin, and Eliquis 3. Depression/Anxiety -Continue duloxetine 4. Osteoarthritis -Continue Oxycodone 5. GERD -Continue famotidine 6. Liver cirrhosis -Continue home dose of spironolactone and beta dirk 7. Morbid obesity -BMI 37.4 -Complicating care 8. DVT prophylaxis -Continue Eliquis VS, I&O, 24H, Fishbone Vital Signs/I&O Vital Signs Date Time Temp Pulse Resp B/P (MAP) Pulse Ox O2 Delivery O2 Flow Rate FiO2 11/24/20 20:43 16 Room Air 11/24/20 20:43 108 136/87 11/24/20 14:00 97.6 96 I&O- Last 24 Hours up to 6 AM 11/24/20 06:00 Intake Total 4290 ml Output Total 2000 ml Balance 2290 ml Laboratory Data 24H LABS Laboratory Tests 2 11/24/20 05:40: Nucleated Red Blood Cells % (auto) 0.0, Anion Gap 6L, Glomerular Filtration Rate > 60.0, Calcium Level 8.0L CBC/BMP Laboratory Tests 11/24/20 05:40 CROW TARANGO DO Nov 24, 2020 21:58
[2020-11-24 22:00] VITALS: BP 136/83
[2020-11-25] MEDS: LR 1,000 ML IV SCH ×3 (03:24→17:25)
[2020-11-25 05:56] LABS: HEMATOCRIT 35.5 % (36.0-47.0); HEMOGLOBIN 11.6 g/dl (12.0-15.5); MEAN CORPUSCULAR HEMOGLOBIN 32.3 pg (27.0-33.0); MEAN CORPUSCULAR HGB CONC 32.7 g/dl (32.0-36.5); MEAN CORPUSCULAR VOLUME 98.9 fl (80.0-96.0); PLATELET COUNT, AUTOMATED 296 10^3/uL (150-450); RED BLOOD COUNT 3.59 10^6/uL (4.00-5.40); WHITE BLOOD COUNT 9.3 10^3/uL (4.0-10.0)
[2020-11-25 06:00] VITALS: BP 138/86
[2020-11-25 06:26] LABS: BLOOD UREA NITROGEN 10 MG/DL (7-18); CALCIUM LEVEL 8.1 MG/DL (8.8-10.2); CARBON DIOXIDE LEVEL 33 MEQ/L (21-32); CHLORIDE LEVEL 106 MEQ/L (98-107); CREATININE FOR GFR 0.75 MG/DL (0.55-1.30); GLOMERULAR FILTRATION RATE > 60.0 (>39); GLUCOSE, FASTING 79 MG/DL (70-100); POTASSIUM SERUM 3.5 MEQ/L (3.5-5.1); SODIUM LEVEL 145 MEQ/L (136-145)
[2020-11-25] MEDS: APIXABAN 5 MG TAB (ELIQUIS) PO SCH ×2 (10:10→20:35)
[2020-11-25] MEDS: PERCOCET 5MG/325MG TAB PO SCH ×3 (10:10→20:36)
[2020-11-25] MEDS: TORSEMIDE 20 MG TAB PO SCH ×2 (10:17→17:24)
[2020-11-25] MEDS: DIGOXIN 0.125 MG TAB PO SCH (10:17)
[2020-11-25] MEDS: SIMETHICONE 80MG CHEW TAB PO SCH ×3 (10:17→20:35)
[2020-11-25] MEDS: SPIRONOLACTONE 25 MG TAB PO SCH ×2 (10:17→17:24)
[2020-11-25] MEDS: MIDODRINE 2.5 MG TAB PO SCH ×2 (10:17→17:24)
[2020-11-25] MEDS: FAMOTIDINE 20 MG TAB PO SCH (10:17)
[2020-11-25] MEDS: DULoxetine 30 MG CAP (CYMBALTA) PO SCH (10:18)
[2020-11-25 14:00] VITALS: BP 103/70
--- NOTE | 2020-11-25 14:30 | REP ---
INDICATION: Chest congestion, pneumonia?. COMPARISON: 11/20/2020. TECHNIQUE: SINGLE PORTABLE AP VIEW OF THE CHEST WAS PERFORMED. FINDINGS: Mildly increasing linear opacities in the right lung base represents developing atelectasis or infiltrate. Follow-up suggested. I see no evidence of infiltrate on the left. Heart and mediastinum are unchanged. A nasogastric tube is seen with side port in the body of the stomach. A left 2 lead pacemaker is present. IMPRESSION: Linear densities right lung base represent developing atelectasis or infiltrate. Follow-up recommended. <Electronically signed by Tj Cheng > 11/25/20 [id number]
--- NOTE | 2020-11-25 15:27 | REP ---
INDICATION: SBO. COMPARISON: 11/24/2020. TECHNIQUE: AP views abdomen and pelvis. FINDINGS: Previously noted moderate small bowel dilatation has improved. Fewer dilated loops are seen at this time with a few loops which are mildly dilated in the left lower abdomen. Air is seen scattered throughout a nondilated colon. A nasogastric tube is seen with side port in the body of the stomach. There are significant degenerative changes of the hips. IMPRESSION: Improved small bowel dilatation, with a few mildly dilated small bowel loops still present in the lower abdomen. <Electronically signed by Tj Cheng > 11/25/20 1526
[2020-11-25] MEDS: CINACALCET 30 MG TAB (SENSIPAR) PO SCH (20:36)
[2020-11-25] MEDS: METOPROLOL SUCC *XL* 25MG TAB (TopROL *XL*) PO SCH (20:38)
[2020-11-25 22:00] VITALS: BP 130/80
--- NOTE | 2020-11-25 22:51 | IPNPDOC ---
Subjective Date Seen The patient was seen on 11/25/20. Subjective Chief Complaint/HPI Mrs. Willis is a 75 year old female from [facility] who presents with abdominal pain, abdominal distention, and constipation and found to have SBO vs ileus. This morning, she continues to have abdominal pain and tenderness. This morning, she also sounded congested. Ordered for CXR which shows possible right lower lobe infiltrate. She may have some aspiration from NGT. Starting patient on Zosyn. Otherwise, today is the 5th day of NTG, and patient still has abdominal pain. Consulted general surgery, Dr. Canchola, recommendations appreciated. Objective Physical Examination General Exam: Positive: Alert, Cooperative Eye Exam: Positive: EOMI; Negative: Sclera icteric Neck Exam: Positive: Supple Chest Exam: Positive: Clear to auscultation, Rhonchi Heart Exam: Positive: Tachycardic, Irregular Rhythm Abdomen Exam: Positive: BS Hypoactive, Soft, Tenderness Neuro Exam: Positive: Normal Speech Psych Exam: Positive: Mood NL Assessment /Plan Assessment Mrs. Willis is a 75 year old female from [facility] who presents with abdominal pain, abdominal distention, and constipation and found to have SBO vs ileus. Still has abdominal pain and tenderness, so we have continued with NTG. Reached out to general surgery for recommendations. Otherwise, she had chest congestion today. Possible aspiration pneumonia. Will start Zosyn Plan/VTE VTE Prophylaxis Ordered?: Yes Plan 1. Small bowel obstruction vs Ileus -Continues to have output from NGT -Continue NPO and IVF -Continue bowel regimen -Consulted general surgery, recommendations appreciated 2. Chronic Atrial fibrillation -Tachybradycardia syndrome status post pacemaker placement -Continue to monitor on remote telemetry. -Continue metoprolol, digoxin, and Eliquis 3. Depression/Anxiety -Continue duloxetine 4. Osteoarthritis -Continue Oxycodone 5. GERD -Continue famotidine 6. Liver cirrhosis -Continue home dose of spironolactone and beta dirk 7. Morbid obesity -BMI 37.4 -Complicating care 8. Possible aspiration pneumonia -Started Zosyn 9. DVT prophylaxis -Continue Eliquis VS, I&O, 24H, Fishbone Vital Signs/I&O Vital Signs Date Time Temp Pulse Resp B/P (MAP) Pulse Ox O2 Delivery O2 Flow Rate FiO2 11/25/20 22:00 97.0 67 20 130/80 (97) 95 4/7/21 21:06 Room Air I&O- Last 24 Hours up to 6 AM 11/25/20 06:00 Intake Total 3230 ml Output Total 2050 ml Balance 1180 ml Laboratory Data 24H LABS Laboratory Tests 2 11/25/20 05:40: Nucleated Red Blood Cells % (auto) 0.0, Anion Gap 6L, Glomerular Filtration Rate > 60.0, Calcium Level 8.1L CBC/BMP Laboratory Tests 11/25/20 05:40 Microbiology Microbiology 11/25/20 Gram Stain, Received Pending 11/25/20 Sputum Culture, Received Pending CROW TARANGO DO Nov 25, 2020 22:51
[2020-11-26] MEDS: LR 1,000 ML IV SCH ×3 (00:30→16:05)
[2020-11-26] MEDS: PIPERACILLIN/TAZOBACTAM SOD 3.375 GM in D5W MINI-BAG PLUS 50 ML IV SCH ×4 (00:30→18:06)
[2020-11-26 06:00] VITALS: BP 146/83
[2020-11-26 07:08] LABS: HEMATOCRIT 36.8 % (36.0-47.0); MEAN CORPUSCULAR HEMOGLOBIN 32.3 pg (27.0-33.0); MEAN CORPUSCULAR HGB CONC 32.6 g/dl (32.0-36.5); MEAN CORPUSCULAR VOLUME 98.9 fl (80.0-96.0); PLATELET COUNT, AUTOMATED 335 10^3/uL (150-450); RED BLOOD COUNT 3.72 10^6/uL (4.00-5.40); WHITE BLOOD COUNT 9.8 10^3/uL (4.0-10.0)
[2020-11-26 07:30] LABS: BLOOD UREA NITROGEN 9 MG/DL (7-18); CALCIUM LEVEL 7.9 MG/DL (8.8-10.2); CARBON DIOXIDE LEVEL 33 MEQ/L (21-32); CHLORIDE LEVEL 103 MEQ/L (98-107); CREATININE FOR GFR 0.69 MG/DL (0.55-1.30); GLOMERULAR FILTRATION RATE > 60.0 (>39); GLUCOSE, FASTING 77 MG/DL (70-100); POTASSIUM SERUM 3.3 MEQ/L (3.5-5.1); SODIUM LEVEL 144 MEQ/L (136-145)
[2020-11-26] MEDS ORDERED: POTASSIUM CHLORIDE 10 MEQ SR TABLET PO ONE (08:00)
--- NOTE | 2020-11-26 08:24 | REP ---
INDICATION: SBO COMPARISON: None. TECHNIQUE: Supine view of the abdomen and pelvis. FINDINGS: Nasogastric tube identified in satisfactory position. The bowel gas pattern is nonspecific. Skeletal structures demonstrate degenerative changes. IMPRESSION: Nonspecific bowel gas pattern. <Electronically signed by Kevin Jones > 11/26/20 0809
[2020-11-26] MEDS: FAMOTIDINE 20 MG TAB PO SCH (09:25)
[2020-11-26] MEDS: PERCOCET 5MG/325MG TAB PO SCH ×3 (09:25→21:06)
[2020-11-26] MEDS: MIDODRINE 2.5 MG TAB PO SCH ×2 (09:25→18:08)
[2020-11-26] MEDS: TORSEMIDE 20 MG TAB PO SCH ×2 (09:28→18:06)
[2020-11-26] MEDS: DIGOXIN 0.125 MG TAB PO SCH (09:29)
[2020-11-26] MEDS: DULoxetine 30 MG CAP (CYMBALTA) PO SCH (09:29)
[2020-11-26] MEDS: SIMETHICONE 80MG CHEW TAB PO SCH ×3 (09:29→21:04)
[2020-11-26] MEDS: APIXABAN 5 MG TAB (ELIQUIS) PO SCH ×2 (09:29→21:06)
[2020-11-26] MEDS: SPIRONOLACTONE 25 MG TAB PO SCH ×2 (09:29→18:06)
[2020-11-26 14:00] VITALS: BP 150/82
--- NOTE | 2020-11-26 14:13 | IPNPDOC ---
Subjective Date Seen The patient was seen on 11/26/20. Subjective Chief Complaint/HPI Mrs. Willis is a 75 year old female from [facility] who presents with abdominal pain, abdominal distention, and constipation and found to have SBO vs ileus. No fever overnight, but still has abdominal pain and tenderness. Denies chest pain or dyspnea. General surgery, Dr. Canchola was consulted, recommendations appreciated Objective Physical Examination General Exam: Positive: Alert, Cooperative Eye Exam: Positive: EOMI; Negative: Sclera icteric Neck Exam: Positive: Supple Chest Exam: Positive: Clear to auscultation, Rhonchi Heart Exam: Positive: Tachycardic, Irregular Rhythm Abdomen Exam: Positive: BS Hypoactive, Soft, Tenderness Neuro Exam: Positive: Normal Speech Psych Exam: Positive: Mood NL Assessment /Plan Assessment Mrs. Willis is a 75 year old female from [facility] who presents with abdominal pain, abdominal distention, and constipation and found to have SBO vs ileus. Still has abdominal pain and tenderness, so we have continued with NTG. Reached out to general surgery for recommendations. Otherwise, CXR demonstrates possible right lung base infiltrate. Possible aspiration pneumonia. Patient has been started on Zosyn, now day 2. Plan/VTE VTE Prophylaxis Ordered?: Yes Plan 1. Small bowel obstruction vs Ileus -Continues to have output from NGT -Continue NPO and IVF -Continue bowel regimen -Consulted general surgery, recommendations appreciated 2. Chronic Atrial fibrillation -Tachybradycardia syndrome status post pacemaker placement -Continue to monitor on remote telemetry. -Continue metoprolol, digoxin, and Eliquis 3. Depression/Anxiety -Continue duloxetine 4. Osteoarthritis -Continue Oxycodone 5. GERD -Continue famotidine 6. Liver cirrhosis -Continue home dose of spironolactone and beta dirk 7. Morbid obesity -BMI 37.4 -Complicating care 8. Possible aspiration pneumonia -Started Zosyn. Antibiotic day 2 9. DVT prophylaxis -Continue Eliquis Disposition: Pending clinical improvement and general surgery's recommendations VS, I&O, 24H, Fishbone Vital Signs/I&O Vital Signs Date Time Temp Pulse Resp B/P (MAP) Pulse Ox O2 Delivery O2 Flow Rate FiO2 11/26/20 09:29 88 11/26/20 09:25 18 11/26/20 06:00 98.0 146/83 (104) 95 11/25/20 21:06 Room Air I&O- Last 24 Hours up to 6 AM 11/26/20 06:00 Intake Total 2413 ml Output Total 3475 ml Balance -1062 ml Laboratory Data 24H LABS Laboratory Tests 2 11/26/20 06:43: Nucleated Red Blood Cells % (auto) 0.0, Anion Gap 8, Glomerular Filtration Rate > 60.0, Calcium Level 7.9L, Magnesium Level 2.0 CBC/BMP Laboratory Tests 11/26/20 06:43 Microbiology Microbiology 11/25/20 Gram Stain - Final, Resulted 11/25/20 Sputum Culture, Resulted Pending CROW TARANGO DO Nov 26, 2020 14:12
--- NOTE | 2020-11-26 20:20 | CR ---
CONSULTATION DATE: 11/26/2020 REASON FOR CONSULTATION: Small-bowel obstruction. HISTORY OF PRESENT ILLNESS: The patient is a 75-year-old woman who is a resident of the [facility] and was admitted to the hospital on the 20 of November with a complaint of abdominal pain with some distention and constipation. She had imaging that suggested a bowel obstruction. An NG tube was placed and she has remained on the Hospitalist's service since then with the NG tube in place, n.p.o. with daily x-rays showing some air in the small and large bowel. I was asked to evaluate the patient regarding a need for a change in management. I had attempted to see the patient yesterday but I was unable to rouse her from deep sleep late last evening, and returned again today to see her. She is noted to have an active DNR/DNI order in place at the senior care. ALLERGIES: Reported to Codeine. MEDICATIONS AT THE TIME OF ADMISSION: As listed in the computer system and are multiple. Most significantly she is on: 1. Eliquis 5 mg p.o. twice daily. 2. Digoxin 125 mcg p.o. daily. 3. Duloxetine 60 mg p.o. daily. 4. Toprol XL 25 mg p.o. q. h.s. 5. Spironolactone 25 mg twice daily. 6. Torsemide 20 mg p.o. twice daily. 7. She is also on a number of other less significant medications and bowel care products. MEDICAL HISTORY: The patient's past medical history is significant for: 1. A history of cardiomyopathy and she had a pacemaker in place since 2011. 2. She reportedly has some congestive heart failure. 3. History of hypertension. 4. History of some chronic back and muscle pain. 5. Chronic kidney disease stage 3. 6. There is a history reported of depression and anxiety. 7. She also reportedly has a history of cirrhosis of the liver. SURGICAL HISTORY: The patient's past surgical history is significant for: 1. Placement of a pacemaker approximately 9 years ago. 2. Bilateral cataract surgery. 3. Right inguinal hernia by me, actually in September of 2008. 4. The patient had a bladder cancer resected in 2007. She has had several subsequent bladder cytologies obtained in follow up which were negative for malignancy. FAMILY HISTORY: Noncontributory. SOCIAL HISTORY: She is a resident of the [facility]. She is a current nonsmoker and nondrinker. REVIEW OF SYSTEMS: No current chest pain or palpitations. She is not actually complaining of any abdominal pain currently. She cannot tell me clearly if she has had any flatus or bowel movements in the last couple days. She appears to be breathing easily without cough or wheezing. PHYSICAL EXAMINATION: GENERAL APPEARANCE: The patient is awake and alert. She actually remembered my name from when I had repaired her hernia in 2008, though I will admit that I did not remember her. She also remembered that I had operated on her mother many years before that, perhaps 2004. SKIN: Warm and dry. HEENT: Sclerae are anicteric. VITAL SIGNS: Most recent vital signs showed a temperature of 98.2 with a pulse of 106, respirations of 20 and a blood pressure of 150/82. HEART: Regular rhythm. She has a pacemaker palpable in the left infraclavicular fossa. LUNGS: Clear to auscultation bilaterally. ABDOMEN: Somewhat obese. She has an old scar in the right lower quadrant. She does have some bowel sounds present in all four quadrants. There is no tympany to percussion. There is no tenderness to percussion. The abdomen is soft throughout without significant tenderness identified. LABORATORY STUDIES: Today white count of 10, hemoglobin 12, hematocrit 37 and a platelet count of 335,000. She had coagulation studies from the that showed a PT of 17.4, INR of 1.39 and a PTT of 45.1. Chemistries today showed a sodium of 144, potassium 3.3, chloride 103, CO2 of 33, BUN of 9, creatinine 0.7 and a glucose of 77. IMAGING: A CT scan of the abdomen and pelvis on the 20 of November. She has had nearly daily abdominal x-rays since then. Her x-ray today shows some air through the small and large bowel. She does not have obvious distended small bowel loops, but there are some loops of air filled small bowel. The NG tube is noted in place in the distal stomach. IMPRESSION: 1. Possible small bowel obstruction versus ileus versus just delayed bowel transit. Her abdomen is fairly benign today. It is mildly distended or full but she has no significant tenderness on palpation. She is unable to tell me if she has been passing any flatus over the last couple days. Her x-ray does seem to show some air in her colon distally. PLAN: I have taken the liberty of ordering a small bowel follow through study for tomorrow. She will receive some contrast and we can then determine if she has a patent GI tract. If she tolerates the contrast and we see flow through to the colon, then her NG tube can be removed and we could start her on some clear liquids. If there is evidence for obstruction, then I will need to speak with the patient further about whether she would be interested in pursuing a surgical approach to her problem. ABEL
[2020-11-26] MEDS: CINACALCET 30 MG TAB (SENSIPAR) PO SCH (21:04)
[2020-11-26] MEDS: METOPROLOL SUCC *XL* 25MG TAB (TopROL *XL*) PO SCH (21:05)
[2020-11-26 22:00] VITALS: BP 149/82
[2020-11-27] MEDS: LR 1,000 ML IV SCH ×4 (01:09→16:50)
[2020-11-27] MEDS: PIPERACILLIN/TAZOBACTAM SOD 3.375 GM in D5W MINI-BAG PLUS 50 ML IV SCH ×4 (01:09→18:07)
[2020-11-27 06:00] VITALS: BP 144/89
[2020-11-27 06:10] LABS: HEMATOCRIT 36.8 % (36.0-47.0); HEMOGLOBIN 12.2 g/dl (12.0-15.5); MEAN CORPUSCULAR HEMOGLOBIN 31.9 pg (27.0-33.0); MEAN CORPUSCULAR HGB CONC 33.2 g/dl (32.0-36.5); MEAN CORPUSCULAR VOLUME 96.3 fl (80.0-96.0); PLATELET COUNT, AUTOMATED 358 10^3/uL (150-450); RED BLOOD COUNT 3.82 10^6/uL (4.00-5.40); WHITE BLOOD COUNT 8.4 10^3/uL (4.0-10.0)
[2020-11-27 06:22] LABS: BLOOD UREA NITROGEN 7 MG/DL (7-18); CALCIUM LEVEL 8.2 MG/DL (8.8-10.2); CARBON DIOXIDE LEVEL 32 MEQ/L (21-32); CHLORIDE LEVEL 103 MEQ/L (98-107); CREATININE FOR GFR 0.76 MG/DL (0.55-1.30); GLOMERULAR FILTRATION RATE > 60.0 (>39); GLUCOSE, FASTING 72 MG/DL (70-100); POTASSIUM SERUM 3.2 MEQ/L (3.5-5.1); SODIUM LEVEL 142 MEQ/L (136-145)
[2020-11-27] MEDS ORDERED: POTASSIUM CHLORIDE 10 MEQ SR TABLET PO ONE (08:00)
[2020-11-27] MEDS: SIMETHICONE 80MG CHEW TAB PO SCH ×3 (09:14→21:00)
[2020-11-27] MEDS: SPIRONOLACTONE 25 MG TAB PO SCH ×2 (09:14→18:05)
[2020-11-27] MEDS: APIXABAN 5 MG TAB (ELIQUIS) PO SCH ×2 (09:14→21:00)
[2020-11-27] MEDS: FAMOTIDINE 20 MG TAB PO SCH (09:14)
[2020-11-27] MEDS: TORSEMIDE 20 MG TAB PO SCH ×2 (09:14→18:06)
[2020-11-27] MEDS: PERCOCET 5MG/325MG TAB PO SCH ×3 (09:15→21:01)
[2020-11-27] MEDS: DULoxetine 30 MG CAP (CYMBALTA) PO SCH (09:15)
[2020-11-27] MEDS: DIGOXIN 0.125 MG TAB PO SCH (09:15)
[2020-11-27] MEDS: MIDODRINE 2.5 MG TAB PO SCH ×2 (09:17→18:05)
--- NOTE | 2020-11-27 10:53 | IPNPDOC ---
Subjective Date Seen The patient was seen on 11/27/20. Subjective Chief Complaint/HPI Mrs. Willis is a 75 year old female from [facility] who presents with abdominal pain, abdominal distention, and constipation and found to have SBO vs ileus. Last night, she was seen by general surgery. They are planning for small bowel follow through today to determine next course of action. Otherwise this morning, she denies any chest pain or dyspnea. She reports abdominal tenderness. Objective Physical Examination General Exam: Positive: Alert, Cooperative Eye Exam: Positive: EOMI Neck Exam: Positive: Supple Chest Exam: Positive: Clear to auscultation, Rhonchi Heart Exam: Positive: Tachycardic, Irregular Rhythm Abdomen Exam: Positive: BS Hypoactive, Soft, Tenderness Neuro Exam: Positive: Normal Speech Psych Exam: Positive: Mood NL Assessment /Plan Assessment Mrs. Willis is a 75 year old female from [facility] who presents with abdominal pain, abdominal distention, and constipation and found to have SBO vs ileus. Still has abdominal pain and tenderness, so we have continued with NTG. Reached out to general surgery for recommendations. General surgery planning for small bowel follow through for next plan of action. Otherwise, CXR demonstrates possible right lung base infiltrate. Possible aspiration pneumonia. Patient has been started on Zosyn, now day 3. Plan/VTE VTE Prophylaxis Ordered?: Yes Plan 1. Small bowel obstruction vs Ileus -Continues to have output from NGT -Continue NPO and IVF -Continue bowel regimen -Consulted general surgery, recommendations appreciated. Planning for small bowel follow through today 2. Chronic Atrial fibrillation -Tachybradycardia syndrome status post pacemaker placement -Continue to monitor on remote telemetry. -Continue metoprolol, digoxin, and Eliquis 3. Depression/Anxiety -Continue duloxetine 4. Osteoarthritis -Continue Oxycodone 5. GERD -Continue famotidine 6. Liver cirrhosis -Continue home dose of spironolactone and beta dirk 7. Morbid obesity -BMI 37.4 -Complicating care 8. Possible aspiration pneumonia -Started Zosyn. Antibiotic day 3 9. DVT prophylaxis -Continue Eliquis Disposition: Pending results from small bowel follow through and general surgery recommendations VS, I&O, 24H, Fishbone Vital Signs/I&O Vital Signs Date Time Temp Pulse Resp B/P (MAP) Pulse Ox O2 Delivery O2 Flow Rate FiO2 11/27/20 10:25 18 11/27/20 09:15 92 11/27/20 06:00 97.6 144/89 (107) 96 11/26/20 18:06 Room Air I&O- Last 24 Hours up to 6 AM 11/27/20 06:00 Intake Total 50 ml Output Total 2400 ml Balance -2350 ml Laboratory Data 24H LABS Laboratory Tests 2 11/27/20 05:47: Nucleated Red Blood Cells % (auto) 0.0 11/27/20 05:48: Anion Gap 7L, Glomerular Filtration Rate > 60.0, Calcium Level 8.2L CBC/BMP Laboratory Tests 11/27/20 05:47 11/27/20 05:48 Microbiology Microbiology 11/25/20 Gram Stain - Final, Resulted 11/25/20 Sputum Culture, Resulted Pending CROW TARANGO DO Nov 27, 2020 10:53
[2020-11-27] MEDS ORDERED: E-Z-PAQUE 96% w/w SUSP 176GM BTL As Ordered ONE (11:22)
[2020-11-27 14:00] VITALS: BP 139/76
--- NOTE | 2020-11-27 18:54 | REP ---
INDICATION: possible SBO. COMPARISON: None. TECHNIQUE: The procedure was performed under the direct supervision of Dr. Cheng. The images were reviewed with Dr. Cheng. Liquid barium was administered, through the NG tube, and the barium column was followed through the small bowel to the level of the terminal ileum. 1.1 minutes of fluoro time was utilized for this procedure. FINDINGS: The tree scout film shows no organomegaly or pathological masses. The intestinal gas pattern is nonspecific. Small bowel transit time is approximately 1 hour. During fluoroscopy gentle palpation shows all loops are freely movable and pliable. There are no fixed or angulated loops. The jejunal loops appear mildly dilated with no zone of transition identified. Spot filming of the terminal ileum shows it to be unremarkable. IMPRESSION: The jejunal loops appear mildly dilated with no zone transition identified. Otherwise, unremarkable small bowel study.. <Electronically signed by Chano Segura > 11/27/20 1285 <Electronically signed by Tj Cheng > 11/27/20 [id number]
[2020-11-27] MEDS: CINACALCET 30 MG TAB (SENSIPAR) PO SCH (21:00)
[2020-11-27] MEDS: METOPROLOL SUCC *XL* 25MG TAB (TopROL *XL*) PO SCH (21:04)
[2020-11-27 22:00] VITALS: BP 130/68
[2020-11-28] MEDS: LR 1,000 ML IV SCH (05:21)
[2020-11-28] MEDS: PIPERACILLIN/TAZOBACTAM SOD 3.375 GM in D5W MINI-BAG PLUS 50 ML IV SCH ×6 (05:43→23:43)
[2020-11-28 06:00] VITALS: BP_SYST 112; BP_SYST 151; BP_DIAS 73; BP_DIAS 74
[2020-11-28 06:22] LABS: HEMATOCRIT 39.6 % (36.0-47.0); HEMOGLOBIN 12.8 g/dl (12.0-15.5); MEAN CORPUSCULAR HEMOGLOBIN 31.8 pg (27.0-33.0); MEAN CORPUSCULAR HGB CONC 32.3 g/dl (32.0-36.5); MEAN CORPUSCULAR VOLUME 98.3 fl (80.0-96.0); PLATELET COUNT, AUTOMATED 335 10^3/uL (150-450); RED BLOOD COUNT 4.03 10^6/uL (4.00-5.40); WHITE BLOOD COUNT 9.4 10^3/uL (4.0-10.0)
[2020-11-28 06:36] LABS: BLOOD UREA NITROGEN 8 MG/DL (7-18); CALCIUM LEVEL 7.9 MG/DL (8.8-10.2); CARBON DIOXIDE LEVEL 27 MEQ/L (21-32); CHLORIDE LEVEL 103 MEQ/L (98-107); CREATININE FOR GFR 0.94 MG/DL (0.55-1.30); GLOMERULAR FILTRATION RATE > 60.0 (>39); GLUCOSE, FASTING 83 MG/DL (70-100); POTASSIUM SERUM 3.4 MEQ/L (3.5-5.1); SODIUM LEVEL 140 MEQ/L (136-145)
[2020-11-28] MEDS ORDERED: POTASSIUM CHLORIDE 10 MEQ SR TABLET PO ONE (08:00)
--- NOTE | 2020-11-28 08:40 | IPN ---
PROGRESS NOTE DATE: 11/27/2020 HISTORY: Patient was admitted back on 11/20/2020 with some abdominal discomfort and a CT scan that was interpreted as showing a bowel obstruction. She has remained hospitalized with a nasogastric (NG) tube in place. I ordered her a small bowel followthrough study for today. This was done earlier this morning. VITAL SIGNS: Show that she has been afebrile over the past 24 hours. Her pulse is quite variable actually, ranging between 76-116 over the last 24 hours. Her blood pressure is good and her room air oxygen saturation is fine. Intake and output shows that she had 700 in yesterday with 2400 out. PHYSICAL EXAMINATION: Patient is lying quietly in the hospital bed looking quite comfortable. Abdomen is soft and without significant tenderness. LABORATORY STUDIES: Show that her white count is 8, hemoglobin 12, hematocrit 37, and the platelet count is 358,000. Shows that her electrolytes are normal with the exception of a potassium of 3.2. IMAGING: Patient had her small bowel followthrough today. This showed rapid passage of contrast through to the colon within 30 minutes to an hour. The radiologist noted that there were some jejunal loops that appeared mildly dilated but no definite transition point was seen. IMPRESSION: With patient's small bowel followthrough study showing rapid transit through the small bowel to the colon I had her nasogastric (NG) tube removed shortly after the study and started her on some clear liquids. She reports that she has been having some bowel movements this afternoon and evening since the small bowel followthrough study. RECOMMENDATIONS: I would recommend advancing her diet as tolerated. She can be transferred back to the [facility] when she is tolerating her diet adequately and any other medical issues are stable. ABEL
--- NOTE | 2020-11-28 08:53 | REP ---
INDICATION: SBO. COMPARISON: 11/26/2020, small-bowel series 11/27/2020. TECHNIQUE: AP views abdomen and pelvis. FINDINGS: Barium from yesterday's small bowel series is seen throughout a nondilated colon. The appendix is visualized and is normal. There are few mildly dilated small bowel loops in the mid and left abdomen, possibly representing a mild ileus. The appearance is similar to 11/26/2020 exam. IMPRESSION: Barium from small bowel series is seen within a nondilated colon. Mildly dilated small bowel loops in the left lower quadrant are unchanged. <Electronically signed by Tj Cheng > 11/28/20 3111
[2020-11-28] MEDS: SIMETHICONE 80MG CHEW TAB PO SCH ×3 (08:55→20:48)
[2020-11-28] MEDS: FAMOTIDINE 20 MG TAB PO SCH (08:55)
[2020-11-28] MEDS: APIXABAN 5 MG TAB (ELIQUIS) PO SCH ×2 (08:57→20:48)
[2020-11-28] MEDS: PERCOCET 5MG/325MG TAB PO SCH ×3 (08:57→20:49)
[2020-11-28] MEDS: TORSEMIDE 20 MG TAB PO SCH ×2 (08:57→17:28)
[2020-11-28] MEDS: SPIRONOLACTONE 25 MG TAB PO SCH ×2 (08:58→17:27)
[2020-11-28] MEDS: MIDODRINE 2.5 MG TAB PO SCH ×2 (08:59→17:00)
[2020-11-28] MEDS ORDERED: CEPACOL LOZENGE PO PRN (09:00)
[2020-11-28] MEDS: DIGOXIN 0.125 MG TAB PO SCH (09:46)
[2020-11-28] MEDS: DULoxetine 30 MG CAP (CYMBALTA) PO SCH (09:47)
[2020-11-28 09:50] VITALS: BP 91/63
--- NOTE | 2020-11-28 11:49 | IPNPDOC ---
Subjective Date Seen The patient was seen on 11/28/20. Subjective Chief Complaint/HPI Mrs. Willis is a 75 year old female from [facility] who presents with abdominal pain, abdominal distention, and constipation and found to have SBO vs ileus. The small bowel follow through did not demonstrate obstruction. NGT was removed and patient started on liquid diet. She was seen this morning. She denies chest pain or dyspnea. She reports abdominal pain and tenderness, but was eating her liquid diet rapidly without problem. General surgery advanced diet to regular. Objective Physical Examination General Exam: Positive: Alert, Cooperative Eye Exam: Positive: EOMI Neck Exam: Positive: Supple Chest Exam: Positive: Clear to auscultation, Rhonchi Heart Exam: Positive: Tachycardic, Irregular Rhythm Abdomen Exam: Positive: BS Hypoactive, Soft, Tenderness Neuro Exam: Positive: Normal Speech Psych Exam: Positive: Mood NL Assessment /Plan Assessment Mrs. Willis is a 75 year old female from [facility] who presents with abdominal pain, abdominal distention, and constipation and found to have SBO vs ileus. Small b owel follow through negative for obstruction. NGT removed and patient started on liquid diet. She has done well and advanced to regular diet this afternoon. Otherwise, CXR demonstrates possible right lung base infiltrate. Possible aspiration pneumonia. Patient has been started on Zosyn, now day 4. Plan/VTE VTE Prophylaxis Ordered?: Yes Plan 1.Ileus -General surgery consulted, recommendations appreciated -Small bowel follow through negative for obstruction -NGT removed and patient tolerated liquid diet -Trying solid diet today 2. Chronic Atrial fibrillation -Tachybradycardia syndrome status post pacemaker placement -Continue to monitor on remote telemetry. -Continue metoprolol, digoxin, and Eliquis 3. Depression/Anxiety -Continue duloxetine 4. Osteoarthritis -Continue Oxycodone 5. GERD -Continue famotidine 6. Liver cirrhosis -Continue home dose of spironolactone and beta dirk 7. Morbid obesity -BMI 37.4 -Complicating care 8. Possible aspiration pneumonia -Started Zosyn. Antibiotic day 4 9. DVT prophylaxis -Continue Eliquis Disposition: If tolerates regulars and continues to have BM, possible discharge tomorrow VS, I&O, 24H, Fishbone Vital Signs/I&O Vital Signs Date Time Temp Pulse Resp B/P (MAP) Pulse Ox O2 Delivery O2 Flow Rate FiO2 11/28/20 09:50 14 98 Room Air 11/28/20 09:46 76 11/28/20 06:00 97.6 112/74 (87) I&O- Last 24 Hours up to 6 AM 11/28/20 06:00 Intake Total 2665 ml Output Total 950 ml Balance 1715 ml Laboratory Data 24H LABS Laboratory Tests 2 11/28/20 06:06: Nucleated Red Blood Cells % (auto) 0.0, Anion Gap 10, Glomerular Filtration Rate > 60.0, Calcium Level 7.9L CBC/BMP Laboratory Tests 11/28/20 06:06 Microbiology Microbiology 11/25/20 Gram Stain - Final, Resulted 11/25/20 Sputum Culture, Resulted Pending CROW TARANGO DO Nov 28, 2020 11:49
--- NOTE | 2020-11-28 13:42 | IPN ---
PROGRESS NOTE DATE: 11/28/2020 HISTORY: Patient had a small-bowel follow-through study yesterday, which showed no evidence of small-bowel obstruction. I advanced her to clear liquids, which she apparently has tolerated well. She denies any nausea or vomiting. She has had some bowel movements. Vital signs show that she has been afebrile over the past 24 hours. Her pulse varies between the 60s and low 1-teens. Her blood pressure has been good, and her room air oxygen saturation is normal. Intake and output show that yesterday she had 2240 recorded in with 1200 recorded out. She did have some incontinence, which was not measurable. PHYSICAL EXAMINATION: The patient is awake, alert, and interactive. Skin is warm and dry. Heart exam shows an irregular rhythm. She has good bilateral breath sounds. Abdomen is mildly full but soft and without any significant tenderness. Laboratory studies today include a CBC showing a white count of 9, hemoglobin 13, hematocrit 40, and a platelet count of 335,000, which is very stable over the last 5 days. She has chemistry profile today showing a potassium of 3.4, which is slightly improved from yesterday and otherwise is normal. A KUB was done today, which shows some residual contrast in the large bowel and none in the small intestine. IMPRESSION: Resolved small-bowel obstruction. RECOMMENDATIONS: At this point, I have taken the liberty of ordering a regular diet. She can pick and choose whatever she is comfortable with. I have also reordered reinstating her daily dose of MiraLax at bedtime given her history of chronic constipation. She can be discharged back to the [facility] whenever her medical issues are felt to be stable. I spoke with Dr. Grullon by telephone with my recommendations about this patient just prior to dictating this note. ABEL
[2020-11-28 14:00] VITALS: BP 116/66
[2020-11-28] MEDS: METOPROLOL SUCC *XL* 25MG TAB (TopROL *XL*) PO SCH (20:52)
[2020-11-28] MEDS: MIRALAX *UNIT DOSE* 17GM PACKET PO SCH (20:52)
[2020-11-28 22:00] VITALS: BP 129/77
[2020-11-29 06:00] VITALS: BP 129/77
[2020-11-29] MEDS: PIPERACILLIN/TAZOBACTAM SOD 3.375 GM in D5W MINI-BAG PLUS 50 ML IV SCH ×3 (06:00→17:16)
[2020-11-29 06:26] LABS: HEMATOCRIT 36.4 % (36.0-47.0); HEMOGLOBIN 11.8 g/dl (12.0-15.5); MEAN CORPUSCULAR HEMOGLOBIN 31.6 pg (27.0-33.0); MEAN CORPUSCULAR HGB CONC 32.4 g/dl (32.0-36.5); MEAN CORPUSCULAR VOLUME 97.6 fl (80.0-96.0); PLATELET COUNT, AUTOMATED 360 10^3/uL (150-450); RED BLOOD COUNT 3.73 10^6/uL (4.00-5.40); WHITE BLOOD COUNT 8.8 10^3/uL (4.0-10.0)
[2020-11-29 06:48] LABS: CALCIUM LEVEL 7.9 MG/DL (8.8-10.2); CREATININE FOR GFR 1.09 MG/DL (0.55-1.30); GLOMERULAR FILTRATION RATE 52.4 (>39); POTASSIUM SERUM 3.8 MEQ/L (3.5-5.1)
[2020-11-29] MEDS: MIDODRINE 2.5 MG TAB PO SCH ×2 (08:00→17:00)
[2020-11-29] MEDS: DULoxetine 30 MG CAP (CYMBALTA) PO SCH (08:48)
[2020-11-29] MEDS: FAMOTIDINE 20 MG TAB PO SCH (08:48)
[2020-11-29] MEDS: DIGOXIN 0.125 MG TAB PO SCH (08:48)
[2020-11-29] MEDS: PERCOCET 5MG/325MG TAB PO SCH ×3 (08:48→21:29)
[2020-11-29] MEDS: SIMETHICONE 80MG CHEW TAB PO SCH ×3 (08:48→21:28)
[2020-11-29] MEDS: SPIRONOLACTONE 25 MG TAB PO SCH ×2 (08:49→17:14)
[2020-11-29] MEDS: TORSEMIDE 20 MG TAB PO SCH ×2 (08:49→17:15)
[2020-11-29] MEDS: APIXABAN 5 MG TAB (ELIQUIS) PO SCH ×2 (08:49→21:28)
[2020-11-29 14:00] VITALS: BP 127/78
--- NOTE | 2020-11-29 18:39 | IPNPDOC ---
Subjective Date Seen The patient was seen on 11/29/20. Subjective Chief Complaint/HPI Mrs. Willis is a 75 year old female from [facility] who presents with abdominal pain, abdominal distention, and constipation and found to have SBO vs ileus. Patient was seen in the morning. She reports some abdominal tenderness, but has tolerated a regular diet. Has not needed Zofran. Otherwise denies chest pain or dyspnea. Objective Physical Examination General Exam: Positive: Alert, Cooperative Eye Exam: Positive: EOMI Neck Exam: Positive: Supple Chest Exam: Positive: Clear to auscultation, Rhonchi Heart Exam: Positive: Tachycardic, Irregular Rhythm Abdomen Exam: Positive: BS Hypoactive, Soft, Tenderness Neuro Exam: Positive: Normal Speech Psych Exam: Positive: Mood NL Assessment /Plan Assessment Mrs. Willis is a 75 year old female from [facility] who presents with abdominal pain, abdominal distention, and constipation and found to have SBO vs ileus. Small bowel follow through negative for obstruction. NGT removed and patient started on liquid diet. She has done well and advanced to regular diet this afternoon. Otherwise, CXR demonstrates possible right lung base infiltrate. Possible aspiration pneumonia. Patient has been started on Zosyn, now day 5. Plan/VTE VTE Prophylaxis Ordered?: Yes Plan 1. SBO -General surgery consulted, recommendations appreciated -Small bowel follow through negative for obstruction -NGT removed -She is having bowel movements and tolerating solid diet -Resolved 2. Chronic Atrial fibrillation -Tachybradycardia syndrome status post pacemaker placement -Continue to monitor on remote telemetry. -Continue metoprolol, digoxin, and Eliquis 3. Depression/Anxiety -Continue duloxetine 4. Osteoarthritis -Continue Oxycodone 5. GERD -Continue famotidine 6. Liver cirrhosis -Continue home dose of spironolactone and beta dirk 7. Morbid obesity -BMI 37.4 -Complicating care 8. Possible aspiration pneumonia -Started Zosyn. Antibiotic day 5 9. DVT prophylaxis -Continue Eliquis Disposition: Anticipate return to [facility] tomorrow VS, I&O, 24H, Fishbone Vital Signs/I&O Vital Signs Date Time Temp Pulse Resp B/P (MAP) Pulse Ox O2 Delivery O2 Flow Rate FiO2 11/29/20 17:45 16 11/29/20 14:00 97.7 95 127/78 (94) 95 Room Air I&O- Last 24 Hours up to 6 AM 11/29/20 06:00 Intake Total 2500 ml Output Total 1050 ml Balance 1450 ml Laboratory Data 24H LABS Laboratory Tests 2 11/29/20 05:53: Nucleated Red Blood Cells % (auto) 0.0, Anion Gap 7L, Glomerular Filtration Rate 52.4, Calcium Level 7.9L CBC/BMP Laboratory Tests 11/29/20 05:53 Microbiology Microbiology 11/25/20 Gram Stain - Final, Complete 11/25/20 Sputum Culture - Final, Complete Staphylococcus Aureus CROW TARANGO DO Nov 29, 2020 18:39
[2020-11-29] MEDS: MIRALAX *UNIT DOSE* 17GM PACKET PO SCH (21:28)
[2020-11-29 21:29] VITALS: BP 126/71
[2020-11-29] MEDS: METOPROLOL SUCC *XL* 25MG TAB (TopROL *XL*) PO SCH (21:29)
[2020-11-29 22:00] VITALS: BP 118/76
[2020-11-30] MEDS: PIPERACILLIN/TAZOBACTAM SOD 3.375 GM in D5W MINI-BAG PLUS 50 ML IV SCH ×2 (00:43→05:51)
[2020-11-30 06:00] VITALS: BP 136/84
[2020-11-30] MEDS: MIDODRINE 2.5 MG TAB PO SCH (08:00)
[2020-11-30] MEDS: TORSEMIDE 20 MG TAB PO SCH (08:50)
[2020-11-30] MEDS: SIMETHICONE 80MG CHEW TAB PO SCH (08:50)
[2020-11-30] MEDS: SPIRONOLACTONE 25 MG TAB PO SCH (08:50)
[2020-11-30] MEDS: APIXABAN 5 MG TAB (ELIQUIS) PO SCH (08:50)
[2020-11-30] MEDS: DULoxetine 30 MG CAP (CYMBALTA) PO SCH (08:50)
[2020-11-30] MEDS: FAMOTIDINE 20 MG TAB PO SCH (08:50)
[2020-11-30] MEDS: DIGOXIN 0.125 MG TAB PO SCH (08:51)
[2020-11-30] MEDS: PERCOCET 5MG/325MG TAB PO SCH (08:52)
[2020-11-30 08:59] LABS: HEMATOCRIT 38.4 % (36.0-47.0); HEMOGLOBIN 12.4 g/dl (12.0-15.5); MEAN CORPUSCULAR HGB CONC 32.3 g/dl (32.0-36.5); MEAN CORPUSCULAR VOLUME 99.2 fl (80.0-96.0); PLATELET COUNT, AUTOMATED 383 10^3/uL (150-450); RED BLOOD COUNT 3.87 10^6/uL (4.00-5.40); WHITE BLOOD COUNT 9.7 10^3/uL (4.0-10.0)
[2020-11-30 09:20] LABS: CALCIUM LEVEL 8.3 MG/DL (8.8-10.2); CREATININE FOR GFR 1.05 MG/DL (0.55-1.30); GLOMERULAR FILTRATION RATE 54.7 (>39); POTASSIUM SERUM 3.9 MEQ/L (3.5-5.1)
--- NOTE | 2020-11-30 23:12 | DS.PDOC ---
Discharge Summary General Date of Admission Nov 20, 2020 at 09:08 Date of Discharge Nov 30, 2020 Specialist/Consultants Involve General surgery, Dr. Canchola Discharge Summary PROCEDURES PERFORMED DURING STAY: NGT placement ADMITTING DIAGNOSES: 1. Small bowel obstruction 2. HFpEF (chronic, stable) 3. General anxiety disorder 4. Depression 5. Chronic atrial fibrillation 6. Anemia 7. Osteoarthritis 8. GERD 9. Liver cirrhosis 10. Morbid obesity DISCHARGE DIAGNOSES: 1. Small bowel obstruction 2. HFpEF (chronic, stable) 3. General anxiety disorder 4. Depression 5. Chronic atrial fibrillation 6. Anemia 7. Osteoarthritis 8. GERD 9. Liver cirrhosis 10. Morbid obesity 11. Aspiration pneumonia COMPLICATIONS/CHIEF COMPLAINT: Abdominal pain HISTORY OF PRESENT ILLNESS: Mrs. Willis is a 75 year old female from [facility] who presents with abdominal pain. She has associated abdominal distension and constipation. She was sent to the ED for evaluation and found to have small bowel obstruction NGT was placed in the ED. HOSPITAL COURSE: During her hospitalization, she continued to have abdominal pain. General surgery was not consulted early because she did have bowel movements. Still had abdominal pain and frequent KUB did not show much change. About 5 days with the NGT, general surgery, Dr. Canchola, was consulted for evaluation. He ordered a small bowel follow through which did not demonstrate small bowel obstruction. NGT was removed and her diet was advanced as tolerated. Otherwise, on day 4 of NGT, patient was feeling short of breath and lungs had rales and rhonchi. CXR demonstrated right lung base infiltrate. Patient may have aspirated while the NGT was in place. Patient was put on Zosyn, and she completed her course of antibiotics while inpatient. Today, she felt well. She tolerated a solid diet and have been having bowel movements. Her SBO was resolved. She was discharged back to [facility] today. DISCHARGE MEDICATIONS: Please see below. ALLERGIES: Please see below. PHYSICAL EXAMINATION ON DISCHARGE: VITAL SIGNS: Please see below. GENERAL: Comfortable, in no apparent distress HEENT: Head normocephalic, atraumatic NECK: Supple CARDIOVASCULAR EXAMINATION: Irregular rhythm but rate controlled RESPIRATORY EXAMINATION: Lungs clear to auscultation bilaterally ABDOMINAL EXAMINATION: Soft, normal bowel sounds SKIN: Warm and dry NEUROLOGICAL EXAMINATION: CN 3-12 grossly intact PSYCHIATRIC EXAMINATION: Normal mood and affect LABORATORY DATA: Please see below. IMAGING: CT abd/pelvis with IV contrast only 1. Borderline to mild distention of small bowel with air-fluid levels and tapering to the ileocecal valve and no definite abrupt point of transition. There is slight edema of some of the supplying mesentery. In view of colonic fluid, findings may reflect enteritis. There is question of slight wall thickening of the distal ileum. 2. Mild cardiomegaly with pacemaker. CXR Linear densities right lung base represent developing atelectasis or infiltrate. Small bowel follow through The jejunal loops appear mildly dilated with no zone transition identified. Otherwise, unremarkable small bowel study PROGNOSIS: Good ACTIVITY: As tolerated. DIET: 2gm sodium DISCHARGE PLAN: Return to [facility] DISPOSITION: [facility]. DISCHARGE INSTRUCTIONS: 1. Follow up with your provider at [facility] within 1 week DISCHARGE CONDITION: Stable. Total time spent on discharge planning, discharge summary, and medication reconciliation: 45 minutes Vital Signs/I&Os Vital Signs Date Time Temp Pulse Resp B/P (MAP) Pulse Ox O2 Delivery O2 Flow Rate FiO2 11/30/20 09:22 18 11/30/20 08:51 95 11/30/20 06:00 98.0 136/84 (101) 96 11/29/20 21:59 Room Air I&O- Last 24 Hours up to 6 AM 11/30/20 06:00 Intake Total 2250 ml Output Total 1500 ml Balance 750 ml Laboratory Data Labs 24H Laboratory Tests 2 11/30/20 08:41: Nucleated Red Blood Cells % (auto) 0.0, Anion Gap 8, Glomerular Filtration Rate 54.7, Calcium Level 8.3L 11/30/20 09:00: Coronavirus (COVID-19)(PCR) NEGATIVE CBC/BMP Laboratory Tests 11/30/20 08:41 Microbiology Microbiology 11/25/20 Gram Stain - Final, Complete 11/25/20 Sputum Culture - Final, Complete Staphylococcus Aureus Discharge Medications Scheduled Apixaban (Eliquis) 5 Mg Tablet, 5 MG PO BID, (Reported) Cinacalcet HCl (Sensipar) 60 Mg Tablet, 60 MG PO 5XW, (Reported) MONDAY, MONDAY, MONDAY, MONDAY AND MONDAY AT [facility] Cyanocobalamin (Vitamin B-12) (Vitamin B-12) 1,000 Mcg Tab, 1,000 MCG PO DAILY, (Reported) Dextran/Hypromellose (Genteal Tears 0.1%-0.3% Drop) 15 Ml Drops, 1 DROP OU BID, (Reported) Digoxin (Digoxin) 125 Mcg Tablet, 125 MCG PO DAILY, (Reported) Duloxetine Hcl (Cymbalta) 60 Mg Capsule.dr, 60 MG PO DAILY, (Reported) Famotidine (Famotidine) 20 Mg Tablet, 20 MG PO DAILY, (Reported) Metoprolol Succinate (Toprol Xl) 25 Mg Tab.er.24h, 25 MG PO QHS, (Reported) Multivitamins (Thera M Plus Tablet) 1 Each Tablet, 1 TAB PO DAILY, (Reported) Oxycodone HCl/Acetaminophen (Oxycodone-Acetaminophen 5-325) 1 Each Tablet, 1 TAB PO QID, (Reported) 0600, 1100, 1600, 2000 Polyethylene Glycol 3350 (Miralax) 17 Gm Powd.pack, 17 GM PO QHS, (Reported) Potassium Chloride (Potassium Chloride) 10 Meq Capsule.er, 20 MEQ PO DAILY, (Reported) Sennosides/Docusate Sodium (Senna-S Tablet) 1 Each Tablet, 2 TAB PO DAILY, (Re ported) Spironolactone (Aldactone) 25 Mg Tab, 25 MG PO BID, (Reported) 0800, 1400 Torsemide (Torsemide) 20 Mg Tab, 20 MG PO BID, (Reported) 0800, 1400 Scheduled PRN Acetaminophen (Acetaminophen) 325 Mg Tab, 650 MG PO Q4H PRN for PAIN / FEVER, (Reported) Aluminum/Magnesium/Simeth (Mag-Al Plus Suspension) 30 Ml Oral.susp, 30 ML PO QID PRN for INDIGESTION, (Reported) Bisacodyl (Dulcolax) 10 Mg Sup, 10 MG SC DAILY PRN for CONSTIPATION, (Reported) Dextran/Hypromellose (Genteal Tears 0.1%-0.3% Drop) 15 Ml Drops, 1 DROP OU Q4H PRN for DRY EYES, (Reported) Guaifenesin (Tussin) 100 Mg/5 Ml Liquid, 200 MG PO Q4H PRN for COUGH, (Reported) STARTED 11/18/20 Lidocaine (Anecream) 4% Cream..g., 1 DOSE TOP QID PRN for PAIN, (Reported) APPLIES TO KNEES Magnesium Hydroxide (Milk of Magnesia) 400 Mg/5 Ml Oral.susp, 10 ML PO DAILY PRN for CONSTIPATION, (Reported) Sodium Chloride ([place]) 104 Ml [place], 1 SPRAY NA Q1H PRN for NASAL CONGESTION, (Reported) Sodium Phosphate,[place]-Dibasic (Fleet Enema) 133 Ml Enema, 1 SAM SC DAILY PRN for CONSTIPATION, (Reported) Allergies Coded Allergies: codeine (Verified Allergy, Unknown, 11/20/20) CROW TARANGO DO Nov 30, 2020 23:12
== END 2020-11-30 11:51 | DRG 388 ==
LOC: M ED 04:08 → M ED INP 09:08 → ENRESERV 12:06 → M MSPAV 12:52
PROVIDERS: ADMIT Neuromusculoskeletal Medicine & OMM; ATTEND Internal Medicine
DX: K56.609 Unspecified intestinal obstruction, unspecified as to partial versus complete obstruction (principal); J69.0 Pneumonitis due to inhalation of food and vomit; I50.32 Chronic diastolic (congestive) heart failure; I13.0 Hypertensive heart and chronic kidney disease with heart failure and stage 1 through stage 4 chronic kidney disease, or unspecified chronic kidney disease; I48.20 Chronic atrial fibrillation, unspecified; N18.30 Chronic kidney disease, stage 3 unspecified; F41.1 Generalized anxiety disorder; F32.9 Major depressive disorder, single episode, unspecified; I49.5 Sick sinus syndrome; D64.9 Anemia, unspecified; E66.01 Morbid (severe) obesity due to excess calories; M19.90 Unspecified osteoarthritis, unspecified site; K59.00 Constipation, unspecified; K21.9 Gastro-esophageal reflux disease without esophagitis; Z85.51 Personal history of malignant neoplasm of bladder; K74.60 Unspecified cirrhosis of liver; Z98.41 Cataract extraction status, right eye; Z98.42 Cataract extraction status, left eye; Z95.0 Presence of cardiac pacemaker; Z20.822 Contact with and (suspected) exposure to COVID-19; Z79.01 Long term (current) use of anticoagulants; Z79.899 Other long term (current) drug therapy; Z88.5 Allergy status to narcotic agent; Z68.38 Body mass index [BMI] 38.0-38.9, adult; Z79.891 Long term (current) use of opiate analgesic

== ENCOUNTER → 2020-11-20 | Outpatient (REF) | payer MEDICARE, MEDICAID | LOC: SKLAB7 07:00 | PROVIDERS: ATTEND Internal Medicine | DX: Z53.8 Procedure and treatment not carried out for other reasons (principal) ==

== ENCOUNTER → 2020-12-16 | Outpatient (REF) | payer MEDICARE, MEDICAID ==
[~2020-12-16] MED LIST changes: +ANEC4CRE3 TOP; +BACTDSTA PO; +CINA60TA3 PO; +CYMB60CA3 PO; +DIGO0.123 PO; +ELIQ5TAB PO; +FAMO1TAB11 PO; +FLEEENE12 PR; +GENT1SOL16 OU; +MIDO2.5T PO; +MILKSUS3 PO; +MIRA1POW3 PO; +MYLASSUD PO; +OCEA0.654; +OXYC1TAB23 PO; +POTA10CA32 PO; +SENN-23 PO; +SENS60TA PO; -SULF1TAB93 PO; +TOPR25TA PO; +[UNRECOGNIZED DRUG - OTHER] PO
== END ==
LOC: SKLAB7 11:00
PROVIDERS: ATTEND Internal Medicine
DX: E21.3 Hyperparathyroidism, unspecified (principal)

== ENCOUNTER → 2021-01-11 | Outpatient (REF) | payer MEDICARE, MEDICAID ==
--- NOTE | 2021-01-11 15:51 | REP ---
INDICATION: ABDOMINAL PAIN COMPARISON: None. TECHNIQUE: Portable supine view of the abdomen and pelvis. FINDINGS: Bowel gas pattern is nonspecific and without obstruction or perforation. No organomegaly. No abnormal calcifications. Skeletal structures intact. IMPRESSION: Nonspecific bowel gas pattern. <Electronically signed by Kevin Jones > 01/11/21 [id number]
== END ==
LOC: SKLAB7 12:16
PROVIDERS: ATTEND Internal Medicine
DX: R10.9 Unspecified abdominal pain (principal)

== ENCOUNTER → 2021-02-04 | Outpatient (REF) | payer MEDICARE, MEDICAID ==
[2021-02-04 10:25] LABS: DIGOXIN LEVEL 0.7 NG/ML (0.5-2.0)
[2021-02-04 11:59] LABS: PTH INTACT 102.5 PG/ML (18.5-88.0)
== END ==
LOC: SKLAB7 07:00
PROVIDERS: ATTEND Internal Medicine
DX: N18.9 Chronic kidney disease, unspecified (principal); I48.91 Unspecified atrial fibrillation

== ENCOUNTER → 2021-02-18 | Outpatient (REF) | payer MEDICARE, MEDICAID ==
[2021-02-18 10:24] LABS: BILIRUBIN,TOTAL 0.5 MG/DL (0.2-1.0); CALCIUM LEVEL 8.2 MG/DL (8.8-10.2); CREATININE FOR GFR 1.03 MG/DL (0.55-1.30); GLOMERULAR FILTRATION RATE 55.9 (>39); POTASSIUM SERUM 4.5 MEQ/L (3.5-5.1); TOTAL PROTEIN 6.1 GM/DL (6.4-8.2)
== END ==
LOC: SKLAB3 07:00
PROVIDERS: ATTEND Internal Medicine
DX: N18.9 Chronic kidney disease, unspecified (principal)

== ENCOUNTER → 2021-03-11 | Outpatient (REF) | payer MEDICARE, MEDICAID ==
[2021-03-11 11:07] LABS: BASO % 0.5 % (0.0-1.0); EOS # 0.5 10^3/uL (0.0-0.5); EOS % 7.5 % (0.0-3.0); LYMPH # 1.4 10^3/uL (1.5-5.0); LYMPH % 21.9 % (24.0-44.0); MEAN CORPUSCULAR HEMOGLOBIN 31.8 pg (27.0-33.0); MEAN CORPUSCULAR HGB CONC 33.3 g/dl (32.0-36.5); MEAN CORPUSCULAR VOLUME 95.4 fl (80.0-96.0); MONO # 0.7 10^3/uL (0.0-0.8); MONO % 11.4 % (2.0-8.0); NEUTROPHILS # 3.7 10^3/uL (1.5-8.5); NEUTROPHILS % 58.4 % (36.0-66.0); PLATELET COUNT, AUTOMATED 315 10^3/uL (150-450); RED BLOOD COUNT 4.09 10^6/uL (4.00-5.40); WHITE BLOOD COUNT 6.3 10^3/uL (4.0-10.0)
[2021-03-11 11:36] LABS: ALBUMIN 3.1 GM/DL (3.2-5.2); BLOOD UREA NITROGEN 14 MG/DL (7-18); CALCIUM LEVEL 7.9 MG/DL (8.8-10.2); CARBON DIOXIDE LEVEL 29 MEQ/L (21-32); CHLORIDE LEVEL 100 MEQ/L (98-107); CREATININE FOR GFR 0.96 MG/DL (0.55-1.30); GLOMERULAR FILTRATION RATE > 60.0 (>39); GLUCOSE, FASTING 94 MG/DL (70-100); PHOSPHORUS LEVEL 4.3 MG/DL (2.5-4.9); POTASSIUM SERUM 4.4 MEQ/L (3.5-5.1); SODIUM LEVEL 135 MEQ/L (136-145)
[2021-03-11 11:46] LABS: PTH INTACT 114.5 PG/ML (18.5-88.0)
== END ==
LOC: SKLAB7 13:51
PROVIDERS: ATTEND Internal Medicine
DX: N18.9 Chronic kidney disease, unspecified (principal)

== ENCOUNTER → 2021-05-06 | Outpatient (REF) | payer MEDICARE, MEDICAID ==
[~2021-05-06] MED LIST changes: -KLOR10TA76 PO; +POTA-136 PO
[2021-05-06 12:13] LABS: HEPATITIS B SURFACE ANTIGEN NEGATIVE (NEGATIVE)
[2021-05-06 12:42] LABS: HIV SCREEN CENTAUR SOURCE NEGATIVE (NEGATIVE)
== END ==
LOC: SKLAB7 07:00
PROVIDERS: ATTEND Internal Medicine
DX: Z51.81 Encounter for therapeutic drug level monitoring (principal); Z79.899 Other long term (current) drug therapy; S61.439A Puncture wound without foreign body of unspecified hand, initial encounter; W46.1XXA Contact with contaminated hypodermic needle, initial encounter

== ENCOUNTER → 2021-05-24 | Outpatient (REF) | payer MEDICARE, MEDICAID ==
--- NOTE | 2021-05-24 15:56 | REP ---
INDICATION: SOB COMPARISON: 11/25/2020 TECHNIQUE: Portable AP view of the chest FINDINGS: The mediastinum and cardiac silhouette are stable and within normal limits for portable technique. Stable pacemaker. The lung rush are clear without acute consolidation, effusion, or pneumothorax. Skeletal structures are intact. IMPRESSION: No acute cardiopulmonary process appreciated. <Electronically signed by Kevin Jones > 05/24/21 [id number]
== END ==
LOC: SKLAB7 13:46
PROVIDERS: ATTEND Internal Medicine
DX: R06.2 Wheezing (principal); R06.02 Shortness of breath; Z95.0 Presence of cardiac pacemaker

== ENCOUNTER → 2021-06-08 | Outpatient (REF) | payer MEDICARE, MEDICAID ==
[~2021-06-08] MED LIST changes: -CYMB60CA3 PO; +CYMB60CA4 PO
== END ==
LOC: SKLAB7 11:30
PROVIDERS: ATTEND Internal Medicine
DX: Z20.822 Contact with and (suspected) exposure to COVID-19 (principal)

== ENCOUNTER → 2021-06-10 | Outpatient (REF) | payer MEDICARE, MEDICAID ==
[2021-06-10 12:29] LABS: CALCIUM LEVEL 8.5 MG/DL (8.8-10.2); CREATININE FOR GFR 0.98 MG/DL (0.55-1.30); GLOMERULAR FILTRATION RATE 59.1 (>39); POTASSIUM SERUM 4.2 MEQ/L (3.5-5.1)
[2021-06-10 13:11] LABS: PTH INTACT 90.1 PG/ML (18.5-88.0)
== END ==
LOC: SKLAB7 06:11
PROVIDERS: ATTEND Internal Medicine
DX: N18.9 Chronic kidney disease, unspecified (principal); Z20.822 Contact with and (suspected) exposure to COVID-19
CPT/HCPCS: 36415; 80048; 83970; U0002

== ENCOUNTER → 2021-06-14 | Outpatient (REF) | payer MEDICARE, MEDICAID | LOC: SKLAB7 09:00 | PROVIDERS: ATTEND Internal Medicine | DX: Z20.822 Contact with and (suspected) exposure to COVID-19 (principal) ==

== ENCOUNTER → 2021-06-17 | Outpatient (REF) | payer MEDICARE, MEDICAID | LOC: SKLAB7 07:34 | PROVIDERS: ATTEND Internal Medicine | DX: Z20.822 Contact with and (suspected) exposure to COVID-19 (principal) ==

== ENCOUNTER → 2021-06-21 | Outpatient (REF) | payer MEDICARE, MEDICAID | LOC: SKLAB7 08:14 | PROVIDERS: ATTEND Internal Medicine | DX: Z20.822 Contact with and (suspected) exposure to COVID-19 (principal) ==

== ENCOUNTER → 2021-06-24 | Outpatient (REF) | payer MEDICARE, MEDICAID | LOC: SKLAB7 06:06 | PROVIDERS: ATTEND Internal Medicine | DX: Z20.822 Contact with and (suspected) exposure to COVID-19 (principal) ==

== ENCOUNTER → 2021-06-30 | Outpatient (REF) | payer MEDICARE, MEDICAID | LOC: SKLAB7 05:41 | PROVIDERS: ATTEND Internal Medicine | DX: Z20.822 Contact with and (suspected) exposure to COVID-19 (principal) ==

== ENCOUNTER → 2021-07-07 | Outpatient (REF) | payer MEDICARE, MEDICAID | LOC: SKLAB7 10:29 | PROVIDERS: ATTEND Internal Medicine | DX: Z20.822 Contact with and (suspected) exposure to COVID-19 (principal) ==

== ENCOUNTER → 2021-07-13 | Outpatient (REF) | payer MEDICARE, MEDICAID ==
[2021-07-13 09:33] LABS: BASO % 0.4 % (0.0-1.0); EOS # 0.5 10^3/uL (0.0-0.5); EOS % 7.5 % (0.0-3.0); HEMATOCRIT 39.3 % (36.0-47.0); HEMOGLOBIN 13.1 g/dl (12.0-15.5); LYMPH # 1.6 10^3/uL (1.5-5.0); LYMPH % 21.7 % (24.0-44.0); MEAN CORPUSCULAR HEMOGLOBIN 32.3 pg (27.0-33.0); MEAN CORPUSCULAR HGB CONC 33.3 g/dl (32.0-36.5); MEAN CORPUSCULAR VOLUME 96.8 fl (80.0-96.0); MONO # 0.5 10^3/uL (0.0-0.8); MONO % 7.5 % (2.0-8.0); NEUTROPHILS # 4.5 10^3/uL (1.5-8.5); NEUTROPHILS % 62.6 % (36.0-66.0); PLATELET COUNT, AUTOMATED 343 10^3/uL (150-450); RED BLOOD COUNT 4.06 10^6/uL (4.00-5.40); WHITE BLOOD COUNT 7.2 10^3/uL (4.0-10.0)
[2021-07-13 10:02] LABS: CALCIUM LEVEL 8.6 MG/DL (8.8-10.2); CREATININE FOR GFR 1.12 MG/DL (0.55-1.30); GLOMERULAR FILTRATION RATE 50.6 (>39); MAGNESIUM LEVEL 2.2 MG/DL (1.8-2.4); PHOSPHORUS LEVEL 4.2 MG/DL (2.5-4.9); POTASSIUM SERUM 4.5 MEQ/L (3.5-5.1)
[2021-07-13 13:57] LABS: PTH INTACT 104.1 PG/ML (18.5-88.0); TOTAL 25(OH) VITAMIN D 53.1 NG/ML (30.0-100.0)
== END ==
LOC: SKLAB7 13:42
PROVIDERS: ATTEND Internal Medicine
DX: N18.9 Chronic kidney disease, unspecified (principal); Z79.899 Other long term (current) drug therapy

== ENCOUNTER → 2021-07-26 | Outpatient (REF) | payer MEDICARE, MEDICAID | LOC: SKLAB7 07:00 | PROVIDERS: ATTEND Internal Medicine | DX: E53.8 Deficiency of other specified B group vitamins (principal) ==

== ENCOUNTER → 2021-07-28 | Outpatient (REF) | payer MEDICARE, MEDICAID | LOC: SKLAB7 13:59 | PROVIDERS: ATTEND Internal Medicine | DX: Z20.822 Contact with and (suspected) exposure to COVID-19 (principal) ==

== ENCOUNTER → 2021-07-29 | Outpatient (REF) | payer MEDICARE, MEDICAID ==
[2021-07-29 17:07] LABS: HEMATOCRIT 37.8 % (36.0-47.0); HEMOGLOBIN 12.5 g/dl (12.0-15.5); MEAN CORPUSCULAR HGB CONC 33.1 g/dl (32.0-36.5); MEAN CORPUSCULAR VOLUME 96.7 fl (80.0-96.0); PLATELET COUNT, AUTOMATED 285 10^3/uL (150-450); RED BLOOD COUNT 3.91 10^6/uL (4.00-5.40); WHITE BLOOD COUNT 8.4 10^3/uL (4.0-10.0)
[2021-07-29 17:29] LABS: CALCIUM LEVEL 8.4 MG/DL (8.8-10.2); CREATININE FOR GFR 1.01 MG/DL (0.55-1.30); POTASSIUM SERUM 4.6 MEQ/L (3.5-5.1)
== END ==
LOC: SKLAB3 14:54 → SKLAB7 14:56
PROVIDERS: ATTEND Internal Medicine
DX: R11.2 Nausea with vomiting, unspecified (principal); R19.7 Diarrhea, unspecified

== ENCOUNTER → 2021-08-04 | Outpatient (REF) | payer MEDICARE, MEDICAID | LOC: SKLAB7 14:56 | PROVIDERS: ATTEND Internal Medicine | DX: Z20.822 Contact with and (suspected) exposure to COVID-19 (principal) ==

== ENCOUNTER → 2021-08-05 | Outpatient (REF) | payer MEDICARE, MEDICAID | LOC: SKLAB7 09:16 | PROVIDERS: ATTEND Internal Medicine | DX: I48.91 Unspecified atrial fibrillation (principal) ==

== ENCOUNTER → 2021-08-11 | Outpatient (REF) | payer MEDICARE, MEDICAID | LOC: SKLAB7 07:00 | PROVIDERS: ATTEND Internal Medicine | DX: Z20.822 Contact with and (suspected) exposure to COVID-19 (principal) ==

== ENCOUNTER → 2021-08-18 | Outpatient (REF) | payer MEDICARE, MEDICAID | LOC: SKLAB7 10:28 | PROVIDERS: ATTEND Internal Medicine | DX: Z20.822 Contact with and (suspected) exposure to COVID-19 (principal) ==

== ENCOUNTER → 2021-08-25 | Outpatient (REF) | payer MEDICARE, MEDICAID | LOC: SKLAB7 09:40 | PROVIDERS: ATTEND Internal Medicine | DX: Z20.822 Contact with and (suspected) exposure to COVID-19 (principal) ==

== ENCOUNTER → 2021-11-11 | Outpatient (REF) | payer MEDICARE, MEDICAID ==
[2021-11-11 10:27] LABS: BASO % 0.6 % (0.0-1.0); EOS # 0.4 10^3/uL (0.0-0.5); EOS % 6.2 % (0.0-3.0); HEMATOCRIT 40.6 % (36.0-47.0); HEMOGLOBIN 13.9 g/dl (12.0-15.5); LYMPH # 1.4 10^3/uL (1.5-5.0); LYMPH % 22.2 % (24.0-44.0); MEAN CORPUSCULAR HEMOGLOBIN 32.6 pg (27.0-33.0); MEAN CORPUSCULAR HGB CONC 34.2 g/dl (32.0-36.5); MEAN CORPUSCULAR VOLUME 95.1 fl (80.0-96.0); MONO # 0.8 10^3/uL (0.0-0.8); MONO % 12.8 % (2.0-8.0); NEUTROPHILS # 3.7 10^3/uL (1.5-8.5); NEUTROPHILS % 57.9 % (36.0-66.0); PLATELET COUNT, AUTOMATED 310 10^3/uL (150-450); RED BLOOD COUNT 4.27 10^6/uL (4.00-5.40); WHITE BLOOD COUNT 6.4 10^3/uL (4.0-10.0)
[2021-11-11 11:01] LABS: CALCIUM LEVEL 7.8 MG/DL (8.8-10.2); CREATININE FOR GFR 1.17 MG/DL (0.55-1.30); DIGOXIN LEVEL 0.6 NG/ML (0.5-2.0); GLOMERULAR FILTRATION RATE 48.1 (>39); PHOSPHORUS LEVEL 4.5 MG/DL (2.5-4.9); PTH INTACT 136.6 PG/ML (18.5-88.0); TOTAL 25(OH) VITAMIN D 52.4 NG/ML (30.0-100.0)
== END ==
LOC: SKLAB7 07:00
PROVIDERS: ATTEND Internal Medicine
DX: N18.9 Chronic kidney disease, unspecified (principal); Z51.81 Encounter for therapeutic drug level monitoring; Z79.899 Other long term (current) drug therapy

== ENCOUNTER → 2021-11-29 | Outpatient (REF) | payer MEDICARE, MEDICAID | LOC: SKLAB7 12:28 | PROVIDERS: ATTEND Internal Medicine | DX: J06.9 Acute upper respiratory infection, unspecified (principal) ==

== ENCOUNTER → 2021-12-09 | Outpatient (REF) | payer MEDICARE, MEDICAID | LOC: SKLAB7 07:00 | PROVIDERS: ATTEND Internal Medicine | DX: N18.9 Chronic kidney disease, unspecified (principal) ==

== ENCOUNTER → 2022-02-10 | Outpatient (REF) | payer MEDICARE, MEDICAID ==
[2022-02-10 08:20] LABS: DIGOXIN LEVEL 0.6 NG/ML (0.5-2.0)
[2022-02-10 21:07] LABS: PTH INTACT 120.6 PG/ML (18.5-88.0)
== END ==
LOC: SKLAB7 07:00
PROVIDERS: ATTEND Nurse Practitioner
DX: N18.9 Chronic kidney disease, unspecified (principal); I48.91 Unspecified atrial fibrillation

== ENCOUNTER → 2022-03-10 | Outpatient (REF) | payer MEDICARE, MEDICAID ==
[2022-03-10 10:05] LABS: ALBUMIN 3.2 GM/DL (3.2-5.2); BILIRUBIN,TOTAL 0.6 MG/DL (0.2-1.0); CALCIUM LEVEL 8.2 MG/DL (8.8-10.2); CREATININE FOR GFR 1.17 MG/DL (0.55-1.30); POTASSIUM SERUM 4.3 MEQ/L (3.5-5.1); TOTAL PROTEIN 6.4 GM/DL (6.4-8.2)
== END ==
LOC: SKLAB7 09:16
PROVIDERS: ATTEND Nurse Practitioner
DX: N18.9 Chronic kidney disease, unspecified (principal); I12.9 Hypertensive chronic kidney disease with stage 1 through stage 4 chronic kidney disease, or unspecified chronic kidney disease

== ENCOUNTER → 2022-03-12 | Outpatient (REF) | payer MEDICARE, MEDICAID ==
[2022-03-12 13:45] LABS: HEMOGLOBIN 12.7 g/dl (12.0-15.5); MEAN CORPUSCULAR HEMOGLOBIN 32.5 pg (27.0-33.0); MEAN CORPUSCULAR HGB CONC 33.4 g/dl (32.0-36.5); MEAN CORPUSCULAR VOLUME 97.2 fl (80.0-96.0); PLATELET COUNT, AUTOMATED 257 10^3/uL (150-450); RED BLOOD COUNT 3.91 10^6/uL (4.00-5.40); WHITE BLOOD COUNT 4.5 10^3/uL (4.0-10.0)
[2022-03-12 14:12] LABS: BILIRUBIN,TOTAL 0.5 MG/DL (0.2-1.0); CALCIUM LEVEL 7.9 MG/DL (8.8-10.2); CREATININE FOR GFR 1.01 MG/DL (0.55-1.30); GLOMERULAR FILTRATION RATE 56.9 (>39); POTASSIUM SERUM 4.2 MEQ/L (3.5-5.1); TOTAL PROTEIN 5.9 GM/DL (6.4-8.2)
== END ==
LOC: SKLAB2 07:00
PROVIDERS: ATTEND Internal Medicine
DX: U07.1 COVID-19 (principal); Z79.899 Other long term (current) drug therapy

== ENCOUNTER → 2022-03-13 | Outpatient (REF) | payer MEDICARE, MEDICAID | LOC: SKLAB2 03-12 07:00 | PROVIDERS: ATTEND Internal Medicine | DX: U07.1 COVID-19 (principal) ==

== ENCOUNTER → 2022-03-14 | Outpatient (REF) | payer MEDICARE, MEDICAID ==
[2022-03-14 11:20] LABS: HEMATOCRIT 37.9 % (36.0-47.0); MEAN CORPUSCULAR HEMOGLOBIN 32.7 pg (27.0-33.0); MEAN CORPUSCULAR HGB CONC 34.3 g/dl (32.0-36.5); MEAN CORPUSCULAR VOLUME 95.5 fl (80.0-96.0); PLATELET COUNT, AUTOMATED 255 10^3/uL (150-450); RED BLOOD COUNT 3.97 10^6/uL (4.00-5.40)
[2022-03-14 11:58] LABS: ALBUMIN 2.9 GM/DL (3.2-5.2); BILIRUBIN,TOTAL 0.4 MG/DL (0.2-1.0); CREATININE FOR GFR 1.06 MG/DL (0.55-1.30); GLOMERULAR FILTRATION RATE 53.8 (>39); POTASSIUM SERUM 4.4 MEQ/L (3.5-5.1); TOTAL PROTEIN 5.8 GM/DL (6.4-8.2)
== END ==
LOC: SKLAB2 07:00
PROVIDERS: ATTEND Internal Medicine
DX: U07.1 COVID-19 (principal); Z79.899 Other long term (current) drug therapy

== ENCOUNTER → 2022-03-17 | Outpatient (REF) | payer MEDICARE, MEDICAID ==
[2022-03-17 09:54] LABS: HEMATOCRIT 39.6 % (36.0-47.0); HEMOGLOBIN 13.4 g/dl (12.0-15.5); MEAN CORPUSCULAR HEMOGLOBIN 31.8 pg (27.0-33.0); MEAN CORPUSCULAR HGB CONC 33.8 g/dl (32.0-36.5); MEAN CORPUSCULAR VOLUME 93.8 fl (80.0-96.0); PLATELET COUNT, AUTOMATED 280 10^3/uL (150-450); RED BLOOD COUNT 4.22 10^6/uL (4.00-5.40); WHITE BLOOD COUNT 5.3 10^3/uL (4.0-10.0)
[2022-03-17 10:15] LABS: CREATININE FOR GFR 1.04 MG/DL (0.55-1.30); POTASSIUM SERUM 4.3 MEQ/L (3.5-5.1)
[2022-03-17 10:16] LABS: ALBUMIN 3.1 GM/DL (3.2-5.2); BILIRUBIN,TOTAL 0.6 MG/DL (0.2-1.0); TOTAL PROTEIN 5.9 GM/DL (6.4-8.2)
== END ==
LOC: SKLAB2 10:09
PROVIDERS: ATTEND Nurse Practitioner
DX: U07.1 COVID-19 (principal); Z79.899 Other long term (current) drug therapy

== ENCOUNTER → 2022-03-21 | Outpatient (REF) | payer MEDICARE, MEDICAID ==
[2022-03-21 09:56] LABS: HEMATOCRIT 40.8 % (36.0-47.0); HEMOGLOBIN 13.6 g/dl (12.0-15.5); MEAN CORPUSCULAR HEMOGLOBIN 32.4 pg (27.0-33.0); MEAN CORPUSCULAR HGB CONC 33.3 g/dl (32.0-36.5); MEAN CORPUSCULAR VOLUME 97.1 fl (80.0-96.0); PLATELET COUNT, AUTOMATED 333 10^3/uL (150-450); WHITE BLOOD COUNT 7.1 10^3/uL (4.0-10.0)
[2022-03-21 10:33] LABS: ALBUMIN 3.1 GM/DL (3.2-5.2); BILIRUBIN,TOTAL 0.5 MG/DL (0.2-1.0); CALCIUM LEVEL 8.6 MG/DL (8.8-10.2); CREATININE FOR GFR 1.07 MG/DL (0.55-1.30); GLOMERULAR FILTRATION RATE 53.2 (>39); POTASSIUM SERUM 4.1 MEQ/L (3.5-5.1)
== END ==
LOC: SKLAB2 09:42
PROVIDERS: ATTEND Nurse Practitioner
DX: U07.1 COVID-19 (principal); Z79.899 Other long term (current) drug therapy

== ENCOUNTER → 2022-04-08 | Outpatient (REF) | payer MEDICARE, MEDICAID | LOC: SKLAB7 07:00 | PROVIDERS: ATTEND Nurse Practitioner | DX: N18.9 Chronic kidney disease, unspecified (principal) ==

== ENCOUNTER → 2022-05-06 | Outpatient (REF) | payer MEDICARE, MEDICAID ==
[2022-05-06 08:53] LABS: DIGOXIN LEVEL 0.6 NG/ML (0.5-2.0)
[2022-05-06 09:05] LABS: TOTAL 25(OH) VITAMIN D 61.8 NG/ML (30.0-100.0)
== END ==
LOC: SKLAB7 07:00
PROVIDERS: ATTEND Nurse Practitioner
DX: I48.91 Unspecified atrial fibrillation (principal); Z79.899 Other long term (current) drug therapy

== ENCOUNTER → 2022-08-11 | Outpatient (REF) | payer MEDICARE, MEDICAID ==
[~2022-08-11] MED LIST changes: -POTA10CA32 PO; +POTA10CA33 PO
[2022-08-11 09:08] LABS: BASO % 0.5 % (0.0-1.0); EOS # 0.5 10^3/uL (0.0-0.5); HEMATOCRIT 41.2 % (36.0-47.0); HEMOGLOBIN 13.6 g/dl (12.0-15.5); LYMPH # 1.4 10^3/uL (1.5-5.0); LYMPH % 23.8 % (24.0-44.0); MEAN CORPUSCULAR HEMOGLOBIN 31.8 pg (27.0-33.0); MEAN CORPUSCULAR VOLUME 96.3 fl (80.0-96.0); MONO # 0.6 10^3/uL (0.0-0.8); MONO % 9.6 % (2.0-8.0); NEUTROPHILS # 3.3 10^3/uL (1.5-8.5); NEUTROPHILS % 57.8 % (36.0-66.0); PLATELET COUNT, AUTOMATED 302 10^3/uL (150-450); RED BLOOD COUNT 4.28 10^6/uL (4.00-5.40); WHITE BLOOD COUNT 5.8 10^3/uL (4.0-10.0)
[2022-08-11 09:31] LABS: ALBUMIN 3.2 G/DL (3.2-5.2); CALCIUM LEVEL 7.8 MG/DL (8.3-10.6); CREATININE FOR GFR 1.08 MG/DL (0.55-1.30); GLOMERULAR FILTRATION RATE 52.7 (>39); PHOSPHORUS LEVEL 4.6 MG/DL (2.4-5.1); POTASSIUM SERUM 4.7 MMOL/L (3.5-5.1)
[2022-08-11 09:33] LABS: ALBUMIN 3.1 G/DL (3.2-5.2); BILIRUBIN,TOTAL 0.5 MG/DL (0.3-1.2); CALCIUM LEVEL 7.9 MG/DL (8.3-10.6); CREATININE FOR GFR 1.04 MG/DL (0.55-1.30); DIGOXIN LEVEL 0.5 NG/ML (0.8-2.0); POTASSIUM SERUM 4.8 MMOL/L (3.5-5.1); TOTAL PROTEIN 5.9 G/DL (5.7-8.2)
[2022-08-11 10:19] LABS: THYROID STIMULATING HORMONE 1.393 uIU/ML (0.55-4.78); TOTAL 25(OH) VITAMIN D 50.2 NG/ML (20.0-100.0)
== END ==
LOC: SKLAB7 07:51
PROVIDERS: ATTEND Internal Medicine
DX: I12.9 Hypertensive chronic kidney disease with stage 1 through stage 4 chronic kidney disease, or unspecified chronic kidney disease (principal); N18.9 Chronic kidney disease, unspecified; I25.10 Atherosclerotic heart disease of native coronary artery without angina pectoris; Z79.899 Other long term (current) drug therapy

== ENCOUNTER → 2022-10-06 | Outpatient (REF) | payer MEDICARE, MEDICAID ==
[2022-10-06 10:50] LABS: CALCIUM LEVEL 7.8 MG/DL (8.3-10.6); CREATININE FOR GFR 1.02 MG/DL (0.55-1.30); GLOMERULAR FILTRATION RATE 56.2 (>39); POTASSIUM SERUM 4.3 MMOL/L (3.5-5.1)
[2022-10-06 10:51] LABS: THYROID STIMULATING HORMONE 2.171 uIU/ML (0.55-4.78)
== END ==
LOC: SKLAB7 11:27
PROVIDERS: ATTEND Nurse Practitioner
DX: E07.9 Disorder of thyroid, unspecified (principal); I12.9 Hypertensive chronic kidney disease with stage 1 through stage 4 chronic kidney disease, or unspecified chronic kidney disease; N18.9 Chronic kidney disease, unspecified

== ENCOUNTER → 2022-11-10 | Outpatient (REF) | payer MEDICARE, MEDICAID ==
[2022-11-10 10:13] LABS: BASO % 0.4 % (0.0-1.0); EOS # 0.5 10^3/uL (0.0-0.5); EOS % 6.9 % (0.0-3.0); HEMATOCRIT 42.3 % (36.0-47.0); HEMOGLOBIN 13.7 g/dl (12.0-15.5); LYMPH # 1.3 10^3/uL (1.5-5.0); LYMPH % 17.3 % (24.0-44.0); MEAN CORPUSCULAR HEMOGLOBIN 31.2 pg (27.0-33.0); MEAN CORPUSCULAR HGB CONC 32.4 g/dl (32.0-36.5); MEAN CORPUSCULAR VOLUME 96.4 fl (80.0-96.0); MONO # 0.6 10^3/uL (0.0-0.8); NEUTROPHILS # 4.8 10^3/uL (1.5-8.5); PLATELET COUNT, AUTOMATED 290 10^3/uL (150-450); RED BLOOD COUNT 4.39 10^6/uL (4.00-5.40); WHITE BLOOD COUNT 7.2 10^3/uL (4.0-10.0)
[2022-11-10 10:40] LABS: ALBUMIN 3.3 G/DL (3.2-5.2); CALCIUM LEVEL 7.8 MG/DL (8.3-10.6); CREATININE FOR GFR 0.97 MG/DL (0.55-1.30); GLOMERULAR FILTRATION RATE 59.6 (>39); MAGNESIUM LEVEL 1.7 MG/DL (1.8-2.4); PHOSPHORUS LEVEL 4.8 MG/DL (2.4-5.1); POTASSIUM SERUM 4.6 MMOL/L (3.5-5.1); PTH INTACT 171.1 PG/ML (18.5-88.0)
== END ==
LOC: SKLAB7 11-10 07:00
PROVIDERS: ATTEND Nurse Practitioner
DX: N18.9 Chronic kidney disease, unspecified (principal)

== ENCOUNTER → 2022-12-08 | Outpatient (REF) | payer MEDICARE, MEDICAID ==
[~2022-12-08] MED LIST changes: +ARTIDRO4 OU; -POLYOPD OU
== END ==
LOC: SKLAB7 12-08 07:00
PROVIDERS: ATTEND Nurse Practitioner
DX: Z51.81 Encounter for therapeutic drug level monitoring (principal); Z79.899 Other long term (current) drug therapy

== ENCOUNTER → 2023-02-02 | Outpatient (REF) | payer MEDICARE, MEDICAID ==
[~2023-02-02] MED LIST changes: -POTA10CA33 PO; +POTA10CA60 PO
[2023-02-02 10:26] LABS: ALBUMIN 3.3 G/DL (3.2-5.2); BILIRUBIN,TOTAL 0.6 MG/DL (0.3-1.2); CALCIUM LEVEL 7.8 MG/DL (8.3-10.6); CREATININE FOR GFR 1.11 MG/DL (0.55-1.30); POTASSIUM SERUM 4.1 MMOL/L (3.5-5.1); TOTAL PROTEIN 6.2 G/DL (5.7-8.2)
[2023-02-02 10:30] LABS: PTH INTACT 96.5 PG/ML (18.5-88.0)
[2023-02-02 10:33] LABS: TOTAL 25(OH) VITAMIN D 30.1 NG/ML (20.0-100.0)
== END ==
LOC: SKLAB7 07:00
PROVIDERS: ATTEND Nurse Practitioner
DX: N18.9 Chronic kidney disease, unspecified (principal); I12.9 Hypertensive chronic kidney disease with stage 1 through stage 4 chronic kidney disease, or unspecified chronic kidney disease; I25.10 Atherosclerotic heart disease of native coronary artery without angina pectoris; Z79.899 Other long term (current) drug therapy

== ENCOUNTER → 2023-03-17 | Outpatient (REF) | payer MEDICARE, MEDICAID ==
[2023-03-17 08:07] LABS: BASO % 0.6 % (0.0-1.0); EOS # 0.4 10^3/uL (0.0-0.5); EOS % 5.8 % (0.0-3.0); HEMATOCRIT 37.4 % (36.0-47.0); HEMOGLOBIN 12.5 g/dl (12.0-15.5); LYMPH # 1.4 10^3/uL (1.5-5.0); LYMPH % 22.9 % (24.0-44.0); MEAN CORPUSCULAR HGB CONC 33.4 g/dl (32.0-36.5); MEAN CORPUSCULAR VOLUME 95.7 fl (80.0-96.0); MONO # 0.7 10^3/uL (0.0-0.8); MONO % 10.8 % (2.0-8.0); NEUTROPHILS # 3.7 10^3/uL (1.5-8.5); NEUTROPHILS % 59.6 % (36.0-66.0); PLATELET COUNT, AUTOMATED 271 10^3/uL (150-450); RED BLOOD COUNT 3.91 10^6/uL (4.00-5.40); WHITE BLOOD COUNT 6.2 10^3/uL (4.0-10.0)
[2023-03-17 08:37] LABS: ALBUMIN 3.2 G/DL (3.2-5.2); CALCIUM LEVEL 7.4 MG/DL (8.3-10.6); CREATININE FOR GFR 1.03 MG/DL (0.55-1.30); DIGOXIN LEVEL 0.5 NG/ML (0.8-2.0); GLOMERULAR FILTRATION RATE 55.5 (>39); MAGNESIUM LEVEL 1.7 MG/DL (1.8-2.4); PHOSPHORUS LEVEL 5.2 MG/DL (2.4-5.1); POTASSIUM SERUM 4.4 MMOL/L (3.5-5.1); PTH INTACT 113.6 PG/ML (18.5-88.0)
== END ==
LOC: SKLAB7 07:00
PROVIDERS: ATTEND Nurse Practitioner
DX: N18.9 Chronic kidney disease, unspecified (principal)

== ENCOUNTER → 2023-05-11 | Outpatient (REF) | payer MEDICARE, MEDICAID | LOC: SKLAB7 09:04 | PROVIDERS: ATTEND Internal Medicine | DX: E21.1 Secondary hyperparathyroidism, not elsewhere classified (principal) ==

== ENCOUNTER → 2023-06-08 | Outpatient (REF) | payer MEDICARE, MEDICAID | LOC: SKLAB7 07:00 | PROVIDERS: ATTEND Nurse Practitioner | DX: I48.91 Unspecified atrial fibrillation (principal); Z79.899 Other long term (current) drug therapy ==

== ENCOUNTER → 2023-07-21 | Outpatient (REF) | payer MEDICARE, MEDICAID ==
[2023-07-21 08:30] LABS: BASO % 0.5 % (0.0-1.0); EOS # 0.4 10^3/uL (0.0-0.5); EOS % 6.2 % (0.0-3.0); HEMATOCRIT 37.7 % (36.0-47.0); HEMOGLOBIN 12.8 g/dl (12.0-15.5); LYMPH # 1.3 10^3/uL (1.5-5.0); LYMPH % 20.5 % (24.0-44.0); MEAN CORPUSCULAR HEMOGLOBIN 32.2 pg (27.0-33.0); MONO # 0.7 10^3/uL (0.0-0.8); NEUTROPHILS # 3.7 10^3/uL (1.5-8.5); NEUTROPHILS % 61.5 % (36.0-66.0); PLATELET COUNT, AUTOMATED 300 10^3/uL (150-450); RED BLOOD COUNT 3.97 10^6/uL (4.00-5.40); WHITE BLOOD COUNT 6.1 10^3/uL (4.0-10.0)
[2023-07-21 08:56] LABS: ALBUMIN 3.1 G/DL (3.2-5.2); CALCIUM LEVEL 7.5 MG/DL (8.3-10.6); CREATININE FOR GFR 1.01 MG/DL (0.55-1.30); GLOMERULAR FILTRATION RATE 56.7 (>39); MAGNESIUM LEVEL 1.8 MG/DL (1.8-2.4); PHOSPHORUS LEVEL 4.8 MG/DL (2.4-5.1); POTASSIUM SERUM 4.3 MMOL/L (3.5-5.1)
== END ==
LOC: SKLAB7 07:00
PROVIDERS: ATTEND Internal Medicine
DX: N18.9 Chronic kidney disease, unspecified (principal); I25.10 Atherosclerotic heart disease of native coronary artery without angina pectoris

== ENCOUNTER → 2023-08-02 | Outpatient (REF) | payer MEDICARE, MEDICAID | LOC: SKLAB7 07:24 | PROVIDERS: ATTEND Internal Medicine | DX: N18.9 Chronic kidney disease, unspecified (principal) ==

== ENCOUNTER → 2023-08-08 | Outpatient (REF) | payer MEDICARE, MEDICAID ==
[2023-08-08 14:05] LABS: ALBUMIN 3.4 G/DL (3.2-5.2); ALKALINE PHOSPHATASE 154 U/L (46-116); ALT/SGPT 23 U/L (7.0-40); AST/SGOT 16 U/L (<34); BILIRUBIN,TOTAL 0.5 MG/DL (0.3-1.2); BLOOD UREA NITROGEN 17 MG/DL (9-23); CALCIUM LEVEL 8.7 MG/DL (8.3-10.6); CARBON DIOXIDE LEVEL 29 MMOL/L (20-31); CHLORIDE LEVEL 100 MMOL/L (98-107); CREATININE FOR GFR 0.95 MG/DL (0.55-1.30); GLOMERULAR FILTRATION RATE > 60.0 (>39); GLUCOSE, FASTING 118 MG/DL (74-106); POTASSIUM SERUM 4.5 MMOL/L (3.5-5.1); SODIUM LEVEL 136 MMOL/L (136-145); TOTAL PROTEIN 6.6 G/DL (5.7-8.2)
== END ==
LOC: SKLAB7 07:46
PROVIDERS: ATTEND Internal Medicine
DX: I25.10 Atherosclerotic heart disease of native coronary artery without angina pectoris (principal); I12.9 Hypertensive chronic kidney disease with stage 1 through stage 4 chronic kidney disease, or unspecified chronic kidney disease; N18.9 Chronic kidney disease, unspecified

== ENCOUNTER → 2023-09-05 | Outpatient (REF) | payer MEDICARE, MEDICAID ==
[2023-09-05 14:14] LABS: HEMATOCRIT 42.5 % (36.0-47.0); HEMOGLOBIN 14.5 g/dl (12.0-15.5); MEAN CORPUSCULAR HEMOGLOBIN 31.8 pg (27.0-33.0); MEAN CORPUSCULAR HGB CONC 34.1 g/dl (32.0-36.5); MEAN CORPUSCULAR VOLUME 93.2 fl (80.0-96.0); PLATELET COUNT, AUTOMATED 306 10^3/uL (150-450); RED BLOOD COUNT 4.56 10^6/uL (4.00-5.40); WHITE BLOOD COUNT 6.4 10^3/uL (4.0-10.0)
[2023-09-05 14:35] LABS: BLOOD UREA NITROGEN 22 MG/DL (9-23); CALCIUM LEVEL 8.5 MG/DL (8.3-10.6); CARBON DIOXIDE LEVEL 27 MMOL/L (20-31); CHLORIDE LEVEL 100 MMOL/L (98-107); CREATININE FOR GFR 0.96 MG/DL (0.55-1.30); DIGOXIN LEVEL 0.5 NG/ML (0.8-2.0); GLOMERULAR FILTRATION RATE > 60.0 (>39); GLUCOSE, FASTING 115 MG/DL (74-106); POTASSIUM SERUM 4.5 MMOL/L (3.5-5.1); SODIUM LEVEL 134 MMOL/L (136-145)
[2023-09-05 14:40] LABS: PTH INTACT 136.5 PG/ML (18.5-88.0)
== END ==
LOC: SKLAB7 11:53
PROVIDERS: ATTEND Internal Medicine
DX: I12.9 Hypertensive chronic kidney disease with stage 1 through stage 4 chronic kidney disease, or unspecified chronic kidney disease (principal); I25.10 Atherosclerotic heart disease of native coronary artery without angina pectoris; N18.9 Chronic kidney disease, unspecified; E21.3 Hyperparathyroidism, unspecified; Z79.899 Other long term (current) drug therapy

== ENCOUNTER → 2023-10-10 | Outpatient (REF) | payer MEDICARE, MEDICAID ==
[~2023-10-10] MED LIST changes: -MIRA1POW3 PO; +MIRA33506 PO
== END ==
LOC: SKLAB7 07:59
PROVIDERS: ATTEND Internal Medicine
DX: E21.3 Hyperparathyroidism, unspecified (principal); Z79.899 Other long term (current) drug therapy

== ENCOUNTER → 2023-10-30 | Outpatient (REF) | payer MEDICARE, MEDICAID ==
[2023-10-31 08:49] LABS: CREATININE, URINE 17.2 MG/DL; MALB URINE SIEMENS < 3.0 MG/L; MAU/CREAT RATIO 17.4 MCG/MG (0.0-30.0)
== END ==
LOC: SKLAB7 14:51
PROVIDERS: ATTEND Internal Medicine
DX: I50.9 Heart failure, unspecified (principal); R41.0 Disorientation, unspecified

== ENCOUNTER → 2023-10-30 | Outpatient (REF) | payer MEDICARE, MEDICAID ==
[2023-10-30 15:00] LABS: APPEARANCE, URINE CLOUDY (CLEAR); BACTERIA, URINE AUTO 1+ (NEGATIVE); BILIRUBIN, URINE AUTO NEGATIVE (NEGATIVE); BLOOD, URINE BLOOD 1+ (NEGATIVE); COLOR, URINE YELLOW (YELLOW); GLUCOSE, URINE (UA) AUTO 3+ mg/dL (NEGATIVE); KETONE, URINE AUTO NEGATIVE (NEGATIVE); LEUKOCYTE ESTERASE, URINE AUTO 3+ (NEGATIVE); MUCUS, URINE SMALL (NEGATIVE); NITRITE, URINE AUTO NEGATIVE (NEGATIVE); PROTEIN, URINE AUTO NEGATIVE (NEGATIVE); RBC, URINE AUTO 5 /HPF (0-3); SPECIFIC GRAVITY URINE AUTO 1.005 (1.002-1.035); SQUAMOUS EPITHELIAL CELL UR AU 2 /HPF (0-6); UROBILINOGEN, URINE AUTO 0.2 mg/dL (0.0-2.0); WBC, URINE AUTO TNTC /HPF (0-3)
== END ==
LOC: SKLAB7 14:38
PROVIDERS: ATTEND Internal Medicine
DX: R41.0 Disorientation, unspecified (principal)

== ENCOUNTER → 2023-11-29 | Outpatient (REF) | payer MEDICARE, MEDICAID ==
[2023-11-29 13:33] LABS: BASO % 0.5 % (0.0-1.0); EOS # 0.3 10^3/uL (0.0-0.5); EOS % 3.6 % (0.0-3.0); HEMATOCRIT 41.1 % (36.0-47.0); HEMOGLOBIN 14.2 g/dl (12.0-15.5); LYMPH # 1.6 10^3/uL (1.5-5.0); LYMPH % 19.1 % (24.0-44.0); MEAN CORPUSCULAR HGB CONC 34.5 g/dl (32.0-36.5); MEAN CORPUSCULAR VOLUME 95.6 fl (80.0-96.0); MONO # 0.9 10^3/uL (0.0-0.8); MONO % 10.1 % (2.0-8.0); NEUTROPHILS # 5.7 10^3/uL (1.5-8.5); NEUTROPHILS % 66.3 % (36.0-66.0); PLATELET COUNT, AUTOMATED 320 10^3/uL (150-450); WHITE BLOOD COUNT 8.5 10^3/uL (4.0-10.0)
[2023-11-29 14:02] LABS: ALBUMIN 3.2 G/DL (3.2-5.2); CALCIUM LEVEL 8.7 MG/DL (8.3-10.6); CREATININE FOR GFR 1.09 MG/DL (0.55-1.30); PHOSPHORUS LEVEL 4.1 MG/DL (2.4-5.1); POTASSIUM SERUM 4.6 MMOL/L (3.5-5.1); PTH INTACT 216.5 PG/ML (18.5-88.0)
== END ==
LOC: SKLAB7 11:03
PROVIDERS: ATTEND Internal Medicine
DX: N18.9 Chronic kidney disease, unspecified (principal)

== ENCOUNTER → 2023-12-22 | Outpatient (CLI) | payer MEDICARE, MEDICAID ==
[~2023-12-22] MED LIST changes: -DICL250C70 PO; +DICL250C72 PO; -POTA10CA60 PO; +POTA10CA70 PO
== END ==
LOC: M LAB 01:14
PROVIDERS: ATTEND Internal Medicine
DX: Z79.899 Other long term (current) drug therapy (principal)

== ENCOUNTER → 2023-12-25 | Outpatient (REF) | payer MEDICARE, MEDICAID | LOC: SKLAB7 12:51 | PROVIDERS: ATTEND Nurse Practitioner | DX: Z79.899 Other long term (current) drug therapy (principal) ==

== ENCOUNTER → 2024-02-06 | Outpatient (REF) | payer MEDICARE, MEDICAID ==
[2024-02-06 10:05] LABS: ALBUMIN 3.4 G/DL (3.2-5.2); BILIRUBIN,TOTAL 0.8 MG/DL (0.3-1.2); CALCIUM LEVEL 9.4 MG/DL (8.3-10.6); CREATININE FOR GFR 1.01 MG/DL (0.55-1.30); GLOMERULAR FILTRATION RATE 56.7 (>39); POTASSIUM SERUM 4.3 MMOL/L (3.5-5.1); TOTAL PROTEIN 6.6 G/DL (5.7-8.2)
== END ==
LOC: SKLAB7 07:49
PROVIDERS: ATTEND Internal Medicine
DX: I10 Essential (primary) hypertension (principal)

== ENCOUNTER → 2024-02-20 | Outpatient (REF) | payer MEDICARE, MEDICAID ==
[~2024-02-20] MED LIST changes: +PIPE2.2525 IV; +PIPE3.3729 IV; -ZOSY1SOL4 IV; -ZOSY1SOL5 IV
[2024-02-20 09:57] LABS: BASO % 0.5 % (0.0-1.0); EOS # 0.3 10^3/uL (0.0-0.5); EOS % 5.1 % (0.0-3.0); HEMATOCRIT 43.2 % (36.0-47.0); HEMOGLOBIN 14.4 g/dl (12.0-15.5); LYMPH # 1.2 10^3/uL (1.5-5.0); LYMPH % 17.8 % (24.0-44.0); MEAN CORPUSCULAR HEMOGLOBIN 32.1 pg (27.0-33.0); MEAN CORPUSCULAR HGB CONC 33.3 g/dl (32.0-36.5); MEAN CORPUSCULAR VOLUME 96.2 fl (80.0-96.0); MONO # 0.6 10^3/uL (0.0-0.8); NEUTROPHILS # 4.4 10^3/uL (1.5-8.5); NEUTROPHILS % 67.3 % (36.0-66.0); PLATELET COUNT, AUTOMATED 308 10^3/uL (150-450); RED BLOOD COUNT 4.49 10^6/uL (4.00-5.40); WHITE BLOOD COUNT 6.5 10^3/uL (4.0-10.0)
[2024-02-20 10:28] LABS: ALBUMIN 3.2 G/DL (3.2-5.2); CREATININE FOR GFR 1.08 MG/DL (0.55-1.30); GLOMERULAR FILTRATION RATE 52.5 (>39); MAGNESIUM LEVEL 2.1 MG/DL (1.8-2.4); PHOSPHORUS LEVEL 4.6 MG/DL (2.4-5.1); POTASSIUM SERUM 4.2 MMOL/L (3.5-5.1)
[2024-02-20 10:30] LABS: PTH INTACT 125.5 PG/ML (18.5-88.0)
== END ==
LOC: SKLAB7 07:52
PROVIDERS: ATTEND Internal Medicine
DX: N18.9 Chronic kidney disease, unspecified (principal)

== ENCOUNTER → 2024-04-16 | Outpatient (REF) | payer MEDICARE, MEDICAID | LOC: SKLAB7 07:00 | PROVIDERS: ATTEND Internal Medicine | DX: I48.91 Unspecified atrial fibrillation (principal) ==

== ENCOUNTER → 2024-05-14 | Outpatient (REF) | payer MEDICARE, MEDICAID ==
[~2024-05-14] MED LIST changes: +CALC1CAP31 PO; +CEPH500C PO; +CINA30TA5 PO; +DULO1CAP6 PO; +JARD1TAB PO; +METO1TAB32 PO; +SIME1CHW5 PO; +TORS10TA3 PO
== END ==
LOC: SKLAB7 07:01
PROVIDERS: ATTEND Internal Medicine
DX: Z53.8 Procedure and treatment not carried out for other reasons (principal)

== ENCOUNTER → 2024-05-16 | Outpatient (REF) | payer MEDICARE, MEDICAID | LOC: SKLAB7 07:00 | PROVIDERS: ATTEND Internal Medicine | DX: N18.9 Chronic kidney disease, unspecified (principal); Z53.8 Procedure and treatment not carried out for other reasons ==

== ENCOUNTER → 2024-05-16 | Outpatient (REF) | payer MEDICARE, MEDICAID ==
[2024-05-16 08:40] LABS: HEMATOCRIT 38.7 % (36.0-47.0); HEMOGLOBIN 13.3 g/dl (12.0-15.5); MEAN CORPUSCULAR HGB CONC 34.4 g/dl (32.0-36.5); MEAN CORPUSCULAR VOLUME 93.3 fl (80.0-96.0); PLATELET COUNT, AUTOMATED 264 10^3/uL (150-450); RED BLOOD COUNT 4.15 10^6/uL (4.00-5.40); WHITE BLOOD COUNT 7.6 10^3/uL (4.0-10.0)
[2024-05-16 09:19] LABS: CALCIUM LEVEL 8.4 MG/DL (8.3-10.6); CREATININE FOR GFR 1.11 MG/DL (0.55-1.30); GLOMERULAR FILTRATION RATE 50.7 (>39); PTH INTACT 169.4 PG/ML (18.5-88.0)
== END ==
LOC: SKLAB7 07:00
PROVIDERS: ATTEND Internal Medicine
DX: I12.9 Hypertensive chronic kidney disease with stage 1 through stage 4 chronic kidney disease, or unspecified chronic kidney disease (principal); N18.9 Chronic kidney disease, unspecified

== ENCOUNTER 2024-05-21 09:16 | Day surgery (SDC) | payer MEDICARE, MEDICAID ==
[~2024-05-21] VITALS: Ht 170.2 cm; Wt 107.5 kg
[2024-05-21] MEDS ORDERED: propofoL 200 MG/20 ML VIAL As Ordered ONE (10:39)
[2024-05-21] MEDS ORDERED: fentaNYL 100 MCG/2 ML INJECTION As Ordered ONE (10:39)
[2024-05-21] MEDS ORDERED: MIDAZOLAM INJ 2MG/2ML VIAL As Ordered ONE (10:39)
[2024-05-21] MEDS ORDERED: LIDOCAINE 2% 100MG/5ML SDV (FOR ANES.) As Ordered ONE (10:39)
[2024-05-21] MEDS: BACITRACIN OINTMENT 30GM TUBE As Ordered ONE (10:42)
[2024-05-21] MEDS ORDERED: AMIODARONE HCL 150 MG/100 ML PREMIXED BAG (NEXTERONE) As Ordered ONE (10:44)
[2024-05-21] MEDS: ceFAZolin SOD 2 GM in IV 1 EA IV ONE (11:39)
[2024-05-21] MEDS ORDERED: ACETAMINOPHEN 1000MG 100ML IV BAG As Ordered ONE (11:53)
[2024-05-21] MEDS: ceFAZolin 2 GM/D5W 50 ML IV BAG As Ordered ONE (12:17)
[2024-05-21] MEDS: LIDOCAINE 1% SDV 30ML VIAL As Ordered ONE (12:20)
[2024-05-21] MEDS: ceFAZolin 1GM VIAL As Ordered ONE (12:21)
[2024-05-21 13:00] VITALS: BP 102/63; TEMP 97.7; O2SAT 99
== END 2024-05-21 13:22 | disposition home or self-care (01) ==
LOC: M SDC 09:16
PROVIDERS: ATTEND Internal Medicine Cardiovascular Disease
DX: I49.5 Sick sinus syndrome (principal); I48.0 Paroxysmal atrial fibrillation; Z95.0 Presence of cardiac pacemaker; G47.9 Sleep disorder, unspecified; Z86.73 Personal history of transient ischemic attack (TIA), and cerebral infarction without residual deficits; Z68.37 Body mass index [BMI] 37.0-37.9, adult; Z88.5 Allergy status to narcotic agent; Z79.899 Other long term (current) drug therapy
CPT/HCPCS: 33228; 93005; C1785; J0131; J0690; J2250; J3010

== ENCOUNTER → 2024-06-05 | Outpatient (REF) | payer MEDICARE, MEDICAID ==
[2024-06-05 10:51] LABS: HEMOGLOBIN 14.4 g/dl (12.0-15.5); MEAN CORPUSCULAR HEMOGLOBIN 31.4 pg (27.0-33.0); MEAN CORPUSCULAR HGB CONC 33.5 g/dl (32.0-36.5); MEAN CORPUSCULAR VOLUME 93.7 fl (80.0-96.0); PLATELET COUNT, AUTOMATED 368 10^3/uL (150-450); RED BLOOD COUNT 4.59 10^6/uL (4.00-5.40); WHITE BLOOD COUNT 19.6 10^3/uL (4.0-10.0)
[2024-06-05 11:10] LABS: C REACTIVE PROTEIN QUANTITATIV 2.3 MG/DL (<1.0)
[2024-06-05 11:11] LABS: CALCIUM LEVEL 9.2 MG/DL (8.3-10.6); CREATININE FOR GFR 1.14 MG/DL (0.55-1.30); GLOMERULAR FILTRATION RATE 49.2 (>39); POTASSIUM SERUM 4.2 MMOL/L (3.5-5.1)
== END ==
LOC: SKLAB7 07:24
PROVIDERS: ATTEND Internal Medicine
DX: R21 Rash and other nonspecific skin eruption (principal)

== ENCOUNTER → 2024-06-06 | Outpatient (REF) | payer MEDICARE, MEDICAID ==
[2024-06-11 09:33] LABS: ANA SCREEN, IFA POSITIVE (NEGATIVE)
== END ==
LOC: SKLAB7 08:24
PROVIDERS: ATTEND Internal Medicine
DX: R21 Rash and other nonspecific skin eruption (principal)

== ENCOUNTER → 2024-06-07 | Outpatient (REF) | payer MEDICARE, MEDICAID ==
[2024-06-07 08:00] LABS: HEMATOCRIT 41.5 % (36.0-47.0); HEMOGLOBIN 14.2 g/dl (12.0-15.5); MEAN CORPUSCULAR HGB CONC 34.2 g/dl (32.0-36.5); MEAN CORPUSCULAR VOLUME 93.5 fl (80.0-96.0); PLATELET COUNT, AUTOMATED 351 10^3/uL (150-450); RED BLOOD COUNT 4.44 10^6/uL (4.00-5.40); WHITE BLOOD COUNT 17.3 10^3/uL (4.0-10.0)
== END ==
LOC: SKLAB7 06:47
PROVIDERS: ATTEND Internal Medicine
DX: I10 Essential (primary) hypertension (principal); Z79.899 Other long term (current) drug therapy

== ENCOUNTER → 2024-06-10 | Outpatient (REF) | payer MEDICARE, MEDICAID ==
[2024-06-10 10:49] LABS: HEMATOCRIT 45.7 % (36.0-47.0); HEMOGLOBIN 15.1 g/dl (12.0-15.5); MEAN CORPUSCULAR HEMOGLOBIN 31.6 pg (27.0-33.0); MEAN CORPUSCULAR VOLUME 95.6 fl (80.0-96.0); PLATELET COUNT, AUTOMATED 364 10^3/uL (150-450); RED BLOOD COUNT 4.78 10^6/uL (4.00-5.40); WHITE BLOOD COUNT 17.5 10^3/uL (4.0-10.0)
[2024-06-10 11:20] LABS: CALCIUM LEVEL 9.4 MG/DL (8.3-10.6); CREATININE FOR GFR 1.22 MG/DL (0.55-1.30); GLOMERULAR FILTRATION RATE 45.5 (>39); POTASSIUM SERUM 4.5 MMOL/L (3.5-5.1)
== END ==
LOC: SKLAB7 07:24
PROVIDERS: ATTEND Internal Medicine
DX: D72.829 Elevated white blood cell count, unspecified (principal)

== ENCOUNTER → 2024-06-14 | Outpatient (REF) | payer MEDICARE, MEDICAID ==
[2024-06-14 09:40] LABS: HEMATOCRIT 45.3 % (36.0-47.0); HEMOGLOBIN 14.9 g/dl (12.0-15.5); MEAN CORPUSCULAR HEMOGLOBIN 31.4 pg (27.0-33.0); MEAN CORPUSCULAR HGB CONC 32.9 g/dl (32.0-36.5); MEAN CORPUSCULAR VOLUME 95.4 fl (80.0-96.0); PLATELET COUNT, AUTOMATED 344 10^3/uL (150-450); RED BLOOD COUNT 4.75 10^6/uL (4.00-5.40); WHITE BLOOD COUNT 16.1 10^3/uL (4.0-10.0)
[2024-06-14 10:10] LABS: CALCIUM LEVEL 8.7 MG/DL (8.3-10.6); CREATININE FOR GFR 1.17 MG/DL (0.55-1.30); GLOMERULAR FILTRATION RATE 47.7 (>39); POTASSIUM SERUM 3.9 MMOL/L (3.5-5.1)
== END ==
LOC: SKLAB7 07:23
PROVIDERS: ATTEND Internal Medicine
DX: D72.829 Elevated white blood cell count, unspecified (principal)

== ENCOUNTER → 2024-06-25 | Outpatient (REF) | payer MEDICARE, MEDICAID ==
[~2024-06-25] MED LIST changes: -MIDO2.5T PO; +MIDO2.5T3 PO
[2024-06-25 08:54] LABS: BASO % 0.2 % (0.0-1.0); EOS # 0.4 10^3/uL (0.0-0.5); EOS % 2.6 % (0.0-3.0); HEMATOCRIT 45.6 % (36.0-47.0); HEMOGLOBIN 15.8 g/dl (12.0-15.5); LYMPH # 3.1 10^3/uL (1.5-5.0); LYMPH % 21.9 % (24.0-44.0); MEAN CORPUSCULAR HEMOGLOBIN 32.8 pg (27.0-33.0); MEAN CORPUSCULAR HGB CONC 34.6 g/dl (32.0-36.5); MEAN CORPUSCULAR VOLUME 94.6 fl (80.0-96.0); MONO # 1.3 10^3/uL (0.0-0.8); MONO % 8.9 % (2.0-8.0); NEUTROPHILS # 9.3 10^3/uL (1.5-8.5); NEUTROPHILS % 65.1 % (36.0-66.0); PLATELET COUNT, AUTOMATED 274 10^3/uL (150-450); RED BLOOD COUNT 4.82 10^6/uL (4.00-5.40); WHITE BLOOD COUNT 14.2 10^3/uL (4.0-10.0)
[2024-06-25 09:27] LABS: CALCIUM LEVEL 8.9 MG/DL (8.3-10.6); CREATININE FOR GFR 1.14 MG/DL (0.55-1.30); GLOMERULAR FILTRATION RATE 49.2 (>39); MAGNESIUM LEVEL 2.3 MG/DL (1.8-2.4); PHOSPHORUS LEVEL 4.5 MG/DL (2.4-5.1); POTASSIUM SERUM 4.3 MMOL/L (3.5-5.1); PTH INTACT 211.7 PG/ML (18.5-88.0)
== END ==
LOC: SKLAB7 07:20
PROVIDERS: ATTEND Internal Medicine
DX: N18.9 Chronic kidney disease, unspecified (principal)

== ENCOUNTER → 2024-07-04 | Outpatient (REF) | payer MEDICARE, MEDICAID | LOC: SKLAB7 07:00 | PROVIDERS: ATTEND Internal Medicine | DX: I48.91 Unspecified atrial fibrillation (principal); Z79.899 Other long term (current) drug therapy ==

== ENCOUNTER → 2024-08-08 | Outpatient (REF) | payer MEDICARE, MEDICAID ==
[2024-08-08 09:54] LABS: ALBUMIN 2.5 G/DL (3.2-5.2); ALKALINE PHOSPHATASE 119 U/L (35-104); ALT/SGPT 16 U/L (7.0-40); AST/SGOT 16 U/L (<34); BILIRUBIN,TOTAL 0.4 MG/DL (0.3-1.2); BLOOD UREA NITROGEN 17 MG/DL (9-23); CALCIUM LEVEL 7.4 MG/DL (8.3-10.6); CARBON DIOXIDE LEVEL 27 MMOL/L (20-31); CHLORIDE LEVEL 98 MMOL/L (98-107); CREATININE FOR GFR 0.95 MG/DL (0.55-1.30); GLOMERULAR FILTRATION RATE > 60.0 (>39); GLUCOSE, FASTING 112 MG/DL (74-106); POTASSIUM SERUM 4.3 MMOL/L (3.5-5.1); SODIUM LEVEL 136 MMOL/L (136-145); TOTAL PROTEIN 5.9 G/DL (5.7-8.2)
== END ==
LOC: SKLAB7 07:00
PROVIDERS: ATTEND Internal Medicine
DX: I10 Essential (primary) hypertension (principal)

== ENCOUNTER → 2024-10-10 | Outpatient (REF) | payer MEDICARE, MEDICAID ==
[2024-10-10 09:49] LABS: THYROID STIMULATING HORMONE 1.237 uIU/ML (0.55-4.78)
[2024-10-10 09:52] LABS: DIGOXIN LEVEL 0.7 NG/ML (0.8-2.0)
== END ==
LOC: SKLAB7 07:00
PROVIDERS: ATTEND Internal Medicine
DX: E03.9 Hypothyroidism, unspecified (principal); Z79.899 Other long term (current) drug therapy

== ENCOUNTER → 2024-10-22 | Outpatient (REF) | payer MEDICARE, MEDICAID ==
[2024-10-22 10:32] LABS: BASO % 0.4 % (0.0-1.0); EOS # 0.4 10^3/uL (0.0-0.5); EOS % 6.2 % (0.0-3.0); HEMATOCRIT 38.2 % (36.0-47.0); LYMPH # 1.4 10^3/uL (1.5-5.0); LYMPH % 20.6 % (24.0-44.0); MEAN CORPUSCULAR VOLUME 91.2 fl (80.0-96.0); MONO # 0.7 10^3/uL (0.0-0.8); MONO % 10.8 % (2.0-8.0); NEUTROPHILS # 4.2 10^3/uL (1.5-8.5); NEUTROPHILS % 61.7 % (36.0-66.0); PLATELET COUNT, AUTOMATED 291 10^3/uL (150-450); RED BLOOD COUNT 4.19 10^6/uL (4.00-5.40); WHITE BLOOD COUNT 6.8 10^3/uL (4.0-10.0)
[2024-10-22 10:56] LABS: ALBUMIN 2.8 G/DL (3.2-5.2); CALCIUM LEVEL 7.5 MG/DL (8.3-10.6); CREATININE FOR GFR 0.97 MG/DL (0.55-1.30); GLOMERULAR FILTRATION RATE 59.3 (>39); MAGNESIUM LEVEL 1.9 MG/DL (1.8-2.4); PHOSPHORUS LEVEL 4.6 MG/DL (2.4-5.1); POTASSIUM SERUM 4.3 MMOL/L (3.5-5.1)
[2024-10-22 12:35] LABS: PTH INTACT 110.2 PG/ML (18.5-88.0)
== END ==
LOC: SKLAB7 08:42
PROVIDERS: ATTEND Internal Medicine
DX: N18.9 Chronic kidney disease, unspecified (principal)

== ENCOUNTER → 2024-11-06 | Outpatient (REF) | payer MEDICARE, MEDICAID ==
[2024-11-06 13:57] LABS: BASO % 0.4 % (0.0-1.0); EOS # 0.4 10^3/uL (0.0-0.5); EOS % 4.2 % (0.0-3.0); HEMATOCRIT 44.1 % (36.0-47.0); HEMOGLOBIN 15.1 g/dl (12.0-15.5); LYMPH # 1.3 10^3/uL (1.5-5.0); LYMPH % 12.9 % (24.0-44.0); MEAN CORPUSCULAR HEMOGLOBIN 30.6 pg (27.0-33.0); MEAN CORPUSCULAR HGB CONC 34.2 g/dl (32.0-36.5); MEAN CORPUSCULAR VOLUME 89.3 fl (80.0-96.0); MONO # 1.1 10^3/uL (0.0-0.8); MONO % 10.6 % (2.0-8.0); NEUTROPHILS # 7.1 10^3/uL (1.5-8.5); NEUTROPHILS % 71.5 % (36.0-66.0); PLATELET COUNT, AUTOMATED 331 10^3/uL (150-450); RED BLOOD COUNT 4.94 10^6/uL (4.00-5.40)
[2024-11-06 14:18] LABS: ALBUMIN 3.2 G/DL (3.2-5.2); BILIRUBIN,TOTAL 0.6 MG/DL (0.3-1.2); CREATININE FOR GFR 1.12 MG/DL (0.55-1.30); GLOMERULAR FILTRATION RATE 50.2 (>39); POTASSIUM SERUM 4.4 MMOL/L (3.5-5.1); TOTAL PROTEIN 6.8 G/DL (5.7-8.2)
[2024-11-06 14:48] LABS: AMORPHOUS SEDIMENT SMALL (NEGATIVE); APPEARANCE, URINE HAZY (CLEAR); BACTERIA, URINE AUTO 1+ (NEGATIVE); BILIRUBIN, URINE AUTO NEGATIVE (NEGATIVE); BLOOD, URINE BLOOD NEGATIVE (NEGATIVE); COLOR, URINE YELLOW (YELLOW); GLUCOSE, URINE (UA) AUTO 3+ mg/dL (NEGATIVE); KETONE, URINE AUTO NEGATIVE (NEGATIVE); LEUKOCYTE ESTERASE, URINE AUTO 3+ (NEGATIVE); NITRITE, URINE AUTO NEGATIVE (NEGATIVE); PROTEIN, URINE AUTO NEGATIVE (NEGATIVE); RBC, URINE AUTO 2 /HPF (0-3); SPECIFIC GRAVITY URINE AUTO 1.003 (1.002-1.035); SQUAMOUS EPITHELIAL CELL UR AU 0 /HPF (0-6); UROBILINOGEN, URINE AUTO 0.2 mg/dL (0.0-2.0); WBC, URINE AUTO 137 /HPF (0-3)
== END ==
LOC: SKLAB7 12:55
PROVIDERS: ATTEND Internal Medicine
DX: R41.82 Altered mental status, unspecified (principal)

== ENCOUNTER → 2024-11-13 | Outpatient (REF) | payer MEDICARE, MEDICAID ==
[2024-11-13 15:59] LABS: HEMATOCRIT 42.6 % (36.0-47.0); HEMOGLOBIN 14.7 g/dl (12.0-15.5); MEAN CORPUSCULAR HEMOGLOBIN 30.4 pg (27.0-33.0); MEAN CORPUSCULAR HGB CONC 34.5 g/dl (32.0-36.5); MEAN CORPUSCULAR VOLUME 88.2 fl (80.0-96.0); PLATELET COUNT, AUTOMATED 296 10^3/uL (150-450); RED BLOOD COUNT 4.83 10^6/uL (4.00-5.40)
[2024-11-13 16:26] LABS: CALCIUM LEVEL 8.2 MG/DL (8.3-10.6); CREATININE FOR GFR 1.43 MG/DL (0.55-1.30); GLOMERULAR FILTRATION RATE 37.9 (>39)
== END ==
LOC: SKLAB7 15:15
PROVIDERS: ATTEND Internal Medicine
DX: R23.3 Spontaneous ecchymoses (principal)

== ENCOUNTER → 2024-11-15 | Outpatient (REF) | payer MEDICARE, MEDICAID ==
[2024-11-15 06:41] LABS: HEMATOCRIT 39.9 % (36.0-47.0); HEMOGLOBIN 13.5 g/dl (12.0-15.5); MEAN CORPUSCULAR HEMOGLOBIN 30.7 pg (27.0-33.0); MEAN CORPUSCULAR HGB CONC 33.8 g/dl (32.0-36.5); MEAN CORPUSCULAR VOLUME 90.7 fl (80.0-96.0); PLATELET COUNT, AUTOMATED 261 10^3/uL (150-450); WHITE BLOOD COUNT 6.7 10^3/uL (4.0-10.0)
[2024-11-15 08:21] LABS: CALCIUM LEVEL 7.5 MG/DL (8.3-10.6); CREATININE FOR GFR 1.46 MG/DL (0.55-1.30)
== END ==
LOC: SKLAB7 07:00
PROVIDERS: ATTEND Internal Medicine
DX: E87.1 Hypo-osmolality and hyponatremia (principal)

== ENCOUNTER → 2024-11-18 | Outpatient (REF) | payer MEDICARE, MEDICAID ==
[2024-11-18 07:55] LABS: HEMATOCRIT 39.1 % (36.0-47.0); HEMOGLOBIN 13.1 g/dl (12.0-15.5); MEAN CORPUSCULAR HEMOGLOBIN 30.3 pg (27.0-33.0); MEAN CORPUSCULAR HGB CONC 33.5 g/dl (32.0-36.5); MEAN CORPUSCULAR VOLUME 90.3 fl (80.0-96.0); PLATELET COUNT, AUTOMATED 293 10^3/uL (150-450); RED BLOOD COUNT 4.33 10^6/uL (4.00-5.40); WHITE BLOOD COUNT 6.1 10^3/uL (4.0-10.0)
[2024-11-18 08:30] LABS: CALCIUM LEVEL 7.8 MG/DL (8.3-10.6); CREATININE FOR GFR 1.22 MG/DL (0.55-1.30); GLOMERULAR FILTRATION RATE 45.5 (>39)
== END ==
LOC: SKLAB7 07:00
PROVIDERS: ATTEND Internal Medicine
DX: E87.1 Hypo-osmolality and hyponatremia (principal)

== ENCOUNTER → 2024-12-10 | Outpatient (REF) | payer MEDICARE, MEDICAID ==
[~2024-12-10] MED LIST changes: -AMBI5TAB PO; +MAG30ORA18 PO; -MYLASSUD PO; +PRED-1142 PO; -PRED1TABL PO; +ZOLP-532 PO
[2024-12-10 07:48] LABS: HEMATOCRIT 38.7 % (36.0-47.0); HEMOGLOBIN 12.9 g/dl (12.0-15.5); MEAN CORPUSCULAR HEMOGLOBIN 30.5 pg (27.0-33.0); MEAN CORPUSCULAR HGB CONC 33.3 g/dl (32.0-36.5); MEAN CORPUSCULAR VOLUME 91.5 fl (80.0-96.0); PLATELET COUNT, AUTOMATED 314 10^3/uL (150-450); RED BLOOD COUNT 4.23 10^6/uL (4.00-5.40); WHITE BLOOD COUNT 6.5 10^3/uL (4.0-10.0)
[2024-12-10 08:17] LABS: CALCIUM LEVEL 7.7 MG/DL (8.3-10.6); CREATININE FOR GFR 1.03 MG/DL (0.55-1.30); POTASSIUM SERUM 3.9 MMOL/L (3.5-5.1)
[2024-12-10 08:18] LABS: TOTAL 25(OH) VITAMIN D 42.8 NG/ML (20.0-100.0)
== END ==
LOC: SKLAB7 07:00
PROVIDERS: ATTEND Internal Medicine
DX: E55.9 Vitamin D deficiency, unspecified (principal); E53.9 Vitamin B deficiency, unspecified; N18.9 Chronic kidney disease, unspecified; I25.10 Atherosclerotic heart disease of native coronary artery without angina pectoris

== ENCOUNTER → 2025-02-20 | Outpatient (REF) | payer MEDICARE, MEDICAID ==
[2025-02-20 09:43] LABS: BASO # 0.0 10^3/uL (0.0-0.2); BASO % 0.5 % (0.0-1.0); EOS # 0.4 10^3/uL (0.0-0.5); EOS % 5.4 % (0.0-3.0); LYMPH # 1.3 10^3/uL (1.5-5.0); LYMPH % 17.0 % (24.0-44.0); MONO # 1.0 10^3/uL (0.0-0.8); MONO % 12.8 % (2.0-8.0); NEUTROPHILS # 5.0 10^3/uL (1.5-8.5); NEUTROPHILS % 63.9 % (36.0-66.0); PLATELET COUNT, AUTOMATED 269 10^3/uL (150-450)
[2025-02-20 10:12] LABS: CALCIUM LEVEL 7.6 MG/DL (8.3-10.6); CARBON DIOXIDE LEVEL 24.0 MMOL/L (20-31); CHLORIDE LEVEL 103.0 MMOL/L (98-107); CREATININE FOR GFR 0.98 MG/DL (0.55-1.30); GLOMERULAR FILTRATION RATE 59.1 (>39); MAGNESIUM LEVEL 1.8 MG/DL (1.8-2.4); PHOSPHORUS LEVEL 4.6 MG/DL (2.4-5.1); POTASSIUM SERUM 4.5 MMOL/L (3.5-5.1); SODIUM LEVEL 138.0 MMOL/L (136-145)
[2025-02-20 10:13] LABS: PTH INTACT 99.4 PG/ML (18.5-88.0)
== END ==
LOC: SKLAB7 08:40
PROVIDERS: ATTEND Internal Medicine
DX: N18.9 Chronic kidney disease, unspecified (principal)

== ENCOUNTER → 2025-02-23 | Outpatient (REF) | payer MEDICARE, MEDICAID ==
[2025-02-23 09:46] LABS: BASO # 0.0 10^3/uL (0.0-0.2); BASO % 0.4 % (0.0-1.0); EOS # 0.3 10^3/uL (0.0-0.5); EOS % 4.3 % (0.0-3.0); LYMPH # 1.2 10^3/uL (1.5-5.0); LYMPH % 16.2 % (24.0-44.0); MONO # 1.0 10^3/uL (0.0-0.8); MONO % 13.3 % (2.0-8.0); NEUTROPHILS # 4.8 10^3/uL (1.5-8.5); NEUTROPHILS % 65.4 % (36.0-66.0); PLATELET COUNT, AUTOMATED 259 10^3/uL (150-450)
[2025-02-23 09:53] LABS: ALT/SGPT 16.0 U/L (7.0-40); AST/SGOT 22.0 U/L (<34); CALCIUM LEVEL 8.3 MG/DL (8.3-10.6); CARBON DIOXIDE LEVEL 26.0 MMOL/L (20-31); CHLORIDE LEVEL 104.0 MMOL/L (98-107); CREATININE FOR GFR 0.98 MG/DL (0.55-1.30); GLOMERULAR FILTRATION RATE 59.1 (>39); POTASSIUM SERUM 4.5 MMOL/L (3.5-5.1); SODIUM LEVEL 142.0 MMOL/L (136-145)
== END ==
LOC: M RAD 08:20 → SKLAB7 08:20
PROVIDERS: ATTEND Nurse Practitioner Adult Health
DX: R07.9 Chest pain, unspecified (principal); R00.0 Tachycardia, unspecified; Z95.0 Presence of cardiac pacemaker; I48.91 Unspecified atrial fibrillation; I45.89 Other specified conduction disorders; I51.7 Cardiomegaly

== ENCOUNTER → 2025-02-23 | Outpatient (REF) | payer MEDICARE, MEDICAID | LOC: SKLAB7 00:41 | PROVIDERS: ATTEND Nurse Practitioner Family | DX: R07.9 Chest pain, unspecified (principal); R00.0 Tachycardia, unspecified; Z53.8 Procedure and treatment not carried out for other reasons ==

== ENCOUNTER → 2025-04-08 | Outpatient (REF) | payer MEDICARE, MEDICAID | LOC: SKLAB7 07:00 | PROVIDERS: ATTEND Internal Medicine | DX: Z79.899 Other long term (current) drug therapy (principal) ==

== ENCOUNTER → 2025-05-13 | Outpatient (REF) | payer MEDICARE, MEDICAID | LOC: SKLAB7 05-08 07:00 | PROVIDERS: ATTEND Internal Medicine | DX: N18.9 Chronic kidney disease, unspecified (principal) ==

== ENCOUNTER → 2025-06-24 | Outpatient (REF) | payer MEDICARE, MEDICAID ==
[2025-06-24 09:30] LABS: BASO # 0.0 10^3/uL (0.0-0.2); BASO % 0.5 % (0.0-1.0); EOS # 0.5 10^3/uL (0.0-0.5); EOS % 6.6 % (0.0-3.0); LYMPH # 1.3 10^3/uL (1.5-5.0); LYMPH % 16.6 % (24.0-44.0); MONO # 0.5 10^3/uL (0.0-0.8); MONO % 7.0 % (2.0-8.0); NEUTROPHILS # 5.2 10^3/uL (1.5-8.5); NEUTROPHILS % 68.9 % (36.0-66.0); PLATELET COUNT, AUTOMATED 291 10^3/uL (150-450)
[2025-06-24 09:50] LABS: CALCIUM LEVEL 9.1 MG/DL (8.3-10.6); CARBON DIOXIDE LEVEL 29.0 MMOL/L (20-31); CHLORIDE LEVEL 96.0 MMOL/L (98-107); CREATININE FOR GFR 1.18 MG/DL (0.55-1.30); GLOMERULAR FILTRATION RATE 47.3 (>39); MAGNESIUM LEVEL 2.1 MG/DL (1.8-2.4); PHOSPHORUS LEVEL 4.0 MG/DL (2.4-5.1); POTASSIUM SERUM 4.2 MMOL/L (3.5-5.1); SODIUM LEVEL 135.0 MMOL/L (136-145)
[2025-06-24 12:11] LABS: PTH INTACT 226.2 PG/ML (18.5-88.0)
== END ==
LOC: SKLAB7 07:52
PROVIDERS: ATTEND Family Medicine
DX: N18.9 Chronic kidney disease, unspecified (principal)

== ENCOUNTER → 2025-07-08 | Outpatient (REF) | payer MEDICARE, MEDICAID ==
[~2025-07-08] MED LIST changes: -BACTDSTA PO; +SULF-8 PO
== END ==
LOC: SKLAB7 07:00
PROVIDERS: ATTEND Family Medicine
DX: Z79.899 Other long term (current) drug therapy (principal)